=== PATIENT | female | born 1960 | race Caucasian/White ===

== ENCOUNTER 2020-01-02 10:28 | Emergency (ER) | payer OTHER, SELFPAY ==
--- NOTE | ~2020-01-02 | XR_ITS ---
EXAMINATION: XR chest 1V portable DATE: 01/02/2020 11:21 INDICATION: Chest pain. TECHNIQUE: A single frontal view of the chest was obtained. COMPARISON: Chest single view 03/21/2019, chest CT 08/12/2012 FINDINGS: The patient is rotated to her left. There is mild scarring at right lung apex. No pleural e ffusion or pneumothorax. The heart size is normal. IMPRESSION: 1. Mild scarring at right lung apex. Reviewed, dictated and finalized at location B. INE PAN GREASER
--- NOTE | ~2020-01-02 | CT_ITS ---
EXAMINATION: CTA chest DATE: 01/02/2020 12:06 INDICATION: Shortness of breath. Back pain radiating to the chest. TECHNIQUE: Computed tomographic angiography (CTA) of the chest was performed with 90 mL Omnipaque-350 intravenous contrast. Automated exposure control and iterative reconstruction technique were employe d. The dose-length product was 154.51 mGy-cm. Maximum intensity projection 3D-reconstructions of the aorta and other arteries were constructed by the technologist on a separate workstation. COMPARISON: Chest CT 08/12/2012 FINDINGS: There is mild scarring at the lung apices. There is mild emphysema. There is mild atelectas is bilaterally. No pleural effusion. The heart size is normal. There are coronary artery calcificatio ns. No pericardial effusion. There is aortic atherosclerosis. No aneurysm or dissection. There is no pulmonary embolus. There are approximately 4 stones in left kidney measuring up to 3 mm. There is a c hronic compression fracture of T4 vertebral body. There is a hemangioma in T2 vertebral body. IMPRESSION: 1. Aortic atherosclerosis. No aneurysm or dissection. 2. No pulmonary embolus. 3. Mild emphysema. Reviewed, dictated and finalized at location B. SFORMER INSPECTOR
[2020-01-02 10:35] VITALS: BP 191/113; PULSE 91; RESP 18; TEMP 36.8
[2020-01-02 10:43] VITALS: BP 134/76; PULSE 78; RESP 18; O2SAT 99
--- NOTE | 2020-01-02 11:01 | ECG_ITS ---
Measurements Intervals [place] Rate: 80 P: 80 CT: 158 QRS: 85 QRSD: 77 T: 89 QT: 358 QTc: 414 Interpretive Statements SINUS RHYTHM RIGHT ATRIAL ENLARGEMENT CANNOT RULE OUT SEPTAL INFARCT, AGE INDETERMINATE BORDERLINE T WAVE ABNORMALITY- HIGH LATERAL LEADS BASELINE ARTIFACT- I, III ABNORMAL ECG Electronically Signed On 01-02-2020 13:49:23 MANAGER AUDIO by Varun Sepulveda D.O.
[2020-01-02 11:18] LABS: Basophils Percent Auto 0.5 % (0.2-1.2); Eosinophils Absolute Auto 0.1 K/mm3 (0-0.3); Eosinophils Percent Auto 1.4 % (0-4.4); Hematocrit 48.4 % (37.0-47.0); Hemoglobin 16.4 g/dL (12.0-15.0); Immature Granulocyte Absolute 0.02 K/mm3 (0.00-0.031); Immature Granulocyte Percent A 0.3 % (0-0.5); Lymphocytes Absolute Auto 2.31 K/mm3 (0.9-3.2); Lymphocytes Percent Auto 31.3 % (18.3-44.2); Mean Corpuscular HGB Conc 33.9 g/dl (32-36); Mean Corpuscular Hemoglobin 30.5 pg (26-34); Mean Platelet Volume 8.3 fl (7.4-10.4); Monocytes Absolute Auto 0.5 K/mm3 (0.1-0.6); Monocytes Percent Auto 7.1 % (2.6-8.5); Neutrophils Absolute Auto 4.4 K/mm3 (1.3-6.7); Neutrophils Percent Auto 59.4 % (45.5-73.1); Platelet Count Result 187 k/mm3 (150-375); Red Blood Count 5.38 M/mm3 (4.2-5.4); Red Cell Distribution Width 14.5 % (11.5-14.5); White Blood Count 7.4 K/mm3 (4.5-10.0)
[2020-01-02 11:29] LABS: INR 0.9; Prothrombin Time 12.3 Seconds (11.1-14.7)
[2020-01-02 11:30] LABS: Partial Thromboplastin Time 28.9 SECONDS (22.3-36.8)
[2020-01-02 11:32] LABS: D Dimer 0.78 ug/mL (<0.48)
[2020-01-02 11:33] LABS: Alanine Aminotransferase 16 U/L (4-35); Albumin Level 4.8 g/dL (3.5-5.1); Alkaline Phosphatase 89 U/L (38-126); Anion Gap 9 mmol/L (8-16); Aspartate Amino Transferase 28 U/L (14-36); Bilirubin,Total 0.6 mg/dL (0.2-1.3); Blood Urea Nitrogen 15 mg/dL (7-17); Calcium 9.8 mg/dL (8.4-10.2); Carbon Dioxide 29 mmol/L (22-30); Chloride 101 mmol/L (98-107); Estimated CRCL calculation 34 ml/min; Estimated Glomerular Filt Rate 57; Glucose 98 mg/dL (65-105); Potassium 4.4 mmol/L (3.4-5.0); Sodium 139 mmol/L (137-145)
[2020-01-02 11:45] LABS: Troponin I < 0.012 ng/mL (0.000-0.034)
[2020-01-02] MEDS: ONDANSETRON INJ 4 MG/2 ML VIAL IV PUSH (11:49)
--- NOTE | 2020-01-02 12:42 | ED.GENADULT ---
HPI - General Adult General Chief complaint: Back Pain/Injury Stated complaint: left side rib pain Time Seen by Provider: 01/02/20 10:53 Source: patient Mode of arrival: ambulatory Limitations: no limitations History of Present Illness HPI narrative: Patient is a 59-year-old female who presents to emergency department for evaluation of left-sided back and lateral chest discomfort for the last 24 hours patient notes that the pain is worse with movement and breathing patient denies injury trauma URI symptoms or similar occurrence. Related Data Home Medications Medication Instructions Recorded Confirmed hydrochlorothiazide 25 mg PO DAILY 03/21/19 simvastatin mg DAILY 03/21/19 aspirin [Aspir-81] 01/02/20 01/02/20 carvedilol 3.125 mg PO Q12H 01/02/20 01/02/20 clopidogrel 01/02/20 enalapril maleate 2.5 mg PO DAILY 01/02/20 01/02/20 ergocalciferol (vitamin D2) unit PO 01/02/20 [Vitamin D2] rosuvastatin 20 mg PO DAILY 01/02/20 01/02/20 Allergies Allergy/AdvReac Type Severity Reaction Status Date / Time No Known Allergies Allergy Verified 01/02/20 11:37 Review of Systems Review of Systems: All systems reviewed & are unremarkable except as noted in HPI and below PMFSH Past Medical History Medical History COPD (chronic obstructive pulmonary disease) Emphysema of lung Heart murmur Hyperlipidemia Kidney stone Right arm fracture Surgical History Surgical History H/O removal of cyst History of orthopedic surgery right third finger on right hand x3 Hx of section x3 Family History Family History (Updated 03/21/19 @ 18:47 by Sofia Sood) Mother Hx of CABG, Onset Age: 77 Father Arthritis Social History Social History Smoking packs per day: 1 Smoking cigarettes per day: 20.0 Years smoked: 33 Smoking pack-years: 33.00 Smoking status: Current every day smoker Tobacco type: cigarettes Second hand tobacco smoke exposure: Yes Gender identity (if verbalized by the patient): Female Exam Narrative: Exam Narrative: GENERAL: Well-appearing, well-nourished, and in no acute distress. HEAD: Normocephalic, atraumatic. EYES: PERRLA and EOMI. ENT: Nares clear, no rhinorrhea or epistaxis. Mucous membranes moist. CHEST: Clear to auscultation. No respiratory distress. No wheezes rales or rhonchi HEART: Regular rate and rhythm. No murmur heard. Normal peripheral pulses. ABDOMEN: Soft, nontender, nondistended EXTREMITIES: Normal range of motion. No edema. Tenderness of the posterior lateral left-sided ribs no rash or deformity noted SKIN: Warm, dry, no rash. NEURO: No focal deficits. Alert and oriented x3. Cranial nerves II through XII grossly intact PSYCH: Normal mood and affect. Course Course Emergency Course: Patient in the room at this time in no distress given pain medication and had evaluation with no high risk changes in the blood work or imaging will be discharged home for follow-up on an outpatient basis patient advised to watch for rash as could develop shingles as a possible cause no pneumonia or URI symptoms are seen patient is felt appropriate for outpatient care given reasons to return Vital Signs Vital signs: Vital Signs Temperature 98.3 F 01/02/20 10:35 Pulse Rate 91 01/02/20 10:35 Respiratory Rate 18 01/02/20 10:35 Blood Pressure 191/113 H 01/02/20 10:35 Temperature 98.3 F 01/02/20 10:35 Pulse Rate 78 01/02/20 10:43 Respiratory Rate 18 01/02/20 10:43 Blood Pressure 134/76 01/02/20 10:43 Pulse Oximetry 99 01/02/20 10:43 Medical Decision Making [facility] Narrative Medical decision making narrative: Patients EKGs and labs are without significant high risk changes. Cardiac risk factors were reviewed. Negative CTA testing of the chest. patient is felt to b reasonable
[2020-01-02 12:54] VITALS: BP 142/78; PULSE 78; RESP 18; TEMP 36.7; O2SAT 99
[2020-01-02] MEDS: HYDROcodone/acetaminophen (*CRX) 5-325 MG TABLET 1 TAB PO (12:59)
== END 2020-01-02 13:04 | disposition home or self-care (01) ==
PROVIDERS: Emergency Medicine Emergency Medical Services; Emergency Provider Emergency Medicine
DX: R07.89 Other chest pain (principal); J43.9 Emphysema, unspecified; E78.5 Hyperlipidemia, unspecified; Z87.442 Personal history of urinary calculi; F17.210 Nicotine dependence, cigarettes, uncomplicated; R94.31 Abnormal electrocardiogram [ECG] [EKG]
CPT/HCPCS: 36415; 71045; 71275; 80053; 84484; 85025; 85380; 85610; 85730; 93005; 96374; 99284; A9270; J2405; Q9967

== ENCOUNTER 2020-05-16 08:07 | Outpatient (CLI) | payer OTHER, SELFPAY ==
--- NOTE | ~2020-05-16 | CT_ITS ---
EXAMINATION: CT diagnostic chest wo con EXAM DATE: 05/16/2020 08:29 INDICATION: Multiple lung nodules. Follow-up. TECHNIQUE: Spiral CT of the chest without contrast. Axial, coronal and sagittal images were reviewe d. Coronal maximum intensity pixel images of chest reviewed. The dose-length product (DLP) for this examination was 58.44 mGy-cm. The exposure was tailored according to patient size (auto mA exposure control), and iterative reconstruction (ASIR) was used as additional dose reduction technique. Jonel rison is made to prior examination from 01/02/2020. FINDINGS: There is severe chronic hyperinflation and mild emphysema. Hyperinflation can be seen with chronic obstructive pulmonary disease (a clinical diagnosis of functional impairment), but is not di agnostic of it. Hyperinflation Some small scattered linear regions of scarring. No suspicious pulmonary nodules. Ther e are no pleural or pericardial effusions. Tracheobronchial tree is patent. There is no mediastin al, hilar or axillary lymphadenopathy. There is no pneumothorax. Heart normal in size. There ar e dense left anterior descending, could be severe coronary arterial sclerosis and/or coronary artery stent(s), which are difficult to distinguish due to cardiac motion on this non-gated exam. Correlate with cardiac history and consider cardiology consult if not recently evaluated. Left nephrolithiasis . The bones are unremarkable. IMPRESSION: 1. No suspicious pulmonary nodules. 2. Severe hyperinflation. Mild emphysema. 3. Left anterior descending coronary artery stent versus calcification. Reviewed, dictated and finalized at location A.
== END 2020-05-16 08:08 | disposition home or self-care (01) ==
PROVIDERS: PCP Physician Assistant; Visit Provider Physician Assistant
DX: R91.8 Other nonspecific abnormal finding of lung field (principal); J43.9 Emphysema, unspecified
CPT/HCPCS: 71250

== ENCOUNTER 2020-08-13 16:17 | Emergency (ER) | payer OTHER, SELFPAY ==
[2020-08-13] VITALS (9 sets, daily range): BP systolic 132–177; BP diastolic 71–77; PULSE 22–88; RESP 18–20; TEMP 36.4; O2SAT 96–100
--- NOTE | ~2020-08-13 | XR_ITS ---
EXAMINATION: XR chest 2V DATE: 08/13/2020 17:15 INDICATION: Left chest pain. Shortness of breath. TECHNIQUE: Frontal and lateral views of the chest were obtained. COMPARISON: Chest single view 01/02/2020, chest CT 05/16/2020 FINDINGS: There is mild scarring at right lung apex. No pleural effusion or pneumothorax. The heart s ize is normal. IMPRESSION: 1. Stable mild scarring at right lung apex. Reviewed, dictated and finalized at location A.
--- NOTE | ~2020-08-13 | CT_ITS ---
EXAMINATION: CTA chest PE protocol DATE: 08/13/2020 20:17 INDICATION: Chest pain. Shortness of breath. TECHNIQUE: Computed tomography angiography (CTA) of the chest was performed with 100 mL Omnipaque-350 intravenous contrast timed to evaluate the pulmonary arteries. Coronal maximum intensity projection 3D-reconstructions were created by the technologist. Automated exposure control and iterative reconst ruction technique were employed. The dose-length product was 140.68 mGy-cm. COMPARISON: Chest CT 05/16/2020 FINDINGS: There is mild scarring at the lung apices. There is mild emphysema. There is mild atelectas is bilaterally. No pleural effusion. The heart size is normal. There are coronary artery calcificatio ns. No pericardial effusion. There is no pulmonary embolus. There is a hemangioma in T2 vertebral bod y. There is a chronic compression fracture of T4. IMPRESSION: 1. No pulmonary embolus. 2. Mild emphysema. Reviewed, dictated and finalized at location A.
--- NOTE | 2020-08-13 16:18 | ECG_ITS ---
Measurements Intervals [place] Rate: 75 P: 86 DE: 151 QRS: 92 QRSD: 79 T: 85 QT: 356 QTc: 400 Interpretive Statements SINUS RHYTHM RIGHT ATRIAL ENLARGEMENT LEFT ATRIAL ENLARGEMENT ANTEROSEPTAL INFARCT, AGE INDETERMINATE PEAKED T WAVES- CONSIDER HYPERKALEMIA OR ISCHEMIA BASELINE ARTIFACT- I, II, AVR, AVL ABNORMAL ECG Electronically Signed On 08-13-2020 19:49:50 CDT by Varun Sepulveda D.O.
[2020-08-13 16:47] LABS: Basophils Absolute Auto 0.1 K/mm3 (0.0-0.1); Basophils Percent Auto 0.3 % (0.2-1.2); Eosinophils Absolute Auto 0.1 K/mm3 (0-0.3); Eosinophils Percent Auto 0.9 % (0-4.4); Hematocrit 46.1 % (37.0-47.0); Immature Granulocyte Absolute 0.08 K/mm3 (0.00-0.031); Immature Granulocyte Percent A 0.5 % (0-0.5); Lymphocytes Absolute Auto 1.75 K/mm3 (0.9-3.2); Lymphocytes Percent Auto 11.6 % (18.3-44.2); Mean Corpuscular HGB Conc 32.5 g/dl (32-36); Mean Corpuscular Hemoglobin 29.9 pg (26-34); Mean Platelet Volume 8.8 fl (7.4-10.4); Monocytes Absolute Auto 0.7 K/mm3 (0.1-0.6); Monocytes Percent Auto 4.5 % (2.6-8.5); Neutrophils Absolute Auto 12.5 K/mm3 (1.3-6.7); Neutrophils Percent Auto 82.2 % (45.5-73.1); Platelet Count Result 231 k/mm3 (150-375); Red Blood Count 5.01 M/mm3 (4.2-5.4); Red Cell Distribution Width 14.4 % (11.5-14.5); White Blood Count 15.2 K/mm3 (4.5-10.0)
[2020-08-13 16:57] LABS: INR 0.9; Partial Thromboplastin Time 27.5 SECONDS (22.3-36.8); Prothrombin Time 13.2 Seconds (11.1-14.7)
[2020-08-13 16:59] LABS: Anion Gap 11 mmol/L (8-16); Blood Urea Nitrogen 14 mg/dL (7-17); Calcium 9.6 mg/dL (8.4-10.2); Carbon Dioxide 26 mmol/L (22-30); Chloride 101 mmol/L (98-107); Estimated CRCL calculation 34 ml/min; Estimated Glomerular Filt Rate 57; Glucose 150 mg/dL (65-105); Potassium 4.7 mmol/L (3.4-5.0); Sodium 138 mmol/L (137-145)
[2020-08-13 17:11] LABS: Troponin I < 0.012 ng/mL (0.000-0.034)
--- NOTE | 2020-08-13 18:14 | ED.GENADULT ---
HPI - General Adult General Chief complaint: Chest Pain Stated complaint: back pain, chest pain Time Seen by Provider: 08/13/20 17:53 Source: patient History of Present Illness HPI narrative: Patient is a 59 y/o female complaining of left sided chest pain and back pain since yesterday. She describes her pain as sharp and rates it as 9/10. She states that taking a deep breath aggravates her pain. However, she is not more SOB than usual. Related Data Home Medications Medication Instructions Recorded Confirmed hydrochlorothiazide 25 mg PO DAILY 03/21/19 simvastatin mg DAILY 03/21/19 aspirin [Aspir-81] 01/02/20 01/02/20 carvedilol 3.125 mg PO Q12H 01/02/20 01/02/20 clopidogrel 01/02/20 enalapril maleate 2.5 mg PO DAILY 01/02/20 01/02/20 ergocalciferol (vitamin D2) unit PO 01/02/20 [Vitamin D2] rosuvastatin 20 mg PO DAILY 01/02/20 01/02/20 Allergies Allergy/AdvReac Type Severity Reaction Status Date / Time No Known Allergies Allergy Verified 01/02/20 11:37 Review of Systems Constitutional: Constitutional: Denies chills, Denies fever(s), Denies headache(s) and Denies weakness Eyes: Eyes: Denies blurry vision ENT: Denies headache(s) and Denies neck pain Cardiovascular: Cardiovascular: Reports chest pain and Denies dyspnea Respiratory: Respiratory: Denies cough and Denies dyspnea Gastrointestinal: Gastrointestinal: Denies abdominal pain, Denies diarrhea, Denies nausea and Denies vomiting Genitourinary: Genitourinary: Denies hematuria and Denies dysuria Musculoskeletal: Musculoskeletal: Denies back pain and Denies neck pain Neurologic: Denies headache(s) and Denies weakness [facility] Past Medical History Medical History COPD (chronic obstructive pulmonary disease) Emphysema of lung Heart murmur Hyperlipidemia Kidney stone Right arm fracture Surgical History Surgical History H/O removal of cyst History of orthopedic surgery right third finger on right hand x3 Hx of section x3 Family History Family History (Updated 03/21/19 @ 18:47 by Sofia Sood) Mother Hx of CABG, Onset Age: 77 Father Arthritis Social History Social History Smoking packs per day: 1 Smoking cigarettes per day: 20.0 Years smoked: 33 Smoking pack-years: 33.00 Smoking status: Current every day smoker Tobacco type: cigarettes Second hand tobacco smoke exposure: Yes Gender identity (if verbalized by the patient): Female Exam Const: General: no acute distress and well developed Orientation/consciousness: oriented to person, oriented to place, oriented to time and patient oriented x3 HENMT: Head: normocephalic Ears: external ears normal General nose exam: Normal external nose present Eyes: General: appearance normal, both eyes and all related structures Conjunctivae: conjunctivae normal Neck: Neck: normal visual inspection and full ROM Chest: Chest palpation & inspection: normal inspection of the chest and no tenderness Resp: Effort & Inspection: normal respiratory effort Auscultation: clear to auscultation bilaterally Cardio: Rate: regular rate Rhythm: regular rhythm GI: GI Palp: No abdominal tenderness and Yes Soft to palpation Skin: General skin exam: normal color and turgor normal Neuro: General: oriented to person, oriented to place, oriented to time and patient oriented x3 Cognition (Neuro): normal cognition Extrem: General: normal to inspection, full ROM and no pedal edema Psych: Appearance: grossly normal Mental Status: mental status grossly normal Affect: normal affect Course Reevaluation(s) Reevaluation #1: Rechecked. Patient feels better. Pain is less, but not completely gone. I advised patient to be admitted for observation and further evaluation. However, patient states that she does not w
[2020-08-13 18:22] LABS: D Dimer 0.82 ug/mL (<0.48)
[2020-08-13] MEDS: KETOROLAC 15 MG/ML VIAL (*BKC) IV PUSH (18:29)
[2020-08-13 18:56] LABS: Troponin I < 0.012 ng/mL (0.000-0.034)
== END 2020-08-13 22:21 | disposition home or self-care (01) ==
PROVIDERS: Emergency Medicine; Emergency Provider Emergency Medicine; PCP Physician Assistant
DX: R07.9 Chest pain, unspecified (principal); J43.9 Emphysema, unspecified; E78.5 Hyperlipidemia, unspecified; Z87.442 Personal history of urinary calculi; F17.210 Nicotine dependence, cigarettes, uncomplicated; R94.31 Abnormal electrocardiogram [ECG] [EKG]
CPT/HCPCS: 36415; 71046; 71275; 80048; 84484; 85025; 85380; 85610; 85730; 93005; 96374; 99284; J1885; Q9967

== ENCOUNTER 2021-03-02 23:19 | Emergency (ER) | payer OTHER, SELFPAY ==
--- NOTE | ~2021-03-02 | XR_ITS ---
XR wrist LT min 3V, XR hand LT min 3V 03/03/2021 01:18 Indication: Left hand and wrist pain after fall Procedure: 4 views left wrist and 3 views left hand Comparison: No prior studies for comparison. Findings: There is a triquetral fracture dorsally seen on the lateral view. Osteopenia. There is a de generative cyst in the proximal pole of the scaphoid. There is mild polyarticular osteoarthritis. No scaphoid fracture. Impression: 1: Triquetral fracture. Reviewed, dictated and finalized at location A. GN MAINTENANCE ENGINEER Impression: 1: Triquetral fracture. Impression: 1: Triquetral fracture.
[2021-03-02 23:24] VITALS: BP 147/60; PULSE 81; RESP 18; TEMP 36.4; O2SAT 100
[2021-03-03 02:11] VITALS: BP 161/77; PULSE 80; RESP 18; O2SAT 98
--- NOTE | 2021-03-03 02:29 | ED.GENADULT ---
HPI - General Adult General Chief complaint: Extremity Injury, Upper Stated complaint: Left Wrist Injury Time Seen by Provider: 03/03/21 02:18 History of Present Illness HPI narrative: Patient 60-year-old female presents emerged from with chief complaint of left wrist pain. The patient reports that she was rollerskating she fell and landed on a outstretched left hand. Patient states she has pain in the left wrist worse with movement and improved with rest patient denies deformity states that it hurts with any kind of movement. Related Data Home Medications Medication Instructions Recorded Confirmed hydrochlorothiazide 25 mg PO DAILY 03/21/19 simvastatin mg DAILY 03/21/19 aspirin [Aspir-81] 01/02/20 01/02/20 carvedilol 3.125 mg PO Q12H 01/02/20 01/02/20 clopidogrel 01/02/20 enalapril maleate 2.5 mg PO DAILY 01/02/20 01/02/20 ergocalciferol (vitamin D2) unit PO 01/02/20 [Vitamin D2] rosuvastatin 20 mg PO DAILY 01/02/20 01/02/20 Allergies Allergy/AdvReac Type Severity Reaction Status Date / Time No Known Allergies Allergy Verified 03/02/21 23:27 Review of Systems Review of Systems: A 10 system review of systems was completed on the patient and is negative except for what is stated in the HPI. Nursing and ancillary documentation was reviewed. [facility] Past Medical History Medical History COPD (chronic obstructive pulmonary disease) Emphysema of lung Heart murmur Hyperlipidemia Kidney stone Right arm fracture Surgical History Surgical History H/O removal of cyst History of orthopedic surgery right third finger on right hand x3 Hx of section x3 Family History Family History Mother Hx of CABG, Onset Age: 77 Father Arthritis Social History Social History Smoking packs per day: 1 Smoking cigarettes per day: 20.0 Years smoked: 33 Smoking pack-years: 33.00 Smoking status: Current every day smoker Tobacco type: cigarettes Second hand tobacco smoke exposure: Yes Gender identity (if verbalized by the patient): Female Exam Narrative: GENERAL: Well-appearing, well-nourished, and in no acute distress. HEAD: Normocephalic, atraumatic. EYES: PERRLA and EOMI. ENT: Nares clear, no rhinorrhea or epistaxis. Mucous membranes moist. NECK: Supple. CHEST: Clear to auscultation. No respiratory distress. HEART: Regular rate and rhythm. No murmur heard. Normal peripheral pulses. ABDOMEN: Soft, nontender, nondistended, normal active bowel sounds. EXTREMITIES: Normal range of motion. No edema. Diffuse tenderness in the left wrist no deformity noted. SKIN: Warm, dry, no rash. NEURO: No focal deficits. Alert and oriented x3. PSYCH: Normal mood and affect. Course Course Emergency Course: Plain film x-ray of the wrist and hand there is a slight irregularity one of the carpal bones. Vital Signs Vital signs: Vital Signs Temperature 36.4 C L 03/02/21 23:24 Pulse Rate 81 03/02/21 23:24 Respiratory Rate 18 03/02/21 23:24 Blood Pressure 147/60 H 03/02/21 23:24 Pulse Oximetry 100 03/02/21 23:24 Temperature 36.4 C L 03/02/21 23:24 Pulse Rate 80 03/03/21 02:11 Respiratory Rate 18 03/03/21 02:11 Blood Pressure 161/77 H 03/03/21 02:11 Pulse Oximetry 98 03/03/21 02:11 Medical Decision Making Vital Signs Vital Signs: Vital Signs Temperature 36.4 C L 03/02/21 23:24 Pulse Rate 81 03/02/21 23:24 Respiratory Rate 18 03/02/21 23:24 Blood Pressure 147/60 H 03/02/21 23:24 Pulse Oximetry 100 03/02/21 23:24 Temperature 36.4 C L 03/02/21 23:24 Pulse Rate 80 03/03/21 02:11 Respiratory Rate 18 03/03/21 02:11 Blood Pressure 161/77 H 03/03/21 02:11 Pulse Oximetry 98 03/03/21 02:11
[2021-03-03] MEDS: HYDROcodone/acetaminophen (*CRX) 5-325 MG TABLET 1 TAB PO (02:50)
--- NOTE | 2021-03-09 09:08 | PC.NURSE ---
LATE ENTRY This note is being entered to document information to the patient's record. The following information was omitted on [03/09/21], by [Anitha TROY for left volar short arm by Dr. Mcintosh].
== END 2021-03-03 04:00 | disposition home or self-care (01) ==
LOC: ANHED 03-03 02:40
PROVIDERS: Emergency Provider Emergency Medicine; PCP Physician Assistant
DX: S62.112A Displaced fracture of triquetrum [cuneiform] bone, left wrist, initial encounter for closed fracture (principal); J43.9 Emphysema, unspecified; E78.5 Hyperlipidemia, unspecified; Z87.442 Personal history of urinary calculi; F17.210 Nicotine dependence, cigarettes, uncomplicated; V00.121A Fall from non-in-line roller-skates, initial encounter; Y93.51 Activity, roller skating (inline) and skateboarding
CPT/HCPCS: 29125; 73110; 73130; 99284; A4565; A9270

== ENCOUNTER 2021-03-12 18:47 | Emergency (ER) | payer OTHER, SELFPAY ==
[2021-03-12 18:58] VITALS: BP 167/67; PULSE 111; RESP 16; TEMP 37.2; O2SAT 97
--- NOTE | 2021-03-12 19:10 | ED.EAR ---
HPI - Ear Problem General Chief complaint: Ear Stated complaint: Ear Pain Time Seen by Provider: 03/12/21 19:05 Source: patient, RN notes reviewed and old records reviewed Mode of arrival: ambulatory Limitations: no limitations History of Present Illness HPI Narrative: 60-year-old female presents to the [facility] with left ear discharge and right ear pain. Reports that started yesterday. Denies fevers. MD Complaint: ear pain (Right) and ear discharge (Left) Duration: constant Relieving factors: nothing Exacerbating factors: nothing Treatment prior to arrival: none Related Data Home Medications Medication Instructions Recorded Confirmed enalapril maleate 2.5 mg PO DAILY 01/02/20 03/12/21 ergocalciferol (vitamin D2) 25,000 unit PO DAILY 01/02/20 03/12/21 [Vitamin D2] rosuvastatin 20 mg PO DAILY 01/02/20 03/12/21 rivaroxaban [Xarelto] 2.5 mg PO DAILY 03/12/21 03/12/21 verapamil 120 mg PO DAILY 03/12/21 03/12/21 Allergies Allergy/AdvReac Type Severity Reaction Status Date / Time No Known Allergies Allergy Verified 03/12/21 19:08 Review of Systems Review of Systems: All systems reviewed & are unremarkable except as noted in HPI and below Constitutional: Constitutional: Reports no additional constitutional complaints, Denies chills and Denies fever(s) Eyes: Eyes: Reports no additional eye complaints ENT: Reports as per HPI, Denies change in voice, Denies dental pain, Denies vertigo, Denies dizziness and Denies throat swelling Comments: Ear pain right-sided, left-sided discharge Cardiovascular: Cardiovascular: Reports no additional cardiovascular complaints, Denies chest pain and Denies dyspnea Respiratory: Respiratory: Reports no additional respiratory complaints, Denies cough and Denies dyspnea Gastrointestinal: Gastrointestinal: Reports no additional gastrointestinal complaints, Denies abdominal pain, Denies nausea and Denies vomiting Musculoskeletal: Musculoskeletal: Reports no additional musculoskeletal complaints Integumentary/Breasts: Skin/Breast: Reports system reviewed and no additional complaints, except as docu Neurologic: Reports system reviewed and no additional complaints, except as documented, Denies vertigo and Denies dizziness Psychiatric: Psychiatric: Reports no additional psychiatric complaints Allergic/Immunologic: Allergic/Immunologic: Reports no additional allergic/immunologic complaints and Denies throat swelling PMFSH Past Medical History Medical History COPD (chronic obstructive pulmonary disease) Emphysema of lung Heart murmur Hyperlipidemia Kidney stone Right arm fracture Surgical History Surgical History H/O removal of cyst History of orthopedic surgery right third finger on right hand x3 Hx of section x3 Family History Family History Mother Hx of CABG, Onset Age: 77 Father Arthritis Social History Social History Smoking packs per day: 1 Smoking cigarettes per day: 20.0 Years smoked: 33 Smoking pack-years: 33.00 Smoking status: Current every day smoker Tobacco type: cigarettes Second hand tobacco smoke exposure: Yes Gender identity (if verbalized by the patient): Female Comments At the time of my signature, I reviewed and agree with the nursing past medical, surgical, social, and family history. There is no relevant family history pertinent to the patient complaint. Exam Const: General: healthy appearing, no acute distress, alert and awake Nutritional Appearance: well nourished, thin and underweight Orientation/consciousness: patient oriented x3 Limitations: no limitations HENMT: Head: normal to inspection and atraumatic Ears: external ears normal, mastoids normal and TM abnormal erythematous on the left, with fluid behind the
== END 2021-03-12 19:16 | disposition home or self-care (01) ==
PROVIDERS: Emergency Provider Nurse Practitioner; PCP Physician Assistant
DX: H66.012 Acute suppurative otitis media with spontaneous rupture of ear drum, left ear (principal); J44.9 Chronic obstructive pulmonary disease, unspecified; R01.1 Cardiac murmur, unspecified; E78.5 Hyperlipidemia, unspecified; F17.210 Nicotine dependence, cigarettes, uncomplicated
CPT/HCPCS: 99213; G0463

== ENCOUNTER 2021-03-31 14:20 | Emergency (ER) | payer OTHER, SELFPAY ==
--- NOTE | ~2021-03-31 | XR_ITS ---
EXAMINATION: XR chest 2V EXAM DATE: 03/31/2021 15:38 INDICATION: Ear Ache, left-sided chest pain,Feels Fast Hr,Hx COPD,HTN, headache. TECHNIQUE: Frontal and lateral projections of the chest obtained and reviewed. Comparison is made to prior examination from 08/13/2020. FINDINGS: The lungs are hyperinflated which can be seen with chronic obstructive pulmonary disease ( a clinical diagnosis of functional impairment), but is not diagnostic of it. The lungs are clear. Th ere are no pleural effusions. The cardiomediastinal silhouette is within normal limits. There is no pneumothorax suspected. The bones and soft tissues are unremarkable. IMPRESSION: 1. No acute cardiopulmonary findings. 2. Hyperinflation. Reviewed, dictated and finalized at location [facility]
--- NOTE | 2021-03-31 14:21 | ECG_ITS ---
Measurements Intervals [place] Rate: 103 P: 83 NM: 148 QRS: 79 QRSD: 72 T: 78 QT: 319 QTc: 419 Interpretive Statements SINUS TACHYCARDIA POSSIBLE RIGHT ATRIAL ENLARGEMENT POSSIBLE LEFT ATRIAL ENLARGEMENT POSSIBLE LEFT VENTRICULAR HYPERTROPHY CANNOT RULE OUT SEPTAL INFARCT, AGE INDETERMINATE BASELINE ARTIFACT- I, II, III, AVR, AVL, AVF, V1-V6 ABNORMAL ECG Electronically Signed On 03-31-2021 20:15:22 STONE [place] by Varun Sepulveda D.O.
[2021-03-31 14:25] VITALS: BP 190/81; PULSE 103; RESP 20; TEMP 36; O2SAT 97
[2021-03-31 14:38] LABS: Basophils Percent Auto 0.4 % (0.2-1.2); Eosinophils Absolute Auto 0.1 K/mm3 (0-0.3); Eosinophils Percent Auto 0.8 % (0-4.4); Hematocrit 41.1 % (37.0-47.0); Hemoglobin 13.9 g/dL (12.0-15.0); Immature Granulocyte Absolute 0.02 K/mm3 (0.00-0.031); Immature Granulocyte Percent A 0.2 % (0-0.5); Lymphocytes Absolute Auto 1.94 K/mm3 (0.9-3.2); Lymphocytes Percent Auto 19.1 % (18.3-44.2); Mean Corpuscular HGB Conc 33.8 g/dl (32-36); Mean Corpuscular Hemoglobin 31.4 pg (26-34); Mean Platelet Volume 8.1 fl (7.4-10.4); Monocytes Absolute Auto 0.7 K/mm3 (0.1-0.6); Monocytes Percent Auto 6.5 % (2.6-8.5); Neutrophils Absolute Auto 7.4 K/mm3 (1.3-6.7); Platelet Count Result 248 k/mm3 (150-375); Red Blood Count 4.42 M/mm3 (4.2-5.4); Red Cell Distribution Width 14.4 % (11.5-14.5); White Blood Count 10.2 K/mm3 (4.5-10.0)
[2021-03-31 14:48] LABS: Prothrombin Time 13.2 Seconds (11.1-14.7)
[2021-03-31 14:49] LABS: Alanine Aminotransferase 18 U/L (4-35); Albumin Level 4.5 g/dL (3.5-5.1); Alkaline Phosphatase 110 U/L (38-126); Anion Gap 8 mmol/L (8-16); Aspartate Amino Transferase 24 U/L (14-36); Bilirubin,Total 0.5 mg/dL (0.2-1.3); Blood Urea Nitrogen 18 mg/dL (7-17); Carbon Dioxide 24 mmol/L (22-30); Chloride 107 mmol/L (98-107); Estimated CRCL calculation 29 ml/min; Estimated Glomerular Filt Rate 51; Glucose 165 mg/dL (65-110); Lipase 223 U/L (23-300); Partial Thromboplastin Time 32.5 SECONDS (22.3-36.8); Potassium 3.8 mmol/L (3.4-5.0); Sodium 139 mmol/L (137-145)
[2021-03-31 15:01] LABS: Troponin I < 0.012 ng/mL (0.000-0.034)
--- NOTE | 2021-03-31 15:20 | PC.NURSE ---
WHEN CALLING FOR PT TO GO TO HER ROOM IT WAS NOTED THAT SHE WAS OUTSIDE SMOKING A CIGARETTE.
--- NOTE | 2021-03-31 15:56 | ED.CHESTPAIN ---
HPI - Chest Pain General Chief Complaint: Chest Pain Stated Complaint: CHEST PAIN Time Seen by Provider: 03/31/21 15:56 Source: patient Mode of arrival: ambulatory Limitations: no limitations History of Present Illness HPI narrative: Patient is a 60-year-old female complaining of chest discomfort, described as thumping , mild, nonradiating started this afternoon and now resolved. Patient denies any shortness of breath, abdominal pain, nausea, vomiting, diaphoresis, fever or chills. Related Data Home Medications Medication Instructions Recorded Confirmed enalapril maleate 2.5 mg PO DAILY 01/02/20 03/12/21 ergocalciferol (vitamin D2) 25,000 unit PO DAILY 01/02/20 03/12/21 [Vitamin D2] rosuvastatin 20 mg PO DAILY 01/02/20 03/12/21 rivaroxaban [Xarelto] 2.5 mg PO DAILY 03/12/21 03/12/21 verapamil 120 mg PO DAILY 03/12/21 03/12/21 Allergies Allergy/AdvReac Type Severity Reaction Status Date / Time iodine Allergy Unknown Rash Verified 03/14/21 10:21 Review of Systems Review of Systems: All systems reviewed & are unremarkable except as noted in HPI and below Constitutional: Constitutional: Denies body ache(s), Denies chills, Denies excessive sweating, Denies fatigue, Denies fever(s), Denies headache(s), Denies lethargy, Denies malaise, Denies weakness and Denies weight loss Eyes: Eyes: Denies blurry vision, Denies change in vision and Denies loss of vision ENT: Denies dizziness, Denies ear discharge, Denies headache(s), Denies lip swelling, Denies epistaxis, Denies nasal congestion, Denies neck pain, Denies throat swelling and Denies tongue swelling Cardiovascular: Cardiovascular: Denies chest pain with activity, Denies diaphoresis, Denies rapid heart rate, Denies edema, Denies irregular heart rhythm, Denies lightheadedness, Denies palpitations, Denies dyspnea and Denies dyspnea on exertion Respiratory: Respiratory: Denies chest congestion, Denies cough, Denies hemoptysis, Denies dyspnea and Denies dyspnea on exertion Gastrointestinal: Gastrointestinal: Denies abdominal pain, Denies melena, Denies hematochezia, Denies diarrhea, Denies nausea, Denies vomiting and Denies hematemesis Musculoskeletal: Musculoskeletal: Denies abnormal gait, Denies deformity, Denies joint swelling, Denies limited range of motion, Denies neck pain and Denies numbness Neurologic: Denies Abnormal speech present, Denies abnormal gait, Denies confusion, Denies dizziness, Denies headache(s), Denies focal weakness, Denies loss of vision, Denies numbness, Denies Other visual disturbances, Denies Sensory deficit (Neuro) and Denies weakness Psychiatric: Psychiatric: Denies confusion, Denies depression, Denies auditory hallucinations, Denies homicidal ideation and Denies suicidal ideation Endocrine: Endocrine: Denies cold intolerance, Denies excessive sweating, Denies fatigue, Denies heat intolerance and Denies palpitations Hematologic/Lymphatic: Hematologic/Lymphatic: Denies easy bleeding and Denies easy bruising Allergic/Immunologic: Allergic/Immunologic: Denies lip swelling, Denies throat swelling and Denies tongue swelling PMFSH Past Medical History Medical History Claustrophobia COPD (chronic obstructive pulmonary disease) Emphysema of lung Heart murmur History of heart attack Hyperlipidemia Hypertension Kidney stone Right arm fracture Wears glasses Surgical History Surgical History H/O removal of cyst History of heart artery stent History of orthopedic surgery right third finger on right hand x3 Hx of section x3 Family History Family History Mother Hx of CABG, Onset Age: 77 Father Arthritis Other Hypertension Social History Social History Smoking packs per day: 0.25 Smoking cigarettes per day: 5.
[2021-03-31] MEDS: ASPIRIN 81 MG CHEWABLE TABLET 324 MG PO (17:09)
--- NOTE | 2021-03-31 17:18 | PC.NURSE ---
Second troponin sent to lab. Pt reports her chest pain has resolved. States she feels like she was having an anxiety attack earlier when her symptoms were present. Pt asking if she can try a medication for anxiety. Will speak with MD.
[2021-03-31 17:42] LABS: Troponin I < 0.012 ng/mL (0.000-0.034)
[2021-03-31] MEDS: LORazepam (*CRX) 0.5 MG TABLET PO (17:43)
[2021-03-31 19:34] VITALS: BP 129/72; PULSE 85; RESP 19; O2SAT 97
== END 2021-03-31 19:35 | disposition left against medical advice (07) ==
PROVIDERS: Emergency Medicine; Emergency Provider Emergency Medicine; PCP Physician Assistant
DX: R07.89 Other chest pain (principal); J43.9 Emphysema, unspecified; I25.2 Old myocardial infarction; E78.5 Hyperlipidemia, unspecified; I10 Essential (primary) hypertension; Z87.442 Personal history of urinary calculi; Z79.01 Long term (current) use of anticoagulants; Z95.5 Presence of coronary angioplasty implant and graft; F17.210 Nicotine dependence, cigarettes, uncomplicated; R94.31 Abnormal electrocardiogram [ECG] [EKG]
CPT/HCPCS: 36415; 71046; 80053; 83690; 84484; 85025; 85610; 85730; 93005; 99284; A9270

== ENCOUNTER 2022-03-26 13:50 | Emergency (ER) | payer OTHER, SELFPAY ==
[2022-03-26 14:08] VITALS: BP 146/69; PULSE 101; RESP 16; TEMP 36.4; O2SAT 99
[2022-03-26 14:22] LABS: Basophils Percent Auto 0.4 % (0.2-1.2); Eosinophils Percent Auto 0.5 % (0-4.4); Hematocrit 43.4 % (37.0-47.0); Hemoglobin 14.1 g/dL (12.0-15.0); Immature Granulocyte Absolute 0.01 K/mm3 (0.00-0.031); Immature Granulocyte Percent A 0.1 % (0-0.5); Lymphocytes Absolute Auto 1.49 K/mm3 (0.9-3.2); Lymphocytes Percent Auto 17.9 % (18.3-44.2); Mean Corpuscular HGB Conc 32.5 g/dl (32-36); Mean Corpuscular Hemoglobin 30.7 pg (26-34); Mean Corpuscular Volume 94.3 fl (80-100); Mean Platelet Volume 8.4 fl (7.4-10.4); Monocytes Absolute Auto 0.5 K/mm3 (0.1-0.6); Monocytes Percent Auto 5.6 % (2.6-8.5); Neutrophils Absolute Auto 6.3 K/mm3 (1.3-6.7); Neutrophils Percent Auto 75.5 % (45.5-73.1); Platelet Count Result 164 k/mm3 (150-375); Red Cell Distribution Width 15.9 % (11.5-14.5); White Blood Count 8.3 K/mm3 (4.5-10.0)
[2022-03-26 14:32] LABS: Alanine Aminotransferase 28 U/L (6-35); Albumin Level 4.7 g/dL (3.5-5.1); Alkaline Phosphatase 93 U/L (38-126); Anion Gap 5 mmol/L (8-16); Aspartate Amino Transferase 29 U/L (14-36); Bilirubin,Total 0.4 mg/dL (0.2-1.3); Blood Urea Nitrogen 9 mg/dL (7-17); Calcium 9.4 mg/dL (8.4-10.2); Carbon Dioxide 29 mmol/L (22-30); Chloride 102 mmol/L (98-107); Estimated CRCL calculation 46 ml/min; Estimated Glomerular Filt Rate > 60; Glucose 108 mg/dL (65-110); Potassium 3.6 mmol/L (3.4-5.0); Sodium 136 mmol/L (137-145)
[2022-03-26 14:43] LABS: INR 1.1; Prothrombin Time 13.4 Seconds (11.1-14.7)
[2022-03-26 14:44] LABS: Partial Thromboplastin Time 31.4 SECONDS (22.3-36.8)
--- NOTE | 2022-03-26 16:37 | ED.GENADULT ---
HPI - General Adult General Chief complaint: GI Bleed Stated complaint: pooping blood Time Seen by Provider: 03/26/22 16:24 Source: RN notes reviewed History of Present Illness HPI narrative: Patient presents emergency department from home for blood in stool. Patient states she had an episode yesterday she had a bowel movement that had bright red blood present she states that she only had 1 bowel movement yesterday states that she then had a bowel movement this morning and noted blood with wiping she states there is no gross blood like there was yesterday states that she has had no abdominal pain she denies any fevers or chills nausea vomiting diarrhea or any other symptoms. She states she did have a last colonoscopy approximately 7 years ago she notes that they did find a mild abnormality but does not remember what it was states that she is on Xarelto Related Data Home Medications Medication Instructions Recorded Confirmed enalapril maleate 2.5 mg tablet 2.5 mg PO DAILY 01/02/20 03/12/21 ergocalciferol (vitamin D2) 25,000 25,000 unit PO DAILY 01/02/20 03/12/21 unit capsule rosuvastatin 20 mg tablet 20 mg PO DAILY 01/02/20 03/12/21 rivaroxaban 2.5 mg tablet (Xarelto) 2.5 mg PO DAILY 03/12/21 03/12/21 verapamil 120 mg tablet,extended 120 mg PO DAILY 03/12/21 03/12/21 release Allergies Allergy/AdvReac Type Severity Reaction Status Date / Time iodine Allergy Unknown Rash Verified 03/14/21 10:21 Review of Systems Review of Systems: Gen.: Denies fevers or chills ENT: Denies congestion Respiratory: Denies shortness of breath or cough CV: Denies chest pain or palpitations GI: See HPI Musculoskeletal: Denies back pain or muscle pain Neuro: Denies numbness, tingling, weakness or focal weakness Skin: Denies rash Except as documented, all other systems reviewed and negative [facility] Past Medical History Medical History Claustrophobia COPD (chronic obstructive pulmonary disease) Emphysema of lung Heart murmur History of heart attack Hyperlipidemia Hypertension Kidney stone Right arm fracture Wears glasses Surgical History Surgical History H/O removal of cyst History of heart artery stent History of orthopedic surgery right third finger on right hand x3 Hx of section x3 Family History Family History Mother Hx of CABG, Onset Age: 77 Father Arthritis Other Hypertension Social History Social History Smoking packs per day: 0.25 Smoking cigarettes per day: 5.0 Years smoked: 40 Smoking pack-years: 10.00 Smoking status: Current every day smoker Tobacco type: cigarettes Second hand tobacco smoke exposure: Yes Alcohol intake: never Substance use: never Gender identity (if verbalized by the patient): Female Exam Narrative: APPEARANCE: No acute distress, nontoxic, resting in bed EYES: EOMI HEENT: Normocephalic, atraumatic, OMM RESPIRATORY: No respiratory distress Clear to auscultation bilaterally with no rhonchi wheezing or rales. CARDIOVASCULAR: Regular rate and rhythm without murmurs rubs or gallops. ABDOMINAL: Soft, nontender, nondistended, no rebound or guarding Rectal: Hemorrhoid at the 7 o'clock position with no active bleeding no other hemorrhoids or fissures seen, small amount of soft light brown stool that is Hemoccult negative MUSCULOSKELETAl: Moves all extremities. No clubbing, cyanosis or edema. NEURO: Awake and alert. Following commands, speech normal, no focal deficits SKIN:: Warm, dry. No rashes lesions or abrasions PSYCHIATRIC: Normal affect/mood, Course Course Emergency Course: Discussed with Dr. Dominguez for GI presentation work-up agrees with plan for discharge with follow-up as an outpatient Discussed with patient results of workup
[2022-03-26 17:08] LABS: Appearance Urine Clear (Clear); Bilirubin Urine Negative (Negative); Blood Urine 2+ (Negative); Color Urine Yellow (Yellow); Glucose Urine UA Negative (Negative); Ketones Urine Negative (Negative); Leukocyte Esterase Ur Trace LEU/UL (Negative); Nitrate Urine Negative (Negative); Protein Urine Negative (Negative); Specific Grav Ur 1.015 (1.001-1.035); Urobilinogen Urine 0.2 mg/dL (<2.0); pH Urine 5.5 (5.0-9.0)
[2022-03-26 17:12] LABS: Bacteria Urine Trace /hpf; Mucus Urine Rare /lpf; Squamous Epithelial Cell Urine Rare /hpf (Few)
[2022-03-26 17:13] LABS: Add Urine Microscopic? YES
[2022-03-26] MEDS: NITROFURANTOIN MONOHYD MACROCR 100 MG CAP PO (17:39)
== END 2022-03-26 17:40 | disposition home or self-care (01) ==
PROVIDERS: Emergency Provider Emergency Medicine; PCP Physician Assistant
DX: K62.5 Hemorrhage of anus and rectum (principal); K64.9 Unspecified hemorrhoids; N39.0 Urinary tract infection, site not specified; F17.210 Nicotine dependence, cigarettes, uncomplicated; J44.9 Chronic obstructive pulmonary disease, unspecified; E78.5 Hyperlipidemia, unspecified; I10 Essential (primary) hypertension; Z87.442 Personal history of urinary calculi
CPT/HCPCS: 36415; 80053; 81001; 85025; 85610; 85730; 86850; 86900; 86901; 99283; A9270

== ENCOUNTER 2022-07-18 08:50 | Outpatient (CLI) | payer OTHER, SELFPAY ==
--- NOTE | ~2022-07-18 | CT_ITS ---
CT Angiogram of the Abdomen and Pelvis: Indication: Abdominal aortic aneurysm Technique: 2.5 mm axial scans were obtained through the abdomen and pelvis following intravenous adm inistration of 100 cc of Omnipaque 350. 3-D reconstructed images were performed by the technologist o n the workstation. Dose reduction technique was used on this scan by utilizing automated exposure con trol and iterative reconstruction technique. The dose-length product (DLP) was 163.59 mGy-cm. Findings: Scans through the lung bases are unremarkable. Gallbladder not seen. Somewhat wedge-shaped area of hypodensity in the peripheral right hepatic lobe noted (coronal image 33, axial image 26). The spleen, pancreas, adrenals and kidneys are within sourav l limits. There are extensive atherosclerotic calcifications of the aorta and iliac vessels. There is an infrarenal abdominal aortic aneurysm which measures 3.8 cm in maximum transverse diameter. The an eurysm begins approximately 6 cm above the aortic bifurcation, extending just to the bifurcation. No lymphadenopathy. No bowel obstruction or bowel wall thickening. There is no evidence to suggest acute appendicitis. Images through the pelvis were performed. Urinary bladder unremarkable. No adnexal mass evident. No a scites. Impression: 3.8 cm infrarenal abdominal aortic aneurysm, as detailed above. Wedge-shaped hypodense area performed liver. Appearance is probably most suggestive of chronic benign finding, such as possibly infarct, posttraumatic scarring, or postoperative/postprocedural change. Reviewed, dictated and finalized at [facility]. Impression: 3.8 cm infrarenal abdominal aortic aneurysm, as detailed above. Wedge-shaped hypodense area performed liver. Appearance is probably most sugges tive of chronic benign finding, such as possibly infarct, posttraumatic scarrin g, or postoperative/postprocedural change.
[2022-07-18 09:19] LABS: Estimated Glomerular Filt Rate 47
== END 2022-07-18 08:51 | disposition home or self-care (01) ==
LOC: CHSIMG 08:55
PROVIDERS: PCP Physician Assistant; Visit Provider Internal Medicine Cardiovascular Disease
DX: I71.40 Abdominal aortic aneurysm, without rupture, unspecified (principal)
CPT/HCPCS: 74174; Q9967

== ENCOUNTER 2023-02-17 13:58 | Emergency (ER) | payer OTHER, SELFPAY ==
--- NOTE | ~2023-02-17 | XR_ITS ---
XR mandible min 4V 02/17/2023 15:02 Indication: Right lower jaw pain after injury Procedure: 6 views of the mandible Comparison: No prior studies for comparison. Findings: No fracture or traumatic malalignment is identified. No soft tissue abnormality. Orbits are symmetric without evidence for blowout fracture. No significant opacification of the paranasal sinus es. Impression: 1: No acute mandibular fracture identified. If there is continuing concern for subtle nondisplaced fr actures, correlation with CT recommended. Reviewed, dictated and finalized at location [facility] [employer] Impression: 1: No acute mandibular fracture identified. If there is continuing concern for subtle nondisplaced fractures, correlation with CT recommended.
[2023-02-17 14:07] VITALS: BP 135/70; PULSE 113; RESP 16; TEMP 36.9; O2SAT 100
--- NOTE | 2023-02-17 14:35 | ED.DENTAL ---
HPI - Dental/Oral General Chief complaint: Dental/Oral Stated complaint: tooth injury right side Time Seen by Provider: 02/17/23 14:35 Source: patient Mode of arrival: ambulatory Limitations: no limitations History of Present Illness HPI Narrative: 62 yo F presents with c/o pain to R lower jaw for 2 hrs. States moving furniture with daughter 2 hrs ago and got hit in mouth. States tooth is now loose. All systems reviewed and negative except as noted above. Related Data Home Medications Medication Instructions Recorded Confirmed verapamil 120 mg tablet,extended 120 mg PO DAILY 03/12/21 03/12/21 release aspirin 81 mg tablet,delayed mg 02/17/23 release clopidogrel 75 mg tablet mg 02/17/23 ergocalciferol (vitamin D2) 1,250 02/17/23 mcg (50,000 unit) capsule icosapent ethyl 1 gram capsule g PO 02/17/23 lisinopril 2.5 mg tablet mg 02/17/23 rivaroxaban 2.5 mg tablet (Xarelto) mg 02/17/23 rosuvastatin 20 mg tablet mg 02/17/23 Allergies Allergy/AdvReac Type Severity Reaction Status Date / Time iodine Allergy Unknown Rash Verified 02/17/23 14:20 Review of Systems Review of Systems: CONSTITUTIONAL: Denies fever, chills, or sweats. EYES: Denies visual changes, redness, or discharge. ENT: Denies rhinorrhea, congestion, sore throat, or otalgia. Reports R lower jaw pain, loose tooth CARDIOVASCULAR: Denies chest pain, palpitations, or edema. RESPIRATORY: Denies cough or dyspnea. GASTROINTESTINAL: Denies abdominal pain, nausea, vomiting, or diarrhea. GENITOURINARY: Denies dysuria or hematuria. SKIN: Denies rash or itching. MUSCULOSKELETAL: Denies back pain, joint pain, or myalgia. NEUROLOGIC: Denies headache, numbness, or weakness. PSYCHIATRIC: Denies anxiety or depression. All other systems reviewed are negative, except as documented in HPI. [facility] Past Medical History Medical History Claustrophobia COPD (chronic obstructive pulmonary disease) Emphysema of lung Heart murmur History of heart attack Hyperlipidemia Hypertension Kidney stone Right arm fracture Wears glasses Surgical History Surgical History H/O removal of cyst History of heart artery stent History of orthopedic surgery right third finger on right hand x3 Hx of section x3 Family History Family History Mother Hx of CABG, Onset Age: 77 Father Arthritis Other Hypertension Social History Social History Smoking packs per day: 0.25 Smoking cigarettes per day: 5.0 Years smoked: 40 Smoking pack-years: 10.00 Smoking status: Current every day smoker Tobacco type: cigarettes Second hand tobacco smoke exposure: Yes Alcohol intake: never Substance use: never Gender identity (if verbalized by the patient): Female Comments At time of signature, agree with nursing past medical, surgical, social and family history. There is no relevant family history pertinent to the presenting complaint. Exam Narrative: GENERAL: This is a well-nourished, well-developed patient, in no apparent distress. HEAD: normocephalic, atraumatic. EYES: PERRL. Sclera clear/white. Vision is grossly intact. EARS: External ears normal NOSE: External nose normal MOUTH: tooth #27 loose, decayed. multiple missing or decayed teeth. no erythema or swelling concerning for infection. tenderness to R jaw without bruising noted. NECK: Neck supple, non-tender without lymphadenopathy, masses or thyromegaly. CARDIOVASCULAR: Regular rate and rhythm without murmurs, gallops, or rubs. RESPIRATORY: Clear to auscultation. Breath sounds equal bilaterally. No wheezes, rales, or rhonchi. SKIN: warm, Dry, intact with no suspicious lesions or rash, good texture and turgor. NEURO: awake, alert, and oriented to person, place an
== END 2023-02-17 15:37 | disposition home or self-care (01) ==
PROVIDERS: Emergency Provider Nurse Practitioner Family; PCP Physician Assistant
DX: S09.8XXA Other specified injuries of head, initial encounter (principal); S00.83XA Contusion of other part of head, initial encounter; W22.03XA Walked into furniture, initial encounter; E78.5 Hyperlipidemia, unspecified; I10 Essential (primary) hypertension; F17.210 Nicotine dependence, cigarettes, uncomplicated
CPT/HCPCS: 70110; 99213; G0463

== ENCOUNTER 2023-02-20 11:10 | Emergency (ER) | payer OTHER, SELFPAY ==
[2023-02-20 11:13] VITALS: BP 151/74; PULSE 116; RESP 20; TEMP 36.8; O2SAT 99
--- NOTE | 2023-02-20 11:46 | ED.DENTAL ---
HPI - Dental/Oral General Chief complaint: Dental/Oral Stated complaint: dental abcess Time Seen by Provider: 02/20/23 11:29 History of Present Illness HPI Narrative: 62-year-old female presenting to the emergency department for evaluation of worsening dental pain since . Patient states since she has had some right lower dental pain that has continued to worsen. Patient is taking ibuprofen for pain control with no significant improvement. Patient has been attempting to get follow-up with a dentist but has yet been unsuccessful. Patient does have a history of dental caries and dental decay. Related Data Home Medications Medication Instructions Recorded Confirmed verapamil 120 mg tablet,extended 120 mg PO DAILY 03/12/21 03/12/21 release aspirin 81 mg tablet,delayed mg 02/17/23 release clopidogrel 75 mg tablet mg 02/17/23 ergocalciferol (vitamin D2) 1,250 02/17/23 mcg (50,000 unit) capsule icosapent ethyl 1 gram capsule g PO 02/17/23 lisinopril 2.5 mg tablet mg 02/17/23 rivaroxaban 2.5 mg tablet (Xarelto) mg 02/17/23 rosuvastatin 20 mg tablet mg 02/17/23 Allergies Allergy/AdvReac Type Severity Reaction Status Date / Time iodine Allergy Unknown Rash Verified 02/17/23 14:20 Review of Systems Review of Systems: All systems reviewed & are unremarkable except as noted in HPI and below PMFSH Past Medical History Medical History Claustrophobia COPD (chronic obstructive pulmonary disease) Emphysema of lung Heart murmur History of heart attack Hyperlipidemia Hypertension Kidney stone Right arm fracture Wears glasses Surgical History Surgical History H/O removal of cyst History of heart artery stent History of orthopedic surgery right third finger on right hand x3 Hx of section x3 Family History Family History Mother Hx of CABG, Onset Age: 77 Father Arthritis Other Hypertension Social History Social History Smoking packs per day: 0.25 Smoking cigarettes per day: 5.0 Years smoked: 40 Smoking pack-years: 10.00 Smoking status: Current every day smoker Tobacco type: cigarettes Second hand tobacco smoke exposure: Yes Alcohol intake: never Substance use: never Gender identity (if verbalized by the patient): Female Exam Narrative: APPEARANCE: Well appearing, no pain, no distress, well-nourished. HEAD: Dental caries with no abscess amenable to drainage in the ED. EYES: PERRLA/EOMI, conjunctivae clear. NOSE: Normal no drainage EARS:TMS clear with good light reflex. THROAT: Pharynx clear, no exudate. NECK: Supple. No adenopathy, no masses. RESPIRATORY: Airway patent, respirations nonlabored. Clear to auscultation bilaterally, no rales, rhonchi, wheezing. CARDIOVASCULAR: Regular rate and rhythm without murmurs rubs or gallops. ABDOMINAL: Soft, nontender, nondistended, normal bowel sounds MUSCULOSKELETAL: Moves all extremities. Strength/ROM intact, No edema, No calf tenderness. NEURO: Alert. Cranial nerves II through XII intact. Grossly intact SKIN: Warm, dry. Normal Color Course Course Emergency Course: 62-year-old female presenting to the emergency department for evaluation of worsening dental pain and facial swelling. Patient is not currently taking any antibiotics. Patient was started on Augmentin in the emergency department. Patient is driving so she was provided Tylenol ibuprofen for pain control. Patient will be prescribed [place] for pain control for home. Patient was encouraged to continue to seek outpatient follow-up with a dentist. All questions and concerns were addressed patient was well-appearing at time of discharge. Vital Signs Vital signs: Vital Signs Temperature 98.2 F 02/20/23 11:13
[2023-02-20] MEDS: AMOXICILLIN/CLAVULANATE K 875-125 MG TAB 1 TABLET PO (11:56)
[2023-02-20] MEDS: KETOROLAC 30 MG/ML VIAL (*BKC) IM (11:56)
[2023-02-20] MEDS: ACETAMINOPHEN 325 MG TABLET 650 MG PO (11:56)
== END 2023-02-20 12:17 | disposition home or self-care (01) ==
PROVIDERS: Emergency Provider Emergency Medicine; PCP Physician Assistant
DX: K02.9 Dental caries, unspecified (principal); J43.9 Emphysema, unspecified; I25.2 Old myocardial infarction; I10 Essential (primary) hypertension; E78.5 Hyperlipidemia, unspecified; F17.210 Nicotine dependence, cigarettes, uncomplicated; Z87.442 Personal history of urinary calculi; Z95.5 Presence of coronary angioplasty implant and graft; Z79.82 Long term (current) use of aspirin; Z79.01 Long term (current) use of anticoagulants
CPT/HCPCS: 96372; 99283; A9270; J1885

== ENCOUNTER 2023-10-09 12:09 | Emergency (ER) | payer OTHER, SELFPAY ==
[2023-10-09 12:15] VITALS: BP 161/54; PULSE 106; RESP 18; TEMP 36.8; O2SAT 100
--- NOTE | 2023-10-09 12:27 | ED.EAR ---
HPI - Ear Problem General Chief complaint: Ear Stated complaint: both ears ringing,draining,painful Time Seen by Provider: 10/09/23 12:27 Source: patient Mode of arrival: ambulatory Limitations: no limitations History of Present Illness HPI Narrative: 62-year-old female presents with complaint of pain to bilateral ears with Brownish drainage. Symptoms for 2-3 days. Past year patient states she has been dealing with tinnitus. Reports that she constantly hears whooshing to both ears.Has discussed this with her primary care physician but has not seen an ENT specialist. Patient reports over the past few months she has had decreased hearing. All systems reviewed and negative except as noted above. Related Data Home Medications Medication Instructions Recorded Confirmed aspirin 81 mg tablet,delayed 81 mg PO DAILY 02/17/23 10/09/23 release clopidogrel 75 mg tablet 75 mg PO DAILY 02/17/23 10/09/23 ergocalciferol (vitamin D2) 1,250 1,250 mcg PO WE 02/17/23 10/09/23 mcg (50,000 unit) capsule lisinopril 2.5 mg tablet 2.5 mg PO DAILY 02/17/23 10/09/23 rivaroxaban 2.5 mg tablet (Xarelto) 2.5 mg PO DAILY 02/17/23 10/09/23 rosuvastatin 20 mg tablet 20 mg PO DAILY 02/17/23 10/09/23 empagliflozin 10 mg tablet 10 mg PO DAILY 10/09/23 10/09/23 (Jardiance) Allergies Allergy/AdvReac Type Severity Reaction Status Date / Time iodine Allergy Unknown Rash Verified 10/09/23 12:10 Review of Systems Review of Systems: CONSTITUTIONAL: Denies fever, chills, or sweats. EYES: Denies visual changes, redness, or discharge. ENT: Denies rhinorrhea, congestion, sore throat . Reports pain and drainage to bilateral ears. CARDIOVASCULAR: Denies chest pain, palpitations, or edema. RESPIRATORY: Denies cough or dyspnea. GASTROINTESTINAL: Denies abdominal pain, nausea, vomiting, or diarrhea. GENITOURINARY: Denies dysuria or hematuria. SKIN: Denies rash or itching. MUSCULOSKELETAL: Denies back pain, joint pain, or myalgia. NEUROLOGIC: Denies headache, numbness, or weakness. PSYCHIATRIC: Denies anxiety or depression. All other systems reviewed are negative, except as documented in HPI. PMFSH Past Medical History Medical History Claustrophobia COPD (chronic obstructive pulmonary disease) Emphysema of lung Heart murmur History of heart attack Hyperlipidemia Hypertension Kidney stone Right arm fracture Wears glasses Surgical History Surgical History H/O removal of cyst History of heart artery stent History of orthopedic surgery right third finger on right hand x3 Hx of section x3 Family History Family History Mother Hx of CABG, Onset Age: 77 Father Arthritis Other Hypertension Social History Social History Smoking packs per day: 0.25 Smoking cigarettes per day: 5.0 Years smoked: 40 Smoking pack-years: 10.00 Smoking status: Current every day smoker Tobacco type: cigarettes Second hand tobacco smoke exposure: Yes Alcohol intake: never Substance use: never Gender identity (if verbalized by the patient): Female Comments At time of signature, agree with nursing past medical, surgical, social and family history. There is no relevant family history pertinent to the presenting complaint. Exam Narrative: GENERAL: This is a well-nourished, well-developed patient, in no apparent distress. HEAD: normocephalic, atraumatic. EYES: PERRL. Sclera clear/white. Vision is grossly intact. EARS: External ears normal, Bilateral ear canals are erythematous, tender on palpation with mild swelling. Clear drainage noted to left ear canal. Bilateral TMs are opaque, fluid, wrinkled. NOSE: External nose normal NECK: Neck supple, non-tender without lymphadenopathy, masses or
== END 2023-10-09 12:45 | disposition home or self-care (01) ==
PROVIDERS: Emergency Provider Nurse Practitioner Family
DX: H60.93 Unspecified otitis externa, bilateral (principal); H65.03 Acute serous otitis media, bilateral; H93.13 Tinnitus, bilateral; H91.90 Unspecified hearing loss, unspecified ear; F17.210 Nicotine dependence, cigarettes, uncomplicated; J44.9 Chronic obstructive pulmonary disease, unspecified; R01.1 Cardiac murmur, unspecified; I25.2 Old myocardial infarction; E78.5 Hyperlipidemia, unspecified; I10 Essential (primary) hypertension; Z95.5 Presence of coronary angioplasty implant and graft
CPT/HCPCS: 99213; G0463

== ENCOUNTER 2023-10-30 10:32 | Outpatient (CLI) | payer OTHER, SELFPAY | END 2023-10-30 10:33 | disposition home or self-care (01) | LOC: ANHAUDIO 10:32 | PROVIDERS: Visit Provider Otolaryngology | DX: H93.A1 Pulsatile tinnitus, right ear (principal); H90.42 Sensorineural hearing loss, unilateral, left ear, with unrestricted hearing on the contralateral side; H90.71 Mixed conductive and sensorineural hearing loss, unilateral, right ear, with unrestricted hearing on the contralateral side | CPT/HCPCS: 92557; 92567 ==

== ENCOUNTER 2024-05-23 21:05 | Emergency (ER) | payer OTHER, SELFPAY ==
[2024-05-23] VITALS (9 sets, daily range): BP systolic 150–155; BP diastolic 66–121; PULSE 84–122; RESP 18–25; TEMP 37–37.1; O2SAT 96–99
--- NOTE | ~2024-05-23 | CT_ITS ---
EXAMINATION: CTA chest PE protocol DATE: 05/24/2024 0:03 CDT INDICATION: Chest pain, shortness of breath with mildly elevated d-dimer TECHNIQUE: Computed tomographic angiography (CTA) of the chest was performed with 100 mL Omnipaque-35 0 intravenous contrast. The dose-length product was 152.04 mGy-cm. Maximum intensity projection 3D-re constructions of the aorta and other arteries were constructed by the technologist on a separate work station. COMPARISON: 08/13/2020 FINDINGS/OBSERVATIONS: PULMONARY ARTERIES: Opacification of the main and proximal pulmonary arteries is somewhat limited sec ondary to patient's inability to sustain a breath-hold for contrast influx. No large filling defect i s suspected on the current images, although definitive evaluation cannot be made based on the current study. The main pulmonary artery is not enlarged. THORACIC AORTA: No aneurysmal dilatation or dissection is present. The great vessels are intact LUNGS: Panlobular emphysematous disease is identified. Interval development of opacification of the left lower lobe, with air bronchograms consistent with a n infiltrate. MEDIASTINUM: No morphologically suspicious or pathologically enlarged lymph nodes are identified with in the mediastinum or bilateral axilla. BONES OF THE CHEST: No acute fracture. No significant degenerative disease. No lytic or blastic lesions. HEART: The heart is of normal size, without pericardial effusion. IMPRESSION: Opacification of the main and proximal pulmonary arteries is somewhat limited secondary to patient's inability to sustain a breath-hold (speaking during examination). No large filling defect within the main or proximal pulmonary arteries is suspected. Left lower lobe pneumonia is present, likely the source of patient's shortness of breath, leukocytosi s and chest pain. No thoracic aortic dissection. Reviewed, dictated and finalized at location A. IMPRESSION: Opacification of the main and proximal pulmonary arteries is somewhat limited s econdary to patient's inability to sustain a breath-hold (speaking during exami nation). No large filling defect within the main or proximal pulmonary arteries is suspected. Left lower lobe pneumonia is present, likely the source of patient's shortness of breath, leukocytosis and chest pain. No thoracic aortic dissection.
--- NOTE | ~2024-05-23 | XR_ITS ---
CHEST RADIOGRAPH, PA AND LATERAL CLINICAL HISTORY: chest pain . COMPARISON: 03/31/2021 TECHNIQUE: PA and lateral views of the chest. FINDINGS The cardiomediastinal silhouette is unremarkable. No acute infiltrate is suspected within the superior segment of the left lower lobe. The remainder of the lungs are clear. IMPRESSION: Acute infiltrate within the superior segment of the left lower lobe is suspected, as detailed above. Reviewed, dictated and finalized at location A. IMPRESSION: Acute infiltrate within the superior segment of the left lower lobe is suspecte d, as detailed above.
--- NOTE | 2024-05-23 21:06 | ECG_ITS ---
Test Date: 2024-05-23 21:17:09 Measurements Intervals [place] Rate: 104 P: 81 [place]: 159 QRS: 87 QRSD: 72 T: 79 QT: 315 QTc: 416 Interpretive Statements SINUS TACHYCARDIA RIGHT ATRIAL ENLARGEMENT CANNOT R/O SEPTAL INFARCT, AGE INDETERMINATE BORDERLINE ST ABNORMALITY- INF/LAT LEADS BASELINE ARTIFACT- I, II, III, AVR, AVL, AVF ABNORMAL ECG No previous ECG available for comparison Electronically Signed On 05-24-2024 06:12:40 CDT by Varun Sepulveda D.O.
--- OUTSIDE RECORDS SUMMARY | 2024-05-23 21:08 | XMS_ITS | Clinical Summary ---
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 Phone Unavailable Primary Care Provider Unavailabl e Social History Tobacco Use Types Packs/Day Years Used Date Smoking Tobacco: Never Assessed Comments Unknown Sex and Gender Information Value Date Recorded Sex Assigned at Not on file Legal Sex Female 8:14 PM CDT Gender Identity Not on file Sexual Orientation Not on file Plan of Treatment Health Maintenance Due Date Last Done Comments Cervical Cancer Screening Pa p Smear (Age 30 to 64) Every 3 Years 1960 Colorectal Cancer Screening Colonoscopy (10 Years) 1960 Annual Physical 12/13/1963 Hepatitis C 1978 DTaP, Tdap and Td Vaccines ( 1 - Tdap) 12/13/1979 Cervical Cancer Screening Pa p with HPV Testing (Age 30 to 64) Every 5 Years 1990 Cervical Cancer Screening with HPV 1990 Mammogram Screening 2000 Zoster Vaccines (1 of 2) 2010 COVID-19 Vaccine (2023-2 5 season) 2023 Influenza Adult (#1) 2023 RSV Immunization or 60+ Years (1 - 1-dose 75+ series) 12/13/2035 Meningococcal B Vaccine Aged Out No l onger eligible based on patient's age to complete this topic Meningococcal Vaccine Aged Out No david delicia eligible based on patient's age to complete this topic Pneumococcal Vaccine: Pediat rics (0 to 5 Years) and At-Risk Patients (6 to 64 Years) Aged Out No longer eligible b ased on patient's age to complete this topic RSV Immunizations Under 20 Months Aged Out No longer eligible based on patient's age to complete this topic
--- OUTSIDE RECORDS SUMMARY | 2024-05-23 21:08 | XMS_ITS | Continuity of Care Document ---
Author Organization [facility] Address [address] [place] [address] Phone Care Team Providers Care Die Grinder Name Role Phone Roberts OD, Lencho Unavailable Unavailable Advance Directives Directive Yes / No Effective Date File Name No Information Encounters Encounter Description Practice Location Reason(s) For Visit Diagnoses Date Provider Providers Copied on Encounter [facility], [address], [place], [place], [id number], [place] tel:[phone] [facility] No Information Apr-0 8-200 5 Roberts OD Lencho. [address], [place], [address], [place]. tel:[phone] Family History Family Member Type Diagnosis Age At Onset No Information Payers Payer name Insurance type Covered constitution party ID Authoriza tion(s) Medicaid [facility] [id number] Social History Type Description Quantity Date Captured [...]
--- OUTSIDE RECORDS SUMMARY | 2024-05-23 21:08 | XMS_ITS | CONTINUITY OF CARE DOCUMENT ---
Author Name deja short Address Unknown Organization [facility] Address [address] [address] [place] [address] Phone [phone] Care Team Providers Care Actuarial Mathematician Name Role Phone Owen WEEKS, Michael Unavailable TYLER MARADIAGA Unavailable TYLER MARADIAGA Unavailable PROBLEMS Condition Status Date Provider Notes Renal artery stenosis active Michael Weaver MD PVD; active Michael Weaver MD Hyperlipidemia;;neg crp and lpa 85 active Michael Weaver MD Abdominal STENOISS active Michael Weaver MD 75% SMA Aortic atherosclerosis active Michael Weaver MD Tobacco dependence, continuous active Michael Weaver MD COPD active Michael Weaver MD Liver hemangioma active Michael Weaver MD renal stone active Michael Weaver MD IRON DEFICIENCY;hct 47 with macro active Michael Weaver MD b12 nromal PREDIABETES; active Michael Weaver MD Vitamin D deficiency active Michael Woods Myocardial infarction active Michael Weaver MD CAD;CAROTID PLAQUE active Michael Weaver MD Diastolic CHF active Michael Weaver MD loesx t 40 CHF completed - Michael Weaver MD Screening active Michael Weaver MD Gallstones; with pancrdeatidis active Michael Weaver MD AAA completed - Michael Weaver MD FAMILY HISTORY OF HEART DISEASE active Michael Weaver MD mother had cabg Tricuspid regurgitation, mild completed - Michale Weaver MD Exposure to SARS-associated coronavirus;neg igg active Michael Weaver MD Sinus tachycardia;nml tsh active Michael rodriguez MD Abnormal weight loss active Michael oWods NEG TSH Microalbuminuria active Michael Weaver MD on shirlene and jardicne not dm, neg effr Pancreatitis completed - Michael Weaver MD Renal disease, chronic, mild completed - Michael Weaver MD Anxiety disorder active Michael Weaver MD Claudication bilateral completed 2 - Michael Weaver MD Abdominal aortic aneurysm, without rupture, unspecified active Cecilio Johnson MD Claudication class III completed 8 - Michael Weaver MD 09/05/2022 apt ENCOUNTERS Date Type Provider Location Encounter Diag nosis - In-person encounter Office Visit Curtis Caban MD [facility] - In-person encounter Office Visit Michael Weaver MD [facility] AAA - In-person encounter Office Visit Michael Weaver MD [facility] - In-person encounter Office Visit Michael Weaver MD [facility] Claudication bilateralClaudication class III - In-person encounter Office Visit Cecilio Johnson MD [facility] - In-person encounter Office Visit Cecilio Johnson MD [facility] - In-person encounter Office Visit Cecilio Johnson MD [facility] Abdominal aortic aneurysm, without rupture, unspecified - In-person encounter Office Visit Wilda Billy MD [facility] - In-person encounter Office Visit Michael Weaver MD [facility] Microalbuminuria - In-person encounter Office Visit Michael Weaver MD [facility] Sinus tachycardia;nml tshMicroalbuminuria - In-person encounter Office Visit Wilda Billy MD [facility] - In-person encounter Office Visit Michael Weaver MD [facility] Tricuspid regurgitation, mildSinus tachycardia;nml tshAbnormal weight lossPancreatitis - In-person encounter Office Visit Michael Weaver MD [facility] - In-person encounter Office Visit Michael Weaver MD [facility] - In-person encounter Office Visit Michael Weaver MD [facility] - In-person encounter Office Visit Michael Weaver MD [facility] Anxiety disorder - In-person encounter Office Visit Michael Weaver MD [facility] Renal disease, chronic, mild - In-person encounter Office Visit Michael Weaver MD [facility] ScreeningAbnormal weight loss - In-person encounter Office Visit Michael Weaver MD [facility] Diastolic CHFCHFExposure to SARS-associated coronavirus;neg igg - In-person encounter Office Visit Michael Weaver MD [facility] Gallstones; with pancrdeatidisFAMILY HISTORY OF HEART DISEASE VITAL SIGNS Date Observation Value Provider Body Mass Index (Ratio) 15.62 kg/m2 Benito Caban MD pulse rate 99 /min Murali Mclean blood pressure, diastolic 83 mm[Hg] Joseph Carteram blood pressure, systolic 153 mm[Hg] Robert Carteram oxygen saturation, oximetry 99 % Murali Carteram respiratory rate E&M 14 /min Murali núñez weight E&M 85.4 [lb_av] Murali Carteram blood pressure, cuff size regular Joseph Carteram height E&M 62 [in_i] Murali Vinay Body Mass Index (Ratio) 15.00 kg/m2 John Weaver MD blood pressure, diastolic 84 mm[Hg] [place] [facility], [facility] 130 mm[Hg] June [facility] oxygen saturation, oximetry 97 % [facility] pulse rate 83 /min [facility] respiratory rate E&M 12 /min [facility] weight E&M 82 [lb_av] [facility] height E&M 62 [in_i] [facility] blood pressure, cuff size regular [facility] Body Mass Index (Ratio) 14.63 kg/m2 John Weaver MD blood pressure, diastolic 83 mm[Hg] Joseph pattonn Staples blood pressure, systolic 143 mm[Hg] Ariadne nazario Staples blood pressure, cuff size regular Joseph gina Staples pulse rate 90 /min [facility] saturation, oximetry 99 % [facility] weight E&M 80 [lb_av] [facility] height E&M 62 [in_i] [facility] Sta[facility] Body Mass Index (Ratio) 15.03 kg/m2 John Weaver MD blood pressure, diastolic 84 mm[Hg] Magdi Young blood pressure, systolic 149 mm[Hg] She jaziel Young weight E&M 82.2 [lb_av] Josefa Young pulse rate 94 /min Josefa Young respiratory rate E&M 18 /min Josefa Young oxygen saturation, oximetry 98 % Josefa Young blood pressure, cuff size regular Magdi Young height E&M 62 [in_i] Josefa Young Body Mass Index (Ratio) 14.26 kg/m2 Vel Johnson MD blood pressure, diastolic 94 mm[Hg] Il keithdeuce Regan blood pressure, systolic 162 mm[Hg] [facility] graemedeuce Regan oxygen saturation, oximetry 98 % Kandy Regan pulse rate 135 /min Kandy woods blood pressure, cuff size small Il keith Regan respiratory rate E&M 16 /min Marga Lloydand weight E&M 78 [lb_av] Kandy woods height E&M 62 [in_i] Kandy woods Body Mass Index (Ratio) 15.18 kg/m2 Vel Johnson MD pulse rate 90 /min Chyna Cortez blood pressure, diastolic 71 mm[Hg] An ruben Cortez blood pressure, systolic 159 mm[Hg] Any robby Cortez oxygen saturation, oximetry 99 % Chyna Cortez blood pressure, cuff size large An ruben Cortez weight E&M 83 [lb_av] Chynarobby Cortez height E&M 62 [in_i] Chyna Cortez Body Mass Index (Ratio) 15.18 kg/m2 Vel Johnson MD weight E&M 83 [lb_av] Josefasergo Young pulse rate 93 /min Josefa Young respiratory rate E&M 20 /min Josefa Young blood pressure, diastolic 86 mm[Hg] winsome Young blood pressure, systolic 149 mm[Hg] She rrjana Young oxygen saturation, oximetry 98 % Josefa Young blood pressure, cuff size regular winsome Young height E&M 62 [in_i] Josefa Young Body Mass Index (Ratio) 15.00 kg/m2 Evelia Billy MD blood pressure, diastolic 85 mm[Hg] Li nkLog blood pressure, systolic 153 mm[Hg] Emy kLog blood pressure, cuff size regular winsome Young blood pressure, diastolic 85 mm[Hg] winsome Young blood pressure, systolic 153 mm[Hg] She rrjana Young oxygen saturation, oximetry 98 % Josefa Young respiratory rate E&M 18 /min Josefa Young pulse rate 103 /min Josefa Young weight E&M 82 [lb_av] Josefa Young height E&M 62 [in_i] Josefa Young Body Mass Index (Ratio) 14.81 kg/m2 John Weaver MD blood pressure, diastolic 57 mm[Hg] Velma parker Regan blood pressure, systolic 154 mm[Hg] [facility] vanessa [place] oxygen saturation, oximetry 98 % Kandy Regan pulse rate 107 /min Kandy woods blood pressure, cuff size large Velma parker [place] respiratory rate E&M 16 /min Marga de los santos [place] weight E&M 81 [lb_av] Kandy woods height E&M 62 [in_i] Kandy woods Body Mass Index (Ratio) 14.63 kg/m2 John Weaver MD pulse rate 100 /min Josefa Young respiratory rate E&M 18 /min Josefa Young oxygen saturation, oximetry 100 % Josefa Young blood pressure, diastolic 83 mm[Hg] winsome Young blood pressure, systolic 138 mm[Hg] She jaziel Young weight E&M 80 [lb_av] Josefa Young blood pressure, cuff size regular winsome Young height E&M 62 [in_i] Josefa Young Body Mass Index (Ratio) 15.14 kg/m2 Evelia Billy MD blood pressure, diastolic 82 mm[Hg] St jana Barrett blood pressure, systolic 164 mm[Hg] [facility] ananya Barrett pulse rate 114 /min Elisabethananya Barrett oxygen saturation, oximetry 98 % Elisabethananya Barrett weight E&M 82.8 [lb_av] Elisabethananya Barrett respiratory rate E&M 18 /min Elisabeth matthews height E&M 62 [in_i] Elisabeth Barrett Body Mass Index (Ratio) 15.36 kg/m2 John Weaver MD blood pressure, cuff size small Ke rri Bartuenechu blood pressure, diastolic 60 mm[Hg] Ke rri Gruenenfsean blood pressure, systolic 124 mm[Hg] Ker ri Delvisnechu oxygen saturation, oximetry 98 % Vanessa Chanel respiratory rate E&M 12 /min Vanessa Bibi bahena pulse rate 86 /min Vanessa Devlisnenffiliberto chairezer weight E&M 84 [lb_av] Vanessa Gruenenfe mihaelaer height E&M 62 [in_i] Vanessa Gruenenfe lder Body Mass Index (Ratio) 15.44 kg/m2 John gema Weaver MD blood pressure, diastolic 48 mm[Hg] Am zulema Ventimiglia [facility] blood pressure, systolic 96 mm[Hg] [place] nda Ventimiglia [facility] oxygen saturation, oximetry 95 % [facility] pulse rate 82 /min [facility] respiratory rate E&M 16 /min [facility] weight E&M 84.4 [lb_av] [facility] height E&M 62 [in_i] [facility] Body Mass Index (Ratio) 15.36 kg/m2 John gema Weaver MD blood pressure, diastolic 65 mm[Hg] Am zulema Ventimiglia [facility] blood pressure, systolic 128 mm[Hg] [place] nda Ventimiglia [facility] oxygen saturation, oximetry 99 % [facility] respiratory rate E&M 16 /min [facility] pulse rate 91 /min [facility] weight E&M 84 [lb_av] Paula Ventimig adeline [facility] height E&M 62 [in_i] [facility] Body Mass Index (Ratio) 15.18 kg/m2 John gema Weaver MD blood pressure, cuff size small Ke rri Bartuenechu blood pressure, diastolic 60 mm[Hg] Ke rri Bartuenechu blood pressure, systolic 110 mm[Hg] Dat Buchanan oxygen saturation, oximetry 98 % Vanessa Buchanan respiratory rate E&M 16 /min Vanessa bahena pulse rate 73 /min Vanessa alberts weight E&M 83 [lb_av] Vanessaeros Lester [facility] [place] height E&M 62 [in_i] Vanessa Trevon [facility] [place] Body Mass Index (Ratio) 15.18 kg/m2 John Weaver MD blood pressure, diastolic 70 mm[Hg] Li nkLog blood pressure, systolic 152 mm[Hg] Emy og blood pressure, cuff size regular Ke rri Chanel blood pressure, diastolic 70 mm[Hg] Ke rri Chanel blood pressure, systolic 152 mm[Hg] Dat ri Chanel oxygen saturation, oximetry 99 % Vanessa Buchanan respiratory rate E&M 14 /min Vanessa bahena pulse rate 112 /min Vanessa Lester [facility] [place] weight E&M 83 [lb_av] Vanessa Trevon [facility] [place] height E&M 62 [in_i] Vanessa Trevon [facility] [place] Body Mass Index (Ratio) 16.28 kg/m2 John Weaver MD blood pressure, diastolic 78 mm[Hg] Yolanda Log blood pressure, systolic 132 mm[Hg] Emy [facility] blood pressure, diastolic 78 mm[Hg] Sara Arita blood pressure, systolic 132 mm[Hg] Michel Arita respiratory rate E&M 18 /min Selina Arita oxygen saturation, oximetry 98 % Kia Juan J pulse rate 142 /min Kia mckay weight E&M 89 [lb_av] Kia mckay height E&M 62 [in_i] Kia mckay Body Mass Index (Ratio) 14.45 kg/m2 John Weaver MD blood pressure, diastolic 68 mm[Hg] Yolanda nkLogic blood pressure, systolic 120 mm[Hg] Emy kLogic blood pressure, cuff size regular Cy rosalva Ruth blood pressure, diastolic 68 mm[Hg] Cy rosalva Ruth blood pressure, systolic 120 mm[Hg] Maria Dolores Ruth oxygen saturation, oximetry 98 % Nuris Ruth pulse rate 99 /min Nuris jara respiratory rate E&M 16 /min Nuris Ruth weight E&M 79 [lb_av] Nuris jara height E&M 62 [in_i] Nuris jara Body Mass Index (Ratio) 15.64 kg/m2 John Weaver MD blood pressure, resting No Tons tucker Fuentes blood pressure, diastolic 68 mm[Hg] To nsha Fuentes blood pressure, systolic 121 mm[Hg] Ton sha Crucible oxygen saturation, oximetry 98 % [facility] 70 /min Tons Fuentes respiratory rate E&M 16 /min Tonsha Fuentes weight E&M 85.50 [lb_av] [facility] height E&M 62 [in_i] [facility] temperature site temporal Shira Tank sle temperature E&M 97.3 [degF] Shira Tanks blossom height E&M 62 [in_i] Marlene Bowers ALLERGIES Allergy Name Onset Date Reaction Criticality Status IODINE Low Criticality active RESULTS Date Observation Value Provider Reference Range Interpretation Location Estimated Glomerular Filtration Rate (calc) 69 mL/min/{ 1.73_m2} [facility] C, [place] [address] creatine, serum 0.94 mg/dL [facility] 0.60-1.10 Normal C, [place] [address] Absolute Basophils 0.0 K/CUMM [facility] 0.0-0.1 Normal , [place] [address] Absolute Monocytes 0.9 K/CUMM [facility] 0.2-0.8 High C, [place] [address] Absolute Lymphocytes 2.2 K/CUMM [facility] 0.8-3.3 Normal C, [place] [address] Absolute Neutrophils 8.5 K/CUMM [facility] 1.7-6.5 High C, [place] [address] nucleated red blood cells as percent of blood leukocytes 0.00 K/CUMM [facility] 0.00-0.01 Normal red blood cell distribution width, size density 45.9 fL [facility] 35.7-48.1 Normal mean corpuscular hemoglobin concentration, RBC 33.3 G/DL [facility] 32.3-35.7 Normal mean corpuscular hemoglobin, RBC 31.2 pg [facility] 27.1-33.3 Normal mean corpuscular volume, RBC 93.6 fL [facility] 81.3-96.4 Normal erythrocyte count, whole blood 4.84 M/CUMM [facility] 3.90-5.20 Normal mean platelet volume 8.5 fL [facility] 9.1-12.3 Low platelet count 264 10*3/uL [facility] 150-400 Normal hematocrit, blood 45.3 % [facility] 35.6-45.5 Normal hemoglobin, blood 15.1 g/dL [facility] 11.9-15.5 Normal international normalized ratio (INR) 1.02 [facility] 0.90-1.20 Normal C, [place] [address] prothrombin time (patient) 11.6 s [facility] 10.3-13.7 Normal C, [place] [address] Estimated Glomerular Filtration Rate (calc) 73 mL/min/{ 1.73_m2} [facility] C, [place] [address] cholesterol, non-HDL, total 87 mg/dL [facility] C, [place] [address] lipoprotein, beta, serum, point, quantitative, calculated 49 mg/dL [facility] <=129 Normal , [place] [address] HDL CHOLESTEROL 38 mg/dL [facility] >=40 Low C, [place] [address] triglyceride, serum, fasting 192 mg/dL [facility] <=149 High C, [place] [address] cholesterol, serum 125 mg/dL [facility] 30-199 Normal , [place] [address] aspartate aminotransferase (SGOT), serum 25 1/L [facility] 10-45 Normal , [place] [address] alanine aminotransferase (SGPT), serum 20 1/L [facility] 7-45 Normal C, [place] [address] Alkaline phosphatase 109 [facility] 40-130 Normal C, [place] [address] albumin, serum 4.9 g/dL [facility] 3.5-5.0 Normal C, [place] [address] protein, total, serum 7.5 g/dL [facility] 6.5-8.5 Normal C, [place] [address] bilirubin, serum, total 0.3 mg/dL [facility] 0.1-1.2 Normal C, [place] [address] calcium, serum 9.6 mg/dL [facility] 8.5-10.3 Normal , [place] [address] blood glucose, random 96 mg/dL [facility] 70-199 Normal , [place] [address] creatine, serum 0.90 mg/dL [facility] 0.60-1.10 Normal C, [place] [address] urea nitrogen, blood 9 mg/dL [facility] 6-25 Normal C, [place] [address] anion gap, serum 13 mmol/L [facility] 2-15 Normal , [place] [address] carbon dioxide, venous blood 24 mmol/L [facility] 22-32 Normal , [place] [address] chloride, serum 105 mmol/L [facility] 97-110 Normal , [place] [address] potassium, serum 4.7 MMOL/L [facility] 3.3-4.9 Normal , [place] [address] sodium, serum 142 mmol/L [facility] 135-145 Normal , [place] [address] Absolute Basophils 0.0 K/CUMM [facility] 0.0-0.1 Normal , [place] [address] Absolute Monocytes 0.8 K/CUMM [facility] 0.2-0.8 Normal , [place] [address] Absolute Lymphocytes 2.4 K/CUMM [facility] 0.8-3.3 Normal , [place] [address] Absolute Neutrophils 7.0 K/CUMM [facility] 1.7-6.5 High C, [place] [address] nucleated red blood cells as percent of blood leukocytes 0.00 K/CUMM [facility] 0.00-0.01 Normal red blood cell distribution width, size density 52.6 fL [facility] 35.7-48.1 High mean corpuscular hemoglobin concentration, RBC 31.4 G/DL [facility] 32.3-35.7 Low mean corpuscular hemoglobin, RBC 31.0 pg [facility] 27.1-33.3 Normal mean corpuscular volume, RBC 98.8 fL [facility] 81.3-96.4 High erythrocyte count, whole blood 4.87 M/CUMM [facility] 3.90-5.20 Normal mean platelet volume 9.1 fL [facility] 9.1-12.3 Normal platelet count 206 10*3/uL [facility] 150-400 Normal hematocrit, blood 48.1 % [facility] 35.6-45.5 High hemoglobin, blood 15.1 g/dL [facility] 11.9-15.5 Normal Estimated Glomerular Filtration Rate (calc) 74 mL/min/{ 1.73_m2} [facility] C, [address] [address] creatine, serum 0.89 mg/dL [facility] 0.60-1.[address] [address] pro brain natriuretic peptide 171 pg/mL [facility] 0-287 c-reactive protein, quantitative, serum 3.10 mg/L [facility] 0.00-3.00 High lipase, serum 46 U/L [facility] 14-72 lipoprotein, beta, serum, point, quantitative, calculated 53 mg/dL [facility] 0-99 HDL cholesterol, serum 41 mg/dL [facility] >39 triglyceride, serum, random 132 mg/dL [facility] 0-149 cholesterol, serum 117 mg/dL [facility] 589-028 9427/02/ 12 calcium, serum 9.5 mg/dL [facility] 8.7-10.3 carbon dioxide, venous blood 23 mmol/L [facility] 20-29 chloride, serum 103 mmol/L [facility] 96-106 potassium, serum 4.3 mmol/L [facility] 3.5-5.2 sodium, serum 141 mmol/L [facility] 173-120 2130/02/ 12 urea nitrogen/creatinine ratio, serum 13 [facility] 12-28 eGFR if 99 mL/min/{ 1.73_m2} [facility] >59 eGFR if not 86 mL/min/{ 1.73_m2} [facility] >59 creatinine, serum 0.76 mg/dL [facility] 0.57-1.00 urea nitrogen, blood 10 mg/dL [facility] 8-27 blood glucose, random 93 mg/dL [facility] 65-99 microalbumin/creatin ine ratio, urine 33 MG/G CREAT [facility] 0-29 High microalbumin, random, urine 7.79 mg/dL [facility] Units converted. See lab report for original value. creatinine, random, urine 234.1 mg/dL [facility] Not Estab. B-12, serum 761 pg/mL [facility] 232-1245 ferritin, serum 27 ng/mL [facility] 15-150 lipase, serum 107 U/L [facility] 14-72 High amylase, serum 103 1/L [facility] 31-110 iron saturation percent, serum 18 % [facility] 15-55 iron, serum 72 ug/dL [facility] 27-159 iron binding capacity, unsaturated 319 ug/dL [facility] 091-443 2312/07/ 29 iron binding capacity, total 391 ug/dL [facility] 905-060 8939/07/ 29 c-reactive protein, quantitative, serum 0.49 mg/L [facility] 0.00-3.00 hemoglobin A1C, blood, as % of total hemoglobin 5.6 % [facility] 4.8-5.6 lipoprotein, beta, serum, point, quantitative, calculated 54 mg/dL [facility] 0-99 HDL cholesterol, serum 40 mg/dL [facility] >39 triglyceride, serum, random 146 mg/dL [facility] 0-149 cholesterol, serum 119 mg/dL [facility] 044-263 6615/07/ 29 basophil count, absolute 0.1 x10E3/uL [facility] 0.0-0.2 Eosinophil Absolute Count 0.1 X10E3/UL [facility] 0.0-0.4 monocyte count, blood, automated 0.7 X10E3/UL [facility] 0.1-0.9 lymphocyte count, blood, automated 2.6 X10E3/UL [facility] 0.7-3.1 Absolute Neutrophils 6.1 X10E3/UL [facility] 1.4-7.0 basophils as percent of blood leukocytes 1 % [facility] Not Estab. eosinophils as percent of blood leukocytes 1 % [facility] Not Estab. monocytes as percent of blood leukocytes 7 % [facility] Not Estab. lymphocytes as percent of blood leukocytes 27 % [facility] Not Estab. neutrophils as percent of blood leukocytes 64 % [facility] Not Estab. platelet count 249 X10E3/UL [facility] 797-697 3918/07/ 29 red blood cell distribution width 14.1 % [facility] 11.7-15.4 mean corpuscular hemoglobin concentration, RBC 32.5 G/DL [facility] 31.5-35.7 mean corpuscular hemoglobin, RBC 30.0 pg [facility] 26.6-33.0 mean corpuscular volume, RBC 92 fL [facility] 79-97 hematocrit, blood 47.7 % [facility] 34.0-46.6 High hemoglobin, blood 15.5 g/dL [facility] 11.1-15.9 erythrocyte (RBC) count 5.17 X10E6/UL [facility] 3.77-5.28 leukocyte count, blood 9.5 X10E3/UL [facility] 3.4-10.8 alanine aminotransferase (SGPT), serum 13 1/L [facility] 0-32 aspartate aminotransferase (SGOT), serum 17 1/L [facility] 0-40 alkaline phosphatase, serum 117 1/L [facility] 48-121 bilirubin, serum, total 0.5 mg/dL [facility] 0.0-1.2 albumin/globulin ratio, serum 1.9 [facility] 1.2-2.2 globulin, serum 2.6 [facility] 1.5-4.5 albumin, serum 5.0 g/dL [facility] 3.8-4.9 High protein, total, serum 7.6 g/dL [facility] 6.0-8.5 calcium, serum 9.6 mg/dL [facility] 8.7-10.2 carbon dioxide, venous blood 23 mmol/L [facility] 20-29 chloride, serum 99 mmol/L [facility] 96-106 potassium, serum 4.4 mmol/L [facility] 3.5-5.2 sodium, serum 138 mmol/L [facility] 904-554 9819/07/ 29 urea nitrogen/creatinine ratio, serum 11 [facility] 9-23 eGFR if 63 mL/min/{ 1.73_m2} [facility] >59 eGFR if not 54 mL/min/{ 1.73_m2} [facility] >59 Low creatinine, serum 1.11 mg/dL [facility] 0.57-1.00 High urea nitrogen, blood 12 mg/dL [facility] 6-24 blood glucose, random 106 mg/dL [facility] 65-99 High HISTORY OF MEDICATION USE Medication Status Instructions Dates Provider Indications Com ments cilostazol 100 mg tablet active take one tablet twice daily 04/05 Curtiscrissy Caban MD clopidogrel 75 mg tablet completed TAKE 1 TABLET BY MOUTH EVERY DAY - Josefa Grewal NP clopidogrel 75 mg tablet completed - Josefa Grewal NP Jardiance 10 mg tablet active TAKE 1 TABLET BY MOUTH EVERY DAY 11/04 Michael Weaver MD Xarelto 2.5 mg tablet active Take 1 tablet by mouth twice a day last fill till seen in office 09/28 Mcihael Weaver MD CAD;CAROTID PLAQUE rosuvastatin 20 mg tablet active TAKE 1 TABLET BY MOUTH EVERY DAY 07/22 Michael Weaver MD lisinopril 2.5 mg tablet active Take 1 tablet by mouth once a day 10/15 Michael Weaver MD famotidine 20 mg tablet completed TAKE 1 TABLET BY MOUTH AT BEDTIME THE DAY BEFORE AND 1 TABLET THE MORNING OF PROCEDURE 10/02 - 10/15 Michael Weaver MD Vascepa 1 gram capsule completed TAKE 2 CAPSULES BY MOUTH TWICE A DAY 09/08 - 03/31 Michael Weaver MD cilostazol 100 mg tablet completed TAKE 1 TABLET BY MOUTH TWICE DAILY 09/08 - 10/15 Michael Weaver MD Xarelto 2.5 mg tablet completed 1 tablet by mouth twice a day - 08/06 Michael Weaver MD rosuvastatin 20 mg tablet completed Take 1 tablet by mouth once a day - 08/06 Michael Weaver MD Jardiance 10 mg tablet completed TAKE ONE TABLET BY MOUTH ONCE DAILY 06/18 - 11/04 Murali Mclean lisinopril 2.5 mg tablet completed Take 1 tablet by mouth twice a day 06/13 - 10/15 Michael Weaver MD lisinopril 2.5 mg tablet completed Take 1 tablet by mouth once a day TAKE ONE TABLET BY MOUTH DAILY 06/04 - 06/13 Vanessa Buchanan aspirin 81 mg tablet,delayed release (DR/EC) active Take 1 tablet by mouth once a day 03/19 Michael Weaver MD rosuvastatin 20 mg tablet completed Take 1 tablet by mouth once a day 03/19 - 07/22 Elizabeth Partida aspirin 81 mg tablet,delayed release (DR/EC) completed TAKE 1 TABLET BY MOUTH ONCE DAILY - 03/19 Vanessa Buchanan lisinopril 20 mg tablet completed - 03/05 Paula Ventimiglia [employer] clonazepam 0.5 mg tablet completed - 06/04 Paula Ventimiglia [employer] buspirone 5 mg tablet completed - 06/04 Paula Ventimiglia [employer] ergocalciferol (vitamin D2) 1,250 mcg (50,000 unit) capsule completed TAKE 1 CAPSULE EVERY 2 WEEKS 03/10 - 03/05 Paula Ventimiglia [employer] Xarelto 2.5 mg tablet completed 1 tablet by mouth twice a day 11/01 - 09/28 Vanessa Buchanan CAD;CAROTID PLAQUE Xarelto 2.5 mg tablet completed - 11/01 Paula Ventimiglia [employer] rosuvastatin 20 mg tablet completed 1 tablet once a day - 03/19 Vanessa Buchanan Calan SR 240 mg tablet extended release completed Take 1 tablet by mouth once a day 04/09 - 10/15 Michael Weaver MD Calan SR 240 mg tablet extended release completed Take 1 tablet by mouth once a day 04/05 - 04/09 Michael Weaver MD Calan SR 120 mg tablet extended release completed Take 1 tablet by mouth once a day 02/26 - 04/05 Michael Weaver MD enalapril maleate 2.5 mg tablet completed - 02/26 Michael Weaver MD ergocalciferol (vitamin D2) 1,250 mcg (50,000 unit) capsule active Take 1 capsule by mouth every two weeks 02/26 Michael Weaver MD aspirin 81 mg tablet,delayed release (/EC) completed 1 tablet once a day TAKE 1 TABLET BY MOUTH EVERY DAY 02/26 - 02/24 Mian Candelario RN Xarelto 2.5 mg tablet completed Take 1 tablet by mouth twice a day Prescribed for cardiovascular protection to replace the clopidogrel 09/19 - 11/01 Paula ANDRADE ergocalciferol (vitamin D2) 1,250 mcg (50,000 unit) capsule completed 1 capsule by mouth once a week 04/18 - 02/26 Michael Weaver MD aspirin 81 mg tablet,delayed release (DR/EC) completed 1 tablet by mouth once a day 04/18 - 02/26 Michael Weaver MD enalapril maleate 2.5 mg tablet completed 1 tablet by mouth once a day 03/26 - 09/19 Josefa Hanna [employer] #30, 30 days supply, Prescribed by JOSEFA HANNA, Filled 03/28/2019 rosuvastatin 20 mg tablet completed Take 1 tablet by mouth once a day 03/26 - 07/03 Tala Fishman #30, 30 days supply, Prescribed by JOSEFA HANNA, Filled 03/26/2019 carvedilol 3.125 mg tablet completed 1 tablet by mouth once a day 03/26 - 09/19 Josefa Hanna [employer] #30, 30 days supply, Prescribed by JOSEFA HANNA, Filled 03/26/2019 clopidogrel 75 mg tablet completed 1 tablet by mouth once a day 03/26 - 09/19 Josefa Hanna [employer] #30, 30 days supply, Prescribed by JOSEFA HANNA, Filled 03/26/2019 SOCIAL HISTORY Date Observation Value Provider Underweight yes Curtis Caban MD Underweight yes Michael Woods drug use no Michael Woods alcohol use no Michael Woods smoking/tobacco cess ation, patient education and counseling yes Michael Weaver MD smoking, date started 1976 Michael Weaver MD smoking history, tot al pack/day 7 cigs a day Michael Weaver MD cigarette use yes Michael Weaver MD smoking status Current every da y smoker Michael Weaver MD Underweight yes Michael Woods drug use no Josefa Ezel [employer] alcohol use no Josefa Uri [employer] smoking/tobacco cess ation, patient education and counseling yes Josefa Uri [employer] smoking, date started 1976 Josefa Uri [employer] smoking history, tot al pack/day 7 cigs a day Josefa Ezel [employer] cigarette use yes Josefa Uri [employer] smoking status Current every da y smoker Josefa Uri [employer] Underweight yes Michael Woods social history E&M S moking History: P daphnie currently smokes every day. Michael Weaver MD social history reviewed E&M revi ewed - no changes required Michael Weaver MD smoking history, tot al pack/day 7 cigs a day Josefa Young cigarette use yes Josefa Young smoking status Current every da y smoker Josefa Tyler Underweight yes Cecilio Woods smoking/tobacco cess ation, patient education and counseling yes Kandy Regan smoking, date started 1976 Doug Klein smoking history, tot al pack/day 1 pkg a day Kandy Regan cigarette use yes Kandy Locke nd smoking status Current every da y smoker Kandy Regan Underweight yes Cecilio Woods smoking/tobacco cess ation, patient education and counseling yes Chyna Cortez smoking, date started 1976 Chyna marquez smoking history, tot al pack/day 1 pkg a day Chyna Cortez cigarette use yes Chyna Cortez smoking status Current every da y smoker Chyna Diego Underweight yes Cecilio Elizabeth Woods smoking history, tot al pack/day 1 pkg a day Josefa Young cigarette use yes Josefa Tyler smoking status Current every da y smoker Josefa Tyler Underweight yes Wilda bustamante MD smoking/tobacco cess ation, patient education and counseling yes Wilda Billy MD social history E&M S moking History: P atient currently smokes every day. Wilda Billy MD social history reviewed E&M revi ewed - no changes required Wilda Billy MD cigarette use yes Josefa Tyler smoking status Current every da y smoker Josefa Young Underweight yes Michael Woods social history E&M S moking History: P atient currently smokes every day. P atient has been counseled to quit. Michael Weaver MD social history reviewed E&M revi ewed - no changes required Michael Weaver MD smoking/tobacco cess ation, patient education and counseling yes Kandy Regan smoking, date started 1976 Doug deuce Regan smoking history, tot al pack/day 1/2 cig a day Kandy Regan cigarette use yes Kandy Locke nd smoking status Current every da y smoker Kandy Regan Underweight yes Michael Woods smoking/tobacco cess ation, patient education and counseling yes Michael Weaver MD social history E&M S moking History: P daphnie currently smokes every day. Michael Weaver MD social history reviewed E&M revi ewed - no changes required Michael Weaver MD smoking history, tot al pack/day 1/2 cig a day Josefa Young cigarette use yes Josefa Tyler smoking status Current every da y smoker Josefa Tyler Underweight yes iWlda bustamante MD number of grandchildren Wilda Billy MD social history E&M S moking History: P atient currently smokes every day. P ataneta has been counseled to quit. Wilda Billy MD social history reviewed E&M revi ewed - no changes required Wilda Billy MD smoking/tobacco cess ation, patient education and counseling yes Elisabethananya Barrett smoking, date started 1976 Elisabeth Arnold smoking history, tot al pack/day 1 Elisabethananya Barrett cigarette use yes Elisabeth Arnold smoking status Current every da y smoker Elisabethananya Barrett Underweight yes Michael Lenza M D Underweight yes Michael Lenza Asuncion D drug use no Paula Ventimig adeline [facility] alcohol use no Paula Ventimig adeline [facility] smoking/tobacco cess ation, patient education and counseling yes Elisabeth Arnold smoking, date started 1976 Elisabeth Arnold smoking history, tot al pack/day 1 Elisabeth Arnold cigarette use yes Elisabeth Arnold smoking status Current every da y smoker Elisabeth Arnold Underweight yes Michael Serota M D drug use no Paula Ventimig adeline [facility] alcohol use no Paula Ventimig adeline [facility] smoking, date started 1976 Elisabeth Arnold smoking history, tot al pack/day 1 Elisabeth Arnold cigarette use yes Elisabeth Arnold smoking status Current every da y smoker Paula Ventimiglia [facility] Underweight yes Michael Woods smoking/tobacco cess ation, patient education and counseling yes Paula Ventimiglia [facility] alcohol use no Paulazulema Allenmig adeline [facility] smoking history, tot al pack/day 1 Paula Ventimiglia [facility] cigarette use yes Paula Ventimi glia [facility] smoking status Current every da y smoker Paula Ventimiglia [facility] Underweight yes Michael Woods social history E&M S moking History: Wes eller currently smokes every day. P daphnie has been counseled to quit. Michael Weaver MD social history reviewed E&M revi ewed - no changes required Michael Weaver MD smoking/tobacco cess ation, patient education and counseling yes Vanessa Arriagacarley smoking, date started 1976 Vanessa Chanel cigarette use yes Vanessa Lopez sean smoking status Current every da y smoker Vanessa Arriagacarley Underweight yes Michael Woods social history E&M Smoking Histo ry: Wes eller is a former smoker. Michael Weaver MD social history reviewed E&M revi ewed - no changes required Michael Weaver MD Underweight yes Michael Woods smoking, date started 1976 Devendra Ruth cigarette use yes Nuris liu smoking status Current every da y smoker Josefa Hanna NP Underweight yes Michael Woods social history E&M S moking History: P ataneta is a former smoker. Michael Weaver MD social history reviewed E&M revi ewed - no changes required Michael Weaver MD smoking, date started 1976 Tonsha Fuentes cigarette use yes Tonsha Fuentes smoking status Former smoker Tonsha Fuentes smoking/tobacco cess ation, patient education and counseling yes Michael Weaver MD social history E&M S moking History: Wes eller is a former smoker. Michael Weaver MD social history reviewed E&M revi ewed - no changes required Michael Weaver MD smoking, date started 1976 [place] Elissa cigarette use yes Marlene Tolive r smoking status Former smoker Marlene Toli saul FUNCTIONAL STATUS Date Observation Value Provider HRA, CV Assess/Plan, Angina (inactive) Management Plan continue current therapy Curtis Caban MD HRA, CV Assess/Plan, Angina (inactive) Management Plan continue current therapy Michael Weaver MD HRA, CV Assess/Plan, Angina (inactive) Management Plan continue current therapy Michael Weaver MD HRA, CV Assess/Plan, Angina (inactive) Management Plan continue current therapy Wilda Billy MD HRA, CV Assess/Plan, Angina (inactive) Management Plan continue current therapy Michael Weaver MD HRA, CV Assess/Plan, Angina (inactive) Management Plan continue current therapy Michael Weaver MD HRA, CV Assess/Plan, Angina (inactive) Management Plan continue current therapy Wilda Billy MD HRA, CV Assess/Plan, Angina (inactive) Management Plan continue current therapy Michael Weaver MD HRA, CV Assess/Plan, Angina (inactive) Management Plan continue current therapy Paula Ventimiglia [employer] REPAIRER HRA, CV Assess/Plan, Angina (inactive) Management Plan continue current therapy Paula Ventimiglia [employer] REPAIRER HRA, CV Assess/Plan, Angina (inactive) Management Plan continue current therapy Michael Weaver MD HRA, CV Assess/Plan, Angina (inactive) Management Plan continue current therapy Michael Weaver MD HRA, CV Assess/Plan, Angina (inactive) Management Plan continue current therapy Josefa Hanna NP HRA, CV Assess/Plan, Angina (inactive) Management Plan continue current therapy Michael Weaver MD FAMILY HISTORY Family Member Condition Mother Family History of CV A or Stroke: INSURANCE PROVIDERS Payer name Policy type / Coverage type [place] [employer] party ID [employer] [facility] Medicaid [id number] ADVANCE DIRECTIVES Name Date DISCUSSED - NO DECISION MADE TREATMENT PLAN Date Name Performer [id number],C,pro 302, ef 6 5 Michael Weaver MD [id number],C,3.5 Michael soto MD [id number],S, T he patient is between 55-77 years old and has smoked at least 30 pack years. The patient is either a current smoker or has quit within the past 15 years. T he patient is recommended to have low dose CT scan for lung cancer screening. Has been counseled regarding the importance of tobacco cessation and abstinence. Shared decision making during this office visit included discussion of the benefits and harms of screening, possible future recommendations of follow-up diagnostic testing, and total amount of radiation exposure. The patient was recommended to have annual low dose CT scan for lung cancer screening and is willing to undergo diagnosis and treatment. Michael Weaver MD [id number],S, D X STEBTED 5O% RCA AND 60% LAD LEFT Michael Weaver MD [id number],S, Michael bustamante MD [id number],B, Michael bustamante MD [id number],B, 5 .8 Michael Weaver MD [id number],S, p ro 302, ef 65 Michael Weaver MD [id number],B, Michael bustamante MD [id number],S, n eg efgr a nd holter Michael Weaver MD [id number],S,stented left common iliac Michael Weaver MD [id number],B, 8 9, INTOL TO HIGH SHIRLENE Michael Weaver MD [id number],S, s een on cta 2022 left Michael Weaver MD [id number],B,up to date on colon Michael Weaver MD [id number],B, 8 9, INTOL TO HIGH SHIRLENE Michael Weaver MD [id number],S, Cecilio meier MD [id number],C,L LE due to 100% occluded left HELGA s/p stent. c/o back pain, shakiness. will get labs and CT abdomen pelvis due to symptoms. On exam benign findings. Her claudication is resovled and she is very happy with that. Cecilio Johnson MD [id number],C,seen on cta 2 023 left Michael Weaver MD [id number],W, Cecilio meier MD [id number],S, Cecilio meier MD [id number],W, Cecilio meier MD [id number],W, Cecilio meier MD [id number],S, Cecilio meier MD [id number],S, Cecilio meier MD [id number],C, T he patient is between 55-77 years old and has smoked at least 30 pack years. The patient is either a current smoker or has quit within the past 15 years. T he patient is recommended to have low dose CT scan for lung cancer screening. Has been counseled regarding the importance of tobacco cessation and abstinence. Shared decision making during this office visit included discussion of the benefits and harms of screening, possible future recommendations of follow-up diagnostic testing, and total amount of radiation exposure. The patient was recommended to have annual low dose CT scan for lung cancer screening and is willing to undergo diagnosis and treatment. Wilda Billy MD [id number],C, D X STEBTED 5O% RCA AND 60% LAD LEFT Wilda Billy MD [id number],C, h ad angio by tyler Billy MD [id number],C, [address] [place] W e will have her see Dr. Johnson for evalution fo EVAR and revascularization probably to be done at [facility] Wilda Billy MD [id number],S,had angio by tyler Weaver MD [id number],S,T he patient is between 55-77 years old and has smoked at least 30 pack years. The patient is either a current smoker or has quit within the past 15 years. T he patient is recommended to have low dose CT scan for lung cancer screening. Has been counseled regarding the importance of tobacco cessation and abstinence. Shared decision making during this office visit included discussion of the benefits and harms of screening, possible future recommendations of follow-up diagnostic testing, and total amount of radiation exposure. The patient was recommended to have annual low dose CT scan for lung cancer screening and is willing to undergo diagnosis and treatment. Michael Weaver MD [id number],S, n eg efgr Michael Weaver MD [id number],SMichael MD [id number],SMichael MD [id number],S, Michael bustamante MD [id number],S, Michael bustamante MD [id number],S, s ee cad Michael Weaver MD [id number],S, 8 9, INTOL TO HIGH SHIRLENE Michael Serota [id number],S, 5 .8 Michael Serota [id number],S, D X STEBTED 5O% RCA AND 60% LAD LEFT Michael Serotrobby WEEKS [id number],S, 3 .8 Michael Serota [id number],S, H er updated medication list for this problem includes: Rosuvastatin 20 Mg Tablet (Rosuvastatin) ..... Take 1 tablet by mouth once a day Rosuvastatin 20 Mg Tablet (Rosuvastatin) ..... Take 1 tablet by mouth once a day C HOL: 117 (04/06/2021) HDL: 41 (04/06/2021) Michael Weaver MD [id number],S, p ro 302, ef 65 Michael Serotrobby WEEKS [id number],S, Michael Serotrobby WEEKS [id number],S, Michael Serot a [id number],S, 5 .8 Michael Serota [id number],S, Michael Serot a [id number],S, 8 9, INTOL TO HIGH SHIRLENE Michael Serotrobby WEEKS [id number],S, D X STEBTED 5O% RCA AND 60% LAD LEFT Michael Serotrobby WEEKS [id number],S, n eg efgr Michael Serotrobby WEEKS [id number],S, A AA noted on angiogram. Occluded LCIA. Gómez for CT angiogram. Michael Weaver MD [id number],S,3.8 Michael Se charles WEEKS [id number],C, by ct 3.8 Tucker mile Weaver MD [id number],C, 3 .6 cm on study 10/2021 will continue to monitor C T angiogram Wilda Billy MD [id number],C,A AA noted on angiogram. Occluded LCIA. Arrang for CT angiogram. Wilda Billy MD [id number],S,T he Patient was reencouraged to stop smoking. Wilda Billy MD [id number],C,neg hotler an d efgr Michael Weaver MD [id number],C,pro 302, ef 6 5 Michael Weaver MD [id number],S, Michael bustamante MD [id number],S,T he patient is between 55-77 years old and has smoked at least 30 pack years. The patient is either a current smoker or has quit within the past 15 years. T he patient is recommended to have low dose CT scan for lung cancer screening. Has been counseled regarding the importance of tobacco cessation and abstinence. Shared decision making during this office visit included discussion of the benefits and harms of screening, possible future recommendations of follow-up diagnostic testing, and total amount of radiation exposure. The patient was recommended to have annual low dose CT scan for lung cancer screening and is willing to undergo diagnosis and treatment. Michael Weaver MD [id number],S,D X STEBTED 5O% RCA AND 60% LAD LEFT Michael Weaver MD [id number],B,NROMA;ZIS Isauro Weaver MD [id number],S,620 EF 65 Isauro Weaver MD [id number],S, 3 .6 cm on study 10/2021 will continue to monitor Michael Weaver MD [id number],S,NEG HOLTER Tucker mile Weaver MD [id number],B, n ml lpase and amuylaie Michael Weaver MD [id number],S,89, INTOL TO HIGH SHIRLENE Michael Weaver MD [id number],S, 5 .8 Michael Weaver MD [id number],W, S EVERE TRACEE .7 Michael Weaver MD [id number],C,SEVERE TRACEE .7 Michael Weaver MD [id number],C,r irais chest pain free. Will continue asa, xarelto and statin H er updated medication list for this problem includes: Lisinopril 2.5 Mg Tablet (Lisinopril) ..... Take 1 tablet by mouth once a day take one tablet by mouth daily Aspirin 81 Mg Tablet,delayed Release (dr/ec) (Aspirin) ..... Take 1 tablet by mouth once a day Calan Sr 240 Mg Tablet Extended Release (Verapamil) ..... Take 1 tablet by mouth once a day Paulazulema Allenmiglcaty [facility] [id number],C,cessation enc ouraged Paulazulema Allenmiglcaty [facility] [id number],C,r irais on statin therapy H er updated medication list for this problem includes: Rosuvastatin 20 Mg Tablet (Rosuvastatin) ..... Take 1 tablet by mouth once a day Paula Gali [facility] [id number],C,n oted on recent labs. She was started on lisinopril 20mg a day but is noted to be hypotensive. Will decrease dose to 5 mg a day and monitor Paula Alejandrovelmakurtia [facility] [id number],C,S he reports pain and burning in the bilateral calves with minimal ambulation. She needs to stop and rest and pain improves. She has diminished pulses on exam. Concern for PAD in setting of pain, CAD, HLD and continued tobacco abuse. will plan for TRACEE H er updated medication list for this problem includes: Aspirin 81 Mg Tablet,delayed Release (dr/ec) (Aspirin) ..... Take 1 tablet by mouth once a day Paulazulema Talbert [facility] [id number],C,nml lpase and ericalaie Michael Weaver MD [id number],C,5.8 Michael soto MD [id number],C,89 Michael rodriguez MD [id number],C, H er updated medication list for this problem includes: Rosuvastatin 20 Mg Tablet (Rosuvastatin) ..... 1 tablet once a day Paulazulema Talbert [facility] [id number],C, 3 .6 cm on study 10/2021 will continue to monitor Paulazulema Talbert [facility] [id number],C,c hronic, but persistent. Will update labs to look for any underlying source. Will refer back to PCP for futher evaluation O rders: 9 9214 MOD 30-39min (CPT-50521) M icroalb/Creatinine Urine, Random (1017) C BC (INCLUDES DIFF/PLT) (5199) C OMPREHENSIVE METABOLIC PANEL, W/EGFR (06132) T SH, free T4, total T3 (7444) L IPASE (327804) A MYLASE (033101) H EMOGLOBIN A1c (496) Paulazulema Talbert [facility] [id number],C, T he following medications were removed from the medication list: Lisinopril 20 Mg Tablet (Lisinopril) Her updated medication list for this problem includes: Calan Sr 240 Mg Tablet Extended Release (Verapamil) ..... Take 1 tablet by mouth once a day not 2 a day Aspirin 81 Mg Tablet,delayed Release (dr/ec) (Aspirin) ..... Take 1 tablet by mouth once daily Paulazulema Talbert [facility] [id number],C,c ontrolled on verapamil. Will continue present regimen. Will update labs to r/o any anemia, electrolye disturbance or thyroid dysfunction T he following medications were removed from the medication list: Lisinopril 20 Mg Tablet (Lisinopril) Her updated medication list for this problem includes: Calan Sr 240 Mg Tablet Extended Release (Verapamil) ..... Take 1 tablet by mouth once a day not 2 a day Aspirin 81 Mg Tablet,delayed Release (dr/ec) (Aspirin) ..... Take 1 tablet by mouth once daily Orders: 9 9214 MOD 30-39min (CPT-11178) M icroalb/Creatinine Urine, Random (8961) C BC (INCLUDES DIFF/PLT) (6999) C OMPREHENSIVE METABOLIC PANEL, W/EGFR (90622) T SH, free T4, total T3 (0944) L IPASE (324334) A MYLASE (795247) H EMOGLOBIN A1c (496) Paulazulema Talbert [facility] [id number],C,c urrently compensated. Will continue to monitor T he following medications were removed from the medication list: Lisinopril 20 Mg Tablet (Lisinopril) Her updated medication list for this problem includes: Calan Sr 240 Mg Tablet Extended Release (Verapamil) ..... Take 1 tablet by mouth once a day not 2 a day Paula Talbert [facility] [id number],C,620 nml ef 65 Michael Weaver MD [id number],C,3.6 Michael soto MD [id number],C,39 Michael rodriguez MD [id number],C,620 Michael Se charles WEEKS [id number],C,NML Michael soto MD [id number],C,171 Michael Se rota [id number],S, Michael bustamante MD [id number],S, Michael Serot robby WEEKS [id number],S, Michael Lenz a [id number],S, Michael bustamante MD [id number],W, 3 3 Michaelgema Lenzrobby WEEKS [id number],S, l ipase 107 Michaelgmea Lenzrobby WEEKS [id number],S, 5 .6 a1c Michaelgema Lenzrobby WEEKS [id number],S, Michael Lenz a [id number],S, d x steneted 50% rca and 60% LAD LEFT ALONE Michaelgema eLnzrobby WEEKS [id number],S, Michael Serot a [id number],B, Michaelgema Lenz a [id number],S, Michael Serot a [id number],S,d x steneted 50% rca and 60% LAD LEFT ALONE Michael Weaver MD [id number],S, Michale Lenz robby WEEKS [id number],W, T he Patient was reencouraged to stop smoking. The patient is between 55-77 years old and has smoked at least 30 pack years. The patient is either a current smoker or has quit within the past 15 years. T he patient is recommended to have low dose CT scan for lung cancer screening. Has been counseled regarding the importance of tobacco cessation and abstinence. Shared decision making during this office visit included discussion of the benefits and harms of screening, possible future recommendations of follow-up diagnostic testing, and total amount of radiation exposure. The patient was recommended to have annual low dose CT scan for lung cancer screening and is willing to undergo diagnosis and treatment. Michael Owen WEEKS [id number],S, Michaelgema Lenz robby WEEKS [id number],S, 5 .6 a1c Michael Owen WEEKS [id number],S, l ipase 107 Michaelgema Lenzrobby WEEKS [id number],S, 3 3 Michael Weaver MD [id number],S, Michael Lenz robby WEEKS [id number],S, Michael bustamante [id number],B, Michael bustamante [id number],C,5.6 a1c , tsh nml Michael Lenzrobby WEEKS [id number],C,lipase 107 Tucker mile Lenzrobby WEEKS [id number],C,33 Michael White michael WEEKS [id number],S,repeat echo S man Hanna HAYES [id number],S, Josefa Leroy quevedo NP [id number],S, Josefa Harper emy [employer] [id number],S,T he Patient was reencouraged to stop smoking. The patient is between 55-77 years old and has smoked at least 30 pack years. The patient is either a current smoker or has quit within the past 15 years. T he patient is recommended to have low dose CT scan for lung cancer screening. Has been counseled regarding the importance of tobacco cessation and abstinence. Shared decision making during this office visit included discussion of the benefits and harms of screening, possible future recommendations of follow-up diagnostic testing, and total amount of radiation exposure. The patient was recommended to have annual low dose CT scan for lung cancer screening and is willing to undergo diagnosis and treatment. Josefa Hanna HAYES [id number],C,repeat echo S man Jacques KOO Cardiology:s/p pci d oing well n o angina Curtiswes Caban MD Cardiology:left by c ta right by dopplers bp high i ncrease lisinopril dose i f has intervention, can assess at same time Curtiswes Caban MD Cardiology:sma steno sis may be causign post prandial abd cramps and wt loss w ill consider intervention if continues to lose wt Curtiswes Caban MD Cardiology:She has p ains in both legs- and does not have trouble walking and walks all day long but at night she has sever pain in her legs to toes. Feels like a cramp. She then gets up and walks arond the house and outside to feel better. Both les are equally affected bt RLE is worse. She has numbess in legs also. Her left ILiac was fixed recently but she does not feel much better. try cilostazol and /u W ill intervene if no benefit s ymptoms are atypical but probably due to PAD Curtiscrissy Caban MD Cardiology:quit 12/25 d oing a banana vape Curtiscrissy Caban MD Cardiology Michael Weaver MD Cardiology: 8 9, INTOL TO HIGH SHIRLENE Michael Weaver MD Cardiology Michael Weaver MD Cardiology:min Michael Weaver MD Cardiology: T he patient is between 55-77 years old and has smoked at least 30 pack years. The patient is either a current smoker or has quit within the past 15 years. T he patient is recommended to have low dose CT scan for lung cancer screening. Has been counseled regarding the importance of tobacco cessation and abstinence. Shared decision making during this office visit included discussion of the benefits and harms of screening, possible future recommendations of follow-up diagnostic testing, and total amount of radiation exposure. The patient was recommended to have annual low dose CT scan for lung cancer screening and is willing to undergo diagnosis and treatment. Michael Weaver MD Cardiology: c x stetent 50% rca and 60% lad left pet neg 24 Michael Weaver MD Cardiology: l eft by cta right by danitza Weaver MD Cardiology: s /p stent to the left, sevee by tracee on the right abnl senslse Michael Weaver MD Cardiology: 3 .5 Michael Weaver MD Cardiology: p ro 302, ef 55% Michael Weaver MD Cardiology: neg holtere Michael Weaver MD Cardiology: 5 .8 Michael Weaver MD :pro 302, ef 55% Michael Woods :left by cta right by danitza Weaver MD :3.7 Michael Weaver MD :s/p stent to the left, sevee by tracee on the right Michael Weaver MD :cx stetent 50% rca and 60% lad left pet neg 24 Michael Weaver MD :cx stened in pst, 5 0% rca and 60% lad left neg pet 27 Michael Weaver MD Cardiology:Now with chest pain. Will obtain stress test. T he following medications were removed from the medication list: Clopidogrel 75 Mg Tablet (Clopidogrel) ..... Take 1 tablet by mouth every day Clopidogrel 75 Mg Tablet (Clopidogrel) Her updated medication list for this problem includes: Lisinopril 2.5 Mg Tablet (Lisinopril) ..... Take 1 tablet by mouth once a day Aspirin 81 Mg Tablet,delayed Release (dr/ec) (Aspirin) ..... Take 1 tablet by mouth once a day Josefa Grewal NP Cardiology:Continue current meds. H er updated medication list for this problem includes: Vascepa 1 Gram Capsule (Icosapent ethyl) ..... Take 2 capsules by mouth twice a day Rosuvastatin 20 Mg Tablet (Rosuvastatin) ..... Take 1 tablet by mouth every day Josefa Grewal NP Cardiology:S/P left iliac stent. Will obtain TRACEE's. Josefa Grewal NP Cardiology: T he patient is between 55-77 years old and has smoked at least 30 pack years. The patient is either a current smoker or has quit within the past 15 years. T he patient is recommended to have low dose CT scan for lung cancer screening. Has been counseled regarding the importance of tobacco cessation and abstinence. Shared decision making during this office visit included discussion of the benefits and harms of screening, possible future recommendations of follow-up diagnostic testing, and total amount of radiation exposure. The patient was recommended to have annual low dose CT scan for lung cancer screening and is willing to undergo diagnosis and treatment. Josefa Grewal NP thinnk entrsot:pro 302, ef 65 Tucker mile Weaver MD thinnk entrsot:3.5 Michael Weaver MD Cardiology: T he patient is between 55-77 years old and has smoked at least 30 pack years. The patient is either a current smoker or has quit within the past 15 years. T he patient is recommended to have low dose CT scan for lung cancer screening. Has been counseled regarding the importance of tobacco cessation and abstinence. Shared decision making during this office visit included discussion of the benefits and harms of screening, possible future recommendations of follow-up diagnostic testing, and total amount of radiation exposure. The patient was recommended to have annual low dose CT scan for lung cancer screening and is willing to undergo diagnosis and treatment. Michael Weaver MD Cardiology: D X STEBTED 5O% RCA AND 60% LAD LEFT Michael Weaver MD Cardiology Michael Weaver MD Cardiology Michael Weaver MD Cardiology: 5 .8 Michael Weaver MD Cardiology: p ro 302, ef 65 Michael Weaver MD Cardiology Michael Weaver MD Cardiology: n eg efgr a nd holter Michael Weaver MD Cardiology:stented left common i liac Michael Weaver MD Cardiology: 8 9, INTOL TO HIGH SHIRLENE Michael Weaver MD Cardiology: s een on cta 2022 left Michael Weaver MD Cardiology:up to date on colon H papi Weaver MD Cardiology: 8 9, INTOL TO HIGH SHIRLENE Michael Weaver MD Cardiology Cecilio Johnson MD Cardiology:LLE due t o 100% occluded left HELGA s/p stent. c/o back pain, shakiness. will get labs and CT abdomen pelvis due to symptoms. On exam benign findings. Her claudication is resovled and she is very happy with that. Cecilio Johnson MD :seen on cta 2022 left Michael soto MD Cardiology Cecilio Johnson MD Cardiology Cecilio Johnson MD Cardiology Cecilio Johnson MD Cardiology Cecilio Johnson MD Cardiology Cecilio Johnson MD Cardiology Cecilio Johnson MD Cardiology: T he patient is between 55-77 years old and has smoked at least 30 pack years. The patient is either a current smoker or has quit within the past 15 years. T he patient is recommended to have low dose CT scan for lung cancer screening. Has been counseled regarding the importance of tobacco cessation and abstinence. Shared decision making during this office visit included discussion of the benefits and harms of screening, possible future recommendations of follow-up diagnostic testing, and total amount of radiation exposure. The patient was recommended to have annual low dose CT scan for lung cancer screening and is willing to undergo diagnosis and treatment. Wilda Billy MD Cardiology: D X STEBTED 5O% RCA AND 60% LAD LEFT Wilda Billy MD Cardiology: h ad angio by gretchen Billy MD Cardiology: [address] [place] W e will have her see Dr. Johnson for evalution fo EVAR and revascularization probably to be done at [facility] Wilda Billy MD Cardiology:had angio by gretchen Weaver MD Cardiology:The patie nt is between 55-77 years old and has smoked at least 30 pack years. The patient is either a current smoker or has quit within the past 15 years. T he patient is recommended to have low dose CT scan for lung cancer screening. Has been counseled regarding the importance of tobacco cessation and abstinence. Shared decision making during this office visit included discussion of the benefits and harms of screening, possible future recommendations of follow-up diagnostic testing, and total amount of radiation exposure. The patient was recommended to have annual low dose CT scan for lung cancer screening and is willing to undergo diagnosis and treatment. Michael Weaver MD Cardiology: n eg efgr Michael Weaver MD Cardiology Michael Weaver MD Cardiology Michael Weaver MD Cardiology Michael Weaver MD Cardiology Michael Weaver MD Cardiology: s ee cad Michael Weaver MD Cardiology: 8 9, INTOL TO HIGH SHIRLENE Michael Weaver MD Cardiology: 5 .8 Michael Weaver MD Cardiology: D X STEBTED 5O% RCA AND 60% LAD LEFT Michael Weaver MD Cardiology: 3 .8 Michael Weaver MD Cardiology: H er updated medication list for this problem includes: Rosuvastatin 20 Mg Tablet (Rosuvastatin) ..... Take 1 tablet by mouth once a day Rosuvastatin 20 Mg Tablet (Rosuvastatin) ..... Take 1 tablet by mouth once a day C HOL: 117 (04/06/2021) HDL: 41 (04/06/2021) Michael Weaver MD Cardiology: p ro 302, ef 65 Michael Weaver MD Cardiology Michael Weaver MD Cardiology Michael Weaver MD Cardiology: 5 .8 Michael Weaver MD Cardiology Michael Weaver MD Cardiology: 8 9, INTOL TO HIGH SHIRLENE Michael Weaver MD Cardiology: D X STEBTED 5O% RCA AND 60% LAD LEFT Michael Weaver MD Cardiology: n eg efgr Michael Weaver MD Cardiology: A AA noted on angiogram. Occluded LCIA. Arrgiovanni for CT angiogram. Michael Weaver MD Cardiology:3.8 Michael Weaver MD : by ct 3.8 Michael Weaver MD Cardiology: 3 .6 cm on study 10/2021 will continue to monitor C T angiogram Wilda Billy MD Cardiology:AAA noted on angiogram. Occluded LCIA. Gómez for CT angiogram. Wilda Billy MD Cardiology:The Patie nt was reencouraged to stop smoking. Wilda Billy MD :neg hotler and efgr Michael winkler MD :pro 302, ef 65 Michael Weaver MD Cardiology Michael Weaver MD Cardiology:The patie nt is between 55-77 years old and has smoked at least 30 pack years. The patient is either a current smoker or has quit within the past 15 years. T he patient is recommended to have low dose CT scan for lung cancer screening. Has been counseled regarding the importance of tobacco cessation and abstinence. Shared decision making during this office visit included discussion of the benefits and harms of screening, possible future recommendations of follow-up diagnostic testing, and total amount of radiation exposure. The patient was recommended to have annual low dose CT scan for lung cancer screening and is willing to undergo diagnosis and treatment. Michael Weaver MD Cardiology:DX STEBTED 5O% RCA AN D 60% LAD LEFT Michael Weaver MD Cardiology:NROMA;ZIS Michael winkler MD Cardiology:620 EF 65 Mcihael winkler MD Cardiology: 3 .6 cm on study 10/2021 will continue to monitor Michael Weaver MD Cardiology:NEG HOLTER Michael rodriguez MD Cardiology: n ml lpase and amuylaie Michael Weaver MD Cardiology:89, INTOL TO HIGH SHIRLENE Michael Weaver MD Cardiology: 5 .8 Michael Weaver MD Cardiology: S EVERE TRACEE .7 Michael Weaver MD THINK LPA:SEVERE TRACEE .7 Michael chester MD Cardiology:remains c hest pain free. Will continue asa, xarelto and statin H er updated medication list for this problem includes: Lisinopril 2.5 Mg Tablet (Lisinopril) ..... Take 1 tablet by mouth once a day take one tablet by mouth daily Aspirin 81 Mg Tablet,delayed Release (dr/ec) (Aspirin) ..... Take 1 tablet by mouth once a day Calan Sr 240 Mg Tablet Extended Release (Verapamil) ..... Take 1 tablet by mouth once a day Paula Talbert [facility] Cardiology:[facility] Cardiology:remains o n statin therapy H er updated medication list for this problem includes: Rosuvastatin 20 Mg Tablet (Rosuvastatin) ..... Take 1 tablet by mouth once a day Paula Talbert [facility] Cardiology:noted on recent labs. She was started on lisinopril 20mg a day but is noted to be hypotensive. Will decrease dose to 5 mg a day and monitor Paulazulema Talbert [facility] Cardiology:She repor ts pain and burning in the bilateral calves with minimal ambulation. She needs to stop and rest and pain improves. She has diminished pulses on exam. Concern for PAD in setting of pain, CAD, HLD and continued tobacco abuse. will plan for TRACEE H er updated medication list for this problem includes: Aspirin 81 Mg Tablet,delayed Release (dr/ec) (Aspirin) ..... Take 1 tablet by mouth once a day Paulazulema Luiskurtcaty [facility] needs acer and farciaga:nml lpas e and amuylaie Michael Weaver MD needs acer and farciaga:5.8 John Weaver MD needs acer and farciaga:89 Enio Weaver MD Cardiology: H er updated medication list for this problem includes: Rosuvastatin 20 Mg Tablet (Rosuvastatin) ..... 1 tablet once a day Paulazulema Luiskurtcaty [facility] Cardiology: 3 .6 cm on study 10/2021 will continue to monitor Gary Tobyglcaty [facility] Cardiology:chronic, but persistent. Will update labs to look for any underlying source. Will refer back to PCP for futher evaluation O rders: 9 9295 MOD 30-39min (CPT-23692) M icroalb/Creatinine Urine, Random (8066) C BC (INCLUDES DIFF/PLT) (7099) C OMPREHENSIVE METABOLIC PANEL, W/EGFR (21249) T SH, free T4, total T3 (7444) L IPASE (811836) A MYLASE (437668) H EMOGLOBIN A1c (496) Paulazulema Talbert [facility] Cardiology: T he following medications were removed from the medication list: Lisinopril 20 Mg Tablet (Lisinopril) Her updated medication list for this problem includes: Calan Sr 240 Mg Tablet Extended Release (Verapamil) ..... Take 1 tablet by mouth once a day not 2 a day Aspirin 81 Mg Tablet,delayed Release (dr/ec) (Aspirin) ..... Take 1 tablet by mouth once daily Paulazulema Talbert [facility] Cardiology:controlle d on verapamil. Will continue present regimen. Will update labs to r/o any anemia, electrolye disturbance or thyroid dysfunction T he following medications were removed from the medication list: Lisinopril 20 Mg Tablet (Lisinopril) Her updated medication list for this problem includes: Calan Sr 240 Mg Tablet Extended Release (Verapamil) ..... Take 1 tablet by mouth once a day not 2 a day Aspirin 81 Mg Tablet,delayed Release (dr/ec) (Aspirin) ..... Take 1 tablet by mouth once daily Orders: 9 9214 MOD 30-39min (CPT-14571) M icroalb/Creatinine Urine, Random (7944) C BC (INCLUDES DIFF/PLT) (8899) C OMPREHENSIVE METABOLIC PANEL, W/EGFR (45227) T SH, free T4, total T3 (7444) L IPASE (120951) A MYLASE (973825) H EMOGLOBIN A1c (496) Paulazulema Luiscaty [facility] Cardiology:currently compensated. Will continue to monitor T he following medications were removed from the medication list: Lisinopril 20 Mg Tablet (Lisinopril) Her updated medication list for this problem includes: Calan Sr 240 Mg Tablet Extended Release (Verapamil) ..... Take 1 tablet by mouth once a day not 2 a day Paulazulema Luisbrandi [facility] :620 nml ef 65 Michael Weaver MD :3.6 Michael Weaver MD :39 Michael Weaver MD :620 Michael Weaver MD :NML Michael Weaver MD :171 Michael Serotrobby WEEKS Cardiology Michael Serota Cardiology Michael Serotrobby WEEKS Cardiology Michael Serotrobby WEEKS Cardiology Michael Serota Cardiology: 3 3 Michael Serotrobby WEEKS Cardiology: l ipase 107 Michael Serotrobby WEEKS Cardiology: 5 .6 a1c Michael Serotrobby WEEKS Cardiology Michael Serota Cardiology: d x steneted 50% rca and 60% LAD LEFT ALONE Michael Weaver MD Cardiology Michael Serotrobby WEEKS Cardiology Michael Serotrobby WEEKS Cardiology Michael Serotrobby WEEKS Cardiology:dx stenet ed 50% rca and 60% LAD LEFT ALONE Michael Weaver MD Cardiology Michael Serotrobby WEEKS Cardiology: T he Patient was reencouraged to stop smoking. The patient is between 55-77 years old and has smoked at least 30 pack years. The patient is either a current smoker or has quit within the past 15 years. T he patient is recommended to have low dose CT scan for lung cancer screening. Has been counseled regarding the importance of tobacco cessation and abstinence. Shared decision making during this office visit included discussion of the benefits and harms of screening, possible future recommendations of follow-up diagnostic testing, and total amount of radiation exposure. The patient was recommended to have annual low dose CT scan for lung cancer screening and is willing to undergo diagnosis and treatment. Michael Weaver MD Cardiology Michael Serota Cardiology: 5 .6 a1c Michael Serotrobby WEEKS Cardiology: l ipase 107 Michael Serotrobby WEEKS Cardiology: 3 3 Michael Serotrobby WEEKS Cardiology Michael Serota Cardiology Michael Serotrobby WEEKS Refills Michael Serotrobby WEEKS Refills:5.6 a1c , tsh nml Michael Weaver MD Refills:lipase 107 Michael Weaver MD Refills:33 Michael Weaver MD Cardiology follow up :repeat ech o Josefa Hanna [employer] Cardiology follow up Josefa adamson [employer] Cardiology follow up Josefa adamson [employer] Cardiology follow up :The Patient was reencouraged to stop smoking. The patient is between 55-77 years old and has smoked at least 30 pack years. The patient is either a current smoker or has quit within the past 15 years. T he patient is recommended to have low dose CT scan for lung cancer screening. Has been counseled regarding the importance of tobacco cessation and abstinence. Shared decision making during this office visit included discussion of the benefits and harms of screening, possible future recommendations of follow-up diagnostic testing, and total amount of radiation exposure. The patient was recommended to have annual low dose CT scan for lung cancer screening and is willing to undergo diagnosis and treatment. Michael Weaver MD Cardiology follow up :repeat ech o Josefa Hanna [employer] :3.5 Michael Weaver MD Cardiology Michael Weaver MD Cardiology Michael Weaver MD Cardiology: d x stented, 50% rca and 60% lad left Michael Weaver MD Cardiology: 5 .7 Michael Weaver MD Cardiology Michael Weaver MD Cardiology: u p to date on colon Michael Weaver MD Cardiology Michael Weaver MD Cardiology Michael Weaver MD Cardiology Michael Weaver MD Cardiology: T he patient is between 55-77 years old and has smoked at least 30 pack years. The patient is either a current smoker or has quit within the past 15 years. T he patient is recommended to have low dose CT scan for lung cancer screening. Has been counseled regarding the importance of tobacco cessation and abstinence. Shared decision making during this office visit included discussion of the benefits and harms of screening, possible future recommendations of follow-up diagnostic testing, and total amount of radiation exposure. The patient was recommended to have annual low dose CT scan for lung cancer screening and is willing to undergo diagnosis and treatment. Michael Weaver MD Cardiology: 3 .2 Michael Serotrobby WEEKS Cardiology: e f 55, Michael Weaver MD :55 Michael Weaver MD Cardiology: d x stented, 50% rca and 60% lad left Michael Weaver MD Cardiology Michael Serotrobby WEEKS Cardiology Michael Serotrobby WEEKS Cardiology Michael Serotrobby WEEKS Cardiology Michael Serotrobby WEEKS Cardiology: t sh nml Michael Weaver MD Cardiology: s ee cad Michael Serotrobby WEEKS Cardiology:7200 Michael Weaver MD Cardiology:The patie nt is between 55-77 years old and has smoked at least 30 pack years. The patient is either a current smoker or has quit within the past 15 years. T he patient is recommended to have low dose CT scan for lung cancer screening. Has been counseled regarding the importance of tobacco cessation and abstinence. Shared decision making during this office visit included discussion of the benefits and harms of screening, possible future recommendations of follow-up diagnostic testing, and total amount of radiation exposure. The patient was recommended to have annual low dose CT scan for lung cancer screening and is willing to undergo diagnosis and treatment. Michael Weaver MD Cardiology: 3 .2 Michael Weaver MD Cardiology:5.7 Michael Weaver MD Cardiology:up to date on colon H papi Weaver MD :3.2 Michael Serotrobby WEEKS :tsh nml Michael Serotrobby WEEKS :see cad Michael Weaver MD :dx stented, 50% rca and 60% lad left Michael Weaver MD Date Name Monitor - Telemetry (Mobile Cardiac) Low Dose Lung CT Aorta Duplex Ultraso und Low Dose Lung CT Renal Artery Duplex Arterial Duplex Bi-L ower EX Arterial - SENSILASE Aorta Duplex Ultraso und myocardial blood ritesh w (PET) Stress Cardiac PET-C T Complete Echo Stress Cardiac PET-C T Low Dose Lung CT FOLATE, SERUM Creatinine, Serum CBC (INCLUDES DIFF/P LT) CT Angio, abdomen an d pelvis CT Angio, abdomen an d pelvis Low Dose Lung CT Complete Echo DLCO - 36731 FRC - 86169 FVC - 39103 Lipoprotein (a) Aorta Duplex Ultraso und CT Angio, abdomen an d pelvis CT Angio, abdomen an d pelvis Low Dose Lung CT PROBNP, N TERMINAL PROTHROMBIN TIME WIT H INR CBC (INCLUDES DIFF/P LT) BASIC METABOLIC PANE L W/EGFR Complete Echo Aorta Duplex Ultraso und DLCO - 58335 FRC - 85328 FVC - 81654 Lipoprotein (a) Lipoprotein (a) Arterial - SENSILASE Arterial Duplex Bi-L ower EX HEMOGLOBIN A1c AMYLASE LIPASE TSH, free T4, total T3 COMPREHENSIVE METABO LIC PANEL, W/EGFR CBC (INCLUDES DIFF/P LT) Microalb/Creatinine Urine, Random Microalb/Creatinine Urine, Random CRP, high sensitivit y LIPID PANEL PROBNP, N TERMINAL Aorta Duplex Ultraso und Complete Echo PROBNP, N TERMINAL BASIC METABOLIC PANE L W/EGFR LIPID PANEL C-REACTIVE PROTEIN LIPASE Aorta Duplex Ultraso und Low Dose Lung CT Complete Echo Stress Regadenoson DLCO - 81003 FRC - 65606 FVC - 18588 Holter Monitor 24 Hr Stress Regadenoson LIPASE C-REACTIVE PROTEIN LIPID PANEL BASIC METABOLIC PANE L W/EGFR PROBNP, N TERMINAL Complete Echo Low Dose Lung CT Aorta Duplex Ultraso und DLCO - 65710 FRC - 47922 FVC - 36765 Holter Monitor 24 Hr VITAMIN B12 Vitamin D, 25-Hydrox y COVID19 High Affinit y Antibodies (LC) CXR- PA/Lat DLCO - 51795 FRC - 99947 FVC - 65987 CBC (INCLUDES DIFF/P LT) FERRITIN IRON AND TOTAL IRON BINDING CAPACITY Microalb/Creatinine Urine, Random HEMOGLOBIN A1c COMPREHENSIVE METABO LIC PANEL, W/EGFR LIPASE AMYLASE C-REACTIVE PROTEIN LIPID PANEL Low Dose Lung CT Aorta Duplex Ultraso und Holter Monitor 24 Hr LIPID PANEL LIPASE AMYLASE COMPREHENSIVE METABO LIC PANEL, W/EGFR Microalb/Creatinine Urine, Random HEMOGLOBIN A1c Low Dose Lung CT FERRITIN IRON AND TOTAL IRON BINDING CAPACITY PROBNP, N TERMINAL DLCO - 41575 FRC - 56552 FVC - 44530 Complete Echo Aorta Duplex Ultraso und DLCO - 50301 FRC - 37851 FVC - [address] Carotid Duplex Bilat eral Aorta Duplex Ultraso und Complete Echo HISTORY OF PROCEDURES Procedure Date Procedure Name Provider Procedure Notes S tatus Complex e/m visit add on Curtiscrissy Caban MD completed Tobacco user + tobac co cessation intervention Michael Weaver MD completed Counseling LDCT Michael Weaver MD com pleted Complex e/m visit add on Michael Weaver MD completed Counseling LDCT Michael Weaver MD [ 024 - julianna] APPROVED [ 12/28/2023 - julianna] PENDING completed EKG Michael Weaver MD [12/30/2023 - julianna] APPROVED [ 12/28/2023 - julianna] PENDING completed Spirometry Michael Weaver MD complete d FVC / MVV with bronchodilator - 91264 Michael Weaver MD completed BLOOD COUNT HEMOGLOBIN Michael Weaver MD completed FRC - 04602 Michael Weaver MD complet ed SpO2 w/o 6min walk/titration Michael Weaver MD completed SVC - 10167 Michael Weaver MD complet ed DLCO - 23185 Michael Weaver MD comple jc Counseling LDCT Michael Weaver MD com pleted EKG Wilda Billy MD completed Counseling LDCT Michael Weaver MD com pleted EKG Wilda Billy MD completed Counseling LDCT Michael Weaver MD com pleted Spirometry Michael Weaver MD complete d FVC / MVV with bronchodilator - 18572 Michael Weaver MD completed BLOOD COUNT HEMOGLOBIN Michael Weaver MD completed FRC - 28749 Michael Weaver MD complet ed SpO2 w/o 6min walk/titration Michael Weaver MD completed SVC - 20470 Michael Weaver MD complet ed DLCO - 57326 Michael Weaver MD comple jc Counseling LDCT Michael Weaver MD com pleted EKG Michael Weaver MD complete d Holter, 24 or 48 Michael Weaver MD co mpleted Evangelinater, 24 or 48 Michael Weaver MD co mpleted Counseling LDCT Michael Weaver MD com pleted Spirometry Michael Weaver MD complete d FVC / MVV with bronchodilator - 60556 Michael Weaver MD completed FRC - 19872 Michael Weaver MD complet ed SpO2 w/o 6min walk/titration Michael Weaver MD completed SVC - 42937 Michael Weaver MD complet ed Counseling LDCT Michael Weaver MD com pleted EKG Michael Weaver MD complete d Counseling LDCT Michael Weaver MD com pleted Counseling LDCT Michael Weaver MD com pleted EKG Michael Weaver MD complete d
[2024-05-23] MEDS: ASPIRIN 81 MG CHEWABLE TABLET 324 MG PO (21:14)
[2024-05-23 21:25] LABS: Basophils Percent Auto 0.2 % (0.2-1.2); Eosinophils Percent Auto 0.1 % (0-4.4); Hemoglobin 15.2 g/dL (12.0-15.0); Immature Granulocyte Absolute 0.05 K/mm3 (0.00-0.031); Immature Granulocyte Percent A 0.3 % (0-0.5); Lymphocytes Absolute Auto 1.47 K/mm3 (0.9-3.2); Lymphocytes Percent Auto 8.6 % (18.3-44.2); Mean Corpuscular HGB Conc 33.8 g/dl (32-36); Mean Corpuscular Hemoglobin 30.2 pg (26-34); Mean Corpuscular Volume 89.3 fl (80-100); Monocytes Absolute Auto 0.8 K/mm3 (0.1-0.6); Monocytes Percent Auto 4.6 % (2.6-8.5); Neutrophils Absolute Auto 14.7 K/mm3 (1.3-6.7); Neutrophils Percent Auto 86.2 % (45.5-73.1); Platelet Count Result 156 k/mm3 (150-375); Red Blood Count 5.04 M/mm3 (4.2-5.4); Red Cell Distribution Width 14.1 % (11.5-14.5)
--- NOTE | 2024-05-23 21:28 | PC.NURSE ---
Patient also states that she has some blurry vision that started yesterday.
[2024-05-23 21:35] LABS: Alanine Aminotransferase 23 U/L (6-35); Albumin Level 4.7 g/dL (3.5-5.1); Alkaline Phosphatase 139 U/L (38-126); Anion Gap 14 mmol/L (4-12); Aspartate Amino Transferase 28 U/L (14-36); Bilirubin,Total 0.7 mg/dL (0.2-1.3); Blood Urea Nitrogen 13 mg/dL (7-17); Calcium 9.7 mg/dL (8.4-10.2); Carbon Dioxide 22 mmol/L (22-30); Chloride 100 mmol/L (98-107); Estimated CRCL calculation 29 ml/min; Estimated Glomerular Filt Rate 59; Glucose 134 mg/dL (65-110); Lipase 550 U/L (23-300); Potassium 3.6 mmol/L (3.4-5.0); Sodium 136 mmol/L (137-145)
--- OUTSIDE RECORDS SUMMARY | 2024-05-23 21:40 | XMS_ITS | CONTINUITY OF CARE DOCUMENT ---
Author Name deja short Address Unknown Organization [facility] Address [address] [place] [address] Phone [phone] Care Team Providers Care Town Marshal Name Role Phone Owen WEEKS, Michael Unavailable [...] had cabg Tricuspid regurgitation, mild completed - Michael Weaver MD Exposure to SARS-associated coronavirus;neg igg active Michael Weaver MD Sinus tachycardia;nml tsh active Michael rodriguez MD Abnormal weight loss active Michael Woods NEG TSH Microalbuminuria active Michael Weaver MD [...] In-person encounter Office Visit Curtis Caban MD [facility] - In-person encounter Office Visit Michael Weaver MD [facility] AAA - In-person encounter Office Visit Michael Weaver MD [facility] - In-person encounter Office Visit Michael Weaver MD [facility] Claudication bilateralClaudication class III - In-person encounter Office Visit Cecilio Johnson MD [facility] - In-person encounter Office Visit Cecilio Johnson MD [facility] - In-person encounter Office Visit Cecilio Johnson MD [facility] Abdominal aortic aneurysm, without rupture, unspecified - In-person encounter Office Visit Wilda Billy MD [facility] - In-person encounter Office Visit Michael Weaver MD [facility] Microalbuminuria - In-person encounter Office Visit Michael Weaver MD [facility] Sinus tachycardia;nml tshMicroalbuminuria - In-person encounter Office Visit Wilda Billy MD [facility] - In-person encounter Office Visit Michael Weaver MD [facility] Tricuspid regurgitation, mildSinus tachycardia;nml tshAbnormal weight lossPancreatitis - In-person encounter Office Visit Michael Weaver MD [facility] - In-person encounter Office Visit Michael Weaver MD [facility] - In-person encounter Office Visit Michael Weaver MD [facility] - In-person encounter Office Visit Michael Weaver MD [facility] Anxiety disorder - In-person encounter Office Visit Michael Weaver MD [facility] Renal disease, chronic, mild - In-person encounter Office Visit Michael Weaver MD [facility] ScreeningAbnormal weight loss - In-person encounter Office Visit Michael Weaver MD [facility] Diastolic CHFCHFExposure to SARS-associated coronavirus;neg igg - In-person encounter Office Visit Michael Weaver MD [facility] Gallstones; with pancrdeatidisFAMILY HISTORY OF HEART [...] MD blood pressure, diastolic 84 mm[Hg] [place] [facility], systolic 130 mm[Hg] June [facility] oxygen saturation, oximetry 97 % [facility] pulse rate 83 /min [facility] respiratory rate E&M 12 /min [facility] weight E&M 82 [lb_av] [facility] height E&M 62 [in_i] [facility] blood pressure, cuff size regular [facility] Body Mass Index (Ratio) 14.63 kg/m2 John Weaver MD blood pressure, diastolic 83 mm[Hg] Joseph pattonn Sta[facility] blood pressure, systolic 143 mm[Hg] Ariadne nazario [facility] blood pressure, cuff size regular Joseph gina [facility] pulse rate 90 /min [facility], oximetry 99 % [facility] weight E&M 80 [lb_av] [facility] height E&M 62 [in_i] [facility] Body Mass Index (Ratio) 15.03 [...] Johnson MD blood pressure, diastolic 94 mm[Hg] Az keithdeuce Regan blood pressure, systolic 162 mm[Hg] [facility] graemedeuce Regan oxygen saturation, oximetry 98 % Kandy Regan pulse rate 135 /min Kandy woods blood pressure, cuff size small Az keith Regan respiratory rate E&M 16 /min [...] Vel Johnson MD weight E&M 83 [lb_av] Jsoefasergo Young pulse rate 93 /min Josefa Young [...] parker Regan blood pressure, systolic 154 mm[Hg] [facility] vanessa [place] oxygen saturation, oximetry 98 % Kandy Regan pulse rate 107 /min Kandy woods blood pressure, cuff size large Velma parker [place] respiratory rate E&M 16 /min Marga de los santos [place] weight E&M 81 [lb_av] Kandy woods height [...] jana Barrett blood pressure, systolic 164 mm[Hg] [facility] ananya Barrett pulse rate 114 /min Elisabethananya [...] Bibi bahena pulse rate 86 /min Vanessa Delvisnenffiliberto chairezer weight E&M 84 [lb_av] Vanessa Gruenenfe mihaelaer height E&M 62 [in_i] Vanessa Gruenenfe lder Body Mass Index (Ratio) 15.44 kg/m2 John gema Weaver MD blood pressure, diastolic 48 mm[Hg] Am zulema Ventimiglia [facility] blood pressure, systolic 96 mm[Hg] Cromwell nda Ventimiglia [facility] oxygen saturation, oximetry 95 % [facility] pulse rate 82 /min [facility] respiratory rate E&M 16 /min [facility] weight E&M 84.4 [lb_av] [facility] height E&M 62 [in_i] [facility] Body Mass Index (Ratio) 15.36 kg/m2 John gema Weaver MD blood pressure, diastolic 65 mm[Hg] Am zulema Ventimiglia [facility] blood pressure, systolic 128 mm[Hg] Cromwell nda Ventimiglia [facility] oxygen saturation, oximetry 99 % [facility] respiratory rate E&M 16 /min [facility] pulse rate 91 /min [facility] weight E&M 84 [lb_av] Paula Ventimig adeline [facility] height E&M 62 [in_i] [facility] Body Mass Index (Ratio) 15.18 kg/m2 John gema Weaver MD blood pressure, cuff size small Ke rri Bartuenechu blood pressure, diastolic 60 mm[Hg] Ke rri Bartuenechu blood pressure, systolic 110 mm[Hg] Dat Buchanan oxygen saturation, oximetry 98 % Vanessa Buchanan respiratory rate E&M 16 /min Vanessa bahena pulse rate 73 /min Vanessa alberts weight E&M 83 [lb_av] Vanessaeros Lester [facility] height E&M 62 [in_i] Vanessa Trevon [facility] Body Mass Index (Ratio) 15.18 kg/m2 John [...] bahena pulse rate 112 /min Vanessa Lester [facility] weight E&M 83 [lb_av] Vanessa Trevon [facility] height E&M 62 [in_i] Vanessa Trevon [facility] Body Mass Index (Ratio) 16.28 kg/m2 John Weaver MD blood pressure, diastolic 78 mm[Hg] Yolanda Log blood pressure, systolic 132 mm[Hg] Emy [facility] blood pressure, diastolic 78 mm[Hg] Sara [...] blood pressure, systolic 121 mm[Hg] Ton sha [place] oxygen saturation, oximetry 98 % [facility] 70 /min Tons Fuentes respiratory rate E&M 16 /min Tonsha Fuentes weight E&M 85.50 [lb_av] [facility] height E&M 62 [in_i] [facility] temperature site temporal Shira Tank sle temperature E&M 97.3 [degF] Shira Tanks blossom height E&M 62 [in_i] Marlene Bowers ALLERGIES Allergy Name Onset Date Reaction Criticality Status IODINE Low Criticality active RESULTS Date Observation Value Provider Reference Range Interpretation Location Estimated Glomerular Filtration Rate (calc) 69 mL/min/{ 1.73_m2} [facility] C, [place] [address] creatine, serum 0.94 mg/dL [facility] 0.60-1.10 Normal C, [place] [address] Absolute Basophils 0.0 K/CUMM [facility] 0.0-0.1 Normal , [place] [address] Absolute Monocytes 0.9 K/CUMM [facility] 0.2-0.8 High C, [place] [address] Absolute Lymphocytes 2.2 K/CUMM [facility] 0.8-3.3 Normal C, [place] [address] Absolute Neutrophils 8.5 K/CUMM [facility] 1.7-6.5 High C, [place] [address] nucleated red blood cells as percent of [...] ratio (INR) 1.02 [facility] 0.90-1.20 Normal C, [place] [address] prothrombin time (patient) 11.6 s [facility] 10.3-13.7 Normal C, [place] [address] Estimated Glomerular Filtration Rate (calc) 73 mL/min/{ 1.73_m2} [facility] C, [place] [address] cholesterol, non-HDL, total 87 mg/dL [facility] C, [place] [address] lipoprotein, beta, serum, point, quantitative, calculated 49 mg/dL [facility] <=129 Normal , [place] [address] HDL CHOLESTEROL 38 mg/dL [facility] >=40 Low C, [place] [address] triglyceride, serum, fasting 192 mg/dL [facility] <=149 High C, [place] [address] cholesterol, serum 125 mg/dL [facility] 30-199 Normal , [place] [address] aspartate aminotransferase (SGOT), serum 25 1/L [facility] 10-45 Normal , [place] [address] alanine aminotransferase (SGPT), serum 20 1/L [facility] 7-45 Normal C, [place] [address] Alkaline phosphatase 109 [facility] 40-130 Normal C, [place] [address] albumin, serum 4.9 g/dL [facility] 3.5-5.0 Normal C, [place] [address] protein, total, serum 7.5 g/dL [facility] 6.5-8.5 Normal C, [place] [address] bilirubin, serum, total 0.3 mg/dL [facility] 0.1-1.2 Normal C, [place] [address] calcium, serum 9.6 mg/dL [facility] 8.5-10.3 Normal , [place] [address] blood glucose, random 96 mg/dL [facility] 70-199 Normal , [place] [address] creatine, serum 0.90 mg/dL [facility] 0.60-1.10 Normal C, [place] [address] urea nitrogen, blood 9 mg/dL [facility] 6-25 Normal C, [place] [address] anion gap, serum 13 mmol/L [facility] 2-15 Normal , [place] [address] carbon dioxide, venous blood 24 mmol/L [facility] 22-32 Normal , [place] [address] chloride, serum 105 mmol/L [facility] 97-110 Normal , [place] [address] potassium, serum 4.7 MMOL/L [facility] 3.3-4.9 Normal , [place] [address] sodium, serum 142 mmol/L [facility] 135-145 Normal , [place] [address] Absolute Basophils 0.0 K/CUMM [facility] 0.0-0.1 Normal , [place] [address] Absolute Monocytes 0.8 K/CUMM [facility] 0.2-0.8 Normal , [place] [address] Absolute Lymphocytes 2.4 K/CUMM [facility] 0.8-3.3 Normal , [place] [address] Absolute Neutrophils 7.0 K/CUMM [facility] 1.7-6.5 High C, [place] [address] nucleated red blood cells as percent of [...] Rate (calc) 74 mL/min/{ 1.73_m2} [facility] C, [address] [address] creatine, serum 0.89 mg/dL [facility] 0.60-1.[address] [address] pro brain natriuretic peptide 171 pg/mL [facility] 0-287 c-reactive protein, quantitative, serum 3.10 mg/L [facility] 0.00-3.00 High lipase, serum 46 U/L [facility] 14-72 lipoprotein, beta, serum, point, quantitative, calculated 53 mg/dL [facility] 0-99 HDL cholesterol, serum 41 mg/dL [facility] >39 triglyceride, serum, random 132 mg/dL [facility] 0-149 cholesterol, serum 117 mg/dL [facility] 895-332 8391/02/ 12 calcium, serum 9.5 mg/dL [facility] 8.7-10.3 carbon dioxide, venous blood 23 mmol/L [facility] 20-29 chloride, serum 103 mmol/L [facility] 96-106 potassium, serum 4.3 mmol/L [facility] 3.5-5.2 sodium, serum 141 mmol/L [facility] 473-542 9277/02/ 12 urea nitrogen/creatinine ratio, serum 13 [facility] [...] iron binding capacity, unsaturated 319 ug/dL [facility] 101-243 2901/07/ 29 iron binding capacity, total 391 ug/dL [facility] 215-606 2564/07/ 29 c-reactive protein, quantitative, serum 0.49 mg/L [facility] 0.00-3.00 hemoglobin A1C, blood, as % of total hemoglobin 5.6 % [facility] 4.8-5.6 lipoprotein, beta, serum, point, quantitative, calculated 54 mg/dL [facility] 0-99 HDL cholesterol, serum 40 mg/dL [facility] >39 triglyceride, serum, random 146 mg/dL [facility] 0-149 cholesterol, serum 119 mg/dL [facility] 636-903 0348/07/ 29 basophil count, absolute 0.1 x10E3/uL [facility] [...] Not Estab. platelet count 249 X10E3/UL [facility] 182-343 9616/07/ 29 red blood cell distribution width 14.1 [...] [facility] 3.5-5.2 sodium, serum 138 mmol/L [facility] 023-166 7144/07/ 29 urea nitrogen/creatinine ratio, serum 11 [facility] [...] last fill till seen in office 09/28 Michael Weaver MD CAD;CAROTID PLAQUE rosuvastatin 20 mg [...] mg tablet completed - 03/05 Paula Ventimiglia [employer] clonazepam 0.5 mg tablet completed - 06/04 Paula Ventimiglia [employer] buspirone 5 mg tablet completed - 06/04 Paula Ventimiglia [employer] ergocalciferol (vitamin D2) 1,250 mcg (50,000 unit) capsule completed TAKE 1 CAPSULE EVERY 2 WEEKS 03/10 - 03/05 Paula Ventimiglia [employer] Xarelto 2.5 mg tablet completed 1 tablet by mouth twice a day 11/01 - 09/28 Vanessa Buchanan CAD;CAROTID PLAQUE Xarelto 2.5 mg tablet completed - 11/01 Paula Ventimiglia [employer] rosuvastatin 20 mg tablet completed 1 tablet [...] a day 03/26 - 09/19 Josefa Hanna [employer] #30, 30 days supply, Prescribed by JOSEFA HANNA, Filled 03/28/2019 rosuvastatin 20 mg tablet completed Take 1 tablet by mouth once a day 03/26 - 07/03 Tala Fishman #30, 30 days supply, Prescribed by JOSEFA HANNA, Filled 03/26/2019 carvedilol 3.125 mg tablet completed 1 tablet by mouth once a day 03/26 - 09/19 Josefa Hanna [employer] #30, 30 days supply, Prescribed by JOSEFA HANNA, Filled 03/26/2019 clopidogrel 75 mg tablet completed 1 tablet by mouth once a day 03/26 - 09/19 Josefa Hanna [employer] #30, 30 days supply, Prescribed by JOSEFA [...] yes Michael Woods drug use no Josefa [place] [employer] alcohol use no Josefa Uri [employer] smoking/tobacco cess ation, patient education and counseling yes Josefa Uri [employer] smoking, date started 1976 Josefa Uri [employer] smoking history, tot al pack/day 7 cigs a day Josefa [place] [employer] cigarette use yes Josefa Uri [employer] smoking status Current every da y smoker Josefa Uri [employer] Underweight yes Michael Woods social history E&M S moking History: P daphnie currently smokes every day. Michael Weaver MD social history reviewed E&M revi ewed - no changes required Michael Weaver MD smoking history, tot al pack/day 7 cigs a day Josefa Young cigarette use yes Josefa Young smoking status Current every da y smoker Jsoefa Tyler Underweight yes Cecilio Woods smoking/tobacco cess [...] Josefa Tyler Underweight yes Wilda bustamante MD number of grandchildren Wilda Billy [...] D drug use no Paula Ventimig adeline [facility] alcohol use no Paula Ventimig adeline [facility] smoking/tobacco cess ation, patient education and counseling yes Elisabeth Arnold smoking, date started 1976 Elisabeth Arnold smoking history, tot al pack/day 1 Elisabeth Arnold cigarette use yes Elisabeth Arnold smoking status Current every da y smoker Elisabeth Arnold Underweight yes Michael Serota M D drug use no Paula Ventimig adeline [facility] alcohol use no Paula Ventimig adeline [facility] smoking, date started 1976 Elisabeth Arnold smoking history, tot al pack/day 1 Elisabeth Arnold cigarette use yes Elisabeth Arnold smoking status Current every da y smoker Paula Ventimiglia [facility] Underweight yes Michael Woods smoking/tobacco cess ation, patient education and counseling yes Paula Ventimiglia [facility] alcohol use no Paulazulema Allenmig adeline [facility] smoking history, tot al pack/day 1 Paula Ventimiglia [facility] cigarette use yes Paula Ventimi glia [facility] smoking status Current every da y smoker Paula Ventimiglia [facility] Underweight yes Michael Woods social [...] Management Plan continue current therapy Paula Ventimiglia [employer] HRA, CV Assess/Plan, Angina (inactive) Management Plan continue current therapy Paula Ventimiglia [employer] HRA, CV Assess/Plan, Angina (inactive) Management Plan [...] Policy type / Coverage type [place] red libertarian ID [employer] [facility] Medicaid [id number] ADVANCE DIRECTIVES Name Date DISCUSSED - NO DECISION MADE TREATMENT PLAN Date Name Performer [id number],C,pro 302, ef 6 5 Michael Weaver MD [id number],C,3.5 Michael soto MD [id number],S, T he patient is between 55-77 years [...] undergo diagnosis and treatment. Michael Weaver MD [id number],S, D X STEBTED 5O% RCA AND 60% LAD LEFT Michael Weaver MD [id number],S, Michael bustamante MD [id number],B, Michael bustamante MD [id number],B, 5 .8 Michael Weaver MD [id number],S, p ro 302, ef 65 Michael Weaver MD [id number],B, Michael bustamante MD [id number],S, n eg efgr a nd holter Michael Weaver MD [id number],S,stented left common iliac Michael Weaver MD [id number],B, 8 9, INTOL TO HIGH SHIRLENE Michael Weaver MD [id number],S, s een on cta 2022 left Michael Weaver MD [id number],B,up to date on colon Michael Weaver MD [id number],B, 8 9, INTOL TO HIGH SHIRLENE Michael Weaver MD [id number],S, Cecilio meier MD [id number],C,L LE due to 100% occluded left HELGA s/p stent. c/o back pain, shakiness. will get labs and CT abdomen pelvis due to symptoms. On exam benign findings. Her claudication is resovled and she is very happy with that. Cecilio Johnson MD [id number],C,seen on cta 2 023 left Michael Weaver MD [id number],W, Cecilio meier MD [id number],S, Cecilio meier MD [id number],W, Cecilio meier MD [id number],W, Cecilio meier MD [id number],S, Cecilio meier MD [id number],S, Cecilio meier MD [id number],C, T he patient is between 55-77 years [...] undergo diagnosis and treatment. Wilda Billy MD [id number],C, D X STEBTED 5O% RCA AND 60% LAD LEFT Wilda Billy MD [id number],C, h ad angio by tyler Billy MD [id number],C, [address] at [place] W e will have her see Dr. Johnson for evalution fo EVAR and revascularization probably to be done at [facility] Wilda Billy MD [id number],S,had angio by tyler Weaver MD [id number],S,T he patient is between 55-77 years old [...] undergo diagnosis and treatment. Michael Weaver MD [id number],S, n eg efgr Michael Weaver MD [id number],SMichael MD [id number],SMichael MD [id number],S, Michael bustamante MD [id number],S, Michael bustamante MD [id number],S, s ee cad Michael Weaver MD [id number],S, 8 9, INTOL TO HIGH SHIRLENE Michael Serota [id number],S, 5 .8 Michael Serota [id number],S, D X STEBTED 5O% RCA AND 60% LAD LEFT Michael Serotrobby WEEKS [id number],S, 3 .8 Michael Serota [id number],S, H er updated medication list for this problem includes: Rosuvastatin 20 Mg Tablet (Rosuvastatin) ..... Take 1 tablet by mouth once a day Rosuvastatin 20 Mg Tablet (Rosuvastatin) ..... Take 1 tablet by mouth once a day C HOL: 117 (04/06/2021) HDL: 41 (04/06/2021) Michael Weaver MD [id number],S, p ro 302, ef 65 Michael Serotrobby WEEKS [id number],S, Michael Serotrobby WEEKS [id number],S, Michael Serot a [id number],S, 5 .8 Michael Serota [id number],S, Michael Serot a [id number],S, 8 9, INTOL TO HIGH SHIRLENE Michael Serotrobby WEEKS [id number],S, D X STEBTED 5O% RCA AND 60% LAD LEFT Michael Serotrobby WEEKS [id number],S, n eg efgr Michael Serotrobby WEEKS [id number],S, A AA noted on angiogram. Occluded LCIA. Gómez for CT angiogram. Michael Weaver MD [id number],S,3.8 Michael Se charles WEEKS [id number],C, by ct 3.8 Tucker mile Weaver MD [id number],C, 3 .6 cm on study 10/2021 will continue to monitor C T angiogram Wilda Billy MD [id number],C,A AA noted on angiogram. Occluded LCIA. Arrang for CT angiogram. Wilda Billy MD [id number],S,T he Patient was reencouraged to stop smoking. Wilda Billy MD [id number],C,neg hotler an d efgr Michael Weaver MD [id number],C,pro 302, ef 6 5 Michael Weaver MD [id number],S, Michael bustamante MD [id number],S,T he patient is between 55-77 years old [...] undergo diagnosis and treatment. Michael Weaver MD [id number],S,D X STEBTED 5O% RCA AND 60% LAD LEFT Michael Weaver MD [id number],B,NROMA;ZIS Isauro Weaver MD [id number],S,620 EF 65 Isauro Weaver MD [id number],S, 3 .6 cm on study 10/2021 will continue to monitor Michael Weaver MD [id number],S,NEG HOLTER Tucker mile Weaver MD [id number],B, n ml lpase and amuylaie Michael Weaver MD [id number],S,89, INTOL TO HIGH SHIRLENE Michael Weaver MD [id number],S, 5 .8 Michael Weaver MD [id number],W, S EVERE TRACEE .7 Michael Weaver MD [id number],C,SEVERE TRACEE .7 Michael Weaver MD [id number],C,r irais chest pain free. Will continue asa, [...] by mouth once a day Paulazulema Allenmiglcaty [facility] [id number],C,cessation enc ouraged Paulazulema Allenmiglcaty [facility] [id number],C,r irais on statin therapy H er updated medication list for this problem includes: Rosuvastatin 20 Mg Tablet (Rosuvastatin) ..... Take 1 tablet by mouth once a day Paula Gali [facility] [id number],C,n oted on recent labs. She was started on lisinopril 20mg a day but is noted to be hypotensive. Will decrease dose to 5 mg a day and monitor Paula Alejandrovelmakurtia [facility] [id number],C,S he reports pain and burning in the [...] by mouth once a day Paulazulema Talbert [facility] [id number],C,nml lpase and ericalaie Michael Weaver MD [id number],C,5.8 Michael soto MD [id number],C,89 Michael rodriguez MD [id number],C, H er updated medication list for this problem includes: Rosuvastatin 20 Mg Tablet (Rosuvastatin) ..... 1 tablet once a day Paulazulema Talbert [facility] [id number],C, 3 .6 cm on study 10/2021 will continue to monitor Paulazulema Talbert [facility] [id number],C,c hronic, but persistent. Will update labs to look for any underlying source. Will refer back to PCP for futher evaluation O rders: 9 9214 MOD 30-39min (CPT-44646) M icroalb/Creatinine Urine, Random (4517) C BC (INCLUDES DIFF/PLT) (8999) C OMPREHENSIVE METABOLIC PANEL, W/EGFR (32602) T SH, free T4, total T3 (7444) L IPASE (803578) A MYLASE (204316) H EMOGLOBIN A1c (496) Paulazulema Talbert [facility] [id number],C, T he following medications were removed from the medication list: Lisinopril 20 Mg Tablet (Lisinopril) Her updated medication list for this problem includes: Calan Sr 240 Mg Tablet Extended Release (Verapamil) ..... Take 1 tablet by mouth once a day not 2 a day Aspirin 81 Mg Tablet,delayed Release (dr/ec) (Aspirin) ..... Take 1 tablet by mouth once daily Paulazulema Talbert [facility] [id number],C,c ontrolled on verapamil. Will continue present regimen. [...] once daily Orders: 9 9214 MOD 30-39min (CPT-02269) M icroalb/Creatinine Urine, Random (0974) C BC (INCLUDES DIFF/PLT) (3399) C OMPREHENSIVE METABOLIC PANEL, W/EGFR (00387) T SH, free T4, total T3 (6844) L IPASE (828728) A MYLASE (233589) H EMOGLOBIN A1c (496) Paulazulema Talbert [facility] [id number],C,c urrently compensated. Will continue to monitor T he following medications were removed from the medication list: Lisinopril 20 Mg Tablet (Lisinopril) Her updated medication list for this problem includes: Calan Sr 240 Mg Tablet Extended Release (Verapamil) ..... Take 1 tablet by mouth once a day not 2 a day Paula Talbert [facility] [id number],C,620 nml ef 65 Michael Weaver MD [id number],C,3.6 Michael soto MD [id number],C,39 Michael rodriguez MD [id number],C,620 Michael Se charles WEEKS [id number],C,NML Michael soto MD [id number],C,171 Michael Se rota [id number],S, Michael bustamante MD [id number],S, Michael Serot robby WEEKS [id number],S, Michael Lenz a [id number],S, Michael bustamante MD [id number],W, 3 3 Michaelgema Lenzrobby WEEKS [id number],S, l ipase 107 Michaelgema Lenzrobby WEEKS [id number],S, 5 .6 a1c Michaelgema Lenzrobby WEEKS [id number],S, Michael Lenz a [id number],S, d x steneted 50% rca and 60% LAD LEFT ALONE Michaelgema Lenzrobby WEEKS [id number],S, Michael Serot a [id number],B, Michaelgema Lenz a [id number],S, Michael Serot a [id number],S,d x steneted 50% rca and 60% LAD LEFT ALONE Michael Weaver MD [id number],S, Michael Lenz robby WEEKS [id number],W, T he Patient was reencouraged to stop [...] undergo diagnosis and treatment. Michael Owen WEEKS [id number],S, Michaelgema Lenz robby WEEKS [id number],S, 5 .6 a1c Michael Owen WEEKS [id number],S, l ipase 107 Michaelgema Lenzrobby WEEKS [id number],S, 3 3 Michael Weaver MD [id number],S, Michael Lenz robby WEEKS [id number],S, Michael bustamante [id number],B, Michael bustamante [id number],C,5.6 a1c , tsh nml Michael Lenzrobby WEEKS [id number],C,lipase [address] Lenzrobby WEEKS [id number],C,33 Michael White michael WEEKS [id number],S,repeat echo S man Hanna HAYES [id number],S, Josefa Leroy quevedo NP [id number],S, Josefa Harper emy [employer] [id number],S,T he Patient was reencouraged to stop smoking. [...] undergo diagnosis and treatment. Josefa Hanna HAYES [id number],C,repeat echo S man Jacques KOO Cardiology:s/p pci [...] MD Cardiology: [address] at [place] W e will have her see Dr. Johnson for evalution fo EVAR and revascularization probably to be done at [facility] Wilda Billy MD Cardiology:had angio by gretchen [...] 8 9, INTOL TO HIGH SHIRLENE Michael Weaevr MD Cardiology: 5 .8 Michael Weaver MD [...] Cardiology:NROMA;ZIS Michael winkler MD Cardiology:620 EF 65 Michael winkler MD Cardiology: 3 .6 cm on [...] by mouth once a day Paula Talbert [facility] Cardiology:cessation [facility] Cardiology:remains o n statin therapy H er updated medication list for this problem includes: Rosuvastatin 20 Mg Tablet (Rosuvastatin) ..... Take 1 tablet by mouth once a day Paula Talbert [facility] Cardiology:noted on recent labs. She was started on lisinopril 20mg a day but is noted to be hypotensive. Will decrease dose to 5 mg a day and monitor Paulazulema Talbert [facility] Cardiology:She repor ts pain and [...] by mouth once a day Paulazulema Luiskurtcaty [facility] needs acer and farciaga:nml lpas e and amuylaie Michael Weaver MD needs acer and farciaga:5.8 John Weaver MD needs acer and farciaga:89 Enio Weaver MD Cardiology: H er updated medication list for this problem includes: Rosuvastatin 20 Mg Tablet (Rosuvastatin) ..... 1 tablet once a day Paulazulema Luiskurtcaty [facility] Cardiology: 3 .6 cm on study 10/2021 will continue to monitor [place] Tobyglcaty [facility] Cardiology:chronic, but persistent. Will update labs to look for any underlying source. Will refer back to PCP for futher evaluation O rders: 9 9207 MOD 30-39min (CPT-65289) M icroalb/Creatinine Urine, Random (5011) C BC (INCLUDES DIFF/PLT) (5299) C OMPREHENSIVE METABOLIC PANEL, W/EGFR (98676) T SH, free T4, total T3 (7444) L IPASE (174475) A MYLASE (122107) H EMOGLOBIN A1c (496) Paulazulema Talbert [facility] Cardiology: T he following medications [...] tablet by mouth once daily Paulazulema Talbert [facility] Cardiology:controlle d on verapamil. Will [...] once daily Orders: 9 9214 MOD 30-39min (CPT-85730) M icroalb/Creatinine Urine, Random (0486) C BC (INCLUDES DIFF/PLT) (4799) C OMPREHENSIVE METABOLIC PANEL, W/EGFR (18746) T SH, free T4, total T3 (7444) L IPASE (985520) A MYLASE (527659) H EMOGLOBIN A1c (496) Paulazulema Luiscaty [facility] Cardiology:currently compensated. Will continue to monitor T he following medications were removed from the medication list: Lisinopril 20 Mg Tablet (Lisinopril) Her updated medication list for this problem includes: Calan Sr 240 Mg Tablet Extended Release (Verapamil) ..... Take 1 tablet by mouth once a day not 2 a day Paulazulema Luisbrandi [facility] :620 nml ef 65 Michael [...] follow up :repeat ech o Josefa Hanna [employer] Cardiology follow up Josefa adamson [employer] Cardiology follow up Josefa adamson [employer] Cardiology follow up :The Patient was reencouraged [...] follow up :repeat ech o Josefa Hanna [employer] :3.5 Michael Weaver MD Cardiology Michael Weaver [...] Weaver MD Cardiology Michael Serotrobby WEEKS Cardiology Micahel Serotrobby WEEKS Cardiology Michael Serotrobby WEEKS Cardiology [...] Dose Lung CT Complete Echo DLCO - 76074 FRC - 12481 FVC - 83634 Lipoprotein (a) Aorta Duplex Ultraso und CT Angio, abdomen an d pelvis CT Angio, abdomen an d pelvis Low Dose Lung CT PROBNP, N TERMINAL PROTHROMBIN TIME WIT H INR CBC (INCLUDES DIFF/P LT) BASIC METABOLIC PANE L W/EGFR Complete Echo Aorta Duplex Ultraso und DLCO - 09714 FRC - 30184 FVC - 79120 Lipoprotein (a) Lipoprotein (a) Arterial - SENSILASE [...] CT Complete Echo Stress Regadenoson DLCO - 07658 FRC - 97400 FVC - 66925 Holter Monitor 24 Hr Stress Regadenoson LIPASE C-REACTIVE PROTEIN LIPID PANEL BASIC METABOLIC PANE L W/EGFR PROBNP, N TERMINAL Complete Echo Low Dose Lung CT Aorta Duplex Ultraso und DLCO - 72869 FRC - 27522 FVC - 24848 Holter Monitor 24 Hr VITAMIN B12 Vitamin D, 25-Hydrox y COVID19 High Affinit y Antibodies (LC) CXR- PA/Lat DLCO - 15728 FRC - 33050 FVC - 36850 CBC (INCLUDES DIFF/P LT) FERRITIN IRON AND [...] BINDING CAPACITY PROBNP, N TERMINAL DLCO - 99132 FRC - 87080 FVC - 16697 Complete Echo Aorta Duplex Ultraso und DLCO - 68755 FRC - 75467 FVC - [address] Carotid Duplex Bilat [...] d FVC / MVV with bronchodilator - 91609 Michael Weaver MD completed BLOOD COUNT HEMOGLOBIN Michael Weaver MD completed FRC - 35188 Michael Weaver MD complet ed SpO2 w/o 6min walk/titration Michael Weaver MD completed SVC - 23938 Michael Weaver MD complet ed DLCO - 73814 Michael Weaver MD comple jc Counseling LDCT Michael Weaver MD com pleted EKG Wilda Billy MD completed Counseling LDCT Michael Weaver MD com pleted EKG Wilda Billy MD completed Counseling LDCT Michael Weaver MD com pleted Spirometry Michael Weaver MD complete d FVC / MVV with bronchodilator - 09324 Michael Weaver MD completed BLOOD COUNT HEMOGLOBIN Michael Weaver MD completed FRC - 23260 Michael Weaver MD complet ed SpO2 w/o 6min walk/titration Michael Weaver MD completed SVC - 83296 Michael Weaver MD complet ed DLCO - 76085 Michael Weaver MD comple jc Counseling LDCT Michael Weaver MD com pleted EKG Michael Weaver MD complete d Holter, 24 or 48 Michael Weaver MD co mpleted Evangelinater, 24 or 48 Michael Weaver MD co mpleted Counseling LDCT Michael Weaver MD com pleted Spirometry Michael Weaver MD complete d FVC / MVV with bronchodilator - 33313 Michael Weaver MD completed FRC - 21473 Michael Weaver MD complet ed SpO2 w/o 6min walk/titration Michael Weaver MD completed SVC - 55911 Michael Weaver MD complet ed Counseling LDCT Michael Weaver MD com pleted EKG Michael Weaver MD complete d Counseling LDCT Michael Weaver MD com pleted Counseling LDCT Michael Weaver MD com pleted EKG Michael Weaver MD complete d
--- OUTSIDE RECORDS SUMMARY | 2024-05-23 21:40 | XMS_ITS | Continuity of Care Document ---
Author Organization [facility] Address [address] [place] [address] Phone Care Team Providers Care Sales And Marketing Analyst Name Role Phone Roberts OD, Lencho Unavailable Unavailable Advance Directives Directive Yes / No Effective Date File Name No Information Encounters Encounter Description Practice Location Reason(s) For Visit Diagnoses Date Provider Providers Copied on Encounter [facility], [address], [place], [place], [id number], [place] tel:[phone] [facility] No Information Apr-0 8-200 5 Roberts OD Lencho. [address], [place], [address], [place]. tel:[phone] Family History Family Member Type Diagnosis Age At Onset No Information Payers Payer name Insurance type Covered republican ID Authoriza tion(s) Medicaid [facility] [id number] Social History Type Description Quantity Date Captured [...]
--- OUTSIDE RECORDS SUMMARY | 2024-05-23 21:40 | XMS_ITS | Clinical Summary ---
Author Organization [facility] Address [facility] [place] [address] Care Team Providers Care Admissions Assistant Name Role Phone Unavailable Primary Care Provider [...]
--- OUTSIDE RECORDS SUMMARY | 2024-05-23 21:40 | XMS_ITS | Clinical Summary ---
Author Organization [facility] Address [address] [place] [address] Care Team Providers Care Camp Attendant Name Role Phone [facility] ([facility]) Primary Care Provi sai Source Comments [facility],non[facility] Affiliates and Associated Physician Practices is amultiple site organization consisting of ambulatory clinics and hospital sitesin [place], [place]. This disclosure is being madepursuant to the Care Everywhere program and may not contain all information available regarding this patient. Last updated 17.[facility] [employer] Allergies No known active allergies Medications * Be aware that medications may not be up to date on this document. Alwaysverify current medications with the patient. Medication Sig Dispensed Refills Start Date End Date Status albuterol (PROVENTIL;VENTOLIN) (2.5 MG/3ML) 0.083% nebulizer solution 2.5 mL Active lisinopril (PRINIVIL; ZESTRIL) 10 MG tablet every 24 hours Active simvastatin (ZOCOR) 40 MG tablet every 24 hours Active Social History Tobacco Use Types Packs/Day Years Used Date Smoking Tobacco: Every Day Cigarettes 1 48.4 Started: 12/24/1975 Smokeless Tobacco: Never Alcohol Use Standard Drinks/Week Comments No 0 (1 standard drink = 0.6 oz pur e alcohol) Sex and Gender Information Value Date Recorded Sex Assigned at Not on file Gender Identity Not on file Sexual Orientation Not on file Last Filed Vital Signs Vital Sign Reading Time Taken Comments Blood Pressure 128/69 01/11/2019 2:47 PM [employer] Pulse 83 01/11/2019 2:47 PM [employer] Temperature 36.8 C (98.3 F) 01/11/2019 2:47 PM [employer] Respiratory Rate 20 01/11/2019 2:47 PM [employer] Oxygen Saturation 98% 01/11/2019 2:47 PM [employer] Inhaled Oxygen Concentration - - Weight 40.8 kg (90 lb) 01/11/2019 2:47 PM [employer] Height 157.5 cm (5' 2 ) 01/11/2019 2:47 PM [employer] Body Mass Index 16.46 01/11/2019 2:47 PM [employer] Plan of Treatment Health Maintenance Due Date Last Done Comments COLOGUARD (AGES 45-75) - COL ON CA SCREENING 1960 COLON MONITORING 1960 COLONOSCOPY - COLON CA SCREENING 1960 CT COLONOGRAPHY - COLON CA SCREENING 1960 Colorectal Cancer Screening 1960 FIT - COLON CA SCREENING 1960 FLEX SIG - COLON CA SCREENING 1960 MAMMOGRAM 1960 PAP SMEAR 1960 HIV SCREENING 12/13/1975 HEPATITIS C SCREENING 12/08/1978 DTAP/TDAP/TD VACCINES (1 - Tdap) 12/13/1979 PNEUMOCOCCAL VACCINE (1 of 2 - PCV) 12/13/1979 PNEUMOCOCCAL VACCINE 50+ (1 of 1 - PCV) 2010 ZOSTER VACCINE (1 of 2) 2010 COVID-19 VACCINE ( - 2023-2 5 season) 2023 INFLUENZA VACCINE (#1) 2023 DEPRESSION SCREENING 02/24/2024 Respiratory Syncytial Virus (RSV) Vaccine Pt: or over 60 yrs (1 - 1-dose 75+ series) 12/13/2035 HEPATITIS B VACCINE Aged Out No longe r eligible based on patient's age to complete this topic HIB VACCINE Aged Out No longer eligi ble based on patient's age to complete this topic HPV VACCINE Aged Out No longer eligi ble based on patient's age to complete this topic MENINGOCOCCAL (Group B) VACC INE SHARED DECISION-MAKING Aged Out No longer eligibl e based on patient's age to complete this topic MENINGOCOCCAL GROUPS A/C/Y/W VACCINE Aged Out No longer eligible b ased on patient's age to complete this topic Care Teams Camp Attendant Relationship Specialty Start Date End Date [facility] ([facility]) [address] [place] [address] [facility] - General 12/24/17
--- OUTSIDE RECORDS SUMMARY | 2024-05-23 21:41 | XMS_ITS | Data Portability ---
Author Organization SAMIRA CHARLINEYoung Whatley Address [address] [facility] [place] [address] Care Team Providers Care Shallot Cleaner Name Role Phone TYLER TOBAR Primary Care Provider [phone] [facility] [employer] Researcher Assessment Encounter Date Assessment Date Assessment LastModified by Organization Details LastModified Time 04/18/2022 04/18/2022 MAIKOL Ruvalcaba Not available 04/18/2022 20:19:16 Plan of Treatment Reminders Order Date Submit Date Provider Last Modified By Organization Details Last Modified Time Details Appointments None recorded . Lab pap, IG + HPV, cervical 2022 023 [facility], [address] [place] [address], [place] [address], [place], [address], 3 15:11:31 lipid panel, serum 2022 023 [facility], [address] [place] [address], [facility] [address], [place], [address], 3 06:13:05 CMP, serum or plasma 2022 023 [facility], [address] [place] [address], [address], [place], [address], 3 06:13:05 CBC w/ auto diff 2022 023 [facility], [address] [place] [address], [facility] [address], [place], [address], 3 06:13:06 albumin/ creatini ne, mass ratio, urine 2022 023 [facility], [address] [place] [address], [address], [place], [address], 3 11:11:38 HbA1c (hemoglo bin A1c), blood 2022 023 [facility], [address] [place] [address], [address], [place], [address], 3 11:11:40 TSH + free T4, serum 2022 023 [facility], [address] [place] [address], [address], [place], [address], 3 11:11:38 vitamin D, 25-hydro xy, total, serum 2022 023 [facility], [address] [place] [address], [address], [place], [address], 3 11:11:40 vitamin B12 + folate, serum or blood 2022 023 [facility], [address] [place] [address], [address], [place], [address], 3 11:11:39 Referral None recorded . Procedures None recorded . Surgeries None recorded . Imaging MAMMO, screenin g, digital, bilatera l 2022 023 [facility], [address] [place] [address] [address], [place], [address], 4 10:09:33 MAMMO, screenin g, digital, bilatera l 2022 023 [facility], [address] [place] [address] [address], [place], [address], 4 10:09:32 DEXA - Menopaus e present and BMI low 2022 023 [facility], [facility] [address], [place], [address], 4 10:09:32 CT, abdomen + pelvis, w/ contrast - Subprapu bic pain every morning x 1-2 months, resolves in the afternoo n. Hx of bloody stools. Hx of pancreat itis in the past. Cr .80 03/26/20222022 023 [facility]), [address], [place], [address], 3 11:38:15 Medication Orders Xarelto 2.5 mg tablet 2022 023 [id number], [address], [place], [address], 3 16:16:20 ergocalc iferol (vitamin D2) 1,250 mcg (50,000 unit) capsule 2022 023 [id number], [address], [place], [address], 3 09:35:41 ketocona zole 2 % topical cream 2022 023 [id number], [address], [place], [address], 3 09:08:44 dextrome thorphan -guaifen esin 10 mg-100 mg/5 mL oral syrup 2022 023 [id number], [address], [place], [address], 3 09:51:23 clobetas ol 0.05 % topical cream 2022 023 [id number], [address], [place], [address], 3 09:08:06 ergocalc iferol (vitamin D2) 1,250 mcg (50,000 unit) capsule 2022 023 [id number], [address], [place], [address], 3 15:22:06 fluticas one propiona te 50 mcg/actu ation nasal spray,bustillo spension 2022 023 [id number], [address] [place], [address], 3 09:08:32 Xarelto 2.5 mg tablet 2022 023 [id number], [address], [place], [address], 3 15:22:05 aspirin 81 mg tablet,d elayed release 2022 023 [id number], [address], [place], [address], 3 15:22:07 lisinopr il 20 mg tablet 2022 023 [id number], [address], [place], [address], 3 09:15:00 verapami l ER (SR) 240 mg tablet,e xtended release 2022 023 [id number], [address] [place], [address], 15:18:56 Patient TargetsNo targets recorded. Patient Instructions Encounter Date Encounter Id Patient Instructions Last Modified By Organization Details Last Modified Time 04/18/2022 [id number] eating healthy foods: care instructions Not available 04/18/2022 13:16:57 A healthy lifestyle: care instructions Not available 04/18/2022 13:16:57 05/16/2022 [id number] Quitting Tobacco : Care Instructions Not available 05/16/2022 15:00:11 Learning About Benefits of Quitting Smoking Not available 05/16/2022 15:00:11 eating healthy foods: care instructions Not available 05/16/2022 15:02:43 A healthy lifestyle: care instructions Not available 05/16/2022 15:02:43 06/02/2022 [id number] Quitting Tobacco : Care Instructions Not available 06/02/2022 10:34:27 Learning About Benefits of Quitting Smoking Not available 06/02/2022 10:34:27 eating healthy foods: care instructions Not available 06/02/2022 10:34:27 A healthy lifestyle: care instructions Not available 06/02/2022 10:34:27 10/14/2022 [id number] eating healthy foods: care instructions Not available 10/14/2022 14:41:37 Reason for Referral None Reported. Results Created Date Observation Date Name Description Value Unit Range Abnormal Flag Note LastModifiedBy Organization Detail LastModifiedTime 04/18/1904/18/2022 LIPID PANEL cholesterol, total 122.1 mg/dL 140.0- 200.0 below low normal Not Available [facility] Department [address] [place], [address], 04/19/2022 06:13:04 04/18/1904/18/2022 LIPID PANEL triglyceride s 121 mg/dL <=150 Not Available [facility] Department [address] [place], [address], 04/19/2022 06:13:04 04/18/1904/18/2022 LIPID PANEL HDL cholesterol 49.9 mg/dL 40.0-1 00.0 Not Available [facility] Department [address] [place], [address], 04/19/2022 06:13:04 04/18/19 23 04/18/2022 LIPID PANEL VLDL cholesterol mary 24.20 mg/dL 5.00-4 0.00 Not Available [facility] Department [address] [place], [address], 04/19/2022 06:13:04 04/18/19 23 04/18/2022 LIPID PANEL LDL chol calc (nih) 50.7 Not Available [facility] Department [address] [place], [address], 04/19/2022 06:13:04 04/18/19 23 04/18/2022 COMP. METAB OLIC PANEL (14) glucose 89 mg/dL 65-99 ANION GP 17.0 mmol/ L N OSMOL 282.0 mOsM/ L N REFER ENCE RANGE : 275.0 -301. 0 Not Available [facility] Department [address] [place], [address], 04/19/2022 06:13:05 04/18/19 23 04/18/2022 COMP. METAB OLIC PANEL (14) BUN 10 mg/dL 8-26 Not Available [facility] Department [address] [place], [address], 04/19/2022 06:13:05 04/18/19 23 04/18/2022 COMP. METAB OLIC PANEL (14) creatinine 0.80 mg/dL 0.50-1 .40 Not Available [facility] Department [address] [place], [address], 04/19/2022 06:13:05 04/18/19 23 04/18/2022 COMP. METAB OLIC PANEL (14) eGFR 84 mL/mi n/1.7 3 >=60 Not Available [facility] Department [address] [place], [address], 04/19/2022 06:13:05 04/18/19 23 04/18/2022 COMP. METAB OLIC PANEL (14) BUN/creatini ne ratio 12.4 Not Available [facility] Department [address] [place], [address], 04/19/2022 06:13:05 04/18/19 23 04/18/2022 COMP. METAB OLIC PANEL (14) sodium 142.0 mmol/ L 136.0- 144.0 Not Available [facility] Department [address] [place], [address], 04/19/2022 06:13:05 04/18/19 23 04/18/2022 COMP. METAB OLIC PANEL (14) potassium 3.9 mmol/ L 3.5-5. 3 Not Available [facility] [address] [place], [address], 04/19/2022 06:13:05 04/18/19 23 04/18/2022 COMP. METAB OLIC PANEL (14) chloride 102 mmol/ l 101-11 1 Not Available [facility] Department [address] [place], [address], 04/19/2022 06:13:05 04/18/19 23 04/18/2022 COMP. METAB OLIC PANEL (14) carbon dioxide, total 26.3 mmol/ L 21.0-3 2.0 Not Available [facility] Department [address] [place], [address], 04/19/2022 06:13:05 04/18/19 23 04/18/2022 COMP. METAB OLIC PANEL (14) calcium 10.1 mg/dL 8.2-10 .0 above high normal Not Available [facility] Department [address] [place], [address], 04/19/2022 06:13:05 04/18/19 23 04/18/2022 COMP. METAB OLIC PANEL (14) protein, total 7.2 g/dL 6.7-8. 2 Not Available [facility] Department [address] [place] [address], [address], 04/19/2022 06:13:05 04/18/19 23 04/18/2022 COMP. METAB OLIC PANEL (14) albumin 4.9 g/dL 3.5-5. 5 Not Available [facility] Department [address] [place] [address], [address], 04/19/2022 06:13:05 04/18/19 23 04/18/2022 COMP. METAB OLIC PANEL (14) globulin, total 2.3 g/dL 1.5-4. 5 Not Available [facility] Department [address] [place] [address], [address], 04/19/2022 06:13:05 04/18/19 23 04/18/2022 COMP. METAB OLIC PANEL (14) A/G ratio 2.1 Not Available [facility] Department [address] [place], [address], 04/19/2022 06:13:05 04/18/19 23 04/18/2022 COMP. METAB OLIC PANEL (14) bilirubin, total 0.3 mg/dL 0.0-1. 2 Not Available [facility] Department [address] [place] [address], [address], 04/19/2022 06:13:05 04/18/19 23 04/18/2022 COMP. METAB OLIC PANEL (14) alkaline phosphatase 118.2 IU/L 42.0-1 21.0 Not Available [facility] Department [address] [place] [address], [address], 04/19/2022 06:13:05 04/18/19 23 04/18/2022 COMP. METAB OLIC PANEL (14) AST (SGOT) 20.6 U/L 10.0-4 2.0 Not Available [facility] Department [address] [place], [address], 04/19/2022 06:13:05 04/18/1904/18/2022 COMP. METAB OLIC PANEL (14) ALT (SGPT) 18.7 U/L 10.0-6 0.0 Not Available [facility] Department [address] [place], [address], 04/19/2022 06:13:05 04/18/1904/18/2022 CBC WITH DIFFE RENTI AL/PL ATELE T WBC 9.2 K/uL 3.4-10 .8 Not Available [facility] Department [address] [place], [address], 04/19/2022 06:13:06 04/18/1904/18/2022 CBC WITH DIFFE RENTI AL/PL ATELE T RBC 4.9 M/uL 4.2-5. 4 Not Available [facility] Department [address] [place], [address], 04/19/2022 06:13:06 04/18/1904/18/2022 CBC WITH DIFFE RENTI AL/PL ATELE T hemoglobin 14.8 g/dL 11.5-1 5.5 Not Available [facility] Department [address] [place], [address], 04/19/2022 06:13:06 04/18/1904/18/2022 CBC WITH DIFFE RENTI AL/PL ATELE T hematocrit 46.0 % 36.0-4 8.0 Not Available [facility] Department [address] [place], [address], 04/19/2022 06:13:06 04/18/1904/18/2022 CBC WITH DIFFE RENTI AL/PL ATELE T MCV 94 fL 80-95 Not Available [facility] Department [address] [place], [address], 04/19/2022 06:13:06 04/18/1904/18/2022 CBC WITH DIFFE RENTI AL/PL ATELE T MCH 30 pg 27-32 Not Available [facility] [address] [place], [address], 04/19/2022 06:13:06 04/18/1904/18/2022 CBC WITH DIFFE RENTI AL/PL ATELE T MCHC 32 g/dL 32-36 Not Available [facility] Department [address] [place], [address], 04/19/2022 06:13:06 04/18/1904/18/2022 CBC WITH DIFFE RENTI AL/PL ATELE T RDW 14.7 % 11.5-1 4.5 above high normal Not Available [facility] [address] [place], [address], 04/19/2022 06:13:06 04/18/19 23 04/18/2022 CBC WITH DIFFE RENTI AL/PL ATELE T platelets 199 K/uL 155-37 9 MPV 10.1 FL 8.9-1 2.7 N Not Available [facility] [address] [place], [address], 04/19/2022 06:13:06 04/18/1904/18/2022 CBC WITH DIFFE RENTI AL/PL ATELE T neutrophils 69.9 % 40.0-7 4.0 Not Available [facility] Department [address] [place], [address], 04/19/2022 06:13:06 04/18/1904/18/2022 CBC WITH DIFFE RENTI AL/PL ATELE T lymphs 21.6 % 14.0-4 6.0 Not Available [facility] Department [address] [place], [address], 04/19/2022 06:13:06 04/18/1904/18/2022 CBC WITH DIFFE RENTI AL/PL ATELE T monocytes 6.3 % 4.0-12 .0 Not Available [facility] Department [address] [place], [address], 04/19/2022 06:13:06 04/18/1904/18/2022 CBC WITH DIFFE RENTI AL/PL ATELE T eos 1 % 0-5 Not Available [facility] Department [address] [place], [address], 04/19/2022 06:13:06 04/18/1904/18/2022 CBC WITH DIFFE RENTI AL/PL ATELE T basos 0.4 % 0.0-1. 0 Not Available [facility] [address] [place], [address], 04/19/2022 06:13:06 04/18/1904/18/2022 CBC WITH DIFFE RENTI AL/PL ATELE T neutrophils (absolute) 6.4 K/uL 1.4-7. 0 Not Available [facility] Department [address] [place], [address], 04/19/2022 06:13:06 04/18/1904/18/2022 CBC WITH DIFFE RENTI AL/PL ATELE T lymphs (absolute) 2.0 K/uL 0.7-3. 1 Not Available [facility] Department [address] [place], [address], 04/19/2022 06:13:06 04/18/1904/18/2022 CBC WITH DIFFE RENTI AL/PL ATELE T monocytes(ab solute) 0.6 K/uL 0.1-0. 9 Not Available [facility] Department [address] [place], [address], 04/19/2022 06:13:06 04/18/1904/18/2022 CBC WITH DIFFE RENTI AL/PL ATELE T eos (absolute) 0.1 K/uL 0.0-0. 4 Not Available [facility] Department [address] [place], [address], 04/19/2022 06:13:06 04/18/19 23 04/18/2022 CBC WITH DIFFE RENTI AL/PL ATELE T baso (absolute) 0.0 K/uL 0.0-0. 3 Not Available [facility] Department [address] [place], [address], 04/19/2022 06:13:06 04/18/19 23 04/18/2022 CBC WITH DIFFE RENTI AL/PL ATELE T immature granulocytes 1.3 % Not Available [facility] Department [address] [place], [address], 04/19/2022 06:13:06 04/18/19 23 04/18/2022 CBC WITH DIFFE RENTI AL/PL ATELE T immature grans (abs) 0.1 K/uL Not Available [facility] Department [address] [place], [address], 04/19/2022 06:13:06 04/18/19 23 04/18/2022 CBC WITH DIFFE RENTI AL/PL ATELE T NRBC 0 % Not Available [facility] Department [address] [place], [address], 04/19/2022 06:13:06 04/18/19 23 04/19/2022 ALBUM IN/CR EATIN INE RATIO ,URIN E creatinine, urine 92.0 mg/dL notest ab. Not Available [facility]) [address] [place], [address], 04/19/2022 11:11:38 04/18/19 23 04/19/2022 ALBUM IN/CR EATIN INE RATIO ,URIN E albumin, urine 33.4 ug/mL notest ab. Not Available [facility] ([facility]) [address], [place], [address], 04/19/2022 11:11:38 04/18/19 23 04/19/2022 ALBUM IN/CR EATIN INE RATIO ,URIN E alb/creat ratio 36 mg/g_ creat 0-29 above high normal Abbey l: 0 - 29 Moder ately incre ased: 30 - 300 Sever duc incre ased: >300 Not Available [facility] ([facility]) [address], [place], [address], 04/19/2022 11:11:38 04/18/19 23 04/19/2022 TSH+F REE T4 TSH 1.620 uIU/m L 0.450- 4.500 Not Available [facility] ([facility]) [address], [place], [address], 04/19/2022 11:11:38 04/18/19 23 04/19/2022 TSH+F REE T4 T4,free(dire ct) 1.26 NG/dL 0.82-1 .77 Not Available [facility] ([facility]) [address] [place], [address], 04/19/2022 11:11:38 04/18/19 23 04/19/2022 VITAM IN B12 AND FOLAT E vitamin B12 >2000 pg/mL 232-12 45 above high normal Not Available [facility]) [address], [place], [address], 04/19/2022 11:11:39 04/18/19 23 04/19/2022 VITAM IN B12 AND FOLAT E folate (folic acid), serum >20.0 A serum folat e oniel ntrat ion of less than 3.1 ng/mL is consi dered to repre sent clini mary defic iency . Not Available [facility] ([facility]) [address], [place], [address], 04/19/2022 11:11:39 04/18/19 23 04/19/2022 HEMOG LOBIN A1C hemoglobin A1C 5.4 % 4.8-5. 6 Predi abete s: 5.7 - 6.4 Diabe all: >6.4 Glyce valentina contr ol for adult s with diabe all: <7.0 Not Available [facility] ([facility]) [address], [place], [address], 04/19/2022 11:11:40 04/18/1904/19/2022 VITAM IN D, 25-HY DROXY vitamin D, 25-hydroxy 60.7 NG/mL 30.0-1 00.0 Vitam in D defic iency has been defin ed by the Insti tute of Medic ine and an Endoc rine Socie ty pract ice guide line as a level of serum 25-OH vitam in D less than 20 ng/mL (1,2) . The Endoc rine Socie ty went on to furth er defin e vitam in D insuf ficie ncy as a level betwe en 21 and 29 ng/mL (2). 1. IOM (Inst itute of Medic ine). 2009. Dieta ry refer ence intak es for calci um and D. Shelli garcias [place]: [facility] Press . 2. Sandra montano MF, Yeni ribeiro NC, Nolberto off-F errvera i SRINIVASAN, et al. Evalu ation , treat ment, and preve ntion of vitam in D defic iency : an Endoc rine Socie ty clini mary pract ice guide line. JCEM. 2010; 96(7) :1911 -30. Not Available [facility] ([facility]) [address], [place], [address], 04/19/2022 11:11:40 05/17/1905/20/2022 IGP, APTIM A HPV HPV aptima NEGATI VE negati ve This nucle ic acid ampli ficat ion test detec ts fourt een high- risk HPV types (16,1 8,31, 33,35 ,39,4 5,51, 52,56 ,58,5 9,66, 68) witho ut diffe renti ation . Not Available [facility] ([facility]) [address], [place], [address], 05/22/2022 15:11:31 05/17/19 23 05/22/2022 IGP, APTIM A HPV diagnosis: DONTE Singer NEGAT TRACY FOR INTRA EPITH ELIAL LESIO N OR BREE [place] . Not Available [facility] ([facility]) [address], [place], [address], 05/22/2022 15:11:31 05/17/19 23 05/22/2022 IGP, APTIM A HPV specimen adequacy: DONTE Singer Satis facto ry for evalu ation . No endoc ervic al compo nent is ident ified . Not Available [facility] ([facility]) [address], [place], [address], 05/22/2022 15:11:31 05/17/19 23 05/22/2022 IGP, APTIM A HPV clinician provided ICD10: DONTE Singer Z01.4 19 Not Available [facility] ([facility]) [address] [place], [address], 05/22/2022 15:11:31 05/17/19 23 05/22/2022 IGP, APTIM A HPV performed by: DONTE hicks, Cytoenmanuel singer (ASCP ) Not Available [facility] ([facility]) [address] [place], [address], 05/22/2022 15:11:31 05/17/19 23 05/22/2022 IGP, APTIM A HPV . . Not Available [facility]) [address], [place], [address], 05/22/2022 15:11:31 05/17/19 23 05/22/2022 IGP, APTIM A HPV note: COMMEN T The Pap smear is a scree wilfrido test desig leydi to aid in the detec tion of lisa ligna nt and malig nant condi tions of the uteri ne cervi x. It is not a diagn ostic proce dure and shoul d not be used as the sole means of detec ting cervi mary cance r. Both false -posi tive and false -nega tive repor ts do occur . Not Available [facility] ([facility]) [address], [place], [address], 05/22/2022 15:11:31 05/17/19 23 05/22/2022 IGP, APTIM A HPV test methodology: DONTE T This liqui d based ThinP rep(R ) pap test was scree leydi with the use of an image guide chuck sunshine Not Available [facility] ([facility]) [address], [place], [address], 05/22/2022 15:11:31 04/29/19 23 04/28/2022 CT, abdom en + pelvi s, w/ contr ast No observ ation record ed. [facility] Orders [address] [place], [address], 05/16/2022 15:02:06 05/17/19 23 05/15/2022 MRI, liver , w/wo contr ast No observ ation record ed. [facility] [address] [place], [address], 06/02/2022 16:31:23 06/17/19 23 06/16/2022 arter ial study , lower extre mity, compl ete No observ ation record ed. [facility] [address] , [place], [address], 06/17/2022 08:34:44 07/19/19 23 07/18/2022 CT, angio gram, abdom en + pelvi s, w/ contr ast No observ ation record ed. [facility] [address] [place], [address], 07/22/2022 21:43:18 07/19/19 23 07/18/2022 CT, angio gram, abdom en + pelvi s, w/ contr ast No observ ation record ed. [facility] [address] [place], [address], 07/22/2022 21:44:51 09/09/19 23 09/05/2022 CT, abdom en + pelvi s, w/ contr ast No observ ation record ed. [facility] [address], [place], [address], 09/10/2022 14:49:42 11/22/19 23 11/21/2022 trans -thor acic echoc ardio gram (TTE) (PROC ) No observ ation record ed. [facility] [address], [place], [address], 11/24/2022 08:36:10 11/22/19 23 11/21/2022 , neyda anna for abdom inal aorti c aneur ysm No observ ation record ed. [facility] [address], [place], [address], 11/22/2022 09:59:35 02/18/20 23 02/17/2023 XR, dc ble No observ ation record ed. [email or web address] [facility] [address], [place], [address], 02/24/2023 17:48:45 03/26/19 24 PFT, compl ete No observ ation record ed. [email or web address] Not Available 2023 09:53:50 Result Notes None recorded. Problems Name Problem SNOMED Code Status Onset Date Resolution Date Notes Provider Name and Address Organization Details Recorded Time Internal hemorrho ids 19785754 Active 2017 Not Available [facility] 3 10:25:48 [facility] hyperten aleisha 65527792 Active 2018 Not Available [facility] 3 10:25:48 Multiple nodules of lung 484492687 Active 2018 LDCT 10/2018 showed multiple 2-5 mm nodules noted througho ut both lungs. Continue with annual LDCT scan. Not Available [facility] 3 10:25:47 History of myocardi al infarcti on 647942850 Active 2019 0, s/p cardiac cath and stent placemen t Not Available [facility] 3 10:25:47 Coronary atherosc lerosis 550785467 Active 2019 Not Available [facility] 3 10:25:47 Carotid atherosc lerosis 209190122 Active 2019 Not Available [facility] 3 10:25:47 Screenin g for malignan t neoplasm of colon Active 2020 Colonosc opy complete d 02/2016 - divertic ulosis and internal hemorrho ids noted, repeat in 10 years Not Available [facility] 3 10:25:47 Mixed anxiety and depressi ve disorder 911337402 Active 2020 Not Available [facility] 3 10:25:47 Otitis externa 8961089 Active 2021 Not Available [facility] 3 10:25:47 Microalb uminuria 375054494 Active 2022 Not Available [facility] 3 10:25:47 Lesion of liver 362449880 Active 2022 MRI 04/2022 - benign findings , no f/u needed Not Available [facility] 3 10:25:47 Peripher al vascular disease 885776391 Active 2022 SORIN CASTANO Attn: Accounting ,[address] [facility], [place], [address] , [place] 3 16:19:32 Dyspnea 716940331 Active Not Available [facility] 3 10:25:47 Abnormal weight loss 733402783 Active Not Available [facility] 3 10:25:47 Tobacco dependen ce syndrome 42128827 Active 35 pack year history Not Available [facility] 3 10:25:48 Mild chronic obstruct tracy pulmonar y disease 421710388 Active LDCT scan showed moderate central lobular emphysem atous changes. Mild bilatera l lower lobe bronchie ctasis. PFTs 01/11 showed mild COPD. Not Available [facility] 3 10:25:47 Hyperlip idemia 52254645 Active Not Available [facility] 3 10:25:48 Underwei ght 144088120 Active 2015 Not Available [facility] 3 10:25:47 Shoulder pain 61945701 Completed 201612/15/2018 SORIN CASTANO Attn: Accounting ,[address] [place], [address] , [place] [facility] 9 17:37:12 Shoulder pain 95852714 Active 2016 Not Available [facility] 3 10:25:48 Full blood count outside referenc e range 812352850 Completed 201612/17/2018 SORIN CASTANO Attn: Accounting ,[address] [place], [address] , [place] [facility] 9 14:29:07 Numbness of hand 584709423 Active 2016 Not Available [facility] 3 10:25:47 Spinal stenosis in cervical region 59605919 Active 2016 as seen on MRI 12/2015 Not Available [facility] 3 10:25:48 Abnormal ity of abdomina l aorta 024681724 Active 2016 as seen on MRI from 12/2015 - needs aortic US Not Available [facility] 3 10:25:48 Degenera tion of lumbar interver tebral disc 82057326 Active 2016 as seen on MRI from 12/2015 Not Available [facility] 3 10:25:47 Screenin g for disorder Completed 201612/15/2018 SORIN CASTANO Attn: Accounting ,[address] [facility], [place], [address] , [place] [facility] 17:37:02 Problem Notes None recorded. Procedures Surgical History Date Name Laterality Status Provider Name and Address Organization Details Recorded Time 03/21/19 20 catheterization of left heart completed SORIN CASTANO Attn: Accounting, [address] [facility], [place], [address], [place] [facility] 10/02/2021 08:13:28 03/21/19 20 percutaneous coronary intervention completed SORIN CASTANO Attn: Accounting, [address] [facility], [place], [address], [place] [facility] 10/02/2021 08:16:06 03/06/19 17 colonoscopy completed SORIN CASTANO Attn: Accounting, [address] [facility], [place], [address], [place] [facility] 05/04/2020 14:15:19 02/23/18 91 Caesarean Section completed Vitaliy Smith [place] [facility] 12/08/2014 09:28:24 02/23/18 89 Caesarean Section [place] [facility] 12/08/2014 09:28:24 02/23/18 88 Caesarean Section [place] [facility] 12/08/2014 09:28:24 02/23/18 66 Other completed Vitaliy Smith [place] [facility] 12/08/2014 09:28:24 Imaging Results Imaging Date Name Status LastModified by Organization Details LastModified Time 04/28/2022 CT, abdomen + pelvis, w/ contrast completed [email or web address] [place] [address] Add On Lab Orders [address] [place], [address], 05/16/2022 15:02:06 05/15/2022 MRI, liver, w/wo contrast completed [facility] [place] [address] [address] [place], [address], 06/02/2022 16:31:23 06/16/2022 arterial study, lower extremity, complete completed [facility] [address], [place], [address], 06/17/2022 08:34:44 07/18/2022 CT, angiogram, abdomen + pelvis, w/ contrast completed [facility] [address] [place], [address], 07/22/2022 21:43:18 07/18/2022 CT, angiogram, abdomen + pelvis, w/ contrast completed [facility] [address] [place], [address], 07/22/2022 21:44:51 09/05/2022 CT, abdomen + pelvis, w/ contrast completed [facility] [address], [place], [address], 09/10/2022 14:49:42 11/21/2022 trans-thoracic echocardiogram (TTE) (PROC) completed [facility] [address], [place], [address], 11/24/2022 08:36:10 11/21/2022 US, screening for abdominal aortic aneurysm completed [facility] [address], [place], [address], 11/22/2022 09:59:35 02/17/2023 XR, mandible completed [email or web address], [place], [address], 02/24/2023 17:48:45 03/26/2023 PFT, complete completed [email or web address] Information not available 03/26/2023 09:53:50 Procedure Notes None recorded. Medical Equipment None Reported. Allergies No known drug allergies Medications Name Sig Start Date Stop Date Status Note LastModified by Organization Details LastModified Time verapamil ER (SR) 120 mg tablet,exte nded release 05/08 completed Not Available Not Available Not Available losartan 50 mg tablet Take 1 tablet every day by oral route in the morning for 30 days. 10/08 completed Not Available Not Available Not Available cyclobenzap rine 10 mg tablet Take 1 tablet twice a day by oral route for 10 days. 01/11 completed Not Available Not Available Not Available amoxicillin 500 mg capsule 03/28 completed Not Available Not Available Not Available buspirone 5 mg tablet TAKE 1 TABLET BY MOUTH TWICE A DAY 09/12 completed Not Available Not Available Not Available cilostazol 100 mg tablet TAKE 1 TABLET BY MOUTH TWICE A DAY active Not Available Not Available No t Available Qvar 80 mcg/actuati on Metered Aerosol oral inhaler Inhale 2 puffs twice a day by inhalatio n route. 04/23 completed Not Available Not Available Not Available carvedilol 25 mg tablet Take 1 tablet twice a day by oral route. 11/17 completed Not Available Not Available Not Available venlafaxine ER 37.5 mg capsule,ext ended release 24 hr Take 1 capsule every day by oral route in the morning for 30 days. 09/24 completed Not Available Not Available Not Available albuterol sulfate 2.5 mg/3 mL (0.083 %) solution for nebulizatio n Inhale 2.5 mL 3 times a day by nebulizat ion route as needed. 04/08 completed Not Available Not Available Not Available cetirizine 10 mg tablet Take 1 tablet every day by oral route as directed for 7 days. 05/04 completed Not Available Not Available Not Available azithromyci n 250 mg tablet TAKE 2 TABLETS (500 MG) BY ORAL ROUTE ONCE DAILY FOR 1 DAY THEN 1 TABLET (250 MG) BY ORAL ROUTE ONCE DAILY FOR 4 DAYS 03/29 completed Not Available Not Available Not Available hydrocodone 5 mg-acetamin ophen 325 mg tablet TAKE 1 TABLET BY MOUTH EVERY 12 HOURS NEEDED active Not Available Not Available No t Available lisinopril 20 mg tablet Take 1 tablet every day by oral route in the morning for 30 days. 09/12 completed Not Available Not Available Not Available prednisone 20 mg tablet TAKE 2 TABLETS BY MOUTH ONCE DAILY FOR 4 DAYS AND THEN TAKE 1 TAB ONCE DAILY FOR 2 DAYS 03/29 completed Not Available Not Available Not Available clonazepam 0.5 mg tablet Take 1 tablet every day by oral route as needed for 30 days. 04/18 completed Not Available Not Available Not Available enalapril maleate 2.5 mg tablet Take 1 tablet by mouth once daily 03/29 completed Not Available Not Available Not Available clobetasol 0.05 % topical cream APPLY A THIN LAYER TO THE AFFECTED AREA(S) BY TOPICAL ROUTE 2 TIMES PER DAY X 7-10 DAYS 09/12 completed Not Available Not Available Not Available penicillin V potassium 500 mg tablet 12/25 completed Not Available Not Available Not Available hydroxyzine HCl 50 mg tablet Take 1 tablet every day by oral route as needed for 30 days. 09/24 completed Not Available Not Available Not Available clopidogrel 75 mg tablet TAKE 1 TABLET BY MOUTH EVERY DAY active Not Available Not Available No t Available aspirin 81 mg tablet,yunior yed release TAKE 1 TABLET BY MOUTH EVERY DAY DIRECTED active Not Available Not Available No t Available tramadol 50 mg tablet 03/28 completed Not Available Not Available Not Available acetaminoph en 500 mg tablet Take 2 tablets 4 times a day by oral route as needed. 04/08 completed Not Available Not Available Not Available simvastatin 40 mg tablet Take 1 tablet every day by oral route at bedtime for 30 days. 06/27 completed Not Available Not Available Not Available carvedilol 3.125 mg tablet TAKE 1 TABLET BY MOUTH ONCE DAILY 03/29 completed Not Available Not Available Not Available cyproheptad ine 4 mg tablet Take 1 tablet twice a day by oral route as directed for 30 days. 03/29 completed Not Available Not Available Not Available meloxicam 7.5 mg tablet Take 1 tablet twice a day by oral route as needed for 30 days. 06/27 completed Not Available Not Available Not Available amoxicillin 875 mg tablet 03/29 completed Not Available Not Available Not Available famotidine 20 mg tablet TAKE 1 TABLET BY MOUTH AT BEDTIME THE NIGHT BEFORE PROCEDURE AND 1 TAB THE MORNING OF 10/14 completed Not Available Not Available Not Available lorazepam 0.5 mg tablet TAKE 1 TABLET BY MOUTH TWICE DAILY NEEDED FOR ANXIETY 04/08 completed Not Available Not Available Not Available ascorbic acid (vitamin C) 500 mg tablet Take 2 tablets every day by oral route as directed for 7 days. 05/04 completed Not Available Not Available Not Available baclofen 10 mg tablet Take 1 tablet 3 times a day by oral route as needed for 30 days. 01/11 completed Not Available Not Available Not Available benzonatate 100 mg capsule Take 1 capsule 3 times a day by oral route as needed for 7 days. 03/29 completed Not Available Not Available Not Available cephalexin 500 mg capsule 12/25 completed Not Available Not Available Not Available naproxen sodium 550 mg tablet 04/23 completed Not Available Not Available Not Available Banophen 25 mg tablet TAKE 2 TABLETS BY MOUTH THE MORNING OF PROCEDURE 09/12 completed Not Available Not Available Not Available ranitidine 150 mg tablet Take 1 tablet twice a day by oral route. 01/11 completed Not Available Not Available Not Available lisinopril 10 mg tablet Take 1 tablet twice a day by oral route as directed for 30 days. 03/16 completed Not Available Not Available Not Available prednisone 50 mg tablet TAKE 1 TABLET WITH DINNER, 1 TAB AT BEDTIME THE DAY BEFORE PROCEDURE AND 1 TAB THE MORNING OF 10/14 completed Not Available Not Available Not Available promethazin e 25 mg tablet 01/11 completed Not Available Not Available Not Available Banophen 25 mg capsule 10/14 completed Not Available Not Available Not Available verapamil ER (SR) 240 mg tablet,exte nded release TAKE 1 TABLET BY MOUTH EVERY DAY active Not Available Not Available No t Available hydrochloro thiazide 25 mg tablet Take 1 tablet every day by oral route in the morning for 30 days. 06/27 completed Not Available Not Available Not Available metoprolol succinate ER 25 mg tablet,exte nded release 24 hr Take 1 tablet every day by oral route. 11/17 completed Not Available Not Available Not Available ergocalcife rol (vitamin D2) 1,250 mcg (50,000 unit) capsule active Not Available Not Available Not Available ibuprofen 600 mg tablet 12/25 completed Not Available Not Available Not Available methylpredn isolone 4 mg tablets in a dose pack Take 1 dose pk by oral route. 03/29 completed Not Available Not Available Not Available ketoconazol e 2 % topical cream APPLY 1 APPLICATI ON ONTO THE AFFECTED AREA(S) ON THE SKIN ONCE DAILY X2 WEEKS 09/12 completed Not Available Not Available Not Available hydroxyzine HCl 10 mg tablet Take 1 tablet every day by oral route as needed for 30 days. 06/06 completed Not Available Not Available Not Available fluticasone propionate 50 mcg/actuati on nasal spray,suspe nsion [place] 1 spray every day by intranasa l route as directed for 30 days. 09/12 completed Not Available Not Available Not Available sertraline 50 mg tablet Take 1 tablet every day by oral route in the morning for 30 days. 06/06 completed Not Available Not Available Not Available lisinopril 2.5 mg tablet TAKE 1 TABLET BY MOUTH EVERY DAY active Not Available Not Available No t Available loratadine 10 mg tablet Take 1 tablet every day by oral route in the morning for 30 days. 11/15 completed Not Available Not Available Not Available naproxen 500 mg tablet Take 1 tablet twice a day by oral route as needed. 04/23 completed Not Available Not Available Not Available amoxicillin 875 mg-potassiu m clavulanate 125 mg tablet TAKE 1 TABLET BY MOUTH EVERY 12 HOURS active Not Available Not Available No t Available neomycin-po lymyxin-hyd rocort 3.5 mg-10,000 unit/mL-1 % ear drops,susp INSTILL 4 DROPS INTO AFFECTED EAR(S) BY OTIC ROUTE 3 TIMES PER DAY X 5-7 DAYS 04/18 completed Not Available Not Available Not Available ciprofloxac in 0.3 %-dexametha sone 0.1 % ear drops,suspe nsion INSTILL 4 DROPS INTO AFFECTED EAR(S) TWICE DAILY FOR 7 DAYS 04/08 completed Not Available Not Available Not Available rosuvastati n 20 mg tablet TAKE 1 TABLET BY MOUTH EVERY DAY active Not Available Not Available No t Available nitrofurant oin monohydrate /macrocryst als 100 mg capsule TAKE 1 CAPSULE BY MOUTH EVERY 12 HOURS FOR 5 DAYS WITH FOOD 04/18 completed Not Available Not Available Not Available ProAir HFA 90 mcg/actuati on aerosol inhaler Inhale 2 puffs every 4 hours by inhalatio n route as needed. 11/17 completed Not Available Not Available Not Available peg 3350 240 gram-electr olytes 22.72 gram-6.72 g-5.84 g powdr for soln 01/11 completed Not Available Not Available Not Available Ensure Plus 0.05 gram-1.5 kcal/mL oral liquid Drink 1 serving (1 cup) per day to increase daily protein intake and help with weight gain 2021 active Not Available Not Available Not Avai lable icosapent ethyl 1 gram capsule TAKE 2 CAPSULES BY MOUTH TWICE A DAY active Not Available Not Available No t Available Jardiance 10 mg tablet TAKE 1 TABLET BY MOUTH EVERY DAY active Not Available Not Available No t Available ergocalcife rol (vit D2) (bulk) 06/27 completed Not Available Not Available Not Available Xarelto 2.5 mg tablet active Not Available Not Available No t Available Vitals Date Recorded Body height Body mass index (BMI) Body weight Heart rate Body temperature Oxygen saturation Oxygen saturation in Arterial blood by Pulse oximetry Systolic blood pressure Diastolic blood pressure Provider Name and Address Organization Details Last Updated DateTime 3 157.48 cm 15.4 kg/m2 18978.7 6 g 105 /min 98.7 [degF] 98 % 98 % 140 mm[Hg] 68 mm[Hg] Chaya Aragon MA [facility] 3 12:08:20 Date Recorded Body height Body mass index (BMI) Body weight Heart rate Body temperature Oxygen saturation Oxygen saturation in Arterial blood by Pulse oximetry Provider Name and Address Organization Details Last Updated DateTime 3 157.48 cm 15.8 kg/m2 79622.7 4 g 98 /min 98.1 [degF] 99 % 99 % Chaya Aragon MA [facility] 3 10:54:34 Date Recorded Systolic blood pressure Diastolic blood pressure Provider Name and Address Organization Details Last Updated DateTime 05/16/2022 138 mm[Hg] 80 mm[Hg] SORIN CASTANO Attn: Accounting,[address] [place], [address], [facility] 05/16/2022 14:58:53 Date Recorded Body height Body mass index (BMI) Body weight Heart rate Body temperature Oxygen saturation Oxygen saturation in Arterial blood by Pulse oximetry Systolic blood pressure Diastolic blood pressure Provider Name and Address Organization Details Last Updated DateTime 3 157.48 cm 15.4 kg/m2 89807.1 6 g 87 /min 97.9 [degF] 99 % 99 % 140 mm[Hg] 60 mm[Hg] Chaya Aragon MA [facility] 3 09:58:51 Date Recorded Body height Body mass index (BMI) Body weight Heart rate Oxygen saturation Oxygen saturation in Arterial blood by Pulse oximetry Systolic blood pressure Diastolic blood pressure Provider Name and Address Organization Details Last Updated DateTime 3 157.48 cm 14.9 kg/m2 07437.4 2 g 97 /min 99 % 99 % 146 mm[Hg] 78 mm[Hg] Tiana Briones MA [facility] 3 09:12:32 Date Recorded Body height Body mass index (BMI) Body weight Oxygen saturation Oxygen saturation in Arterial blood by Pulse oximetry Heart rate Systolic blood pressure Diastolic blood pressure Provider Name and Address Organization Details Last Updated DateTime 3 157.48 cm 14.7 kg/m2 10168.8 2 g 97 % 97 % 108 /min 158 mm[Hg] 82 mm[Hg] Nyasia Myers MA [facility] 3 10:00:57 Social History Question Answer Notes LastModified by Organizat ion Details LastModified Time Tobacco Smoking Status Current Every Day Smoker Vitaliy Smith MA [facility], [facility] 12/08/2014 09:28:23 Do You Have An Advance Directive? No [email or web address] Information not available 12/08/2014 What Is Your Level Of Alcohol Consumption? None Information not available 12/06/2014 What Is Your Level Of Caffeine Consumption? Moderate [email or web address] Information not available 12/08/2014 How Much Tobacco Do You Chew? None [email or web address] Information not available 12/08/2014 In The 14 Days Before Symptom Onset, Have You Had Close Contact With A Laboratory-confir med COVID-19 While That Case Was Ill? No Information not available 03/01/2020 In The 14 Days Before Symptom Onset, Have You Had Close Contact With A Person Who Is Under Investigation For COVID-19 While That Person Was Ill? No Information not available 03/01/2020 Have You Been To An Area Known To Be High Risk For COVID-19? No Information not available 03/01/2020 What Type Of Diet Are You Following? REGULAR [email or web address] Information not available 12/08/2014 Which Illicit Or Recreational Drugs Have You Used? 0 [email or web address] Information not available 12/08/2014 Do You Or Have You Ever Used E-cigarettes Or Vape? 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 No [email or web address] Information not available 12/08/2014 Hard Of Hearing Or Deaf In One Or Both Ears? No Information not available 12/26/2015 Legally Blind In One Or Both Eyes? No Information no t available 12/26/2015 Marital Status Single Informatio n not available 12/26/2015 What Was The Date Of Your Most Recent Tobacco Screening? 10/14/2022 [email or web address] Information not available 10/14/2022 Performs Monthly Self-breast Exam? No Information no t available 12/26/2015 What Is Your Relationship Status? Single Information not available 03/04/2022 Seat Belts Used Routinely Yes [email or web address] Information not available 12/08/2014 Are You Sexually Active? No Information not available 03/04/2022 Smoke Alarm In Home Yes [email or web address] Information not available 12/08/2014 Do You Have Smoke And Carbon Monoxide Detectors In Your Home? Yes Information not available 03/04/2022 At What Age Did You Start Smoking Tobacco? 18 [email or web address] Information not available 12/08/2014 Are You Passively Exposed To Smoke? Yes Information no t available 03/04/2022 Do You Or Have You Ever Used Smokeless Tobacco? Never Used Smokeless Tobacco Information not available 11/16/2019 How Much Tobacco Do You Smoke? 1 PPW Information not available 03/01/2020 General Stress Level Low [email or web address] Information not available 12/08/2014 Do You Use Any Illicit Or Recreational Drugs? No Information not available 03/04/2022 Do You Use Sunscreen Routinely? No Information not available 12/26/2015 Has Tobacco Cessation Counseling Been Provided? Yes Information not available 03/04/2022 On What Date Was Tobacco Cessation Counseling Provided? 04/18/2022 Information not available 04/18/2022 How Many Years Have You Smoked Tobacco? 35 Information not available 12/06/2014 Do You Or Have You Ever Used Any Other Forms Of Tobacco Or Nicotine? No Information not available 04/18/2022 Sex: Female Functional Status Question Answer Note LastModified by Organizat ion Details LastModified Time What is your exercise level? Occasional Information not available 12/26/2015 Mental Status None recorded. Family History Relationship Description Onset Age of this Age Resolved Age Notes LastModified by Organization Details LastModified Time Father Primary malignant neoplasm of gum [email or web address] Not available 2015 10:50:07 Father Osteoarthrit is Not available 2015 10:50:07 Father Malignant neoplasm of bone [email or web address] Not available 2015 10:50:07 Mother Heart disease [email or web address] Not available 2015 10:50:07 Maternal Grandfather Malignant neoplasm of skin Not available 2015 10:50:07 Maternal Grandfather Myocardial infarction [email or web address] Not available 03/28 10:50:07 Medical History Condition Response Coronary Artery Disease N Other N Atrial Fibrillation N High Blood Pressure N Thyroid Problems N Kidney or Bladder Problems N Blood Clots N COPD N Depression N GI Problems N Skin Problems N Anemia N Heart Attack ([place]) N Diabetes N Anxiety Disorder N Muscle, Joint, or Bone Problems N Seizures/Epilepsy N Acid Reflux (GERD) N Cancer N Stroke N Asthma N Allergies N High Cholesterol N Hepatitis N Liver Disease N Headaches N Osteoporosis N Heart Failure N Gynecological History Statement/Question Response Menses Monthly N If Post Menopausal, Age at Menopause 45 Current Control Method None Age at First Child 26 Obstetrics History GPAL:G 3 P 3 0 0 2 Type Value Full Term 3 Living 2 Total 3 Past Encounters Encounter ID Performer Location Encounter Start Date Encounter Closed Date Diagnosis/Indication Diagnosis SNOMED-CT Code Diagnosis ICD10 Code Diagnosis Note [id number] Juana Torres (Adult Med) [address] [place] [address] [phone] 0 12/08/2014 09:06:41 12/08/2014 10:05:33 Dyspnea 996036743 R06.02 Adult [facility] th examination 183416202 Z00.01 Abnormal weight loss 267 942728 R63.4 lost 20lbs in 2 months Screening for malignant neoplasm of colon 868485626 Z12.11 [id number] JIM Whitfield (Adult Med) [address] [place] [address] 84454-830 0 12/22/2014 10:41:56 12/22/2014 11:40:09 Gynecologic examination 23459831 Z01.419 Screening for malignant neoplasm of breast 421677326 Z12.39 [id number] JIM [facility]field (Adult Med) [address] [place] [address] [phone] 0 03/28/2015 10:28:03 03/28/2015 11:30:43 Adult health examination 735446041 Z00.01 Tobacco de pendence syndrome 85381131 F17.290 Not ready to quit smoking yet When she's ready she will RTC to talk about Wellbutrin Hyperlipidemia 00678096 E78.5 Will check FLP and LFTs today and fill accordingl y Mild chron ic obstructive pulmonary disease 070876317 J44.9 Based on PFTs No post bronchodil ator improvemen t [id number] JIM [place]field (Adult Med) [address] [place] [address] [id number] 0 06/22/2015 10:23:29 06/22/2015 10:46:29 Hyperlipidemia 48142705 E78.5 Continue with simvastati n Mild chron ic obstructive pulmonary disease 007292187 J44.9 Based on PFTs No post bronchodil ator improvemen t Will refer to pulmonolog y because she broke out with sores from the Qvar Tobacco de pendence syndrome 45676482 F17.290 7 cigarettes /day when working 1ppd on weekends when not working Encouraged to quit smoking [id number] JIM Whitfield (Adult Med) [address] [place] [address] [id number] 0 12/26/2015 10:26:47 12/26/2015 11:12:22 Hyperlipidemia 38083920 E78.5 Continue with simvastati nWill recheck labs in 3-6 months Spasm of back muscles 20 1208524 M62.830 Will begin with baclofen 10 TID PRNRTC 3 weeks for f/u Underweight 312293840 R6 3.6 Will initiate cyprohepta dine for weight gainAdvise d trying Boost for calorie dense liquids Screening for malignant neoplasm of colon 845669177 Z12.11 [id number] JIM Whitfield ([employer]) [address] [place] [address] 84271-337 0 03/24/2016 12:07:31 03/24/2016 14:44:50 Shoulder pain 79049454 M25.511 Right shoulderPa tient does not want to do PT at this timeWill begin with naproxen with ranitidine RTC 6 weeks for f/u Hyperlipidemia 44384703 E78.5 Continue with simvastati nWIll recheck annual labs Full blood count outside reference range 651653899 R79.9 Tobacco de pendence syndrome 79638160 F17.290 7 cigarettes /day when working 1ppd on weekends when not working Encouraged to quit smoking [id number] JIM Whitfield (Adult Med) [address] [place] [address] 95194-942 0 04/10/2016 14:00:10 04/10/2016 18:05:19 Numbness of hand 315295629 R20.0 right hand - will begin with nerve conduction If nothing found by EMG, will then do right shoulder MRI Tobacco de pendence syndrome 63857854 F17.290 7 cigarettes /day when working 1ppd on weekends when not working Encouraged to quit smoking Shoulder pain 40931270 M 25.511 Right shoulderPa tient does not want to do PT at this timeWill begin with naproxen with ranitidine [id number] JIM Whitfield (Adult Med) [address] [place] [address] [phone] 0 05/21/2016 11:12:26 05/22/2016 09:55:52 Screening for disorder 398495862 Z13.9 Tobacco de pendence syndrome 18376840 F17.290 7 cigarettes /day when working 1ppd on weekends when not working Encouraged to quit smoking Mild chron ic obstructive pulmonary disease 414688413 J44.9 Abnormalit y of abdominal aorta 589169978 I77.9 Patient given paper order for US todayOn MRI: appearance of 3cm dilation - will use aortic US for further eval as recommende d by MRI read Numbness of hand 8774144 04 R20.0 right hand: now only from DIP joint to tip of 2nd digit - EMG states not carpal tunnel or ulnar impingemen t - will refer to neuro [id number] JIM Whitfield (Adult Med) [address] [place] [phone] 0 04/23/2017 11:00:06 04/23/2017 12:49:35 Neutropenia [id number] D70.9 As dx'ed in the ER - will recheck todayPossi qasim 2/2 flu Acute bronchitis 2856093 2 J20.9 Advised to drink plenty of waterAlter brian ibuprofen and tylenol for painRestOT C cough syrup PRN Advised that if she is not better by Thursday to contact clinic and I will call in an abx Tobacco de pendence syndrome [id number] F17.290 1cigarette s/day - advised to quit Underweight 180453596 R6 3.6 [id number] JIM Whitfield (Adult Med) [address] [place] [address] 01/11/2018 13:42:07 01/11/2018 16:33:21 Internal hemorrhoids 39935578 K64.8 Will re-refer to GI Mild chron ic obstructive pulmonary disease 212545575 J44.9 Advised to quit smokingWil l refer to pulm for eval and medication management Adult [facility] th examination [id number] Z00.01 Tobacco de pendence syndrome 23113947 F17.290 advised to quit Hyperlipidemia 98088863 E78.5 Continue with simvastati nWIll recheck annual labs [id number] SORIN CASTANO (Adult Med) [address] [place] [phone] 0 12/15/2018 12:31:30 12/15/2018 14:01:48 Adult health examination [id number] Z00.01 Chronicall y ill appearing, underweigh t - Will check routine labs Internal hemorrhoids 904 58769 K64.8 Complainin g of painless bright red blood on toilet paper after wipingcolo noscopy showed internal hemorrhoid s- Will re-refer to GI Mild chron ic obstructive pulmonary disease 271717999 J44.9 Smokes 1 PPD, 35 year smoking pack historyPFT s many years agoWas diagnosed with COPD but patient would like to be rechecked, states her SOB and coughing is getting worseWas using albuterol inhaler but states these medication s caused sores in her mouth, requesting a nebulizer machine instead because she has been using her friends and states it helps- Will order new PFTs, hopefully completed prior to seeing pulmonolog y- Advised to quit smoking- Will refer to pulm for eval and medication management - Will give back albuterol inhaler to use as needed when away from the house- Will give nebulizer machine and medication - Provided education on how properly to use inhaler Tobacco de pendence syndrome 63089028 F17.290 Smokes 1 PPD, 35 year smoking pack history- Provided patient with order for LDCT scan- Advised patient to quit smoking, discussed risks of continuing and benefits from quitting, patient to reach out for help when interested in quitting Hyperlipidemia 06047709 E78.5 WIll recheck annual labs - Was taking simvastati n in the past Spinal rich nosis in cervical region 07869036 M48.02 MRI of cervical spine in 2016 showed multilevel degenerati ve disc and joint disease, most pronounced at C6-C7, mild-moder ate central canal stenosis and moderate bilateral neuroforam inal stenosis.O n PE: Entire spine TTP. Notable deformity palpated on cervical spine. Decreased strength in the upper extremitie s bilaterall y.- Will send neurosurge ry referral Essential hypertension 94241243 I10 BP Today: 152/70 and 160/70No prior blood pressure medication Discussed DASH diet Advised 30 minutes of exercise minimum daily Advised tobacco, alcohol, caffeine all increase BP Advised goal for BP is <140/90 Contact office if BP is > 140/90 consistent ly DIscussed consequenc es of HTN including kidney, eye, heart damage, stroke, and even - Will start patient on lisinopril 10 mg- RTC in 1 month for BP check Degenerati on of lumbar intervertebral disc 87397877 M51.36 MRI in 2016 showed Degenerati ve disc disease in the lumbar spine most pronounced at L5-S1 where there is diffuse disc bulge with superimpos ed right paracentra l disc extrusion which touches right S1 nerve rootOn Pe:Entire spine TTP. Major step-offs palpated throughout thoracic and lumbar spine. decreased strength of bilateral lower extremitie s- Will send neurosurge ry referral [id number] SORIN CASTANO (Adult Med) [address] [place] [phone] 0 03/01/2019 13:56:29 03/01/2019 14:43:15 Internal hemorrhoids 71705729 K64.8 Never saw GI because the bleeding stoppedLas t colonoscop y was 3 years ago and showed internal hemorrhoid s- Advised patient that if BRB starts again, let us know and will get her in touch with GI Mild chron ic obstructive pulmonary disease 690692645 J44.9 Smokes 1 PPD, 35 year smoking pack historyPFT s recently showed mild COPDWas using albuterol inhaler but states these medication s caused sores in her mouth, using nebulizer machine instead 1-2x/day- Advised to quit smoking- continue with medication Tobacco de pendence syndrome 92938014 F17.290 Smokes 1 PPD, 35 year smoking pack history- Advised patient to quit smoking, discussed risks of continuing and benefits from quitting, patient to reach out for help when interested in quitting Spinal rich nosis in cervical region 88775104 M48.02 MRI of cervical spine in 2016 showed multilevel degenerati ve disc and joint disease, most pronounced at C6-C7, mild-moder ate central canal stenosis and moderate bilateral neuroforam inal stenosis.O n PE: Entire spine TTP. Notable deformity palpated on cervical spine. Decreased strength in the upper extremitie s bilaterall y.Saw neurosurge ry at [facility] - ordered new MRIs and PT Degenerati on of lumbar intervertebral disc 80723600 M51.36 MRI in 2016 showed Degenerati ve disc disease in the lumbar spine most pronounced at L5-S1 where there is diffuse disc bulge with superimpos ed right paracentra l disc extrusion which touches right S1 nerve rootOn Pe:Entire spine TTP. Major step-offs palpated throughout thoracic and lumbar spine. decreased strength of bilateral lower extremitie sSaw neurosurge ry at [facility] - ordered new MRIs and PTNot currently taking anything for the pain- Will start meloxicam 7.5 mg PRN for pain and inflammati on Essential hypertension 33802626 I10 BP Today: 140/70Taki ng lisinopril 10 mg qd Discussed DASH diet Advised 30 minutes of exercise minimum daily Advised tobacco, alcohol, caffeine all increase BP Advised goal for BP is <140/90 Contact office if BP is > 140/90 consistent ly DIscussed consequenc es of HTN including kidney, eye, heart damage, stroke, and even - Take lisinopril 10 mg BID, separate and take one in the morning and one at lunch b/c patient complains of dizziness and lightheade dness in the morning- RTC in 1 month for BP check Multiple n odules of lung 465205132 R91.8 LDCT 10/2018 showed multiple 2-5 mm nodules noted throughout both lungs. - - -Continue with annual LDCT scan. Positive s creening for depression on PHQ-9 (Patient Health Questionnaire 9) [id number] 25094 Z13.89 PHQ 2/9 was mild in office today (6 out of 27)- Patient does not feel depressed regularly, admits to having good and bad days. Agreed that medication is not necessary at this time. [id number] SORIN CASTANO (Adult Med) [address] [place] [phone] 06/28/2019 10:03:23 06/29/2019 11:06:04 History of myocardial infarction 141572189 I25.2 She went to [facility] on 03/21/2019 with chest pain, was transferre d to [facility] where she was diagnosed with an acute WA, cardiac cath procedure completed and stent placed.She was discharged home on new medication s.She is now following with Cardiology at [facility], appointmen t was yesterday. She is doing well at home, no episodes of chest pain, palpitatio ns, shortness of breath, AKERS, and PND.- continue with medication s as prescribed - [facility] will get records from cardiology and update patient's medication list Essential hypertension 39451572 I10 BP Today: unable to check today due to phone visitPt. states she was unable to get BP kit for home due to insurance reasons.Un sure of patient's new medication s at this time Discussed DASH diet Advised 30 minutes of exercise minimum daily Advised tobacco, alcohol, caffeine all increase BP Advised goal for BP is <140/90 Contact office if BP is > 140/90 consistent ly DIscussed consequenc es of HTN including kidney, eye, heart damage, stroke, and even -c/w medication s- will get updated medication list from cardiology Hyperlipidemia 11264904 E78.5 12/16/18: total 183, Tri 242, HDL 40, and LDL 95Increase d ASCVD due to smoking history and HTN- c/w rosuvastat in 20 mg Mild chron ic obstructive pulmonary disease 676051906 J44.9 Used to smoke 1 PPD x 35 yearsSince WA, majorly cut back on smoking, now smoking 1-2 cigs per weekPFTs recently showed mild COPDWas using albuterol inhaler but states these medication s caused sores in her mouth, using nebulizer machine instead 1-2x/day- Advised to quit smoking- continue with medication Multiple n odules of lung 275180378 R91.8 LDCT 10/2018 showed multiple 2-5 mm nodules noted throughout both lungs. - - -Continue with annual LDCT scan, due again 10/2019 Tobacco de pendence syndrome 43424928 F17.290 Used to smoke 1 PPD x 35 years Since WA, majorly cut back on smoking, now smoking 1-2 cigs per week- Advised patient to quit smoking, discussed risks of continuing and benefits from quitting, patient to reach out for help when interested in quitting Coronary atherosclerosis 294648984 I25.10 Acute WA on 03/21/2019C ardiac cath procedure completed, 1 stent placedWas told she had additional plaque in coronary arteries but no additional stent needed at this time Carotid atherosclerosis 221128614 I65.29 Pt. states she had a carotid US completed per cardiology and was told she has plaque in her arteries- discussed this with patient and answered her questions - no records of test at this time, will get records- continue to limit smoking, change diet, and continue with heart and cholestero l medication [id number] SORIN CASTANO (Adult Med) [facility] [place] [address] 11/16/2019 10:55:31 11/17/2019 09:24:51 Internal hemorrhoids 91475059 K64.8 Admits to continued intermitte nt bright red blood in her stool over the past year, states she was diagnosed with internal hemorrhoid s after her last colonoscop y 3 years ago. Admits to intermitte nt diarrhea and constipati on.- advised patient I would like her to return to GI for possible colonoscop y due to intermitte nt BRB and weight loss History of myocardial infarction 118394674 I25.2 She went to [place] [facility] on 03/21/2019 with chest pain, was transferre d to [facility] where she was diagnosed with an acute WA, cardiac cath procedure completed and stent placed.She was discharged home on new medication s, pt. unsure of which ones she is takingShe is now [facility], no episodes of chest pain, palpitatio ns, shortness of breath, AKERS, and PND.- continue with medication s as prescribed , she plans to bring medication list to office tomorrow Essential hypertension 56185599 I10 BP Today: 144/76 and 140/80Unsu re of patient's new medication s at this time Discussed DASH diet Advised 30 minutes of exercise minimum daily Advised tobacco, alcohol, caffeine all increase BP Advised goal for BP is <140/90 Contact office if BP is > 140/90 consistent ly DIscussed consequenc es of HTN including kidney, eye, heart damage, stroke, and even - continue with medication s as prescribed , she plans to bring medication list to office tomorrow, will make changes once I see her medication list Coronary atherosclerosis 016280934 I25.10 Acute WA on 03/21/2019C ardiac cath procedure completed, 1 stent placedWas told she had additional plaque in coronary arteries but no additional stent needed at this time Hyperlipidemia 33776538 E78.5 12/16/18: total 183, Tri 242, HDL 40, and LDL 95Increase d ASCVD due to smoking history and HTN- c/w rosuvastat in 20 mg- consider muscle aches as SE from statin medication Mild chron ic obstructive pulmonary disease 965604433 J44.9 Used to smoke 1 PPD x 35 yearsSince WA, majorly cut back on smoking, now smoking 1-2 cigs per weekPFTs recently showed mild COPDWas using albuterol inhaler but states these medication s caused sores in her mouth, using nebulizer machine instead 1-2x/day- Advised to quit smoking- continue with medication Multiple n odules of lung 857526657 R91.8 LDCT 10/2018 showed multiple 2-5 mm nodules noted throughout both lungs. - - -Continue with annual LDCT scan, due again 10/2019- will order repeat scan Tobacco de pendence syndrome 48082904 F17.290 Used to smoke 1 PPD x 35 years Since WA, majorly cut back on smoking, now smoking 1-2 cigs per week- Advised patient to quit smoking, discussed risks of continuing and benefits from quitting, patient to reach out for help when interested in quitting Underweight 970766849 R6 3.6 She is concerned about her weight, notes she has lost another 8 pounds since her heart procedure 02/2019.Her appetite is normal and she continues to eat unhealthy foods to try and gain weight but it is not working.Magdi de los santos knows she should be trying to eat healthy due to her heart disease. Currently drinking Ensure daily- will refer to nutritioni for additional resources- will check for malnutriti on with labs Cramp in lower limb 4499 98611 R25.2 Admits to upper and lower leg muscle cramps since about 1 month after being discharged from the hospital 02/2019. Admits she could be better at drinking water.- will check electrolyt es- consider statin medication as the issue- consider peripheral arterial disease- increase water intake Adult heal th examination 132144601 Z00.01 Chronicall y ill appearing, underweigh t - Will check annual labs [id number] SORIN CASTANO (Adult Med) [facility] [place] [address] 03/01/2020 08:18:10 03/02/2020 11:41:33 Acute exacerbation of chronic obstructive pulmonary disease 404768881 J44.1 History of COPD, complainin g today I just dont feel right Symp toms: clear/whit e rhinorrhea with nasal congestion , headache, and wet cough with mucus production x 3 days. She states the cough is continuous and now has chest pain with her cough.She not has taken anything at home to help her symptoms besides her normal medication including albuterol breathing machine which has been helping.Magdi de los santos is not worried about COVID exposure, states she only leaves her home to go to the store in which she protects herself and only lives with her son who has no symptoms.A dmits to night sweats the past 2 nights and loss of appetite.D enies fever, loss of smell, loss of taste, ear pain, SOB, abdominal pain, and diarrhea.- discussed COVID testing with patient, she declined today because she does not feel like she has had exposure nor does she leave her home on a regular basis- will start on medication to cover for COPD exacerbati on including abx, steroids, and cough medication - Drink lots of fluids, whatever you like except for alcoholic beverages. - Run a cool-mist humidifier in your room at night. - Get extra rest and do not over-exert yourself. - If symptoms do not improve, please call office back Positive s creening for depression on PHQ-9 (Patient Health Questionnaire 9) 5276394846 48614 Z13.89 PHQ 2/9 was mild in office today (7 out of 27)- Patient does not feel depressed regularly, admits to having good and bad days. Agreed that medication is not necessary at this time. [id number] SORIN CASTANO (Adult Med) [address] [place] [address] 05/04/2020 08:02:22 05/07/2020 12:15:12 Renewal of prescription 044185100 Z76.0 Requesting refill on VIt. D supplement s- sent to pharmacy Multiple n odules of lung 107411823 R91.8 LDCT 10/2018 showed multiple 2-5 mm nodules noted throughout both lungs. - - -Continue with annual LDCT scan, due again 10/2019 but was not completed- will re-order repeat scan, may be denied due to multiple orders for this test, may need to call and discuss with insurance company Mixed anxi ety and depressive disorder 711094232 F41.8 Complainin g of intermitte nt panic-like symptoms occuring at night x 1-2 months.A couple times a week she finds herself waking up in the middle of the night with symptoms of SOB, racing heart, feeling clammy, shaky, and mild chest pain. She will usually get up and walk around her house to take her mind off of her symptoms and they will usually resolve within 10-15 minutes. Admits to feeling restless and anxious during the day but denies panic symptoms occuring during the day. Admits to fatigue, loss of interest in things, low appetite, and decreased motivation .No prior history of being diagnosed with anxiety but notes she has always been a worried person.No prior history of being treated for depression or anxiety.De nies recent stressors in her life. Denies HI/SI. PHQ-9 and JUVENCIO-7 both positive in the office today- Agreeable to starting SSRI; discussed common AE including worsening depression /anxiety. Call if any prob w/ meds. Call or go to ER if she feels she is a danger to self or others.- started her with sertraline , patient aware to be patient because it takes 4-6 weeks for drug to reach full efficacy, and do not stop drug without contacting us first- will start hydroxyzin e 10 mg PRN, use at night during panic symptoms if unable to calm down with supportive care, she is aware of SE of drowsiness - f/u in 1 month Unintentio nal weight loss 724283080 R63.4 Notes she has lost 3 more pounds since our last visit, now weight 84 pounds.She never completed LDCT scan last year for known pulmonary nodules.No recent history of mammogram or pap smear.[place] noscopy 02/2016 showed diverticul osis and hemorrhoid s - [facility]- need to complete mammogram, pap smear and LDCT scan- HIV screening with next set of labs [id number] SORIN CASTANO (Adult Med) [address] [place] [address] 06/06/2020 11:26:35 06/07/2020 16:19:39 Mixed anxiety and depressive disorder 198049808 F41.8 Pt reports no worsening symptoms, continues to have panic attacks triggered when worried about family or changing her appearance . Tried sertraline and hydroxyzin e but d/c due to drowsiness , itching and increased anxiety. Pt not interested in trying new meds at this time. - Contact office with worsening symptoms. Pain in bi lateral legs [id number] 4017796 M79.604 Pt with cramping in bilateral calves radiating to feet. Pain occurs when walking usually after about 10 min or at night. Pain sometimes relieved by walking at night. Hx of CAD and carotid atheroscle rosis - Order arterial US today Underweight 645667447 R6 3.6 Current weight 83 lbs up from 81 lbs last visit (10/2019), steady weight 81-89 lbs since 2017. No recent history of mammogram or pap smear. Colonoscop y 02/2016 showed diverticul osis and hamorrhoid s - due for repeat in [address] chest 05/16/20 showed mild emphysema and hyperinfla tion. No concerning pulmonary nodules. Malnutriti on labs completed last year were overall normal - need to complete mammogram, pap smear - referred to nutrionist today - restart cyprohepta dine 4mg BID as this helped her in the past Screening mammography 24 339145 Z12.31 Due for mammogram. - Referral sent, pt prefers [facility]. Tobacco de pendence syndrome 59085747 F17.290 Currently smoking 3 cigarettes / day. Has tried patch, bupropion, and chantix previously . Repeat LDCT scan in 1 year - Advised patient to quit smoking, discussed risks of continuing and benefits from quitting - Pt would like to contact a 1-800 number for more ideas about quitting Hyperlipidemia 26916518 E78.5 Pt with previous WA, continues to follow with cardiologi . States she had US of pancreas ordered by cardiologi st to check on hx of pancreatit is. - Continue rosuvastat in [id number] MD Brian Yoon (Adult Med) [address] [place] [address] 03/13/2021 15:28:02 03/14/2021 07:21:25 Otitis externa 6460628 H60.91 [id number] SORIN CASTANO (Adult Med) [address] [place] [address] 03/29/2021 08:21:09 04/01/2021 11:21:16 Pain in bilateral legs 2266432488 3686500 M79.604 Pt with cramping in bilateral calves radiating to feet. Pain occurs when walking usually after about 10 min or at night. Pain sometimes relieved by walking at night. Hx of CAD and carotid atheroscle rosis - Order arterial US today Tobacco de pendence syndrome 74178123 F17.290 Currently smoking 3 cigarettes / day. Has tried patch, bupropion, and chantix previously .CT scan last 04/2020, no concerning pulm nodules- Advised patient to quit smoking, discussed risks of continuing and benefits from quitting - plan for repeat CT scan 04/2021 Hyperlipidemia 59825227 E78.5 Pt with previous WA, continues to follow with cardiologi st. - Continue rosuvastat in Screening mammography 24 128436 Z12.31 Due for mammogram. - will discuss at her upcoming visit in 2 weeks Subjective pulsatile tinnitus 7552460755 46004 H93.19 Recent dx of R OM and L TM perforatio n, was prescribed neomycin/p olymixin/h ydrocortis one ear drops and after using x 1-2 days, developed ringing and intermitte nt throbbing almost like my heartbeat in the L ear so she stopped the ear drops.She then saw another physician on 03/15/21 due to continued ear complaints , was started on oral steroids and cipro ear drops instead, did not see any improvemen t with those medication s. She has an upcoming appointmen t with ENT next week.Admit s the constant ringing/th robbing in her ear has increased her anxiety and now having intermitte nt left sided chest pain. States she has been checking her BP at home, yesterday it was 120/70 but today while on the phone it is 190/90 wtih a HR of 120, just took her BP/HR medication 10 minutes prior to phone visit.No longer having pain in R or L ear.- will order US of carotid arteries- augmentin sent to take over the weekend to cover for possible continued ear infection until she can see ENT- stop any/all ear drops for now- pulsatile tinnitus possibly due to high BP, encouraged to watch BP over the weekend and if it continues to be high with continued/ worsening chest pain - go to the ER- f/u with me in 2 weeks Essential hypertension 74471927 I10 BP Today: 190/90, HR 120. Took verapamil only 10-15 minutes prior to phone visit/BP check - recheck BP in 1-2 hours to see if medication helps lower BP and HR- pulsatile tinnitus possibly due to high BP, encouraged to watch BP over the weekend and if it continues to be high with continued/ worsening chest pain - go to the ER- schedule f/u with cardiology and f/u with me in 2 weeks Acute otitis media 17978 03 H66.93 Developed bilateral ear pain roughly 1 month ago, she went to ER due to the ear pain and was prescribed oral amoxicilli n x 10 days. She was told she had an ear infection in the R ear and possible TM perforatio n of the L ear.Pain in ears improved after taking abx, now complainin g of L ear tinnitus and pulsatile tinnitusSh filiberto has an upcoming appointmen t with ENT next week. No longer having pain in R or L ear.- keep upcoming appointmen t- will send augmentin for now just to be safe until she can see ENT, avoid ear drops at this time [id number] SORIN CASTANO ([facility]) [address] [place] [address] 04/08/2021 11:00:17 04/09/2021 11:48:18 Subjective pulsatile tinnitus [id number] 88094 H93.19 The intermitte nt pulsatile throbbing has improved moderately but still has the feeling of being in a seashell and it is driving her crazy.She ended up going to the ER recently because the sound in her ears has been so overwhelmi ng it caused her to have a panic attack, lorazepam was prescribed but patient did not take at home, wants to avoid this type of medication .Ear infection has improved, possible ET dysfinctio n? BP still elevated, HTN may be playing a role? Chronic smoker, possible carotid disease?- get hearing test completed- start allergy medication - complete US of carotid arteries and upcoming stress test- get BP controlled , f/u once weekly until BP is at goal Essential hypertension 08073565 I10 BP Today: 160/78, HR 109. Took verapamil once this morning.Sh filiberto saw cardiology recently, they increased her verapamil to BID and ordered a stress test for 05/07/2021. She is currently taking HTN medicaiton once a day still.Has not completed carotid or venous US yet. - start taking 2 tablets of verapamil once daily instead of one tablet daily- f/u in 1 week for BP check- get US of cartoid and venous US completed- recheck BP in 1-2 hours to see if medication helps lower BP and HR- pulsatile tinnitus possibly due to high BP, encouraged to watch BP over the weekend and if it continues to be high with continued/ worsening chest pain - go to the ER Pain in bi lateral legs [id number] M79.604 Pt with cramping in bilateral calves radiating to feet. Pain occurs when walking usually after about 10 min or at night. Pain sometimes relieved by walking at night. Hx of CAD and carotid atheroscle rosis -arterial US order given to patient today Tobacco de pendence syndrome [id number] F17.290 Currently smoking 3 cigarettes / day. Has tried patch, bupropion, and chantix previously .CT scan last 04/2020, no concerning pulm nodules- Advised patient to quit smoking, discussed risks of continuing and benefits from quitting - plan for repeat CT scan 04/2021 Screening mammography 24 [id number] Z12.31 Due for mammogram. - will discuss at her upcoming visit in 2 weeks Dysfunctio n of eustachian tube [id number] H69.93 Saw ENT again, left TM perforatio n healed, right ear infection resolved. Plan for hearing test, has been unable to reach hospital to schedule. 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, states flonase was prescribed but stopped taking because it was making her eyes water.The intermitte nt pulsatile throbbing has improved moderately but still has the feeling of being in a seashell and it is driving her crazy.She ended up going to the ER recently because the sound in her ears has been so overwhelmi ng it caused her to have a panic attack, lorazepam was prescribed but patient did not take at home, wants to avoid this type of medication .- audiology referral placed today, patient plans to go to hospital to schedule- start flonase and anti-hista mine for possible ET dysfunctio n [id number] [facility] (Adult Med) [address] [place] [address] 04/15/2021 10:20:26 04/22/2021 11:07:00 Essential hypertension [id number] I10 patient came into the office to have her blood pressure checked. kimi thakkar ma checked ms carries blood pressure was 182/ 80. informed her pcp and she is coming up with a plan [id number] [facility] [address] [place] [address] 05/08/2021 09:25:29 05/09/2021 11:02:11 Mixed anxiety and depressive disorder [id number] F41.8 Pt recently found her brother in their house from an overdose. Since then she has been having worsening panic attacks. She will soon have to go clean out that house and she is very anxious about that. Her panic attacks consist of palpitatio ns and hyperventi lation and are resolved by stepping outside for fresh air. She normally has them twice a month. Never able to start venlafaxin e that was prescribed 2 weeks ago, not at her pharmacy. - start venlafaxin e daily for anxiety control, Agreeable to starting SnRI; discussed common AE including worsening depression /anxiety. Call if any prob w/ meds. Call or go to ER if she feels she is a danger to self or others. Patient aware to be patient because it takes 4-6 weeks for drug to reach full efficacy, and do not stop drug without contacting us first- take hydroxyzin e prn for panic attacks- discussed drowsiness as a side effect of hydroxyzin e. Dysfunctio n of eustachian tube [id number] H69.93 Left TM perforatio n healed, right ear infection resolved. Plan for hearing test, has been unable to reach hospital to schedule. 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 She came in last month for the tinnitus and was given flonase, loratidine , and an audiology referral for a hearing test. Pt tried the flonase but never received the loratidine and was unable to complete the hearing test due to insurance issues.- audiology referral placed today, patient plans to go to hospital to schedule- c/w flonase- start anti-hista mine for possible ET dysfunctio n Subjective pulsatile tinnitus [id number] 50402 H93.19 She ended up going to the ER recently because the sound in her ears has been so overwhelmi ng it caused her to have a panic attack, lorazepam was prescribed but patient did not take at home, wants to avoid this type of medication .Ear infection has improved, possible ET dysfunctio n? BP still elevated, HTN may be playing a role? Chronic smoker, possible carotid disease? She came in last month for the tinnitus and was given flonase, loratidine , and an audiology referral for a hearing test. Pt tried the flonase but never received the loratidine and was unable to complete the hearing test due to insurance issues.Pt states she was unable to get stress test due to tinnitus- get hearing test completed- start allergy medication - complete US of carotid arteries and upcoming stress test- get BP controlled Essential hypertension [id number] I10 BP Today: 160/72She saw cardiology recently, they increased her verapamil to BID and ordered a stress test for 05/07/2021. She is currently taking HTN medicaton once a day still.Has not completed carotid or venous US yet. Pt states she was unable to get stress test due to tinnitus.W as prescribed losartan at last visit but was sent to the wrong pharmacy so pt never started it- c/w verapamil- start losartan 50 mg QD- get US of cartoid and venous US completed- pulsatile tinnitus possibly due to high BP- f/u in 2 weeks for BP check [id number] [facility]STAN[facility] (Adult Med) [address] [place] [address] 09/24/2021 11:09:55 09/25/2021 14:23:54 Mixed anxiety and depressive disorder [id number] F41.8 Pt recently found her brother in their house from an overdose. Since then she has been having worsening panic attacks. She will soon have to go clean out that house and she is very anxious about that. Her panic attacks consist of palpitatio ns and hyperventi lation and are resolved by stepping outside for fresh air. She normally has them twice a month. Never able to start venlafaxin e that was prescribed 2 weeks ago, not at her pharmacy. Anxiety and depressive sx have diminished . Pt has developed coping strategies to deal w/ stress of losing brother. Pt endorses to have forward thinking, and hasn't been focusing on as much lately. Doesn't want to take Venlafaxin e. -Continue to monitor for worsening signs or sx. Call or go to ER if she feels she is a danger to self or others. Dysfunctio n of eustachian tube [id number] H69.93 Left TM perforatio n healed, right ear infection resolved. Plan for hearing test, has been unable to reach hospital to schedule. 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 She came in previously for the tinnitus and was given flonase, loratidine , and an audiology referral for a hearing test. Pt tried the flonase but never received the loratidine and was unable to complete the hearing test due to insurance issues. - Continue following w/ ENT- c/w flonase PRN-Contin ue anti-hista mine for ET dysfunctio n Subjective pulsatile tinnitus [id number] H93.19 Previous ER visit because the sound in her ears has been so overwhelmi ng it caused her to have a panic attack, lorazepam was prescribed but patient did not take at home, wants to avoid this type of medication . Ear infection has improved, possible ET dysfunctio n? BP still elevated, HTN may be playing a role? Chronic smoker, possible carotid disease? Pt continues to have tinnitus in both ears, while right louder than left. -Pt visited ENT and has plan to get tubes and hearing aid placed, only once BP is controlled , per ENT provider. Continue use of Losartan.- Did not complete US of carotid arteries, or stress test Essential hypertension [id number] I10 BP Today: 144/70 and 140/68. HR 143 and then down to 120She saw cardiology recently, they increased her verapamil and ordered a stress test for 05/07/2021. Has not completed carotid or venous US yet. Pt states she was unable to get stress test due to tinnitus. Has not been taking Losartan, because no refills were available. Pt had gone too long w/o a f/u appt for refills.-O rder of US of carotid and venous US not completed at previous visit.- C/w verapamil 240mg, daily.- Continue Losartan 50 mg QD. Explained to pt this medication is covered, and that she needs to f/u.- pulsatile tinnitus possibly due to high BP- f/u in 2 weeks Lightheadedness [id number] R42 Pt has been lightheade d for the past 2 days. Pt has been retching for the past 2 days and hasn't ate anything. States she was drinking water over past 2 days. Later states that she ate breakfast this morning. Chills past 2 days and cough. Denies productive cough. Gets dizzy while sitting down w/ positional changes. Has been drinking water and keeping it down. Lost 7 lbs since April 2021. Denies nausea, vomiting, or diarrhea. Denies congestion , runny nose, or ear pain. Vitals: 140/70 BP, 143 HR. Left sided posterior chest wall/thora cic region TTP. -Continue to eat and push fluids given HR of 140+ today and sensation of lightheade dness. Discussed need of protein in diet, and potential for use of Ensure if weight not increased upon f/u.-F/u in 2 weeks for weight check. Malnutriti on (calorie) 469635601 E46 BMI 14.4Weight 79 poundsAdmi ts to decreased appetite- discussed multiple of her other issues today, stressed the importance of eating regular scheduled meals and snacks that are heavy and calorie dense rather than fast-food type of foods. Try to increase protein consumptio n.- plan to discuss further at next f/u in 2 weeks [id number] [facility]STAN[facility] (Adult Med) [address] [place] [phone] 10/08/2021 10:46:38 10/09/2021 11:43:27 Essential hypertension [id number] I10 BP Today: 180/80 and 165/75. HR 112Pt not taking 50mg Losartan due to severe light-head edness and dizzinessS he saw cardiology recently, they increased her verapamil and ordered a stress test for 05/07/2021. Has not completed carotid or venous US yet. Pt states she was unable to get stress test due to tinnitus.- Continue Verapamil 240mg- D/c losartan due to SE from medication . Will start 20mg lisinopril , daily. Called pharmacy, states medication is covered- try to schedule f/u with cardiology prior to ENT procedure to get help getting BP better controlled Dysfunctio n of eustachian tube 52003992 H69.93 Left TM perforatio n healed, right ear infection resolved. Plan for hearing test, has been unable to reach hospital to schedule. 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 She came in previously for the tinnitus and was given flonase, loratidine , and an audiology referral for a hearing test. Pt tried the flonase but never received the loratidine and was unable to complete the hearing test due to insurance issues. - Continue following w/ ENT (surgery scheduled for the 10/17/21)- c/w flonase PRN-Contin ue anti-hista mine for ET dysfunctio n Malnutriti on (calorie) 821440992 E46 BMI 15.5 todayWeigh t 84 pounds- stressed the importance of eating regular scheduled meals and snacks that are heavy and calorie dense rather than fast-food type of foods. Try to increase protein consumptio n.-Pt has been drinking Ensure and has gained 3 pounds since last visit [id number] [facility] (Adult Med) [address] [place] [phone] 10/14/2021 11:18:59 10/15/2021 08:41:55 Essential hypertension 53712485 I10 BP Today: 140/60 and 120/65. HR 102Pt started taking 20mg lisinopril in addition to 240mg verapamil. Denies adverse SE with new medStress test scheduled for 05/07/2021. Appt with cardiology 12/01/21Has not completed carotid or venous US yet. Pt states she was unable to get stress test due to tinnitus.- Continue Verapamil 240mg-Cont inue lisinopril 20mg-[place] nue monitoring BP at home Dysfunctio n of eustachian tube 00717235 H69.93 Left TM perforatio n healed, right ear infection resolved. Plan for hearing test, has been unable to reach hospital to schedule. 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 She came in previously for the tinnitus and was given flonase, loratidine , and an audiology referral for a hearing test. Pt tried the flonase but never received the loratidine and was unable to complete the hearing test due to insurance issues. - Continue following w/ ENT (surgery scheduled for the 10/17/21)- c/w flonase PRN-Contin ue anti-hista mine for ET dysfunctio n Malnutriti on (calorie) 002851886 E46 BMI 15 todayWeigh t 82 pounds- stressed the importance of eating regular scheduled meals and snacks that are heavy and calorie dense rather than fast-food type of foods. Try to increase protein consumptio n.-continu e drinking Ensure [id number] [facility] CASTAN[facility] (Adult Med) [address] [place] [phone] 11/15/2021 08:31:38 11/19/2021 10:04:35 Essential hypertension 66397812 I10 BP Today: 156/70 and 160/68, HR 89 Only taking the 240mg verapamil, not currently taking lisinopril 20 mg but unsure why. Denies adverse SE with new [facility] last week, states they completed an abdominal US, was told it was abnormal and wants me to review records -Continue Verapamil 240mg- restart lisinopril 20mg- will get cardio records-Co ntinue monitoring BP at home Dysfunctio n of eustachian tube 47569819 H69.93 She saw ENT and said they decided to not go through with surgery or tubes, they told her the tinnitus was likely permanent and to start working on supportive care ideas to minimize the annoyance. The ringing does not bother her during the day but drives her crazy at night, has a hard time sleeping because of it and it increases her anxiety.- sadly no medication to treat the permanent tinnitus but rec. sound machine at night to help drown out the ringing Malnutriti on (calorie) 366304950 E46 BMI 15 todayWeigh t 82 pounds- stressed the importance of eating regular scheduled meals and snacks that are heavy and calorie dense rather than fast-food type of foods. Try to increase protein consumptio n.-continu e drinking Ensure Screening for malignant neoplasm of cervix 060518927 Z12.4 Due for pap smear- rec. following up for WWE Screening mammography 458534 Z12.31 Due for mammogram. No breast symptoms today - Gave patient mammogram order during visit today, she is aware she is supposed to call and schedule herself. Overweight 086643452 E66 .3 Patient has low BMI, discussed ways of increasing her weight at home per the last few visits, she is working on this currently [id number] [facility] (Adult Med) [address] [place] [address] 03/04/2022 09:13:31 03/05/2022 15:53:34 Underweight 349787569 R63.6 Current weight 82 lbs, steady weight 81-89 lbs since 2017. No recent history of mammogram or pap smear. Colonoscop y 02/2016 showed diverticul osis and hemorrhoid s - due for repeat in [address] chest 05/16/20 showed mild emphysema and hyperinfla tion. No concerning pulmonary nodules. Malnutriti on labs completed last year were overall normal - need to complete mammogram, pap smear - referred to nutrionist today Mixed anxi ety and depressive disorder [id number] F41.8 Recent loss of mother and brother, making her JUVENCIO much worse and also causing frequent panic attacks. She can not stop crying. She is having trouble sleeping.P daphnie already has baseline anxiety which I am guessing is majorly impacting her HR and BP at office visits and probably on a regular basisShe feels like she has no family left anymore. She is now living with her friend at this time. She is trying to stay busy but aware that is not helping at this point.Admi ts to talking to her friend a lot about everything going on. Requesting xanax, my friends told me to get on this medication , they said my life would be much better on this drug .- had a long discussion about benzos and long-term use and potential SE of abuse.- plan to start on a daily medication to decrease daily anxiety, take twice daily- provided 1 month supply (14 tablets) to use PRN for panic attacks, this is only due to the extreme stress she is under at the moment and will not continue with this rx in the future, patient understood - f/u in 1 month Essential hypertension 89343125 I10 BP Today: 140/76 on repeat, more calm after our discussion than when she first came into office Only taking the 240mg verapamil and lisinopril 20 mg -Continue Verapamil 240mg and lisinopril 20mg- will get cardio records-Co ntinue monitoring BP at home, bring in log next week with readings Dysfunctio n of eustachian tube 01556092 H69.93 She saw ENT and said they decided to not go through with surgery or tubes, they told her the tinnitus was likely permanent and to start working on supportive care ideas to minimize the annoyance. The ringing does not bother her during the day but drives her crazy at night, has a hard time sleeping because of it and it increases her anxiety.- sadly no medication to treat the permanent tinnitus but rec. sound machine at night to help drown out the ringing Carotid atherosclerosis 010742696 I65.29 Pt. states she had a carotid US completed per cardiology and was told she has plaque in her arteries Saw cardiology a few months ago, was started on xarelto for her carotid atheroscle rosis and AAA but never started this medication . - discussed this with patient and answered her questions- start blood thinner- continue to limit smoking, change diet, and continue with heart and cholestero l medication Acute left otitis media 155119316 H66.92 Today, complainin g of right ear pain and increased sensitivit y over the last few days, has been unable to put pressure on her ear.- only able see partial left EAC and TM due to cerumen but both appear erythemato us and EAC sensitive to otoscope. No perforatio n noted- start ear drops for otitis externa- start augmentin to cover for otitis media [id number] [facility] (Adult Med) [address] [place] [phone] 04/18/2022 11:57:31 04/23/2022 09:51:03 Mixed anxiety and depressive disorder 197033791 F41.8 PHQ 0, JUVENCIO 6Recent loss of mother and brother, making her JUVENCIO much worse and also causing frequent panic attacks.Sorin barone started taking Buspar last month but didn't like it and says that she's been doing much better with her anxiety and panic attacks and decided to resolve it without any medication . - Call or go to ER if she feels she is a danger to self or others- plan to continue to monitor Essential hypertension 20314631 I10 BP Today: 140/68 on repeat, more calm after our discussion than when she first came into officeBP has been well controlled at home, hx of severe anxiety and very elevated readings at office so happy with BP today. Taking the 240mg verapamil and lisinopril 20 mg -Continue Verapamil 240mg and lisinopril 20mg- will get cardio records-Co ntinue monitoring BP at home, bring in log next week with readings-lidia jordan CMP, CBC- Check albumin/cr eatinine, urine Carotid atherosclerosis 814083007 I65.29 Pt. states she had a carotid US completed per cardiology and was told she has plaque in her arteries Saw cardiology a few months ago, was started on xarelto for her carotid atheroscle rosis and AAA - discussed this with patient and answered her questions- pt takes aspirin 81mg 1 tablet every day- continue to limit smoking, change diet, and continue with heart and cholestero l medication Underweight [id number] R6 3.6 Current weight 84 lbs, pt gained 2 lbs since last visit- pt is taking B12 supplement s and states that they make her gain weight No recent history of mammogram or pap smear. Colonoscop y 02/2016 showed diverticul osis and hemorrhoid s - due for repeat in [address] chest 05/16/20 showed mild emphysema and hyperinfla tion. No concerning pulmonary nodules. Malnutriti on labs completed last year were overall normal - need to complete mammogram, pap smear-chec k TSH, T4,-check Vit D, Vit B12 and Folate-shaun ck A1c Eczema 17407763 L30.9 PE rash noted on dorsal aspect of left hand, pt states it is spreading, exacerbate d with hand washing- start clobetasol 0.05 topical cream- Wash the affected area with water only. Soap can make dryness and itching worse. Pat dry.- Apply a moisturize r after bathing. Use a cream such as Aquaphor that does not irritate the skin or cause a rash. Apply the cream while your skin is still damp after lightly drying with a towel.- Use cold, wet cloths to reduce itching.- Keep cool, and stay out of the sun Abdominal pain 20025771 R10.9 She went to ED 2 weeks ago for blood in stool and abdominal pain, they diagnosed her with hemorrhoid s but she didn't f/u on this.She has had abdominal pain every morning for a long time, denies constipati on or diarrhea.- order CT abdomen+pe lvis, w+contrast Renewal of prescription [id number] Z76.0 Requesting refill on VIt. D supplement s- sent to pharmacy Allergic disposition [phone] [id number] T78.40XD Using flonase as needed, requesting refills [id number] [facility] (Adult Med) [address] [place] [phone] 05/16/2022 10:41:51 05/20/2022 13:27:07 Gynecologic examination 52778456 Z01.419 61 year old female post-menop ause female presents today for WWE. She thinks her last pap smear was over 20 years ago. Has not been sexually active for the last 15 years. Last mammogram was also many years ago, has not followed up on recent mammogram referrals. Denies vaginal complaints . Denies breast complaints . Denies fever, chills, nausea, vomiting, pelvic pain, vaginal discharge, vaginal lesions, dysuria, urinary frequency, and hematuria. Screening mammography 24 351573 Z12.31 Due for mammogram. No breast symptoms today. Has not followed up with prior mammogram referrals in the past- Gave patient mammogram order during visit today, she is aware she is supposed to call and schedule herself. Smoker 03902493 F17.200 Advised patient to quit smoking, discussed risks of continuing and benefits from quitting, patient to reach out for help when interested in quitting Cough 87693265 R05.9 Asking for cough medication today, felt like she was getting sick earlier this week with allergies, all of her other symptoms resolved but feels a little congested in her chest still- cough medication prescribed , use as needed- if cough gets worse, especially with smoking history, let me know Postmenopausal state [phone] Z78.0 Menopause present and BMI low- will order DEXA scan Underweight 965333013 R6 3.6 Up 2 pounds since last visit- will continue to monitor [id number] [facility]ST[facility] (Adult Med) [address] [place] [phone] 06/02/2022 09:48:35 06/03/2022 10:37:15 Screening mammography 52270672 Z12.31 Due for mammogram. No breast symptoms today. Has not followed up with prior mammogram referrals in the past- referral given at last visit, encouraged to schedule Postmenopausal state [phone] [id number] Z78.0 Menopause present and BMI low- referral given at last visit, encouraged to schedule Smoker [id number] F17.200 Advised patient to quit smoking, discussed risks of continuing and benefits from quitting, patient to reach out for help when interested in quitting Underweight 820631720 R6 3.6 Samples of Ensure given today, encouraged her to increase protein in her diet- will continue to monitor Essential hypertension 03339309 I10 BP Today: 140/60 on repeat, hx of severe anxiety and very elevated readings at office so happy with BP today. Taking the 240mg verapamil and lisinopril 20 mg -Continue Verapamil 240mg and lisinopril 20mg-[place] nue monitoring BP at home, bring in log next week with readings Tinea manus [id number] B35 .2 Rash on her hand has not improved with topical steroid, feels like it has dried the rash out more and now it seems to be spreading. It is intermitte ntly pruritic. Rash is not present elsewhere on body.- well demarcated annular rash may represent tinea infection, will start ketoconazo le topical for 2 weeks, stop topical steroid [id number] SORIN CASTANO (Adult Med) [address] [place] [id number] 09/12/2022 08:56:38 09/15/2022 14:15:16 Essential hypertension [id number] I10 BP Today: 146/78, did not take BP medication s before visit todayTakin g the 240mg verapamil and lisinopril 2.5 mg (decreased from 20 mg) -Continue Verapamil 240mg and lisinopril 2.5 mg-Continu e monitoring BP at home Peripheral vascular disease [id number] I73.9 Arterial study showed severe arterial disease bilaterall yCT angiogram showed complete occlusion of the left common iliac artery and plaque build up in the right common iliac arteryFoll owing with cardiology and vascular, prior attempt for stent placement in peripheral arteries failed, has another planned surgery for blockage of her common iliac vein 09/22/2022. She was started on two new medication s by cardiology , wanted us to update our chart with new medication s today.- states she does not need surgery clearance from me today- keep upcoming plan for surgery- take medication s as prescribed , medication s updated in chart- f/u with me after surgery Screening mammography [id number] Z12.31 Due for mammogram. No breast symptoms today. Has not followed up with prior mammogram referrals in the past- referral given at last visit, encouraged to schedule Carotid atherosclerosis [id number] I65.29 Pt. states she had a carotid US completed per cardiology and was told she has plaque in her arteries Saw cardiology a few months ago, was started on xarelto for her carotid atheroscle rosis and AAA - discussed this with patient and answered her questions- pt takes aspirin 81mg 1 tablet every day- continue to limit smoking, change diet, and continue with heart and cholestero l medication Renewal of prescription [id number] Z76.0 Requesting refill on VIt. D supplement s- sent to pharmacy Mixed anxi ety and depressive disorder [id number] F41.8 Hx of severe anxiety, was taking buspirone but has been without the last few months and managing okay. Wishes to continued without. Depression screening 171 [id number] Z13.31 PHQ 2/9 was negative in office today (0 out of 27) [id number] SORIN CASTANO (Adult Med) [facility] [place] [address] 10/14/2022 09:45:27 10/15/2022 14:28:48 Peripheral vascular disease [id number] I73.9 Arterial study showed severe arterial disease bilaterall yCT angiogram showed complete occlusion of the left common iliac artery and plaque build up in the right common iliac arteryFoll owing with cardiology and vascular, Hx of severe PAD in bilateral LE s/p catheteriz ation 09/29/2022 at [facility]. They gained access in the groin bilaterall y and placed stents in the iliac arteries. Patient notes procedure went well and could tell a big improvemen t in her leg pain and leg fatigue after the procedure. She is hoping to come off some of her medication s now that procedure is done. Has visit with surgeon, vascular and cardiology tomorrow. - procedure records requested- access sites look to be healing well- keep appointmen t with vascular and cardiology tomorrow- provided list of all medication s, encouraged her to bring list and medication bottles to apt tomorrow so she can find out which ones to continue and which ones to d/c- keep working on smoking cessation, down to 4 cigs per day currently Essential hypertension [id number] I10 BP Today: 158/82, did not take BP medication s before visit todayTakin g the 240mg verapamil and lisinopril 2.5 mg (decreased from 20 mg) -Continue Verapamil 240mg and lisinopril 2.5 mg-Continu e monitoring BP at home Screening mammography 24 [id number] Z12.31 Due for mammogram. No breast symptoms today. Has not followed up with prior mammogram referrals in the past- referral given at last visit, encouraged to schedule Carotid atherosclerosis [id number] I65.29 Pt. states she had a carotid US completed per cardiology and was told she has plaque in her arteries Saw cardiology a few months ago, was started on xarelto for her carotid atheroscle rosis and AAA - discussed this with patient and answered her questions- pt takes aspirin 81mg 1 tablet every day- continue to limit smoking, change diet, and continue with heart and cholestero l medication Underweight [id number] R6 3.6 Samples of Ensure given today, encouraged her to increase protein in her diet- will continue to monitor Health Concerns Section Related Observation LastModified by Organization Detai ls LastModified Time None Recorded Concern Status LastModified by Organization Details LastModified Time None Recorded Advance Directives Directive N: Payers Encounter Date Sequence Insurance Name Policy Number Policy Betts Covered Member ID Betts Member ID Guarantor Name 04/18/2022 1 [employer] [place] ON [place] AFTER 2020 (MEDICAID REPLACEMENT - HMO) Lali Campbell [id number] Lali Campbell 05/16/2022 1 [employer] [place] [place] AFTER 2020 [place]MEDICAID REPLACEMENT - HMO) Lali Campbell [id number] Lali Campbell 06/02/2022 1 [employer] [place] AFTER 2020 [place]MEDICAID REPLACEMENT - HMO) Lali Campbell [id number] Lali Campbell 09/12/2022 1 [employer] [place] AFTER 2020 [place]MEDICAID REPLACEMENT - HMO) Lali Campbell [id number] Lali Campbell 10/14/2022 1 [employer] [place] 2020 [place]MED[place]ID REPLACEMENT - HMO) Lali Campbell [id number] Lali Campbell Notes Date Note Type Note Provider Name and Address Organization Details Recorded Time 04/18/2022 text/html Patient is a 61 yo female coming here today for F/u for anxiety and medication refill.Patient is a 61 yo female with PHx of cervical spinal stenosis, abdominal aorta abnormality, hypertension, anxiety, carotid stenosis, coronary atherosclerosis, [place], hyperlipidemia, internal hemorrhoids, COPD, multiple nodules of lungs and tobacco dependence coming here today for F/u for anxiety and medication refill.She took one anti anxiety pill, made her much worse, couldn't breathe, felt like panic attack, she doesn't want it anymore.She didn't have any panic attacks in 2 1/2 weeks. She is doing much better with her anxiety.She says she is bored at home and she feels like going back to work if her social security doesn't figure stuff out.She needs refills on her meds today.She went to ED 2 weeks ago for blood in stool, they diagnosed her with hemorrhoids. She has had abdominal pain in the mornings for a long time, denies constipation or diarrhea.Admits eczema on her right hand, spreading more, thinks soap that she's using irritates her. Denies fever, chills, nausea, vomiting, headaches, chest pain, SOB, abdominal pain, diarrhea, constipation, or dysuria. SORIN CASTANO Attn: [address] [place], [address], [facility] 04/22/2022 15:23:52 05/16/2022 text/html 61 year old fema le post-menopause female presents today for WWE. She thinks her last pap smear was over 20 years ago. Has not been sexually active for the last 15 years. Last mammogram was also many years ago, has not followed up on recent mammogram referrals. Denies vaginal complaints. Denies breast complaints. Denies fever, chills, nausea, vomiting, pelvic pain, vaginal discharge, vaginal lesions, dysuria, urinary frequency, and hematuria. SORIN CASTANO Attn: [address] [place], [address], [facility] 05/16/2022 15:03:38 06/02/2022 text/html 61 year old namrata tripathi presents today for f/u and to discuss recent MRI of liver. Doing well overall, states still dealing with her chronic cough from smoking, medication prescribed at last visit was not covered by insurance. Rash on her hand has not improved with topical steroid, feels like it has dried the rash out more and now it seems to be spreading. It is intermittently pruritic. Rash is not present elsewhere on body. Denies fever, chills, nausea, vomiting, headaches, chest pain, SOB, abdominal pain, diarrhea, constipation, or dysuria. SORIN CASTANO Attn: [address] [place], [address], [facility] 06/02/2022 16:35:12 09/12/2022 text/html 61 year old namrata tripathi presents today to discuss upcoming surgery. 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 She was started on two new medications by cardiology, wanted us to update our chart with new medications today. Denies fever, chills, nausea, vomiting, headaches, chest pain, SOB, abdominal pain, diarrhea, constipation, or dysuria. SORIN CASTANO Attn: [address] [place], [address], [facility] 09/12/2022 16:22:30 10/14/2022 text/html 61 year old namrata tripathi presents today for f/u after vascular surgery. Hx of severe PAD in bilateral LE s/p catheterization 09/29/2022 at [facility]. They gained access in the groin bilaterally and placed stents in the iliac arteries. Patient notes procedure went well and could tell a big improvement in her leg pain and leg fatigue after the procedure. She is hoping to come off some of her medications now that procedure is done. Has visit with surgeon, vascular and cardiology tomorrow. Denies fever, chills, nausea, vomiting, headaches, chest pain, SOB, abdominal pain, diarrhea, constipation, or dysuria. SORIN CASTANO Attn: [address] [place], [address], [place] [facility] 10/14/2022 14:44:11 OBGyn Episode No OBEpisode recorded.
[2024-05-23 21:43] LABS: Prothrombin Time 13.6 Seconds (11.1-14.7)
[2024-05-23 21:44] LABS: Partial Thromboplastin Time 27.4 Seconds (22.3-36.8)
[2024-05-23 21:47] LABS: Troponin I < 0.012 ng/mL (0.000-0.034)
[2024-05-23] MEDS: SODIUM CHLORIDE 0.9% IV 1,000 ML 999 ML IV CONT (21:52)
[2024-05-23 22:10] LABS: D Dimer 2.93 ug/mL (<0.48)
--- NOTE | 2024-05-23 22:11 | ED_ITS ---
HPI - Chest Pain General Chief Complaint: Upper Respiratory Infection Stated Complaint: back pain, chest pain Time Seen by Provider: 05/23/24 21:35 Source: patient Mode of arrival: ambulatory Limitations: no limitations History of Present Illness HPI narrative: This is a 63 year old female that presents to the ER for cold symptoms. Reports she has been feeling unwell for the last 2 days. Reports cough, congestion, shortness of breath, chills, fevers, back pain, chest pain. Reports history of CAD, peripheral arterial disease. Related Data Home Medications ?Medication ?Instructions ?Recorded ?Confirmed ?Last Taken ?Type aspirin 81 mg tablet,delayed 81 mg PO DAILY 02/17/23 05/23/24 Unknown History release lisinopril 2.5 mg tablet 2.5 mg PO DAILY 02/17/23 05/23/24 05/23/24 History rivaroxaban 2.5 mg tablet (Xarelto) 2.5 mg PO DAILY 02/17/23 05/23/24 05/23/24 History rosuvastatin 20 mg tablet 20 mg PO DAILY 02/17/23 05/23/24 05/23/24 History empagliflozin 10 mg tablet 10 mg PO DAILY 10/09/23 05/23/24 05/23/24 History (Jardiance) Allergies Allergy/AdvReac Type Severity Reaction Status Date / Time azithromycin Allergy Intermediate Rash Verified 05/23/24 23:16 iodine Allergy Unknown Rash Verified 05/23/24 23:16 Review of Systems 2 Review of Systems: CONSTITUTIONAL: Reports fever, chills CARDIOVASCULAR: Reports chest pain RESPIRATORY: Reports cough and dyspnea. All systems reviewed & are unremarkable except as noted in HPI and below PMFSH Past Medical History Medical History Claustrophobia COPD (chronic obstructive pulmonary disease) Emphysema of lung Heart murmur History of heart attack Hyperlipidemia Hypertension Kidney stone Right arm fracture Wears glasses Surgical History Surgical History H/O removal of cyst History of heart artery stent History of orthopedic surgery right third finger on right hand x3 Hx of section x3 Family History Family History Mother Hx of CABG, Onset Age: 77 Father Arthritis Other Hypertension Social History Social History Smoking packs per day: 0.25 Smoking cigarettes per day: 5.0 Years smoked: 40 Smoking pack-years: 10.00 Smoking status: Current every day smoker Tobacco type: cigarettes Second hand tobacco smoke exposure: Yes Alcohol intake: never Substance use: never Gender identity (if verbalized by the patient): Female Exam 2 Narrative: GENERAL: Well-appearing, thin, and in no acute distress. HEAD: Normocephalic, atraumatic. EYES: EOMI. ENT: Nares clear, no rhinorrhea or epistaxis. Mucous membranes moist. Oropharynx without tonsillar hypertrophy exudate or other lesions. Bilateral TMs pearly baker non-bulging NECK: Supple. No adenopathy or masses. CHEST: No respiratory distress. Lung sounds coarse. Rales in the left lower lobe. No wheezes or rhonchi HEART: Regular rate and rhythm. No murmur heard. Normal peripheral pulses. EXTREMITIES: Normal range of motion. No edema. SKIN: Warm, dry, no rash. NEURO: No focal deficits. Alert and oriented x3. PSYCH: Normal mood and affect Course Course Emergency Course: Patient updated on her workup. Resting comfortably. Agrees with plan of care Vital Signs Vital signs: Vital Signs Temperature 98.6 F 05/23/24 21:09 Pulse Rate 122 H 05/23/24 21:09 Respiratory Rate 18 05/23/24 21:09 Blood Pressure 155/80 H 05/23/24 21:09 Pulse Oximetry 97 05/23/24 21:09 Oxygen Delivery Room Air 05/23/24 21:09 Temperature 98.7 F 05/24/24 01:04 Pulse Rate 95 05/24/24 01:04 Respiratory Rate 16 05/24/24 01:04 Blood Pressure 130/60 05/24/24 01:04 Pulse Oximetry 97 05/24/24 01:04 Oxygen Delivery Room Air 05/23/24 22:40 MDM - Chest Pain MDM Narrative Medical decision making narrative: Patient presents to emergency department for cold symptoms present over the last 2 days. She is afebrile and nontoxic appearing. Tachycardic upon arrival, this normalized with IV fluids. CBC with leukocytosis to 17. Also shows hemoconcentration. Metabolic panel without concerning findings. EKG without acute ST changes and her baseline and 3 hour troponin are negative. Influenza, RSV and COVID screens are negative. D-dimer elevated, CTA of the chest obtained. No PE identified. Shows left lower lobe pneumonia. Patient updated on her workup. Resting comfortably. Agrees with plan of care. Given 1st dose of antibiotics IV. Will be continued oral antibiotics. She is to follow up with primary provider. She was given warnings to return to the ER Differential Diagnosis Differential diagnosis: Likely stable angina, atypical chest pain, costochondritis and other (Pneumonia, PE) Lab Data Attestation: I reviewed the patient's lab results. 05/23/24 21:16 05/23/24 21:16 Labs: Lab Results 05/23/24 05/23/24 05/24/24 Range/Units 21:16 21:46 00:12 WBC 17.0 H (4.5-10.0) K/mm3 RBC 5.04 (4.2-5.4) M/mm3 Hgb 15.2 H (12.0-15.0) g/dL Hct 45.0 (37.0-47.0) % MCV 89.3 (80-100) fl MCH 30.2 (26-34) pg MCHC 33.8 (32-36) g/dl RDW 14.1 (11.5-14.5) % Plt Count 156 (150-375) k/mm3 MPV 9.0 (7.4-10.4) fl Immature Gran % (Auto) 0.3 (0-0.5) % Neut % (Auto) 86.2 H (45.5-73.1) % Lymph % (Auto) 8.6 L (18.3-44.2) % Peach % (Auto) 4.6 (2.6-8.5) % Eos % (Auto) 0.1 (0-4.4) % Baso % (Auto) 0.2 (0.2-1.2) % Lymph # (Auto) 1.47 (0.9-3.2) K/mm3 Peach # (Auto) 0.8 H (0.1-0.6) K/mm3 Eos # (Auto) 0.0 (0-0.3) K/mm3 Baso # (Auto) 0.0 (0.0-0.1) K/mm3 Abs Immat Gran (auto) 0.05 H (0.00-0.031) K/mm3 Absolute Neuts (auto) 14.7 H (1.3-6.7) K/mm3 Absolute Nucleated RBC 0.000 (0.0-0.012) K/mm3 Nucleated RBC % 0.0 (0.0-0.2) % PT 13.6 (11.1-14.7) Seconds INR 1.0 APTT 27.4 (22.3-36.8) Seconds D-Dimer 2.93 H (<0.48) ug/mL Sodium 136 L (137-145) mmol/L Potassium 3.6 (3.4-5.0) mmol/L Chloride 100 (98-107) mmol/L Carbon Dioxide 22 (22-30) mmol/L Anion Gap 14 H (4-12) mmol/L BUN 13 (7-17) mg/dL Creatinine 0.96 (0.7-1.0) mg/dL Estim Creat Clear Calc 29 ml/min Estimated GFR 59 (59 - ) Glucose 134 H (65-110) mg/dL Calcium 9.7 (8.4-10.2) mg/dL Total Bilirubin 0.7 (0.2-1.3) mg/dL AST 28 (14-36) U/L ALT 23 (6-35) U/L Alkaline Phosphatase 139 H (38-126) U/L Troponin I < 0.012 < 0.012 (0.000-0.034) ng/mL Total Protein 8.0 (6.3-8.2) g/dL Albumin 4.7 (3.5-5.1) g/dL Lipase 550 H (23-300) U/L Influenza A (RT-PCR) Negative (Negative) Influenza B (RT-PCR) Negative (Negative) RSV (RT-PCR) Negative (Negative) SARS-CoV-2 RNA (RT-PCR) Negative (Negative) Imaging Data Radiologist's impression: ITS Impressions Chest X-Ray 05/23/24 21:58 IMPRESSION: Acute infiltrate within the superior segment of the left lower lobe is suspected, as detailed above. Chest CTA 05/24/24 00:01 IMPRESSION: Opacification of the main and proximal pulmonary arteries is somewhat limited secondary to patient's inability to sustain a breath-hold (speaking during examination). No large filling defect within the main or proximal pulmonary arteries is suspected. Left lower lobe pneumonia is present, likely the source of patient's shortness of breath, leukocytosis and chest pain. No thoracic aortic dissection. ECG Data EKG #1: ECG completion date: 05/23/24 EKG Interpretation: normal rate, sinus rhythm, no ST changes and normal QT Critical Care Time Critical Care Time Critical Care Time: No Discharge Plan Discharge Clinical Impression: Pneumonia Qualifiers: Pneumonia type: due to unspecified organism Laterality: left Lung location: l ower lobe of lung Qualified Code(s): J18.9 - Pneumonia, unspecified organism Patient Disposition: Home, Self-Care Condition: Improved Instructions: Antibiotic Form, Community Acquired Pneumonia (ED) Additional Instructions: Return to the emergency department for worsening symptoms, or any other concerns Remain well-hydrated, get plenty of rest. Take Tylenol or Motrin [id number] for pain as needed. Flonase for nasal congestion. Zyrtec for runny nose. Take oral antibiotics as prescribed Follow up with your primary care doctor Patient Language: [place] Prescriptions: New doxycycline hyclate 100 mg tablet 100 mg PO BID 4 Days Qty: 8 0RF amoxicillin-pot clavulanate 875-125 mg tablet 1 tablet PO Q12H 4 Days Qty: 8 0RF No Action aspirin 81 mg tablet,delayed release (DR/EC) 81 mg PO DAILY lisinopril 2.5 mg tablet 2.5 mg PO DAILY rosuvastatin 20 mg tablet 20 mg PO DAILY rivaroxaban [Xarelto] 2.5 mg tablet 2.5 mg PO DAILY Jardiance 10 mg tablet 10 mg PO DAILY ofloxacin 0.3 % drops 10 drp EACH EAR DAILY 7 Days Qty: 10 0RF Follow-up/Referrals: Brett,Girish Hauser. [Primary Care Provider] -
--- NOTE | 2024-05-23 22:23 | PC.NURSE ---
Patient refused steroid and states when she had steroid ear drops last her whole tongue blew up . Notified EDP HUONG oRoney
[2024-05-23 22:28] LABS: Influenza A QL RT-PCR Negative (Negative); Influenza B QL RT-PCR Negative (Negative); RSV RNA, RT-PCR Negative (Negative); SARS-CoV-2 RNA PCR Negative (Negative)
[2024-05-23] MEDS: IPRATROPIUM 0.5 MG/ALBUTEROL SULFATE 2.5 MG AMPUL.NEB 3 ML INHALATION (22:28)
[2024-05-23] MEDS: AZITHROMYCIN 500 MG/NS 250 ML 500 MG/250 ML BAG 250 MG IVPB (22:58)
[2024-05-23] MEDS: diphenhydrAMINE HCl INJ 50 MG/ML VIAL 25 MG IV PUSH (23:11)
--- NOTE | 2024-05-23 23:15 | PC.NURSE ---
During administration of Azithromycin patient states that she started feeling nauseous, her legs tingling, and had red spots up her arm. Azithromycin stopped right away flushed. It should noted that only 25mL went in. Notified EDP HUONG Rooney who VRBO 25mg Benadryl IVP.
--- NOTE | 2024-05-24 00:23 | ECG_ITS ---
Test Date: 2024-05-24 00:11:12 Measurements Intervals [place] Rate: 90 P: 75 WV: 171 QRS: 87 QRSD: 70 T: 80 QT: 355 QTc: 435 Interpretive Statements SINUS RHYTHM CANNOT R/O SEPTAL INFARCT, AGE INDETERMINATE BASELINE ARTIFACT- I, II, AVR ABNORMAL ECG Compared to ECG 05/23/2024 21:17:09 HEART RATE HAS DECREASED Electronically Signed On 05-24-2024 06:10:58 CDT by Varun Sepulveda D.O.
[2024-05-24 00:38] LABS: Troponin I < 0.012 ng/mL (0.000-0.034)
[2024-05-24 01:04] VITALS: BP 130/60; PULSE 95; RESP 16; TEMP 37.1; O2SAT 97
== END 2024-05-24 01:28 | disposition home or self-care (01) ==
PROVIDERS: Student in an Organized Health Care Education/Training Program; Emergency Provider Physician Assistant; PCP Internal Medicine Infectious Disease
DX: J18.9 Pneumonia, unspecified organism (principal); Z20.822 Contact with and (suspected) exposure to COVID-19; I25.10 Atherosclerotic heart disease of native coronary artery without angina pectoris; I25.2 Old myocardial infarction; I73.9 Peripheral vascular disease, unspecified; J43.9 Emphysema, unspecified; F17.210 Nicotine dependence, cigarettes, uncomplicated; Z95.5 Presence of coronary angioplasty implant and graft; Z87.442 Personal history of urinary calculi; Z79.82 Long term (current) use of aspirin; Z79.01 Long term (current) use of anticoagulants; Z79.899 Other long term (current) drug therapy; Z79.84 Long term (current) use of oral hypoglycemic drugs; R00.0 Tachycardia, unspecified; R94.31 Abnormal electrocardiogram [ECG] [EKG]
CPT/HCPCS: 36415; 71046; 71275; 80053; 83690; 84484; 85025; 85380; 85610; 85730; 87040; 87637; 93005; 94640; 96361; 96365; 96367; 99284; A9270; J0456; J0696; J1200; J2919; J7030; Q9967

== ENCOUNTER 2024-07-12 17:17 | Emergency (ER) | payer OTHER, SELFPAY ==
--- NOTE | ~2024-07-12 | XR_ITS ---
EXAM: XR foot LT min 3V DATE: 07/12/2024 17:40 HISTORY: LT great toe/midfoot pain-foot was stepped on today . COMPARISON: None available. FINDINGS: Osteopenia. No fracture or dislocation. No lytic or blastic lesion. Mild scattered degener ative changes. No erosion or periosteal change. Soft tissues within normal limits. IMPRESSION: No acute osseous finding in the left foot. Reviewed, dictated and finalized at location K.
--- NOTE | 2024-07-12 17:19 | ED_ITS ---
HPI - Extremity Injury (Lower) General Chief Complaint: Extremity Injury, Lower Stated Complaint: Left foot injury; foot bruised Time Seen by Provider: 07/12/24 17:20 Source: patient Mode of arrival: ambulatory Limitations: no limitations History of Present Illness HPI Narrative: Lali is a 63-year-old female patient presenting to the clinic today with complaints of left foot pain/bruising/injury. She reports her friend accidentally stepped on her foot around 10 30 this morning. Has bruising to the plantar distal midfoot as well as the left great toe. Having pain with ambulation-bearing weight. Related Data Home Medications ?Medication ?Instructions ?Recorded ?Confirmed ?Last Taken ?Type rivaroxaban 2.5 mg tablet (Xarelto) 2.5 mg PO DAILY 02/17/23 07/12/24 05/23/24 History icosapent ethyl 1 gram capsule g PO 07/12/24 Unknown History iron ps [id number] acid PO 07/12/24 Unknown History niacinamide .ROUTE 07/12/24 Unknown History Allergies Allergy/AdvReac Type Severity Reaction Status Date / Time azithromycin Allergy Intermediate Rash Verified 07/12/24 17:32 iodine Allergy Unknown Rash Verified 07/12/24 17:32 Review of Systems Review of Systems: Pertinent positives per HPI. Patient denies any fever, chills, rash, headache, visual changes, dizziness, cough, runny nose, sore throat, shortness of breath, chest pain, palpitations, nausea, vomiting, diarrhea, constipation, abdominal pain, or any urinary issues. PMFSH Past Medical History Medical History History of heart attack Hypertension Wears glasses Claustrophobia Right arm fracture Kidney stone Emphysema of lung Hyperlipidemia Heart murmur COPD (chronic obstructive pulmonary disease) Surgical History Surgical History History of heart artery stent History of orthopedic surgery right third finger on right hand x3 Hx of section x3 H/O removal of cyst Family History Family History Mother Hx of CABG, Onset Age: 77 Father Arthritis Other Hypertension Social History Social History (Reviewed 07/12/24 @ 17:22 by ROYER Meng Smoking packs per day: 0.25 Smoking cigarettes per day: 5.0 Years smoked: 40 Smoking pack-years: 10.00 Smoking status: Current every day smoker Tobacco type: cigarettes Second hand tobacco smoke exposure: Yes Alcohol intake: never Substance use: never Gender identity (if verbalized by the patient): Female Comments At the time of my signature, I reviewed and agree with the nursing past medical, surgical, social, and family history. There is no relevant family history pertinent to the patient complaint. Exam Narrative: General: Well-developed, well nourished, in no apparent distress Head: Normocephalic, atraumatic. Cardio: Regular rate and rhythm, s1 and s2 normal, no murmur appreciated. Resp: Clear to auscultation bilaterally, no rhonchi, rales, wheezing or rubs. Musculoskeletal: No deformity, bruising over the plantar distal midfoot and over the left great toe, tender to palpation over the left great toe and plantar distal midfoot, grossly normal range of motion, muscle strength strong and equal, peripheral pulse strong, no edema, no cyanosis, limping gait and station Course Course Emergency Course: Portions of this record may have been created with voice recognition software. Level of Care: Express Care Visit Vital Signs Vital signs: Vital Signs Temperature 36.8 C 07/12/24 17:30 Pulse Rate 96 07/12/24 17:30 Respiratory Rate 18 07/12/24 17:30 Blood Pressure 151/81 H 07/12/24 17:30 Pulse Oximetry 99 07/12/24 17:30 Oxygen Delivery Room Air 07/12/24 17:30 Temperature 36.8 C 07/12/24 17:30 Pulse Rate 96 07/12/24 17:30 Respiratory Rate 18 07/12/24 17:30 Blood Pressure 151/81 H 07/12/24 17:30 Pulse Oximetry 99 07/12/24 17:30 Oxygen Delivery Room Air 07/12/24 17:30 Vital signs reviewed MDM - Extremity Injury (Lower) MDM Narrative Medical decision making narrative: At the time of visit patient is resting comfortably on the exam table. Patient appears to be nontoxic. Diagnostics: X-ray of the left foot was performed and was negative for any sign of fracture or malalignment of the left foot Plan: I suspect patient has a foot contusion. Supportive measures were discussed with the patient and they voiced understanding discharge instructions and agrees to treatment plan. Return precautions reviewed Differential Diagnosis Differential diagnosis: Likely ankle sprain and strain, fracture of toe, ankle fracture and other (Foot sprain, foot fracture) Imaging Data Radiologist's impression: ITS Impressions Foot X-Ray 07/12/24 18:44 IMPRESSION: No acute osseous finding in the left foot. Discharge Plan Discharge Clinical Impression: Contusion of foot including toes Qualifiers: Encounter type: initial encounter Laterality: left Qualified Code(s): S90.32XA - Contusion of left foot, initial encounter Patient Disposition: Home Condition: Stable Instructions: Antibiotic Form, Foot Contusion (ED) Additional Instructions: X-rays negative for any sign of fracture or malalignment of the left foot Rest, ice, elevate, and wear shirlene wrap as directed Tylenol/motrin for pain as discussed. Gradually bear weight Follow up with your PCP if symptoms persist more than 1 week. Patient Language: Polish Prescriptions: No Action rivaroxaban [Xarelto] 2.5 mg tablet 2.5 mg PO DAILY icosapent ethyl 1 gram capsule PO niacinamide [PureVita Vitamin B3] .ROUTE iron ps [id number]-elied acid PO Follow-up/Referrals: Brett,Delio Hauser [Primary Care Provider] - Time of Disposition: 18:51 Quality NIHSS Nursing Documentation ED NIHSS nursing documentation: reviewed/agree
[2024-07-12 17:30] VITALS: BP 151/81; PULSE 96; RESP 18; TEMP 36.8; O2SAT 99
== END 2024-07-12 18:58 | disposition home or self-care (01) ==
PROVIDERS: Emergency Provider Nurse Practitioner Family; PCP Internal Medicine Infectious Disease
DX: S90.32XA Contusion of left foot, initial encounter (principal); W51.XXXA Accidental striking against or bumped into by another person, initial encounter; Z79.01 Long term (current) use of anticoagulants; I10 Essential (primary) hypertension; E78.5 Hyperlipidemia, unspecified; J44.9 Chronic obstructive pulmonary disease, unspecified; R01.1 Cardiac murmur, unspecified; F17.210 Nicotine dependence, cigarettes, uncomplicated
CPT/HCPCS: 73630; 99213; G0463

== ENCOUNTER 2024-09-16 10:47 | Outpatient (CLI) | payer OTHER, SELFPAY ==
--- OUTSIDE RECORDS SUMMARY | 2024-09-16 10:49 | XMS_ITS | Clinical Summary ---
Author Organization [facility] Address [address] [place] [address] Care Team Providers Care Red Cross Worker Name Role Phone [facility] ([facility]) Primary Care Provi sai Source Comments [facility],non-[facility]iliates and Associated Physician Practices is amultiple site organization consisting of ambulatory clinics and hospital sitesin [place], [place], [place] and [place]. This disclosure is being madepursuant to the Care Everywhere program and may not contain all information available regarding this patient. Last updated 17.[facility] Splice Machine Allergies No known active allergies Medications * Be aware that medications may not be up to date on this document. Alwaysverify current medications with the patient. 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 Gender Identity Not on file Sexual Orientation Not on file Last Filed Vital Signs Vital Sign Reading Time Taken Comments Blood Pressure 128/69 01/11/2019 2:47 PM SENIOR UI SOFTWARE ENGINEER Pulse 83 01/11/2019 2:47 PM SENIOR UI SOFTWARE ENGINEER Temperature 36.8 C (98.3 F) 01/11/2019 2:47 PM SENIOR UI SOFTWARE ENGINEER Respiratory Rate 20 01/11/2019 2:47 PM SENIOR UI SOFTWARE ENGINEER Oxygen Saturation 98% 01/11/2019 2:47 PM SENIOR UI SOFTWARE ENGINEER Inhaled Oxygen Concentration - - Weight 40.8 kg (90 lb) 01/11/2019 2:47 PM SENIOR UI SOFTWARE ENGINEER Height 157.5 cm (5' 2) 01/11/2019 2:47 PM SENIOR UI SOFTWARE ENGINEER Body Mass Index 16.46 01/11/2019 2:47 PM SENIOR UI SOFTWARE ENGINEER Plan of Treatment Health Maintenance Due Date Last Done Comments COLOGUARD (AGES 45-75) - COL ON CA SCREENING 1960 COLON MONITORING 1960 COLONOSCOPY - COLON CA SCREENING 1960 CT COLONOGRAPHY - COLON CA SCREENING 1960 Colorectal Cancer Screening 1960 FIT - COLON CA SCREENING 1960 FLEX SIG - COLON CA SCREENING 1960 MAMMOGRAM 1960 HIV SCREENING 12/13/1975 HEPATITIS C SCREENING 12/08/1978 DTAP/TDAP/TD VACCINES (1 - Tdap) 12/13/1979 PNEUMOCOCCAL VACCINE 50+ (1 of 1 - PCV) 2010 ZOSTER VACCINE (1 of 2) 2010 COVID-19 VACCINE (1 - 2023-2 5 season) 2023 DEPRESSION SCREENING 02/24/2024 INFLUENZA VACCINE (#1) 2024 Respiratory Syncytial Virus (RSV) Vaccine Pt: or [...] age to complete this topic Care Teams Red Cross Worker Relationship Specialty Start Date End Date [facility] ([facility]) [address] [place] [address] PCP - General 12/24/17
--- OUTSIDE RECORDS SUMMARY | 2024-09-16 10:49 | XMS_ITS | Continuity of Care Document ---
Author Organization [facility] Address [address] [place] [address] Phone Care Team Providers Care Marketing Producer Name Role Phone Roberts OD, Lencho Unavailable Unavailable Advance Directives Directive Yes / No Effective Date File Name No Information Encounters Encounter Description Practice Location Reason(s) For Visit Diagnoses Date Provider Providers Copied on Encounter [facility], [address], [place], [place], [id number], [place] tel:[phone] SEC [facility] No Information Apr-0 8-200 5 Roberts OD Lencho. [address], [place], [address], [place]. tel:[phone] Family History Family Member Type Diagnosis Age At Onset No Information Payers Payer name Insurance type Covered alliance party ID Authoriza tion(s) Medicaid [facility] [id number] Social History Type Description Quantity Date Captured [...]
--- OUTSIDE RECORDS SUMMARY | 2024-09-16 10:50 | XMS_ITS | Clinical Summary ---
Author Organization [facility] Address [facility] [place] [address] Care Team Providers Care Architect Intern Name Role Phone Unavailable Primary Care Provider [...] Screening with HPV 1990 Mammogram Screening 2000 Pneumococcal Vaccine: 50+ Ye ars (1 of 1 - PCV) 2010 Zoster Vaccines (1 of 2) 2010 COVID-19 Vaccine (2023-2 5 season) 2023 RSV Immunization or 60+ Years (1 [...]
--- OUTSIDE RECORDS SUMMARY | 2024-09-16 10:50 | XMS_ITS | Data Portability ---
Author Organization [facility] Address [address] [facility] [place] [address] Care Team Providers Care Family Worker Name Role Phone TYLER TOBAR Primary Care Provider [facility] Assistant Pastry Chef Assessment Encounter Date Assessment Date Assessment LastModified by Organization Details LastModified Time 09/07/2024 09/07/2024 ESTHER AndrewsS [email or web address] Not available 09/07/2024 12:18:17 Plan of Treatment Reminders Order Date Submit Date Provider Last Modified By Organization Details Last Modified Time Details Appointments NEW PATIENT 15 2024 02:45P M Obey rascon MD Not available Not available Not available ANY 15 2024 10:15A M REGAN REDD PA-C Not available Not available Not available Lab TSH + free T4, serum 2024 025 [place] [facility], [address], [address], [place], [address], 06/01/2024 11:27:00 T3, free, serum or plasma 2024 025 [facility], [address], [address], [place], [address], 06/01/2024 11:27:01 lipid panel, serum 2024 025 [facility], [address], [address], [place], [address], 06/01/2024 06:47:59 CMP, serum or plasma 2024 025 [facility] [facility], [address], [address], [place], [address], 06/01/2024 06:48:00 albumin /creati nine, mass ratio, urine 2024 025 [facility] [facility], [address], [address], [place], [address], 06/01/2024 11:26:58 Referral audiolo gist referra l 2024 025 [facility] (Audiology), [address] [place] [address], [address], 09/08/2024 10:55:20 cardiol ogist referra l 2024 025 [place] [facility] Valentin MD, [address] [facility], [address], [place], [address], 09/09/2024 11:00:35 audiolo gist referra l 2024 025 [email or web address] Darrel Carroll, [address] [place], [address], 09/07/2024 12:22:24 pulmono logist referra l 2024 025 [facility], [address] [facility], [address], [place], [address], 08/04/2024 05:03:19 Procedures None recorde d. Surgeries None recorde d. Imaging MAMMO, screeni ng, digital , bilater al 2022 023 [facility], [address] [place] [address], [address], 03/10/2023 10:09:33 Medication Orders lisinop ril 20 mg tablet 2024 025 [id number], [address] , [place], [address], 09/07/2024 12:40:56 Calcium 600 + D(3) 600 mg-5 mcg (200 unit) capsule 2024 025 [id number], [address] [facility], [place], [address], 09/07/2024 12:40:56 icosape nt ethyl 1 gram capsule 2024 025 [id number], [address] [place], [address], 09/07/2024 12:40:56 rosuvas tatin 40 mg tablet 2024 025 [id number], [address] [place], [address], 09/07/2024 12:40:57 albuter ol sulfate 2.5 mg/3 mL (0.083 %) solutio n for nebuliz ation 2024 025 [id number], [address] [place], [address], 09/07/2024 12:40:55 terbina fine HCl 1 % topical cream 2024 025 [id number], [address] [place], [address], 09/07/2024 11:53:33 Debrox 6.5 % ear drops 2024 025 [id number], [address] [place], [address], 09/07/2024 11:53:18 Xarelto 2.5 mg tablet 2022 023 [id number], [address], [place], [address], 09/12/2022 16:16:20 ergocal ciferol (vitami n D2) 1,250 mcg (50,000 unit) capsule 2022 023 [facility] #[id number], [address], [place], [address], 09/12/2022 09:35:41 ketocon azole 2 % topical cream 2022 023 [id number], [address], [place], [address], 09/12/2022 09:08:44 Patient TargetsNo targets recorded. Patient Instructions Encounter Date Encounter Id Patient Instructions Last Modified By Organization Details Last Modified Time 06/02/2022 [id number] Quitting Tobacco : Care Instructions Not available 06/02/2022 10:34:27 Learning About Benefits of Quitting Smoking Not available 06/02/2022 10:34:27 eating healthy foods: care instructions Not available 06/02/2022 10:34:27 A healthy lifestyle: care instructions Not available 06/02/2022 10:34:27 10/14/2022 [id number] eating healthy foods: care instructions Not available 10/14/2022 14:41:37 05/31/2024 [id number] medical record request* [email or web address] Not available 05/31/2024 15:57:19 goiter: care instructions Not available 05/31/2024 15:56:08 tinnitus: care instructions [email or web address] Not available 05/31/2024 15:56:08 toenail fungus: care instructions Not available 05/31/2024 15:56:08 high cholesterol : care instructions [email or web address] Not available 05/31/2024 15:56:08 learning about high blood pressure Not available 05/31/2024 15:56:08 09/07/2024 [id number] tinnitus: care instructions [email or web address] Not available 09/07/2024 12:40:52 carotid stenosis : care instructions [email or web address] Not available 09/07/2024 12:40:52 learning about high blood pressure Not available 09/07/2024 12:40:52 high cholesterol : care instructions [email or web address] Not available 09/07/2024 12:40:52 Reason for Referral Respiratory Services Manager Referral for M ild chronic obstructive pulmonary disease Referring Physician: Regan Redd [facility], Encounter Date: 05/31/2024 Java Lead Referral for Tin nitus Referring Physician: Regan Redd [facility], Encounter Date: 05/31/2024 Java Lead Referral for Tin nitus Referring Physician: Regan Redd [facility], Encounter Date: 09/07/2024 Assistant Pastry Chef Referral for Ca rotid atherosclerosis Referring Physician: Regan Redd [facility], Encounter Date: 09/07/2024 Results Created Date Observation Date Name Description Value Unit Range Abnormal Flag Note LastModifiedBy Organization Detail LastModifiedTime 05/17/1905/20/2022 IGP, APTIM A HPV HPV aptima NEGATI VE negati ve This nucle ic acid ampli ficat ion test detec ts fourt een high- risk HPV types (16,1 8,31, 33,35 ,39,4 5,51, 52,56 ,58,5 9,66, 68) witho ut diffe renti ation . Not Available [facility] ([facility]) [address] [facility], [place], [address], 05/22/2022 15:11:31 05/17/19 23 05/22/2022 IGP, APTIM A HPV diagnosis: COMMEN T NEGAT TRACY FOR INTRA EPITH ELIAL STORMY [place] OR BREE NEWTON . Not Available [facility] ([facility]) [address], [place], [address], 05/22/2022 15:11:31 05/17/19 23 05/22/2022 IGP, APTIM A HPV specimen adequacy: COMMEN T Satis facto ry for evalu ation . No endoc ervic al compo nent is ident ified . Not Available [facility] ([facility]) [address] [place], [address], 05/22/2022 15:11:31 05/17/19 23 05/22/2022 IGP, APTIM A HPV clinician provided ICD10: DONTE Singer Z01.4 19 Not Available [facility] ([facility]) [address] [place], [address], 05/22/2022 15:11:31 05/17/19 23 05/22/2022 IGP, APTIM A HPV performed by: DONTE hicks, Rosetta singer (ASCP ) Not Available [facility] ([facility]) [address] [place], [address], 05/22/2022 15:11:31 05/17/19 23 05/22/2022 IGP, APTIM A HPV . . Not Available [facility] ([facility]) [address] [place], [address], 05/22/2022 15:11:31 05/17/19 23 05/22/2022 IGP, APTIM A HPV note: DONTE Singer The Pap smear is a scree wilfrido [...] ts do occur . Not Available [facility] ([facility]) [address] [place], [address], 05/22/2022 15:11:31 05/17/19 23 05/22/2022 IGP, APTIM A HPV test methodology: DONTE Singer This liqui d based ThinP rep(R ) pap test was scree leydi with the use of an image guide chuck gore mMarck Not Available [facility] ([facility]) [address] [facility], [place], [address], 05/22/2022 15:11:31 06/01/19 25 06/01/2024 LIPID PANEL cholesterol, total 129 mg/dL 100-[address] [facility] [address] [place] [address], [address], 06/01/2024 06:47:59 06/01/19 25 06/01/2024 LIPID PANEL triglyceride s 177 mg/dL 0-149 above high normal Not Available [facility] [address] [place] [address], [address], 06/01/2024 06:47:59 06/01/19 25 06/01/2024 LIPID PANEL HDL cholesterol 39 mg/dL 40-999 below low normal Not Available [facility] [address] [place] [address], [address], 06/01/2024 06:47:59 06/01/19 25 06/01/2024 LIPID PANEL VLDL cholesterol mary 35 mg/dL 5-40 Not Available [facility] [address] [place] [address], [address], 06/01/2024 06:47:59 06/01/1906/01/2024 LIPID PANEL LDL chol calc ([facility]) 81 mg/dL 0-99 Not Available [facility] [address] [place] [address], [address], 06/01/2024 06:47:59 06/01/1906/01/2024 COMP. METAB OLIC PANEL (14) glucose 91 mg/dL 70-[address] [facility] [address] [place] [address], [address], 06/01/2024 06:48:00 06/01/19 25 06/01/2024 COMP. METAB OLIC PANEL (14) BUN 14 mg/dL 8-[address] [facility] [address] [place] [address], [address], 06/01/2024 06:48:00 06/01/19 25 06/01/2024 COMP. METAB OLIC PANEL (14) creatinine 0.77 mg/dL 0.76-[address] [facility] [address] [place] [address], [address], 06/01/2024 06:48:00 06/01/19 25 06/01/2024 COMP. METAB OLIC PANEL (14) eGFR 87 >=60 Units for eGFR value s are mL/mi n/1.7 3 The eGFR Calcu latio n has not been valid ated for patie nts under the age of 18. If test resul ts are displ ayed for a patie nt under the age of 18, disre vanessa that value . Not Available [facility] [address] [place] [address], [address], 06/01/2024 06:48:00 06/01/1906/01/2024 COMP. METAB OLIC PANEL (14) BUN/creatini ne ratio 18 10-28 Not Available [facility] [address] [place] [address], [address], 06/01/2024 06:48:00 06/01/1906/01/2024 COMP. METAB OLIC PANEL (14) sodium 142 mmol/ L 134-[address] [facility] [address] [place] [address], [address], 06/01/2024 06:48:00 06/01/1906/01/2024 COMP. METAB OLIC PANEL (14) potassium 4.4 mmol/ L 3.5-5. [address] [facility] [address] [place] [address], [address], 06/01/2024 06:48:00 06/01/19 25 06/01/2024 COMP. METAB OLIC PANEL (14) chloride 102 mmol/ L 96-[address] [facility] [address] [place], [address], 06/01/2024 06:48:00 06/01/19 25 06/01/2024 COMP. METAB OLIC PANEL (14) carbon dioxide, total 27 mmol/ L 20-[address] [facility] [address] [place], [address], 06/01/2024 06:48:00 06/01/19 25 06/01/2024 COMP. METAB OLIC PANEL (14) calcium 9.6 mg/dL 8.7-[address] [facility] [address] [place], [address], 06/01/2024 06:48:00 06/01/19 25 06/01/2024 COMP. METAB OLIC PANEL (14) protein, total 6.7 g/dL 6.0-8. [address] [facility] [address] [place], [address], 06/01/2024 06:48:00 06/01/1906/01/2024 COMP. METAB OLIC PANEL (14) albumin 4.2 g/dL 3.8-4. [address] [facility] [address] [place], [address], 06/01/2024 06:48:00 06/01/19 25 06/01/2024 COMP. METAB OLIC PANEL (14) globulin, total 2.5 g/dL 1.5-4. [address] [facility] [address] [place], [address], 06/01/2024 06:48:00 06/01/19 25 06/01/2024 COMP. METAB OLIC PANEL (14) A/G ratio 2.0 1.2-2. [address] [facility] [address] [place], [address], 06/01/2024 06:48:00 06/01/19 25 06/01/2024 COMP. METAB OLIC PANEL (14) bilirubin, total 0.2 mg/dL 0.0-1. [address] [facility] [address] [place] [address], [address], 06/01/2024 06:48:00 06/01/19 25 06/01/2024 COMP. METAB OLIC PANEL (14) alkaline phosphatase 127 IU/L 44-121 above high normal Not Available [facility] [address] [place] [address], [address], 06/01/2024 06:48:00 06/01/19 25 06/01/2024 COMP. METAB OLIC PANEL (14) AST (SGOT) 17 U/L 0-40 Not Available [facility] [address] [place] [address], [address], 06/01/2024 06:48:00 06/01/19 25 06/01/2024 COMP. METAB OLIC PANEL (14) ALT (SGPT) 12 IU/L 0-32 Not Available [facility] [address] [place] [address], [address], 06/01/2024 06:48:00 06/01/19 25 06/01/2024 ALBUM IN/CR EATIN INE RATIO ,URIN E creatinine, urine 162.9 mg/dL notest ab. Not Available [facility] ([facility]) [address] [place], [address], 06/01/2024 11:26:58 06/01/19 25 06/01/2024 ALBUM IN/CR EATIN INE RATIO ,URIN E albumin, urine 50.7 ug/mL notest ab. Not Available [facility] ([facility]) [address] [place], [address], 06/01/2024 11:26:58 06/01/19 25 06/01/2024 ALBUM IN/CR EATIN INE RATIO ,URIN E alb/creat ratio 31 mg/g_ creat 0-29 above high normal Abbey l: 0 - 29 Moder ately incre ased: 30 - 300 Sever duc incre ased: >300 Not Available [facility] ([facility]) [address] [facility], [place], [address], 06/01/2024 11:26:58 06/01/1906/01/2024 TSH+F REE T4 TSH 1.930 uIU/m L 0.450- 4.500 Not Available [facility] ([facility]) [address] [place], [address], 06/01/2024 11:27:00 06/01/1906/01/2024 TSH+F REE T4 T4,free(dire ct) 1.26 NG/dL 0.82-1 .77 Not Available [facility] ([facility]) [address] [place], [address], 06/01/2024 11:27:00 06/01/1906/01/2024 TRIIO DOTHY ELIZABETH E (T3), FREE triiodothyro nine (T3), free 3.1 pg/mL 2.0-4. 4 Not Available [facility] ([facility]) [address] [place], [address], 06/01/2024 11:27:01 05/17/1905/15/2022 MRI, liver , w/wo contr ast No observ ation record ed. [facility] [address] [place], [address], 06/02/2022 16:31:23 06/17/19 23 06/16/2022 arter ial study , lower extre mity, compl ete No observ ation record ed. [facility] [address], [place], [address], 06/17/2022 08:34:44 07/19/19 23 07/18/2022 CT, angio gram, abdom en + pelvi s, w/ contr ast No observ ation record ed. [facility] [address] [place], [address], 07/22/2022 21:43:18 07/19/19 23 07/18/2022 CT, angio gram, abdom en + pelvi s, w/ contr ast No observ ation record ed. [facility] [address] [place], [address], 07/22/2022 21:44:51 09/09/19 23 09/05/2022 CT, abdom en + pelvi s, w/ contr ast No observ ation record ed. [facility] [address], [place], [address], 09/10/2022 14:49:42 11/22/19 23 11/21/2022 trans -thor acic echoc ardio gram (TTE) (PROC ) No observ ation record ed. [facility] [address], [place], [address], 11/24/2022 08:36:10 11/22/19 23 11/21/2022 US, neyda anna for abdom inal aorti c aneur ys No observ ation record ed. [facility] [address], [place], [address], 11/22/2022 09:59:35 02/18/20 23 02/17/2023 XR, dc ble No observ ation record ed. [email or web address] [place], [place] [address] [facility] [address], [place], [address], 02/24/2023 17:48:45 03/26/19 24 PFT, compl ete No observ ation record ed. [email or web address] Not Available 2023 09:53:50 05/24/19 25 05/23/2024 XR, chest No observ ation record ed. [facility] [address] [facility] [address], [place], [address], 05/24/2024 08:54:38 05/25/19 25 05/23/2024 CT, chest , w/o contr ast No observ ation record ed. [facility] [address], [place], [address], 05/24/2024 08:55:16 07/13/19 25 07/12/2024 XR, foot No observ ation record ed. [address], [place], [address], 07/20/2024 08:58:51 Result Notes None recorded. Problems Name Problem SNOMED Code Status Onset Date Resolution Date Notes Provider Name and Address Organization Details Recorded Time Dyspnea 259861332 Active Not Available [facility] 3 10:25:47 Abnormal weight loss 393570616 Active Not Available [facility] 3 10:25:47 Tobacco dependen ce syndrome 16590020 Active 35 pack year history Not Available [facility] 3 10:25:48 Mild chronic obstruct tracy pulmonar y disease 741342614 Active LDCT scan showed moderate central lobular emphysem atous changes. Mild bilatera l lower lobe bronchie ctasis. PFTs 01/11 showed mild COPD. Not Available [facility] 3 10:25:47 Hyperlip idemia 34756240 Active REGAN REDD PA-C Attn: Accounting ,[address] [facility], [place], [address] , [place] - [facility] 5 14:17:43 Underwei ght 319228097 Active 2015 Not Available [facility] 3 10:25:47 Pain of shoulder region 57735715 Completed 201612/15/2018 SORIN CASTANO Attn: Accounting ,[address] [facility], [place], [address] , [place] [facility] 9 17:37:12 Pain of shoulder region 73068451 Active 2016 Not Available [facility] 3 10:25:48 Full blood count outside referenc e range 737021058 Completed 201612/17/2018 SORIN CASTANO Attn: Accounting ,[address] [facility], [place], [address] , [place] - [facility] 9 14:29:07 Numbness of hand 204307235 Active 2016 Not Available [facility] 3 10:25:47 Spinal stenosis in cervical region 55120416 Active 2016 as seen on MRI 12/2015 Not Available [facility] 3 10:25:48 Abnormal ity of abdomina l aorta 398679590 Active 2016 as seen on MRI from 12/2015 - needs aortic US Not Available [facility] 3 10:25:48 Degenera tion of lumbar interver tebral disc 53991990 Active 2016 as seen on MRI from 12/2015 Not Available [facility] 3 10:25:47 Screenin g for disorder Completed 201612/15/2018 SORIN CASTANO Attn: Accounting ,[address] [facility], [place], [address] , [facility] 9 17:37:02 Internal hemorrho ids 51580145 Active 2017 Not Available [facility] 3 10:25:48 [facility] l hyperten aleisha 06817415 Active 2018 REGAN REDD PA-C Attn: Accounting ,[address] [facility], [place], [address] , [place] - [facility] 5 12:21:45 Multiple nodules of lung 571723070 Active 2018 LDCT 10/2018 showed multiple 2-5 mm nodules noted througho ut both lungs. Continue with annual LDCT scan. Not Available [facility] 3 10:25:47 History of myocardi al infarcti on 695295850 Active 2019 0, s/p cardiac cath and stent placemen t Not Available [facility] 3 10:25:47 Coronary atherosc lerosis 013583687 Active 2019 Not Available [facility] 3 10:25:47 Carotid atherosc lerosis 380915374 Active 2019 Not Available [facility] 3 10:25:47 Screenin g for malignan t neoplasm of colon Active 2020 Colonosc opy complete d 02/2016 - divertic ulosis and internal hemorrho ids noted, repeat in 10 years Not Available [facility] 3 10:25:47 Mixed anxiety and depressi ve disorder 139301571 Active 2020 Not Available [facility] 3 10:25:47 Otitis externa 1830788 Active 2021 Not Available [facility] 3 10:25:47 Microalb uminuria 711379181 Active 2022 Not Available [facility] 3 10:25:47 Lesion of liver 154883509 Active 2022 MRI 04/2022 - benign findings , no f/u needed Not Available [facility] 3 10:25:47 Peripher al vascular disease 435730689 Active 2022 SORIN CASTANO Attn: [place], [address] , [facility] 3 16:19:32 Problem Notes Documentation Provider Name and Address Organization Details Recorded Time Assistant Pastry Chef Consult Note : This document (1 ) was received from [email or web address] [employer] on 07/12/2024 through Direct Message along with the following message body content: Patient Name: ARMANI LYNN. Patient : 1960. Patient . Margaux cace[place], [place] - [facility] 07/19/2024 10:11:33 Procedures Surgical History Date Name Laterality Status Provider Name and Address Organization Details Recorded Time 03/21/19 20 catheterization of left heart completed SORIN CASTANO Attn: Accounting, [address] [facility], [place], [address], [place] [facility] 10/02/2021 08:13:28 03/21/19 20 percutaneous coronary intervention completed SORIN CASTANO Attn: Accounting, [address] [facility], [place], [address], [place] [facility] 10/02/2021 08:16:06 03/06/19 17 colonoscopy completed SORIN CASTANO Attn: Accounting, [address] [facility], [place], [address], [facility] 05/04/2020 14:15:19 02/23/18 91 Caesarean Section completed Vitaliy Smith [facility] 12/08/2014 09:28:24 02/23/18 89 Caesarean Section completed Vitaliy Smith MA [facility] 12/08/2014 09:28:24 02/23/18 88 Caesarean Section completed Vitaliy Smith MA [facility] 12/08/2014 09:28:24 02/23/18 66 Other completed Vitaliy Smith [facility] 12/08/2014 09:28:24 Imaging Results None recorded. Procedure Notes None recorded. Medical Equipment None [...] completed Not Available Not Available Not Available Miralax 17 gram/dose oral powder Take 17 g every day by oral route as directed for 5 days. 06/02 completed Not Available Not Available Not Available buspirone 5 mg tablet TAKE 1 TABLET BY MOUTH TWICE A DAY 09/12 completed Not Available Not Available Not Available terbinafine HCl 1 % topical cream APPLY TO THE AFFECTED AND SURROUNDI NG AREAS OF SKIN BY TOPICAL ROUTE ONCE DAILY 09/07 completed Not Available Not Available Not Available cilostazol 100 mg tablet TAKE 1 TABLET BY MOUTH TWICE A DAY 09/07 completed Not Available Not Available Not Available Qvar 80 mcg/actuati on Metered Aerosol [...] (0.083 %) solution for nebulizatio n Inhale 3 mL every 4 hours by nebulizat ion route as needed for 30 days, for COPD. 2024 active Not Available Not Available Not Avai lable cetirizine 10 mg tablet Take 1 tablet [...] TABLET BY MOUTH EVERY 12 HOURS NEEDED 05/31 completed Not Available Not Available Not Available lisinopril 20 mg tablet Take 1 tablet every day by oral route in the morning for 30 days, for blood pressure. 2024 active Not Available Not Available Not Avai lable prednisone 20 mg tablet TAKE 2 TABLETS [...] TAKE 1 TABLET BY MOUTH EVERY DAY 09/07 completed Not Available Not Available Not Available dextrometho rphan-guaif enesin 10 mg-100 mg/5 mL oral syrup Take 10 mL every 4 hours by oral route as needed for 8 days. 06/02 completed Not Available Not Available Not Available aspirin 81 mg tablet,yunior yed release [...] completed Not Available Not Available Not Available ofloxacin 0.3 % ear drops INSTILL 10 DROPS INTO BOTH EARS ONCE DAILY FOR 7 DAYS 05/31 completed Not Available Not Available Not Available amoxicillin 875 mg tablet TAKE 1 TABLET BY MOUTH EVERY 12 HOURS FOR 10 DAYS 05/31 completed Not Available Not Available Not Available [...] completed Not Available Not Available Not Available Ear Drops (carbamide peroxide) 6.5 % INSTILL 5 DROPS INTO AFFECTED EAR TWICE A DAY 09/07 completed Not Available Not Available Not Available Banophen 25 mg capsule 10/14 completed Not Available Not Available Not Available verapamil ER (SR) 240 mg tablet,exte nded release TAKE 1 TABLET BY MOUTH EVERY DAY 05/31 completed Not Available Not Available Not Available hydrochloro thiazide 25 mg tablet Take 1 tablet every day by oral route in the morning for 30 days. 06/27 completed Not Available Not Available Not Available metoprolol succinate ER 25 mg tablet,exte nded release 24 hr Take 1 tablet every day by oral route. 11/17 completed Not Available Not Available Not Available ergocalcife rol (vitamin D2) 1,250 mcg (50,000 unit) capsule TAKE 1 CAPSULE BY MOUTH EVERY 2 WEEKS active Not Available Not Available No t Available ibuprofen 600 mg tablet 12/25 completed [...] propionate 50 mcg/actuati on nasal spray,suspe nsion [place] 1 spray every day by intranasa l route as directed for 30 days. 09/12 completed Not Available Not Available Not Available sertraline 50 mg tablet Take 1 tablet every day by oral route in the morning for 30 days. 06/06 completed Not Available Not Available Not Available lisinopril 2.5 mg tablet TAKE 1 TABLET BY MOUTH EVERY DAY 05/31 completed Not Available Not Available Not Available doxycycline hyclate 100 mg tablet TAKE 1 TABLET BY MOUTH TWICE A DAY FOR 4 DAYS 05/31 completed Not Available Not Available Not Available loratadine 10 mg tablet Take 1 [...] 1 TABLET BY MOUTH EVERY 12 HOURS FOR 4 DAYS 05/31 completed Not Available Not Available Not Available neomycin-po lymyxin-hyd rocort 3.5 mg-10,000 unit/mL-1 [...] TAKE 1 TABLET BY MOUTH EVERY DAY 05/31 completed Not Available Not Available Not Available rosuvastati n 40 mg tablet Take 1 tablet every day by oral route at bedtime for 30 days, for cholester ol. 2024 active Not Available Not Available Not Avai lable albuterol sulfate concentrate 2.5 mg/0.5 mL solution for nebulizatio n active Not Available Not Available Not Available nitrofurant oin monohydrate /macrocryst als 100 [...] completed Not Available Not Available Not Available Calcium 600 + D(3) 600 mg-5 mcg (200 unit) capsule Take 1 capsule every day by oral route for 90 days. 2024 active Not Available Not Available Not Avai lable Ensure Plus 0.05 gram-1.5 kcal/mL oral liquid Drink 1 serving (1 cup) per day to increase daily protein intake and help with weight gain 09/07 completed Not Available Not Available Not Available icosapent ethyl 1 gram capsule Take 2 capsules twice a day by oral route for 30 days. 2024 active Not Available Not Available Not Avai lable Jardiance 10 mg tablet TAKE 1 TABLET BY MOUTH EVERY DAY 05/31 completed Not Available Not Available Not Available ergocalcife rol (vit D2) (bulk) 06/27 completed Not Available Not Available Not Available Xarelto 2.5 mg tablet TAKE 1 TABLET BY MOUTH TWICE A DAY LAST FILL TILL SEEN IN OFFICE active Not Available Not Available No t Available Vitals Date Recorded Body weight Body mass index (BMI) Body height Body temperature Oxygen saturation Oxygen saturation in Arterial blood by Pulse oximetry Heart rate Systolic And Diastolic Provider Name and Address Organization Details Last Updated DateTime 5 18059.2 g 14.3 kg/m2 157.48 cm 98 [degF] 99 % 99 % 118 /min 132/74 mm[Hg] Kelley Beavers [facility] 5 15:06:49 Date Recorded Body height Body mass index (BMI) Body weight Heart rate Body temperature Oxygen saturation Oxygen saturation in Arterial blood by Pulse oximetry Systolic And Diastolic Provider Name and Address Organization Details Last Updated DateTime 3 157.48 cm 15.4 kg/m2 03004.1 6 g 87 /min 97.9 [degF] 99 % 99 % 140/60 mm[Hg] Chaya Aragon MA [facility] 3 09:58:51 Date Recorded Body height Body mass index (BMI) Body weight Oxygen saturation Oxygen saturation in Arterial blood by Pulse oximetry Heart rate Body temperature Systolic And Diastolic Provider Name and Address Organization Details Last Updated DateTime 5 157.48 cm 15.1 kg/m2 67125.3 7 g 97 % 97 % 94 /min 97.9 [degF] 144/60 mm[Hg] Tiana Briones MA [facility] 5 11:56:13 Date Recorded Body height Body mass index (BMI) Body weight Heart rate Oxygen saturation Oxygen saturation in Arterial blood by Pulse oximetry Systolic And Diastolic Provider Name and Address Organization Details Last Updated DateTime 3 157.48 cm 14.9 kg/m2 29860.4 2 g 97 /min 99 % 99 % 146/78 mm[Hg] Tiana Briones MA [facility] 3 09:12:32 Date Recorded Body height Body mass index (BMI) Body weight Oxygen saturation Oxygen saturation in Arterial blood by Pulse oximetry Heart rate Systolic And Diastolic Provider Name and Address Organization Details Last Updated DateTime 3 157.48 cm 14.7 kg/m2 32779.8 2 g 97 % 97 % 108 /min 158/82 mm[Hg] Nyasia Myers MA [facility] 3 10:00:57 Social History Question Answer Notes LastModified by Organizat ion Details LastModified Time Tobacco Smoking Status Current Every Day Smoker Vitaliy Smith MA [facility], [place] - [place] 12/08/2014 09:28:23 Do You Have An Advance Directive? No Information n ot available 12/08/2014 What Is Your Level Of Caffeine Consumption? Moderate [email or web address] Information not available 12/08/2014 How Much Tobacco Do You Chew? None [email or web address] Information not available 12/08/2014 In The 14 Days Before Symptom Onset, Have You Had Close Contact With A Laboratory-confirm ed COVID-19 While That Case Was Ill? No Information n ot available 03/01/2020 In The 14 Days Before Symptom Onset, Have You Had Close Contact With A Person Who Is Under Investigation For COVID-19 While That Person Was Ill? No Information not available 03/01/2020 Have You Been To An Area Known To Be High Risk For COVID-19? No Information not available 03/01/2020 What Type Of Diet Are You Following? REGULAR [email or web address] Information n ot available 12/08/2014 Which Illicit Or Recreational Drugs Have You Used? 0 Information not available 12/08/2014 Education 12 Information no t available 12/26/2015 Are There Any Guns Present In Your Home? No Information not available 12/08/2014 Hard Of Hearing Or Deaf In One Or Both Ears? No Information not available 12/26/2015 Legally Blind In One Or Both Eyes? No Information no t available 12/26/2015 Marital Status Single Informatio n not available 12/26/2015 What Was The Date Of Your Most Recent Tobacco Screening? 05/31/2024 [email or web address] Information not available 05/31/2024 Performs Monthly Self-breast Exam? No Information no t available 12/26/2015 What Is Your Relationship Status? Single Information not available 03/04/2022 Seat Belts Used Routinely Yes [email or web address] Information not available 12/08/2014 Are You Sexually Active? No Information not available 03/04/2022 Smoke Alarm In Home Yes [email or web address] Information not available 12/08/2014 Do You Have Smoke And Carbon Monoxide Detectors In Your Home? Yes Information not available 03/04/2022 At What Age Did You Start Smoking Tobacco? 18 [email or web address] Information not available 12/08/2014 Are You Passively Exposed To Smoke? Yes Information no t available 03/04/2022 How Much Tobacco Do You Smoke? 1 PPW Information not available 03/01/2020 General Stress Level Low [email or web address] Information not available 12/08/2014 Do You Use Sunscreen Routinely? No Information not available 12/26/2015 Has Tobacco Cessation Counseling Been Provided? Yes Information not available 03/04/2022 On What Date Was Tobacco Cessation Counseling Provided? 05/31/2024 [email or web address] Information not available 05/31/2024 How Many Years Have You Smoked Tobacco? 35 Information not available 12/06/2014 Sex: Female Functional Status Question Answer Note LastModified by Organizat ion Details LastModified Time Do you use any illicit or recreational drugs? No Information not available 03/04/2022 Do you or have you ever used any other forms of tobacco or nicotine? No Information not available 04/18/2022 What is your level of alcohol consumption? None Information not available 12/06/2014 Do you or have you ever used smokeless tobacco? 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 Never used electronic cigarettes Information not available 11/16/2019 What is your exercise level? Occasional Information not available 12/26/2015 Mental Status None recorded. Family History Relationship Description Onset Age of this Age Resolved Age Notes LastModified by Organization Details LastModified Time Father Primary malignant neoplasm of gum [email or web address] Not available 2015 10:50:07 Father Osteoarthrit is [email or web address] Not available 2015 10:50:07 Father Malignant neoplasm of bone Not available 2015 10:50:07 Mother Heart disease [email or web address] Not available 2015 10:50:07 Maternal Grandfather Malignant neoplasm of skin [email or web address] Not available 2015 10:50:07 Maternal Grandfather Myocardial infarction [email or web address] Not available 03/28 10:50:07 Medical History Condition Response Coronary Artery Disease N Other N Atrial Fibrillation N High Blood Pressure N Kidney or Bladder Problems N Thyroid Problems N GI Problems N Depression N COPD N Blood Clots N Skin Problems N Anemia N Heart Attack (MT) N Anxiety Disorder N Diabetes N Muscle, Joint, or Bone Problems N Seizures/Epilepsy N Acid Reflux (GERD) N Cancer N Stroke N Asthma N Allergies N High Cholesterol N Hepatitis N Liver Disease N Headaches N Heart Failure N Osteoporosis N Gynecological History Statement/Question Response Menses Monthly N If Post Menopausal, Age at Menopause 45 Current Control Method None Age at First Child 26 Obstetrics History GPAL:G 3 P 3 0 0 2 Type Value Full Term 3 Living 2 Total 3 Past Encounters Encounter ID Performer Location Encounter Start Date Encounter Closed Date Diagnosis/Indication Diagnosis SNOMED-CT Code Diagnosis ICD10 Code Diagnosis Note [id number] Cody Mcginnis MD [facility] (Adult Med) [address] [place] [id number] 12/08/2014 09:06:41 12/08/2014 10:05:33 Dyspnea 620480856 R06.02 Adult heal th examination 003491965 Z00.01 Abnormal weight loss 267 911932 R63.4 lost 20lbs in 2 months Screening for malignant neoplasm of colon 324472321 Z12.11 [id number] Cody Mcginnis MD [facility] (Adult Med) [address] [place] [address] [phone] 0 12/22/2014 10:41:56 12/22/2014 11:40:09 Gynecologic examination 81428527 Z01.419 Screening for malignant neoplasm of breast 594201313 Z12.39 [id number] Sandy Olivas MD [facility] (Adult Med) [address] [place] [address] [id number] 03/28/2015 10:28:03 03/28/2015 11:30:43 Adult health examination 971011155 Z00.01 Tobacco de pendence syndrome 61997416 F17.290 Not ready to quit smoking yet When she's ready she will RTC to talk about Wellbutrin Hyperlipidemia 12299854 E78.5 Will check FLP and LFTs today and fill accordingl y Mild chron ic obstructive pulmonary disease 162558379 J44.9 Based on PFTs No post bronchodil ator improvemen t [id number] MD Brian Sanchez (Adult Med) [address] [place] [address] [phone] 06/22/2015 10:23:29 06/22/2015 10:46:29 Hyperlipidemia 83046656 E78.5 Continue with simvastati n Mild chron ic obstructive pulmonary disease 998136662 J44.9 Based on PFTs No post bronchodil ator improvemen t Will refer to pulmonolog y because she broke out with sores from the Qvar Tobacco de pendence syndrome 61862744 F17.290 7 cigarettes /day when working 1ppd on weekends when not working Encouraged to quit smoking [id number] MD Brian Sanchez (Adult Med) [address] [place] [address] [id number] 0 12/26/2015 10:26:47 12/26/2015 11:12:22 Hyperlipidemia 72150730 E78.5 Continue with simvastati nWill recheck labs in 3-6 months Spasm of back muscles 20 3358093 M62.830 Will begin with baclofen 10 TID PRNRTC 3 weeks for f/u Underweight 365423693 R6 3.6 Will initiate cyprohepta dine for weight gainAdvise d trying Boost for calorie dense liquids Screening for malignant neoplasm of colon 584298070 Z12.11 [id number] MD Brian Sanchez (PALEOLOGIST) [address] [place] [address] [id number] 0 03/24/2016 12:07:31 03/24/2016 14:44:50 Pain of shoulder region 44908438 M25.511 Right shoulderPa tient does not want to do PT at this timeWill begin with naproxen with ranitidine RTC 6 weeks for f/u Hyperlipidemia 22558777 E78.5 Continue with simvastati nWIll recheck annual labs Full blood count outside reference range 052010755 R79.9 Tobacco de pendence syndrome 53345706 F17.290 7 cigarettes /day when working 1ppd on weekends when not working Encouraged to quit smoking [id number] MD Brian Sanchez (Adult Med) [address] [place] [address] [id number] 04/10/2016 14:00:10 04/10/2016 18:05:19 Numbness of hand 774941166 R20.0 right hand - will begin with nerve conduction If nothing found by EMG, will then do right shoulder MRI Tobacco de pendence syndrome 79989284 F17.290 7 cigarettes /day when working 1ppd on weekends when not working Encouraged to quit smoking Pain of sh oulder region 99527939 M25.511 Right shoulderPa tient does not want to do PT at this timeWill begin with naproxen with ranitidine [id number] MD Brian Sanchez (Adult Med) [address] [place] [address] [id number] 05/21/2016 11:12:26 05/22/2016 09:55:52 Screening for disorder 203075031 Z13.9 Tobacco de pendence syndrome 22704690 F17.290 7 cigarettes /day when working 1ppd on weekends when not working Encouraged to quit smoking Mild chron ic obstructive pulmonary disease 231100575 J44.9 Abnormalit y of abdominal aorta 881035697 I77.9 Patient given paper order for US todayOn MRI: appearance of 3cm dilation - will use aortic US for further eval as recommende d by MRI read Numbness of hand 9771955 04 R20.0 right hand: now only from DIP joint to tip of 2nd digit - EMG states not carpal tunnel or ulnar impingemen t - will refer to neuro [id number] MD Brian Mercer (Adult Med) [address] [place] [address] [phone] 04/23/2017 11:00:06 04/23/2017 12:49:35 Neutropenia 414049304 D70.9 As dx'ed in the ER - will recheck todayPossi qasim 2/2 flu Acute bronchitis 8956177 2 J20.9 Advised to drink plenty of waterAlter brian ibuprofen and tylenol for painRestOT C cough syrup PRN Advised that if she is not better by Thursday to contact clinic and I will call in an abx Tobacco de pendence syndrome 72133179 F17.290 1cigarette s/day - advised to quit Underweight 439031110 R6 3.6 [id number] MD Brian Mercer (Adult Med) [address] [place] [address] 01/11/2018 13:42:07 01/11/2018 16:33:21 Internal hemorrhoids 87242161 K64.8 Will re-refer to GI Mild chron ic obstructive pulmonary disease 180473149 J44.9 Advised to quit smokingWil l refer to pulm for eval and medication management Adult [facility] th examination 706507323 Z00.01 Tobacco de pendence syndrome 11366755 F17.290 advised to quit Hyperlipidemia 14209302 E78.5 Continue with simvastati nWAbdiaziz recheck annual labs [id number] SORIN CASTANO (Adult Med) [address] [place] [address] 12/15/2018 12:31:30 12/15/2018 14:01:48 Adult health examination 755942069 Z00.01 [facility]all y ill [facility] - Will check routine labs Internal hemorrhoids 904 68876 K64.8 Complainin g of painless bright red blood on toilet paper after wipingcolo noscopy showed internal hemorrhoid s- Will re-refer to GI Mild chron ic obstructive pulmonary disease 046957842 J44.9 Smokes 1 PPD, 35 year smoking [...] to use inhaler Tobacco de pendence syndrome 13529794 F17.290 Smokes 1 PPD, 35 year smoking pack history- Provided patient with order for LDCT scan- Advised patient to quit smoking, discussed risks of continuing and benefits from quitting, patient to reach out for help when interested in quitting Hyperlipidemia 73125100 E78.5 WIll recheck annual labs - Was taking simvastati n in the past Spinal denis nosis in cervical region 17545854 M48.02 MRI of cervical spine in 2016 showed multilevel degenerati ve disc and joint disease, most pronounced at C6-C7, mild-moder ate central canal stenosis and moderate bilateral neuroforam inal stenosis.O n PE: Entire spine TTP. Notable deformity palpated on cervical spine. Decreased strength in the upper extremitie s bilaterall y.- Will send neurosurge ry referral Essential hypertension 20911677 I10 BP Today: 152/70 and 160/70No prior [...] check Degenerati on of lumbar intervertebral disc 89845923 M51.36 MRI in 2016 showed Degenerati ve disc disease in the lumbar spine most pronounced at L5-S1 where there is diffuse disc bulge with superimpos ed right paracentra l disc extrusion which touches right S1 nerve rootOn Pe:Entire spine TTP. Major step-offs palpated throughout thoracic and lumbar spine. decreased strength of bilateral lower extremitie s- Will send neurosurge ry referral [id number] SORIN CASTANO (Adult Med) [address] [place] [phone] 03/01/2019 13:56:29 03/01/2019 14:43:15 Internal hemorrhoids 13911112 K64.8 Never saw GI because the bleeding stoppedLas t colonoscop y was 3 years ago and showed internal hemorrhoid s- Advised patient that if BRB starts again, let us know and will get her in touch with GI Mild chron ic obstructive pulmonary disease 822033466 J44.9 Smokes 1 PPD, 35 year smoking pack historyPFT s recently showed mild COPDWas using albuterol inhaler but states these medication s caused sores in her mouth, using nebulizer machine instead 1-2x/day- Advised to quit smoking- continue with medication Tobacco de pendence syndrome 54734059 F17.290 Smokes 1 PPD, 35 year smoking pack history- Advised patient to quit smoking, discussed risks of continuing and benefits from quitting, patient to reach out for help when interested in quitting Spinal denis nosis in cervical region 58899622 M48.02 MRI of cervical spine in 2016 showed multilevel degenerati ve disc and joint disease, most pronounced at C6-C7, mild-moder ate central canal stenosis and moderate bilateral neuroforam inal stenosis.O n PE: Entire spine TTP. Notable deformity palpated on cervical spine. Decreased strength in the upper extremitie s bilaterall y.Saw neurosurge ry at [facility] - ordered new MRIs and PT Degenerati on of lumbar intervertebral disc 51861874 M51.36 MRI in 2016 showed Degenerati ve disc disease in the lumbar spine most pronounced at L5-S1 where there is diffuse disc bulge with superimpos ed right paracentra l disc extrusion which touches right S1 nerve rootOn Pe:Entire spine TTP. Major step-offs palpated throughout thoracic and lumbar spine. decreased strength of bilateral lower extremitie sSaw neurosurge ry at [facility] - ordered new MRIs and PTNot currently taking anything for the pain- Will start meloxicam 7.5 mg PRN for pain and inflammati on Essential hypertension 65083808 I10 BP Today: 140/70Taki ng lisinopril 10 [...] BP check Multiple n odules of lung 006942745 R91.8 LDCT 10/2018 showed multiple 2-5 mm nodules noted throughout both lungs. - - -Continue with annual LDCT scan. Positive s creening for depression on PHQ-9 (Patient Health Questionnaire 9) 7226515400 15810 Z13.89 PHQ 2/9 was mild in office today (6 out of 27)- Patient does not feel depressed regularly, admits to having good and bad days. Agreed that medication is not necessary at this time. [id number] SORIN CASTANO (Adult Med) [address] [place] [address] 06/28/2019 10:03:23 06/29/2019 11:06:04 History of myocardial infarction 696426904 I25.2 She went to [place] [facility] on 03/21/2019 with chest pain, was transferre d to [facility] where she was diagnosed with an acute MT, cardiac cath procedure completed and stent placed.She was discharged home on new medication s.She is now following with Cardiology at [facility], appointmen t was yesterday. She is doing well at home, no episodes of chest pain, palpitatio ns, shortness of breath, AKERS, and PND.- continue with medication s as prescribed - [facility] will get [facility] from [facility] and update patient's medication list Essential hypertension 80258092 I10 BP Today: unable to check today [...] get updated medication list from cardiology Hyperlipidemia 34307693 E78.5 12/16/18: total 183, Tri 242, HDL 40, and LDL 95Increase d ASCVD due to smoking history and HTN- c/w rosuvastat in 20 mg Mild chron ic obstructive pulmonary disease 798071327 J44.9 Used to smoke 1 PPD x 35 yearsSince MT, majorly cut back on smoking, now smoking 1-2 cigs per weekPFTs recently showed mild COPDWas using albuterol inhaler but states these medication s caused sores in her mouth, using nebulizer machine instead 1-2x/day- Advised to quit smoking- continue with medication Multiple n odules of lung 704532266 R91.8 LDCT 10/2018 showed multiple 2-5 mm nodules noted throughout both lungs. - - -Continue with annual LDCT scan, due again 10/2019 Tobacco de pendence syndrome 41711506 F17.290 Used to smoke 1 PPD x 35 years Since MT, majorly cut back on smoking, now smoking 1-2 cigs per week- Advised patient to quit smoking, discussed risks of continuing and benefits from quitting, patient to reach out for help when interested in quitting Coronary atherosclerosis 906535151 I25.10 Acute MT on 03/21/2019C ardiac cath procedure completed, 1 stent placedWas told she had additional plaque in coronary arteries but no additional stent needed at this time Carotid atherosclerosis 402048156 I65.29 Pt. states she had a carotid US completed per cardiology and was told she has plaque in her arteries- discussed this with patient and answered her questions - no records of test at this time, will get records- continue to limit smoking, change diet, and continue with heart and cholestero l medication [id number] SORIN CASTANO (Adult Med) [facility] [place] [address] 11/16/2019 10:55:31 11/17/2019 09:24:51 Internal hemorrhoids 86347504 K64.8 Admits to continued intermitte nt bright [...] and weight loss History of myocardial infarction 730095079 I25.2 She went to [place] [facility] on 03/21/2019 with chest pain, was transferre d to [facility] where she was diagnosed with an acute MT, cardiac cath procedure completed and stent placed.She was discharged home on new medication s, pt. unsure of which ones she is takingShe is now [facility] is doing well at home, no episodes of chest pain, palpitatio ns, shortness of breath, AKERS, and PND.- continue with medication s as prescribed , she plans to bring medication list to office tomorrow Essential hypertension 54244761 I10 BP Today: 144/76 and 140/80Unsu re [...] I see her medication list Coronary atherosclerosis 650927397 I25.10 Acute MT on 03/21/2019C ardiac cath procedure completed, 1 stent placedWas told she had additional plaque in coronary arteries but no additional stent needed at this time Hyperlipidemia 07417679 E78.5 12/16/18: total 183, Tri 242, HDL 40, and LDL 95Increase d ASCVD due to smoking history and HTN- c/w rosuvastat in 20 mg- consider muscle aches as SE from statin medication Mild chron ic obstructive pulmonary disease 223236754 J44.9 Used to smoke 1 PPD x 35 yearsSince MT, majorly cut back on smoking, now smoking 1-2 cigs per weekPFTs recently showed mild COPDWas using albuterol inhaler but states these medication s caused sores in her mouth, using nebulizer machine instead 1-2x/day- Advised to quit smoking- continue with medication Multiple n odules of lung 697015324 R91.8 LDCT 10/2018 showed multiple 2-5 mm nodules noted throughout both lungs. - - -Continue with annual LDCT scan, due again 10/2019- will order repeat scan Tobacco de pendence syndrome 87223203 F17.290 Used to smoke 1 PPD x 35 years Since MT, majorly cut back on smoking, now smoking 1-2 cigs per week- Advised patient to quit smoking, discussed risks of continuing and benefits from quitting, patient to reach out for help when interested in quitting Underweight 410116264 R6 3.6 She is concerned about her weight, notes she has lost another 8 pounds since her heart procedure 02/2019.Her appetite is normal and she continues to eat unhealthy foods to try and gain weight but it is not working.Sh e knows she should be trying to eat healthy due to her heart disease. Currently drinking Ensure daily- will refer to nutritioni st for additional resources- will check for malnutriti on with labs Cramp in lower limb 8689 29020 R25.2 Admits to upper and lower leg muscle cramps since about 1 month after being discharged from the hospital 02/2019. Admits she could be better at drinking water.- will check electrolyt es- consider statin medication as the issue- consider peripheral arterial disease- increase water intake Adult heal th examination 091376342 Z00.01 Chronicall y ill appearing, leroy singer - Will check annual labs [id number] SORIN CASTANO (Adult Med) [address] [place] [address] 03/01/2020 08:18:10 03/02/2020 11:41:33 Acute exacerbation of chronic obstructive pulmonary disease 037102629 J44.1 History of COPD, complainin g today I just dont feel rightSymp toms: clear/whit e rhinorrhea with nasal congestion [...] depression on PHQ-9 (Patient Health Questionnaire 9) [id number] 56586 Z13.89 PHQ 2/9 was mild in office today (7 out of 27)- Patient does not feel depressed regularly, admits to having good and bad days. Agreed that medication is not necessary at this time. [id number] SORIN CASTANO (Adult Med) [address] [place] [address] 05/04/2020 08:02:22 05/07/2020 12:15:12 Renewal of prescription 567771920 Z76.0 Requesting refill on VIt. D supplement s- sent to pharmacy Multiple n odules of lung 694871369 R91.8 LDCT 10/2018 showed multiple 2-5 mm nodules noted throughout both lungs. - - -Continue with annual LDCT scan, due again 10/2019 but was not completed- will re-order repeat scan, may be denied due to multiple orders for this test, may need to call and discuss with insurance company Mixed anxi ety and depressive disorder 917082601 F41.8 Complainin g of intermitte nt panic-like [...] in 1 month Unintentio nal weight loss 887907228 R63.4 Notes she has lost 3 more pounds since our last visit, now weight 84 pounds.She never completed LDCT scan last year for known pulmonary nodules.No recent history of mammogram or pap smear.[place] noscopy 02/2016 showed diverticul osis and hemorrhoid s - due for repeat in 10 yearsMaln trition labs completed last year were overall normal- need to complete mammogram, pap smear and LDCT scan- HIV screening with next set of labs [id number] SORIN CASTANO (Adult Med) [address] [place] [address] 06/06/2020 11:26:35 06/07/2020 16:19:39 Mixed anxiety and depressive disorder 377892289 F41.8 Pt reports no worsening symptoms, continues to have panic attacks triggered when worried about family or changing her appearance . Tried sertraline and hydroxyzin e but d/c due to drowsiness , itching and increased anxiety. Pt not interested in trying new meds at this time. - Contact office with worsening symptoms. Pain in bi lateral legs [id number] 9871136 M79.604 Pt with cramping in bilateral calves radiating to feet. Pain occurs when walking usually after about 10 min or at night. Pain sometimes relieved by walking at night. Hx of CAD and carotid atheroscle rosis - Order arterial US today Underweight 064015231 R6 3.6 Current weight 83 lbs up [...] her in the past Screening mammography 24 937715 Z12.31 Due for mammogram. - Referral sent, pt prefers [facility]. Tobacco de pendence syndrome 00694500 F17.290 Currently smoking 3 cigarettes / day. Has tried patch, bupropion, and chantix previously . Repeat LDCT scan in 1 year - Advised patient to quit smoking, discussed risks of continuing and benefits from quitting - Pt would like to contact a 1-800 number for more ideas about quitting Hyperlipidemia 32877619 E78.5 Pt with previous MT, continues to follow with cardiologi . States she had US of pancreas ordered by cardiologi to check on hx of pancreatit is. - Continue rosuvastat in [id number] MD Brian Yoon (Adult Med) [address] [place] [address] 03/13/2021 15:28:02 03/14/2021 07:21:25 Otitis externa 9153688 H60.91 [id number] SORIN CASTANO (Adult Med) [address] [place] [address] 03/29/2021 08:21:09 04/01/2021 11:21:16 Pain in bilateral legs [id number] 9169529 M79.604 Pt with cramping in bilateral calves radiating to feet. Pain occurs when walking usually after about 10 min or at night. Pain sometimes relieved by walking at night. Hx of CAD and carotid atheroscle rosis - Order arterial US today Tobacco de pendence syndrome 03002998 F17.290 Currently smoking 3 cigarettes / day. Has tried patch, bupropion, and chantix previously .CT scan last 04/2020, no concerning pulm nodules- Advised patient to quit smoking, discussed risks of continuing and benefits from quitting - plan for repeat CT scan 04/2021 Hyperlipidemia 82007091 E78.5 Pt with previous MT, continues to follow with cardiologi . - Continue rosuvastat in Screening mammography 24 708660 Z12.31 Due for mammogram. - will discuss at her upcoming visit in 2 weeks Subjective pulsatile tinnitus 3657480621 16224 H93.19 Recent dx of R OM and [...] with me in 2 weeks Essential hypertension 47163641 I10 BP Today: 190/90, HR 120. Took [...] me in 2 weeks Acute otitis media 24522 03 H66.93 Developed bilateral ear pain roughly [...] of L ear tinnitus and pulsatile tinnitusSh e has an upcoming appointmen t with ENT next week. No longer having pain in R or L ear.- keep upcoming appointmen t- will send augmentin for now just to be safe until she can see ENT, avoid ear drops at this time [id number] SORIN CASTANO (Adult Med) [facility] [place] [address] 04/08/2021 11:00:17 04/09/2021 11:48:18 Subjective pulsatile tinnitus 1999849296 83363 H93.19 The intermitte nt pulsatile throbbing has [...] until BP is at goal Essential hypertension 14689878 I10 BP Today: 160/78, HR 109. Took [...] the ER Pain in bi lateral legs 3314800015 8085496 M79.604 Pt with cramping in bilateral calves radiating to feet. Pain occurs when walking usually after about 10 min or at night. Pain sometimes relieved by walking at night. Hx of CAD and carotid atheroscle rosis -arterial US order given to patient today Tobacco de pendence syndrome 83648721 F17.290 Currently smoking 3 cigarettes / day. Has tried patch, bupropion, and chantix previously .CT scan last 04/2020, no concerning pulm nodules- Advised patient to quit smoking, discussed risks of continuing and benefits from quitting - plan for repeat CT scan 04/2021 Screening mammography 24 014305 Z12.31 Due for mammogram. - will discuss at her upcoming visit in 2 weeks Dysfunctio n of eustachian tube 65520883 H69.93 Saw ENT again, left TM perforatio [...] anti-hista mine for possible ET dysfunctio n [id number] SORIN CASTANO (Adult Med) [address] [place] [address] 04/15/2021 10:20:26 04/22/2021 11:07:00 Essential hypertension 07037963 I10 patient came into the office to have her blood pressure checked. kimi thakkar ma checked ms elis blood pressure was 182/ 80. informed her pcp and she is coming up with a plan [id number] SORIN CASTANO (Adult Med) [address] [place] [address] 05/08/2021 09:25:29 05/09/2021 11:02:11 Mixed anxiety and depressive disorder 040273278 F41.8 Pt recently found her brother in [...] hydroxyzin e. Dysfunctio n of eustachian tube 15601476 H69.93 Left TM perforatio n healed, right [...] possible ET dysfunctio n Subjective pulsatile tinnitus 8246753700 55673 H93.19 She ended up going to the [...] stress test- get BP controlled Essential hypertension 71373513 I10 BP Today: 160/72She saw cardiology recently, [...] f/u in 2 weeks for BP check [id number] SORIN CASTANO [facility] (Adult Med) [address] [place] [address] 09/24/2021 11:09:55 09/25/2021 14:23:54 Mixed anxiety and depressive disorder 209578047 F41.8 Pt recently found her brother in [...] or others. Dysfunctio n of eustachian tube 22205244 H69.93 Left TM perforatio n healed, right [...] for ET dysfunctio n Subjective pulsatile tinnitus 7312644121 94988 H93.19 Previous ER visit because the sound [...] carotid arteries, or stress test Essential hypertension 59434615 I10 BP Today: 144/70 and 140/68. HR [...] high BP- f/u in 2 weeks Lightheadedness 84067712 8 R42 Pt has been lightheade d [...] weeks for weight check. Malnutriti on (calorie) 226447180 E46 BMI 14.4Weight 79 poundsAdmi ts to decreased appetite- discussed multiple of her other issues today, stressed the importance of eating regular scheduled meals and snacks that are heavy and calorie dense rather than fast-food type of foods. Try to increase protein consumptio n.- plan to discuss further at next f/u in 2 weeks [id number] SORIN CASTANO (Adult Med) [address] [place] [address] 10/08/2021 10:46:38 10/09/2021 11:43:27 Essential hypertension 92026084 I10 BP Today: 180/80 and 165/75. HR [...] better controlled Dysfunctio n of eustachian tube 32154491 H69.93 Left TM perforatio n healed, right [...] for ET dysfunctio n Malnutriti on (calorie) 194875752 E46 BMI 15.5 todayWeigh t 84 pounds- stressed the importance of eating regular scheduled meals and snacks that are heavy and calorie dense rather than fast-food type of foods. Try to increase protein consumptio n.-Pt has been drinking Ensure and has gained 3 pounds since last visit [id number] SORIN CASTANO (Adult Med) [address] [place] [address] 10/14/2021 11:18:59 10/15/2021 08:41:55 Essential hypertension 72858462 I10 BP Today: 140/60 and 120/65. HR [...] at home Dysfunctio n of eustachian tube 60131469 H69.93 Left TM perforatio n healed, right [...] for ET dysfunctio n Malnutriti on (calorie) 092476825 E46 BMI 15 todayWeigh t 82 pounds- stressed the importance of eating regular scheduled meals and snacks that are heavy and calorie dense rather than fast-food type of foods. Try to increase protein consumptio n.-continu e drinking Ensure [id number] SORIN CASTANO (Adult Med) [address] [place] [address] 11/15/2021 08:31:38 11/19/2021 10:04:35 Essential hypertension 99715267 I10 BP Today: 156/70 and 160/68, HR 89 Only taking the 240mg verapamil, not currently taking lisinopril 20 mg but unsure why. Denies adverse SE with [facility] last week, states they completed an abdominal US, was told it was abnormal and wants me to review records -Continue Verapamil 240mg- restart lisinopril 20mg- will get cardio records-Co ntinue monitoring BP at home Dysfunctio n of eustachian tube 92733291 H69.93 She saw ENT and said they [...] drown out the ringing Malnutriti on (calorie) 310818071 E46 BMI 15 todayWeigh t 82 pounds- stressed the importance of eating regular scheduled meals and snacks that are heavy and calorie dense rather than fast-food type of foods. Try to increase protein consumptio n.-continu e drinking Ensure Screening for malignant neoplasm of cervix 711371314 Z12.4 Due for pap smear- rec. following up for WWE Screening mammography 24 080446 Z12.31 Due for mammogram. No breast symptoms today - Gave patient mammogram order during visit today, she is aware she is supposed to call and schedule herself. Overweight 841340533 E66 .3 Patient has low BMI, discussed ways of increasing her weight at home per the last few visits, she is working on this currently [id number] SORIN CASTANO [facility] (Adult Med) [address] [place] [address] 03/04/2022 09:13:31 03/05/2022 15:53:34 Underweight 292328054 R63.6 Current weight 82 lbs, steady weight [...] today Mixed anxi ety and depressive disorder 963085995 F41.8 Recent loss of mother and brother, making her JUVENCIO much worse and also causing frequent panic attacks. She can not stop crying. She is having trouble sleeping.Wes eller already has baseline anxiety which I am [...] life would be much better on this drug.- had a long discussion about benzos and [...] - f/u in 1 month Essential hypertension 72045639 I10 BP Today: 140/76 on repeat, more calm after our discussion than when she first came into office Only taking the 240mg verapamil and lisinopril 20 mg -Continue Verapamil 240mg and lisinopril 20mg- will get cardio records-Co ntinue monitoring BP at home, bring in log next week with readings Dysfunctio n of eustachian tube 41456396 H69.93 She saw ENT and said they [...] help drown out the ringing Carotid atherosclerosis 130104573 I65.29 Pt. states she had a carotid [...] cholestero l medication Acute left otitis media 587492375 H66.92 Today, complainin g of right ear [...] start augmentin to cover for otitis media [id number] SORIN CASTANO (Adult Med) [address] [place] [address] 04/18/2022 11:57:31 04/23/2022 09:51:03 Mixed anxiety and depressive disorder 177701849 F41.8 PHQ 0, JUVENCIO 6Recent loss of [...] plan to continue to monitor Essential hypertension 73267436 I10 BP Today: 140/68 on repeat, more [...] CBC- Check albumin/cr eatinine, urine Carotid atherosclerosis 935134433 I65.29 Pt. states she had a carotid [...] with heart and cholestero l medication Underweight 344286892 R6 3.6 Current weight 84 lbs, pt [...] Vit B12 and Folate-shaun ck A1c Eczema 17651389 L30.9 PE rash noted on dorsal aspect [...] stay out of the sun Abdominal pain 63777693 R10.9 She went to ED 2 weeks ago for blood in stool and abdominal pain, they diagnosed her with hemorrhoid s but she didn't f/u on this.She has had abdominal pain every morning for a long time, denies constipati on or diarrhea.- order CT abdomen+pe lvis, w+contrast Renewal of prescription 989482773 Z76.0 Requesting refill on VIt. D supplement s- sent to pharmacy Allergic disposition 609 657481 T78.40XD Using flonase as needed, requesting refills [id number] SORIN CASTANO (Adult Med) [facility] [place] [address] 05/16/2022 10:41:51 05/20/2022 13:27:07 Gynecologic examination 88813071 Z01.419 61 year old female post-menop ause [...] urinary frequency, and hematuria. Screening mammography 24 647386 Z12.31 Due for mammogram. No breast symptoms today. Has not followed up with prior mammogram referrals in the past- Gave patient mammogram order during visit today, she is aware she is supposed to call and schedule herself. Smoker 24914639 F17.200 Advised patient to quit smoking, discussed risks of continuing and benefits from quitting, patient to reach out for help when interested in quitting Cough 85665742 R05.9 Asking for cough medication today, felt like she was getting sick earlier this week with allergies, all of her other symptoms resolved but feels a little congested in her chest still- cough medication prescribed , use as needed- if cough gets worse, especially with smoking history, let me know Postmenopausal state 764 30927 Z78.0 Menopause present and BMI low- will order DEXA scan Underweight 430403475 R6 3.6 Up 2 pounds since last visit- will continue to monitor [id number] SORIN CASTANO (Adult Med) [address] [place] [address] 06/02/2022 09:48:35 06/03/2022 10:37:15 Screening mammography 94202783 Z12.31 Due for mammogram. No breast symptoms today. Has not followed up with prior mammogram referrals in the past- referral given at last visit, encouraged to schedule Postmenopausal state 764 86588 Z78.0 Menopause present and BMI low- referral given at last visit, encouraged to schedule Smoker 88348087 F17.200 Advised patient to quit smoking, discussed risks of continuing and benefits from quitting, patient to reach out for help when interested in quitting Underweight 308224869 R6 3.6 Samples of Ensure given today, encouraged her to increase protein in her diet- will continue to monitor Essential hypertension 80574715 I10 BP Today: 140/60 on repeat, hx of severe anxiety and very elevated readings at office so happy with BP today. Taking the 240mg verapamil and lisinopril 20 mg -Continue Verapamil 240mg and lisinopril 20mg-[place] nue monitoring BP at home, bring in log next week with readings Tinea manus 99559578 B35 .2 Rash on her hand has not improved with topical steroid, feels like it has dried the rash out more and now it seems to be spreading. It is intermitte ntly pruritic. Rash is not present elsewhere on body.- well demarcated annular rash may represent tinea infection, will start ketoconazo le topical for 2 weeks, stop topical steroid [id number] SORIN CASTANO (Adult Med) [address] [place] [address] 09/12/2022 08:56:38 09/15/2022 14:15:16 Essential hypertension 79689918 I10 BP Today: 146/78, did not take BP medication s before visit todayTakin g the 240mg verapamil and lisinopril 2.5 mg (decreased from 20 mg) -Continue Verapamil 240mg and lisinopril 2.5 mg-Continu e monitoring BP at home Peripheral vascular disease 108754243 I73.9 Arterial study showed severe arterial disease [...] with me after surgery Screening mammography 24 603985 Z12.31 Due for mammogram. No breast symptoms today. Has not followed up with prior mammogram referrals in the past- referral given at last visit, encouraged to schedule Carotid atherosclerosis 993583193 I65.29 Pt. states she had a carotid [...] and cholestero l medication Renewal of prescription 973603585 Z76.0 Requesting refill on VIt. D supplement s- sent to pharmacy Mixed anxi ety and depressive disorder 268881148 F41.8 Hx of severe anxiety, was taking buspirone but has been without the last few months and managing okay. Wishes to continued without. Depression screening 171 656110 Z13.31 PHQ 2/9 was negative in office today (0 out of 27) [id number] SORIN CASTANO (Adult Med) [address] [place] [address] 10/14/2022 09:45:27 10/15/2022 14:28:48 Peripheral vascular disease 253822077 I73.9 Arterial study showed severe arterial disease bilaterall yCT angiogram showed complete occlusion of the left common iliac artery and plaque build up in the right common iliac arteryFoll owing with cardiology and vascular, Hx of severe PAD in bilateral LE s/p catheteriz ation 09/29/2022 at [facility]. They gained access in the groin [...] 4 cigs per day currently Essential hypertension 21003393 I10 BP Today: 158/82, did not take BP medication s before visit todayTakin g the 240mg verapamil and lisinopril 2.5 mg (decreased from 20 mg) -Continue Verapamil 240mg and lisinopril 2.5 mg-Continu e monitoring BP at home Screening mammography 24 717691 Z12.31 Due for mammogram. No breast symptoms today. Has not followed up with prior mammogram referrals in the past- referral given at last visit, encouraged to schedule Carotid atherosclerosis 651384546 I65.29 Pt. states she had a carotid [...] with heart and cholestero l medication Underweight 843624336 R6 3.6 Samples of Ensure given today, encouraged her to increase protein in her diet- will continue to monitor [id number] [facility] [address] [place] [address] 05/31/2024 14:32:53 06/01/2024 16:38:27 History of pneumonia 014938459 Z87.01 Reviewed records from ER in chart History of myocardial infarction 675247781 I25.2 Request records from Cardiology Pt refuses to take Jardiance, rosuvastat in, and Lisinopril Hyperlipidemia 34062902 E78.5 c/w vascepaPt refuses to take rosuvastat in Mild chron ic obstructive pulmonary disease 986063614 J44.9 Referral to pulmonolog y Essential hypertension 62777387 I10 BP today: 132/74 BP Goal: Less than 140/90BP Controlled : yesHealthy Weight: 5'2= 104-135Dis cussed: Low sodium balanced diet, moderate exercise at least 3-4 times per week for an average of 40 minutes, limiting alcohol to 1 drink per day (F) or 2 drinks per day (M), and smoking cessation if currently smoking. Uncontroll ed Hypertensi on potential risks, heart attack, , stroke, kidney failure etc. Hypertensi on is the silent Killer Take your Hypertensi on medication daily keep appointmen ts stop concentrat ed sugars--fo llow 1500 meal plan exercise 50-60 minutes daily on most days see eye doctor once a year see dentist every 6 months Next Visit: 3month(s)C /w Cardiology Labs ordered today Onychomycosis 549029191 B35.1 Start terbinafin e cream once daily Impacted c erumen in right ear 5265516768 903475 H61.21 Start Debrox 5 drops twice a day Goiter 9755999 E04.9 labs ordered today Tinnitus 81235807 H93.11 Referral to audiology Depression screening 171 702246 Z13.31 PHQ9- Negative (0 out of 27) Mental hea lt screening 983087824 Z13.39 GAD7- Negative (0 out of 21) Underweight 958417290 R6 3.6 BMI 14.3 [id number] Natividad Stover MD [facility] (Adult Med) [address] [place] [address] 09/07/2024 11:41:48 09/08/2024 13:12:10 Essential hypertension 25896520 I10 BP today: 144/60 BP Goal: Less than 140/90BP Controlled : yesHealthy Weight: 5'2= 104-135Dis cussed: Low sodium balanced diet, moderate exercise at least 3-4 times per week for an average of 40 minutes, limiting alcohol to 1 drink per day (F) or 2 drinks per day (M), and smoking cessation if currently smoking. Uncontroll ed Hypertensi on potential risks, heart attack, , stroke, kidney failure etc. Hypertensi on is the silent Killer Take your Hypertensi on medication daily keep appointmen ts stop concentrat ed sugars--fo llow 1500 meal plan exercise 50-60 minutes daily on most days see eye doctor once a year see dentist every 6 months Next Visit: 6week(s)C/ w Cardiology Start lisinopril 20mg daily Hyperlipidemia 42910341 E78.5 Labs 05/31/24: Triglyceri favio 177, HDL 39c/w vascepaSta rt rosuvastat in 40mg daily at bedtime Mild chron ic obstructive pulmonary disease 816099933 J44.9 Referral to pulmonolog y given at last appt- printed and given today as well 09/07/24 Tinnitus 12794070 H93.11 Referral to audiology Depression screening 171 191375 Z13.31 PHQ9- Negative (0 out of 27) Mental hea lt screening 210883044 Z13.39 GAD7- Negative (0 out of 21) Underweight 841318934 R6 3.6 BMI 15.1 Coronary atherosclerosis 443399158 I25.10 Carotid atherosclerosis 260924615 I65.29 C/w Xarelto and ASA given by [facility]New referral to [facility] as cardiologi st is retiring Osteopenia 602965260 M85 .872 Health Concerns Section Related Observation LastModified by Organization Detai ls LastModified Time None Recorded Concern Status LastModified by Organization Details LastModified Time None Recorded Advance Directives Directive N: Payers Insurance Date Sequence Insurance Name Policy Number Policy Betts Covered Member ID Betts Member ID Guarantor Name 05/31/2024 1 [place] [facility] Armani Lynn [id number] Armani Lynn 09/06/2024 1 [employer] [facility] [place] [facility] ON OR AFTER 01/24/2020 (MEDICAID REPLACEMENT - HMO) Armani Lynn [id number] Armani Lynn 05/31/2024 1 [facility] (MEDICAID HMO) Armani Lynn [id number] Armani Lynn 05/31/2024 1 [place] [facility] Armani Lynn [id number] Armani Lynn 05/31/2024 1 [employer] [place]MED[id number] Armani Lynn [id number] Armani Lynn 05/31/2024 1 [facility] PRIOR TO 08/23/2020 (MEDICAID REPLACEMENT - HMO) Armani Lynn [id number] Armani Lynn 05/31/2024 1 [place] [facility] Armani Lynn [id number] Armani Lynn 05/31/2024 1 [facility] (MEDICAID HMO) Armani Lynn [id number] Armani Lynn 05/31/2024 1 [place] [facility] Armani Lynn [id number] Armani Lynn 05/31/2024 1 [facility] PRIOR TO 08/23/2020 (MEDICAID REPLACEMENT - HMO) Aramni Lynn [id number] Armani Lynn 05/31/2024 2 [facility] Armani Lynn [id number] Armani Lynn 09/20/2018 1 *SELF PAY* Karol Lynn 12/15/2018 SLIDING FEE SCHEDULE - DISCOUNT Armani Lynn Notes Date Note Type Note Provider Name and Address Organization Details Recorded Time 06/02/2022 text/html ROS as noted in the HPI 61 year old female presents today for f/u and to discuss [...] or dysuria. SORIN CASTANO Attn: [address] [place], [address], [facility] 06/02/2022 16:35:12 09/12/2022 text/html ROS as noted in the HPI 61 year old female presents today to discuss upcoming surgery. History [...] or dysuria. SORIN CASTANO Attn: [address] [place], [address], [facility] 09/12/2022 16:22:30 10/14/2022 text/html ROS as noted in the HPI 61 year old female presents today for f/u after vascular surgery. Hx of severe PAD in bilateral LE s/p catheterization 09/29/2022 at [facility]. They gained access in the groin [...] or dysuria. SORIN CASTANO Attn: [address] [place], [address], [place] [facility] 10/14/2022 14:44:11 05/31/2024 text/html ROS as noted in the HPI 63 y/o F here to establish care. Pt was seeing SORIN Tobar and has not been since here in a couple years. Pt has been f/u with cardiology for medications. Pt was at [facility] for PNA, was discharged and told to f/u with PCP. Pt states she went there when she was not feeling well and had a bad experience while she was there with one of the doctors. Pt states that she was discharged and told that she was not supposed to be taking 2 of the medications that she was on d/t them being contraindicated. She has since stopped taking jardiance d/t it making her lose weight. Pt states that she has lost 20 pound being on that medication. Pt is not sure which medication but is sure one of them caused her finger nails to get all ugly and start falling off. Pt refuses to take jardiance, lisinopril, and rosuvastatin. Pt states daughter is a nurse and has her taking the right medications REGAN REDD PA-C Attn: Accounting,[address] [facility], [place], [address], [facility] 05/31/2024 17:41:59 09/07/2024 text/html Hypertension F/UReported by PatientHPIFor associated symptoms, patient reportsdizziness,ligh theadedness, andcalf pain with exertionbut reportsno chest pain,no shortness of breath,no palpitations, andno edema. For medications, (does not take any meds for bp but wants to start).ROS as noted in the HPI Armani Lynn is a 63yo with a history of COPD and hypertension presents to the clinic with c/o light headedness and dizziness for the last 5 days. Pt states that she has also been feeling cramps in her both legs which she believes is due to her atherosclerosis. She is seeing a spot welder body assembly, but needs another referral as he is retiring. Pt is interested in starting on Lisinopril again to manage her BP and atorvastatin for her hyperlipidemia. Pt is also experiencing tinnitus and wants to see an cleaning staff supervisor. Pt states that her insurance does not cover and wants another referral. REGAN REDD PA-C Attn: Accounting,[address] [facility], [place], [address], [facility] 09/07/2024 12:41:16 OBGyn Episode No OBEpisode recorded.
== END 2024-09-16 10:48 | disposition home or self-care (01) ==
PROVIDERS: PCP Internal Medicine Infectious Disease; Visit Provider Physician Assistant Medical
DX: H93.11 Tinnitus, right ear (principal); H61.21 Impacted cerumen, right ear
CPT/HCPCS: 99199

== ENCOUNTER 2024-09-28 10:33 | Outpatient (CLI) | payer OTHER, SELFPAY ==
--- OUTSIDE RECORDS SUMMARY | 2024-09-28 11:08 | XMS_ITS | Clinical Summary ---
Author Organization [facility] Address [address] [place] [address] Care Team Providers Care Audit Spec Name Role Phone [facility] ([facility]) Primary Care Provi sai Source Comments [facility],non-[facility] Affiliates and Associated Physician Practices is amultiple site organization consisting of ambulatory clinics and hospital sitesin [place], [place], [place] and [place]. This disclosure is being madepursuant to the Care Everywhere program and may not contain all information available regarding this patient. Last updated 17.[facility] Allergies No known active allergies Medications * [...] Date Smoking Tobacco: Every Day Cigarettes 1 48.8 Started: 12/24/1975 Smokeless Tobacco: Never Alcohol Use Standard Drinks/Week Comments No 0 (1 standard drink = 0.6 oz pur e alcohol) Comments Unknown Sex and Gender Information Value Date Recorded Sex Assigned at Not on file Legal Sex Female 5:23 PM SECRETARY OF STATE Gender Identity Not on file Sexual Orientation Not on file Last Filed Vital Signs Vital Sign Reading Time Taken Comments Blood Pressure 128/69 01/11/2019 2:47 PM SECRETARY OF STATE Pulse 83 01/11/2019 2:47 PM SECRETARY OF STATE Temperature 36.8 C (98.3 F) 01/11/2019 2:47 PM SECRETARY OF STATE Respiratory Rate 20 01/11/2019 2:47 PM SECRETARY OF STATE Oxygen Saturation 98% 01/11/2019 2:47 PM SECRETARY OF STATE Inhaled Oxygen Concentration - - Weight 40.8 kg (90 lb) 01/11/2019 2:47 PM SECRETARY OF STATE Height 157.5 cm (5' 2) 01/11/2019 2:47 PM SECRETARY OF STATE Body Mass Index 16.46 01/11/2019 2:47 PM SECRETARY OF STATE Plan of Treatment Health Maintenance Due Date [...] age to complete this topic Care Teams Audit Spec Relationship Specialty Start Date End Date [facility] ([facility]) [address] [place] [address] PCP - General 12/24/17
--- OUTSIDE RECORDS SUMMARY | 2024-09-28 11:08 | XMS_ITS | Clinical Summary ---
Author Organization [facility] Address [facility] [place] [address] Care Team Providers Care Machine Plug Shaper Name Role Phone Unavailable Primary Care Provider [...]
== END 2024-09-28 10:34 | disposition home or self-care (01) ==
LOC: ANHAUDIO 10:33
PROVIDERS: PCP Internal Medicine Infectious Disease; Visit Provider Physician Assistant Medical
DX: H93.11 Tinnitus, right ear (principal); H90.42 Sensorineural hearing loss, unilateral, left ear, with unrestricted hearing on the contralateral side; H90.71 Mixed conductive and sensorineural hearing loss, unilateral, right ear, with unrestricted hearing on the contralateral side
CPT/HCPCS: 92557; 92567

== ENCOUNTER 2024-10-19 09:51 | Emergency (ER) | payer OTHER, SELFPAY ==
--- OUTSIDE RECORDS SUMMARY | 2004-05-31 07:30 | XMS_ITS | Continuity of Care Document ---
Author Organization [facility] Address [address] [place] [address] Phone Care Team Providers Care Entry Engineer Name Role Phone Roberts OD, Lencho Unavailable Unavailable Advance Directives Directive Yes / No Effective Date File Name No Information Encounters Encounter Description Practice Location Reason(s) For Visit Diagnoses Date Provider Providers Copied on Encounter [facility], [address], [place], [place], [id number], [place] tel:[phone] [facility] No Information Apr-0 8-200 5 Roberts OD Lencho. [address] [place] , [address], [place], [address], [place]. tel:[phone] Family History Family Member Type Diagnosis Age At Onset No Information Payers Payer name Insurance type Covered alliance party ID Authoriza tion(s) Medicaid [facility] [id number] Social History Type Description Quantity Date Captured Comments Sex Female Smoking Status No Information Chief Complaint And Reason For Visit No Information Reason For Referral Reason For Referral No Information History Of Present Illness Encounter Date Complaint History Of Prese nt Illness No Information Functional Status Date Functional Assessmen t No Information Instructions Date Instruction Additional Infor mation No Information Assessments Type Assessment Date No Information Patient Care Teams Name Effective Dates (start - stop) Status Members No Information
--- OUTSIDE RECORDS SUMMARY | 2004-05-31 07:30 | XMS_ITS | Continuity of Care Document ---
Author Organization [facility] Address [address] [place] [address] Phone Care Team Providers Care It Senior Software Engineer Java Name Role Phone Roberts OD, Lencho Unavailable Unavailable Advance Directives Directive Yes / No Effective Date File Name No Information Encounters Encounter Description Practice Location Reason(s) For Visit Diagnoses Date Provider Providers Copied on Encounter [facility], [address], [place], [place], [id number], [place] tel:[phone] SEC [facility] No Information Apr-0 8-200 5 Roberts OD Lencho. [address] , [address], [place], [address], [place]. tel:[phone] Family History Family Member Type Diagnosis Age At Onset No Information Payers Payer name Insurance type Covered democrat ID Authoriza tion(s) Medicaid [facility] [id number] Social History Type Description Quantity Date Captured [...]
--- NOTE | ~2024-10-19 | XR_ITS ---
EXAMINATION: XR chest 2V 10/19/2024 10:57 INDICATION: Chest pain PROCEDURE: 2 view chest COMPARISON: Comparison to multiple prior studies sequentially, with oldest reviewed study dated 01/02/2020. FINDINGS: The lungs are clear. The lungs are hyperinflated which is consistent with, but not diagnostic of chronic obstructive pulmonary disease. The cardiomediastinal silhouette is within normal limits. There are no pleural effusions. There is no pneumothorax suspected. IMPRESSION: 1: NO ACUTE CARDIOPULMONARY DISEASE. Reviewed, dictated and finalized at location O.
--- NOTE | 2024-10-19 09:52 | ECG_ITS ---
Test Date: 2024-10-19 10:02:50 Measurements Intervals [place] Rate: 87 P: 73 MN: 151 QRS: 85 QRSD: 78 T: 79 QT: 357 QTc: 430 Interpretive Statements SINUS RHYTHM POSSIBLE RIGHT ATRIAL ENLARGEMENT LEFT ATRIAL ENLARGEMENT CANNOT R/O SEPTAL INFARCT, AGE INDETERMINATE BASELINE ARTIFACT- I, II, III, AVR, AVL, AVF, V1-V6 ABNORMAL ECG Compared to ECG 05/24/2024 00:11:12 NO SIGNIFICANT CHANGE Electronically Signed On 10-19-2024 10:11:46 CDT by Varun Sepulveda D.O.
[2024-10-19 10:04] VITALS: BP 196/92; PULSE 88; RESP 20; O2SAT 100
--- NOTE | 2024-10-19 10:12 | ED_ITS ---
HPI - Chest Pain General Chief Complaint: Chest Pain Stated Complaint: chest pain Time Seen by Provider: 10/19/24 09:59 History of Present Illness HPI narrative: This is a 63-year-old female with history of CAD status post stents, CAD status post stents who presents to the ED for chest pain. Patient states that yesterday, she picked up her grandchild and had onset of right-sided chest pain. The pain has not gone away since then. She has shortness of breath associated with deep inspirations due to the pain. She is a current everyday smoker. Denies fevers, chills, nausea, vomiting. Related Data Home Medications ?Medication ?Instructions ?Recorded ?Confirmed ?Last Taken ?Type rivaroxaban 2.5 mg tablet (Xarelto) 2.5 mg PO DAILY 07/12/24 05/23/24 History icosapent ethyl 1 gram capsule g PO 07/12/24 Unknown History iron ps [id number] acid PO 07/12/24 Unknown Hi story niacinamide .ROUTE 07/12/24 Unknown His tory Allergies Allergy/AdvReac Type Severity Reaction Status Date / Time azithromycin Allergy Intermediate Rash Verified 07/12/24 17:32 iodine Allergy Unknown Rash Verified 07/12/24 17:32 Review of Systems 2 Review of Systems: Gen.: Denies fevers or chills Eyes: Denies eye pain or visual change ENT: Denies congestion Respiratory: As per HPI CV: As per HPI GI: Denies abdominal pain nausea, emesis or diarrhea denies burning, urgency, frequency or hematuria Musculoskeletal: Denies back pain or muscle pain Neuro: Denies numbness, tingling, weakness or focal weakness Skin: Denies rash Except as documented, all other systems reviewed and negative [facility] Past Medical History Medical History History of heart attack Hypertension Wears glasses Claustrophobia Right arm fracture Kidney stone Emphysema of lung Hyperlipidemia Heart murmur COPD (chronic obstructive pulmonary disease) Surgical History Surgical History History of heart artery stent History of orthopedic surgery right third finger on right hand x3 Hx of section x3 H/O removal of cyst Family History Family History Mother Hx of CABG, Onset Age: 77 Father Arthritis Other Hypertension Social History Social History Smoking packs per day: 0.25 Smoking cigarettes per day: 5.0 Years smoked: 40 Smoking pack-years: 10.00 Smoking status: Current every day smoker Tobacco type: cigarettes Second hand tobacco smoke exposure: Yes Alcohol intake: never Substance use: never Gender identity (if verbalized by the patient): Female Exam 2 Narrative: APPEARANCE: Uncomfortable appearing., nontoxic, resting in bed EYES: EOMI HEENT: Normocephalic, atraumatic, OMM RESPIRATORY: No respiratory distress Clear to auscultation bilaterally with no rhonchi wheezing or rales. CARDIOVASCULAR: Regular rate and rhythm without murmurs rubs or gallops. Tenderness palpation to the right anterior lower rib margin. ABDOMINAL: Soft, nontender, nondistended, no rebound or guarding MUSCULOSKELETAl: Moves all extremities. No clubbing, cyanosis or edema. NEURO: Awake and alert. Following commands, speech normal, no focal deficits SKIN:: Warm, dry. No rashes lesions or abrasions PSYCHIATRIC: Normal affect/mood, Course Vital Signs Vital signs: Vital Signs Pulse Rate 88 10/19/24 10:04 Respiratory Rate 20 10/19/24 10:04 Blood Pressure 196/92 H 10/19/24 10:04 Pulse Oximetry 100 10/19/24 10:04 Oxygen Delivery Room Air 10/19/24 10:04 Pulse Rate 84 10/19/24 13:59 Respiratory Rate 16 10/19/24 13:59 Blood Pressure 156/66 H 10/19/24 13:59 Pulse Oximetry 99 10/19/24 13:59 Oxygen Delivery Room Air 10/19/24 10:04 MDM - Chest Pain MDM Narrative Medical decision making narrative: 63-year-old female who presents to the ED for chest pain after picking up her grandson yesterday. On initial evaluation, patient was in mild distress, afebrile, hemodynamically stable. Low suspicion for ACS given history. Patient was given Toradol and Lidoderm. Labs without significant abnormality. Troponin negative. Repeat troponin negative. Heart score 3. Chest x-ray showed no acute process. Patient was feeling better on re-evaluation. Suspect that she does have a muscle strain causing her symptoms versus an atypical chest pain. She was advised to follow-up PCP next week for evaluation. Patient was agreeable to this plan. Given strict return precautions. Differential Diagnosis Differential diagnosis: Likely fracture of rib, unstable angina pectoris, atypical chest pain, costochondritis and chest pain Medical Records Data Attestation: I reviewed the patient's medical records. Lab Data Attestation: I reviewed the patient's lab results. 10/19/24 10:17 10/19/24 10:17 Labs: Lab Results 10/19/24 10/19/24 Range/Units 10:17 13:19 WBC 10.1 H (4.5-10.0) K/mm3 RBC 4.99 (4.2-5.4) M/mm3 Hgb 14.7 (12.0-15.0) g/dL Hct 44.5 (37.0-47.0) % MCV 89.2 (80-100) fl MCH 29.5 (26-34) pg MCHC 33.0 (32-36) g/dl RDW 13.6 (11.5-14.5) % Plt Count 153 (150-375) k/mm3 MPV 8.9 (7.4-10.4) fl Immature Gran % (Auto) 0.3 (0-0.5) % Neut % (Auto) 75.2 H (45.5-73.1) % Lymph % (Auto) 18.1 L (18.3-44.2) % [place] % (Auto) 5.4 (2.6-8.5) % Eos % (Auto) 0.5 (0-4.4) % Baso % (Auto) 0.5 (0.2-1.2) % Lymph # (Auto) 1.82 (0.9-3.2) K/mm3 [place] # (Auto) 0.5 (0.1-0.6) K/mm3 Eos # (Auto) 0.1 (0-0.3) K/mm3 Baso # (Auto) 0.1 (0.0-0.1) K/mm3 Abs Immat Gran (auto) 0.03 (0.00-0.031) K/mm3 Absolute Neuts (auto) 7.6 H (1.3-6.7) K/mm3 Absolute Nucleated RBC 0.000 (0.0-0.012) K/mm3 Nucleated RBC % 0.0 (0.0-0.2) % PT 13.2 (11.1-14.7) Seconds INR 1.0 APTT 27.5 (22.3-36.8) Seconds Sodium 139 (137-145) mmol/L Potassium 3.5 (3.4-5.0) mmol/L Chloride 103 (98-107) mmol/L Carbon Dioxide 25 (22-30) mmol/L Anion Gap 11 (4-12) mmol/L BUN 9 (7-17) mg/dL Creatinine 0.85 (0.7-1.0) mg/dL Estim Creat Clear Calc 36 ml/min Estimated GFR > 60 (59 - ) Glucose 158 H (65-110) mg/dL Calcium 9.7 (8.4-10.2) mg/dL Total Bilirubin 0.6 (0.2-1.3) mg/dL AST 28 (14-36) U/L ALT 17 (6-35) U/L Alkaline Phosphatase 115 (38-126) U/L Troponin I 0.018 0.016 (0.000-0.034) ng/mL Total Protein 7.9 (6.3-8.2) g/dL Albumin 4.5 (3.5-5.1) g/dL Lipase 107 (23-300) U/L Imaging Data Radiologist's impression: Impressions Chest X-Ray 10/19/24 10:58 IMPRESSION: 1: NO ACUTE CARDIOPULMONARY DISEASE. ECG Data EKG #1: Attestation: I personally reviewed and interpreted this ECG as follows: ECG completion date: 10/19/24 ECG completion time: 10:02 Interpretation: Who was in his room prediabetes it would go left atrial enlargement, normal axis, no acute ST or T-wave changes Discharge Plan Discharge Clinical Impression: Atypical chest pain, Tobacco dependence Patient Disposition: Home Condition: Stable Instructions: Antibiotic Form, Chest Pain (ED) Additional Instructions: Lab work and imaging showed showed no evidence of heart damage at this time.. You were given prescriptions for Lidoderm, take as prescribed. Follow up with your PCP in the next week for reevaluation. Return to the ED for new or worsening symptoms. Patient Language: Welsh Prescriptions: New lidocaine [Lidoderm] 5 % adhesive patch,medicated 1 patch topical DAILY Qty: 15 0RF Rx Instructions: leave on most painful area for up to 12 hrs No Action rivaroxaban [Xarelto] 2.5 mg tablet 2.5 mg PO DAILY icosapent ethyl 1 gram capsule PO niacinamide [PureVita Vitamin B3] .ROUTE iron ps [id number] acid PO Follow-up/Referrals: Brett,Girish Hauser. [Primary Care Provider] Eleno Barbosa MD [Physician, Cardiology]
--- OUTSIDE RECORDS SUMMARY | 2024-10-19 10:13 | XMS_ITS | Clinical Summary ---
Author Organization [facility] Address [address] [place] [address] Care Team Providers Care Bush Regenerator Name Role Phone [facility] ([facility]) Primary Care Provi sai Source Comments [facility],non-[facility] Affiliates and Associated Physician Practices is amultiple site organization consisting of ambulatory clinics and hospital sitesin [place], [place], [place] and [place]. This disclosure is being madepursuant to the Care Everywhere program and may not contain all information available regarding this patient. 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 Gender Identity Not on file Sexual Orientation Not on file Last Filed Vital Signs Vital Sign Reading Time Taken Comments Blood Pressure 128/69 01/11/2019 2:47 PM STRIKE OUT MACHINE OPERATOR Pulse 83 01/11/2019 2:47 PM STRIKE OUT MACHINE OPERATOR Temperature 36.8 C (98.3 F) 01/11/2019 2:47 PM STRIKE OUT MACHINE OPERATOR Respiratory Rate 20 01/11/2019 2:47 PM STRIKE OUT MACHINE OPERATOR Oxygen Saturation 98% 01/11/2019 2:47 PM STRIKE OUT MACHINE OPERATOR Inhaled Oxygen Concentration - - Weight 40.8 kg (90 lb) 01/11/2019 2:47 PM STRIKE OUT MACHINE OPERATOR Height 157.5 cm (5' 2) 01/11/2019 2:47 PM STRIKE OUT MACHINE OPERATOR Body Mass Index 16.46 01/11/2019 2:47 PM STRIKE OUT MACHINE OPERATOR Plan of Treatment Health Maintenance Due Date [...] age to complete this topic Care Teams Bush Regenerator Relationship Specialty Start Date End Date [facility] ([facility]) [address] [place] [address] PCP - General 12/24/17
[2024-10-19 10:24] LABS: Hematocrit 44.5 % (37.0-47.0); Hemoglobin 14.7 g/dL (12.0-15.0); Immature Granulocyte Percent A 0.3 % (0-0.5); Lymphocytes Absolute Auto 1.82 K/mm3 (0.9-3.2); Mean Corpuscular HGB Conc 33.0 g/dl (32-36); Mean Corpuscular Hemoglobin 29.5 pg (26-34); Mean Corpuscular Volume 89.2 fl (80-100); Nucleated Red Blood Cells Absolute Auto 0.000 K/mm3 (0.0-0.012); Nucleated Red Blood Cells Perc 0.0 % (0.0-0.2); Platelet Count Result 153 k/mm3 (150-375); Red Blood Count 4.99 M/mm3 (4.2-5.4); White Blood Count 10.1 K/mm3 (4.5-10.0)
[2024-10-19 10:34] LABS: INR 1.0; Prothrombin Time 13.2 Seconds (11.1-14.7)
[2024-10-19 10:35] LABS: Partial Thromboplastin Time 27.5 Seconds (22.3-36.8)
--- OUTSIDE RECORDS SUMMARY | 2024-10-19 10:48 | XMS_ITS | Clinical Summary ---
Author Organization [facility] Address [address] [place] [address] Care Team Providers Care Service Officer Name Role Phone [facility] ([facility]) Primary Care Provi sai Source Comments [facility],non-[facility] Affiliates and Associated Physician Practices is amultiple site organization consisting of ambulatory clinics and hospital sitesin [place], [place], [place] and [place]. This disclosure is being madepursuant to the Care Everywhere program and may not contain all information available regarding this patient. 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 Gender Identity Not on file Sexual Orientation Not on file Last Filed Vital Signs Vital Sign Reading Time Taken Comments Blood Pressure 128/69 01/11/2019 2:47 PM METAL SMELTER Pulse 83 01/11/2019 2:47 PM METAL SMELTER Temperature 36.8 C (98.3 F) 01/11/2019 2:47 PM METAL SMELTER Respiratory Rate 20 01/11/2019 2:47 PM METAL SMELTER Oxygen Saturation 98% 01/11/2019 2:47 PM METAL SMELTER Inhaled Oxygen Concentration - - Weight 40.8 kg (90 lb) 01/11/2019 2:47 PM METAL SMELTER Height 157.5 cm (5' 2) 01/11/2019 2:47 PM METAL SMELTER Body Mass Index 16.46 01/11/2019 2:47 PM METAL SMELTER Plan of Treatment Health Maintenance Due Date [...] age to complete this topic Care Teams Service Officer Relationship Specialty Start Date End Date [facility] ([facility]) [address] [place] [address] PCP - General 12/24/17
[2024-10-19 10:49] LABS: Alanine Aminotransferase 17 U/L (6-35); Albumin Level 4.5 g/dL (3.5-5.1); Alkaline Phosphatase 115 U/L (38-126); Anion Gap 11 mmol/L (4-12); Aspartate Amino Transferase 28 U/L (14-36); Bilirubin,Total 0.6 mg/dL (0.2-1.3); Blood Urea Nitrogen 9 mg/dL (7-17); Calcium 9.7 mg/dL (8.4-10.2); Carbon Dioxide 25 mmol/L (22-30); Chloride 103 mmol/L (98-107); Estimated CRCL calculation 36 ml/min; Estimated Glomerular Filt Rate > 60; Glucose 158 mg/dL (65-110); Lipase 107 U/L (23-300); Potassium 3.5 mmol/L (3.4-5.0); Sodium 139 mmol/L (137-145); Total Protein 7.9 g/dL (6.3-8.2)
[2024-10-19] MEDS: LIDOCAINE 5% PATCH 1 PATCH TRANSDERM (10:49)
[2024-10-19 10:59] LABS: Troponin I 0.018 ng/mL (0.000-0.034)
--- NOTE | 2024-10-19 13:16 | ECG_ITS ---
Test Date: 2024-10-19 13:18:38 Measurements Intervals [place] Rate: 79 P: 80 IA: 156 QRS: 86 QRSD: 76 T: 80 QT: 372 QTc: 427 Interpretive Statements SINUS RHYTHM POSSIBLE LEFT ATRIAL ENLARGEMENT CANNOT R/O SEPTAL INFARCT, AGE INDETERMINATE BASELINE ARTIFACT- I, II, III, AVR, AVL, AVF, V1-V6 ABNORMAL ECG Compared to ECG 10/19/2024 10:02:50 No significant changes Electronically Signed On 10-19-2024 14:34:04 CDT by Varun Sepulveda D.O.
[2024-10-19 13:22] VITALS: BP 155/70; PULSE 82; RESP 18; O2SAT 99
[2024-10-19 13:47] LABS: Troponin I 0.016 ng/mL (0.000-0.034)
[2024-10-19 13:59] VITALS: BP 156/66; PULSE 84; RESP 16; O2SAT 99
== END 2024-10-19 14:01 | disposition home or self-care (01) ==
PROVIDERS: Emergency Provider Student in an Organized Health Care Education/Training Program; PCP Internal Medicine Infectious Disease
DX: R07.89 Other chest pain (principal); F17.210 Nicotine dependence, cigarettes, uncomplicated; I25.2 Old myocardial infarction; I25.10 Atherosclerotic heart disease of native coronary artery without angina pectoris; I10 Essential (primary) hypertension; E78.5 Hyperlipidemia, unspecified; J43.9 Emphysema, unspecified; Z95.5 Presence of coronary angioplasty implant and graft; Z87.442 Personal history of urinary calculi; Z79.899 Other long term (current) drug therapy
CPT/HCPCS: 36415; 71046; 80053; 83690; 84484; 85025; 85610; 85730; 93005; 99284; A9270

== ENCOUNTER 2025-01-07 13:28 | Emergency (ER) | payer OTHER, SELFPAY ==
--- NOTE | ~2025-01-07 | XR_ITS ---
EXAMINATION: XR ankle LT min 3V, 01/07/2025 13:45 [employer]OVEMENT INSPECTOR HISTORY: pain and edema COMPARISON: No comparisons available. Findings: No acute fracture or malalignment.Probable bone island in the distal tibia No significant degenerative changes. Soft tissues unremarkable. Impression: No acute fracture or malalignment. Reviewed, dictated and finalized at location P. IC IMPROVEMENT INSPECTOR Impression: No acute fracture or malalignment.
--- NOTE | ~2025-01-07 | XR_ITS ---
EXAMINATION: XR foot LT min 3V, 01/07/2025 13:45 [facility] [facility] HISTORY: pain with edema COMPARISON: No comparisons available. Findings: No acute fracture or malalignment. No significant degenerative changes. Soft tissues unremarkable. Impression: No acute fracture or malalignment. Reviewed, dictated and finalized at location P. MONKEY Impression: No acute fracture or malalignment.
--- NOTE | 2025-01-07 13:34 | ED.LOWEXIN ---
HPI - Extremity Injury (Lower) General Chief Complaint: Extremity Injury, Lower Stated Complaint: left ankle injury Related Data Home Medications ?Medication ?Instructions ?Recorded ?Confirmed ?Last Taken ?Type rivaroxaban 2.5 mg tablet (Xarelto) 2.5 mg PO DAILY 02/17/23 07/12/24 05/23/24 History icosapent ethyl 1 gram capsule g PO 07/12/24 Unknown History iron ps [id number] acid PO 07/12/24 Unknown History niacinamide .ROUTE 07/12/24 Unknown History aspirin 81 mg tablet,delayed mg 01/07/25 Unknown History release lisinopril 20 mg tablet mg 01/07/25 Unknown History rosuvastatin 40 mg tablet mg 01/07/25 Unknown History Allergies Allergy/AdvReac Type Severity Reaction Status Date / Time azithromycin Allergy Intermediate Rash Verified 01/07/25 13:30 iodine Allergy Unknown Rash Verified 01/07/25 13:30 Review of Systems Constitutional: Constitutional: Reports as per HPI, Denies chills, Denies fatigue, Denies fever(s) and Denies weakness Eyes: Eyes: Reports no additional eye complaints ENT: Reports system reviewed and no additional complaints, except as documented Cardiovascular: Cardiovascular: Reports no additional cardiovascular complaints Respiratory: Respiratory: Reports no additional respiratory complaints Gastrointestinal: Gastrointestinal: Reports no additional gastrointestinal complaints Genitourinary: Genitourinary: Reports no additional female genitourinary complaints Musculoskeletal: Musculoskeletal: Reports as per HPI, Reports arthralgias, Reports joint swelling and Denies muscle cramps Integumentary/Breasts: Skin/Breast: Reports as per HPI, Denies pruritus and Denies rash Comments: redness and streaking up left ankle and foot Neurologic: Reports as per HPI, Denies vertigo, Denies dizziness, Denies headache(s) and Reports weakness Psychiatric: Psychiatric: Reports no additional psychiatric complaints Endocrine: Endocrine: Reports no additional endocrine complaints Hematologic/Lymphatic: Hematologic/Lymphatic: Reports no additional hematologic/lymphatic complaints Allergic/Immunologic: Allergic/Immunologic: Reports no additional allergic/immunologic complaints PMFSH Past Medical History Medical History History of heart attack Hypertension Wears glasses Claustrophobia Right arm fracture Kidney stone Emphysema of lung Hyperlipidemia Heart murmur COPD (chronic obstructive pulmonary disease) Surgical History Surgical History History of heart artery stent History of orthopedic surgery right third finger on right hand x3 Hx of section x3 H/O removal of cyst Family History Family History Mother Hx of CABG, Onset Age: 77 Father Arthritis Other Hypertension Social History Social History Smoking packs per day: 0.25 Smoking cigarettes per day: 5.0 Years smoked: 40 Smoking pack-years: 10.00 Smoking status: Current every day smoker Tobacco type: cigarettes Second hand tobacco smoke exposure: Yes Alcohol intake: never Substance use: never Gender identity (if verbalized by the patient): Female Exam Const: General: healthy appearing and no acute distress Nutritional Appearance: well nourished Orientation/consciousness: patient oriented x3 Limitations: no limitations Resp: Effort & Inspection: normal respiratory effort Auscultation: clear to auscultation bilaterally Cardio: Rate: regular rate Rhythm: regular rhythm Skin: Rashes: no rashes Wounds: no wounds Other: Diffuse circular area of erythema and edema to left anterior ankle and streaking up left retana. no obvious wounds or breaks in skin. No active drainage, crusting, or weeping Neuro: General: patient oriented x3 and moves all extremities Speech: normal speech Gait exam (Neuro): Normal gait present Extrem: General: no clubbing, cyanosis or edema and no pedal edema Psych: Mental Status: mental status grossly normal Affect: normal affect Attitude: cooperative Course Course Level of Care: Express Care Visit Vital Signs Vital signs: Vital Signs Temperature 97.7 F 01/07/25 13:35 Pulse Rate 110 H 01/07/25 13:35 Respiratory Rate 16 01/07/25 13:35 Blood Pressure 136/75 01/07/25 13:35 Pulse Oximetry 99 01/07/25 13:35 Oxygen Delivery Room Air 01/07/25 13:35 Temperature 97.7 F 01/07/25 13:35 Pulse Rate 110 H 01/07/25 13:35 Respiratory Rate 16 01/07/25 13:35 Blood Pressure 136/75 01/07/25 13:35 Pulse Oximetry 99 01/07/25 13:35 Oxygen Delivery Room Air 11/15/25 13:35 MDM - Extremity Injury (Lower) MDM Narrative Medical decision making narrative: x-rays ordered. likely cellulitis given presentation The patient was evaluated by myself in the express care. History is obtained from patient who is an independent historian and physical exam was performed. Available medical records were reviewed at this time. Exam findings show no acute concerns or changes; patient is non-toxic appearing and is in no distress. Patient is appropriate for outpatient treatment and follow-up. I have evaluated and discussed social determinants of health with the patient that could potentially impact subsequent diagnosis and treatment plans. Differential diagnosis and treatment plan were discussed with the patient. Patient agrees with discussion and after shared medical decision making agrees with plan of care. All questions were answered to the patient's satisfaction. Differential Diagnosis Differential diagnosis: Likely ankle sprain and strain, puncture wound of foot, fracture of toe and ankle fracture Medical Records Attestation: I reviewed the patient's medical records. Imaging Data Attestation: I personally reviewed and interpreted this imaging study as follows: My impression: no acute fracture Radiologist's impression: ankle Impression: No acute fracture or malalignment. Reviewed, dictated and finalized at location P. [facility] foot: Impression: No acute fracture or malalignment. Reviewed, dictated and finalized at location P. [facility] Discharge Plan Discharge Clinical Impression: Cellulitis and abscess of left lower extremity Patient Disposition: Home Condition: Stable Instructions: Antibiotic Form, Cellulitis (ED) Additional Instructions: Clean with soap and water only; Avoid using alcohol and peroxide. Elevate the affected area if possible Alternate Tylenol/ibuprofen for as needed for pain Acetaminophen(Tylenol) 650-1000mg every 4-6hours with max of 4000mg/day. Nonsteroidal anti-inflammatory agent (NSAIDs-ibuprofen): 400mg every 4-6hours with max 2400mg/day Take antibiotic until it's gone. Please schedule a follow up visit with your personal physician for further evaluation and treatment within 3-5days OR if your symptoms persist, change or worsen significantly before you can contact your personal physician then please, without delay, go to the emergency department for further evaluation. Patient Language: Montserratian Prescriptions: New doxycycline monohydrate 100 mg capsule 100 mg PO BID Qty: 20 0RF No Action rivaroxaban [Xarelto] 2.5 mg tablet 2.5 mg PO DAILY lisinopril 20 mg tablet aspirin 81 mg tablet,delayed release (DR/EC) rosuvastatin 40 mg tablet icosapent ethyl 1 gram capsule PO niacinamide [PureVita Vitamin B3] .ROUTE iron ps [id number] acid PO lidocaine [Lidoderm] 5 % adhesive patch,medicated 1 patch topical DAILY Qty: 15 0RF Rx Instructions: leave on most painful area for up to 12 hrs Follow-up/Referrals: Brett,Delio Hauser [Primary Care Provider] Time of Disposition: 14:14
[2025-01-07 13:35] VITALS: BP 136/75; PULSE 110; RESP 16; TEMP 36.5; O2SAT 99
== END 2025-01-07 14:20 | disposition home or self-care (01) ==
PROVIDERS: Emergency Provider Nurse Practitioner Family; PCP Internal Medicine Infectious Disease
DX: L03.116 Cellulitis of left lower limb (principal); L02.416 Cutaneous abscess of left lower limb; I10 Essential (primary) hypertension; J43.9 Emphysema, unspecified; E78.5 Hyperlipidemia, unspecified; F17.210 Nicotine dependence, cigarettes, uncomplicated; Z79.82 Long term (current) use of aspirin; Z79.899 Other long term (current) drug therapy
CPT/HCPCS: 73610; 73630; 99213; G0463